=== PATIENT | male | born 1945 | race Caucasian/White ===

== ENCOUNTER 2016-07-24 16:38 | Inpatient (IN) | payer MEDICARE, OTHER ==
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
--- NOTE | 2016-07-24 20:18 | Cat Scan Report ---
FINAL REPORT EXAM: CT HEAD/BRAIN WO CON HISTORY: Altered Mental Status TECHNIQUE: CT imaging is acquired through the brain without contrast. Transaxial reformations are provided. PRIORS: 02/10/2016 FINDINGS: Ventricles and CSF spaces are mildly proportionately enlarged, consistent with parenchymal atrophy. Scattered deep and subcortical white matter hypodense foci are confluent in some areas and are compatible with microvascular angiopathy. No acute intracranial hemorrhage or mass effect. Calvarium and superficial scalp are intact. Partially visualized paranasal sinuses are clear. Mastoids are clear. IMPRESSION: No acute intracranial abnormality. Consider MRI follow-up. There are chronic sequela of atrophy and microvascular angiopathy.
[2016-07-24 20:50] LABS: Alanine Aminotransferase 32 units/L (7-56); Albumin 3.7 g/dL (3.9-5); Albumin/Globulin Ratio 1.2 %; Alkaline Phosphatase 74 units/L (35-129); Anion Gap 21 mmol/L; BUN/Creatinine Ratio 12.85; Bilirubin,Total 1.7 mg/dL (0.1-1.2); Blood Urea Nitrogen 9 mg/dL (9-20); Calcium 8.7 mg/dL (8.4-10.2); Carbon Dioxide 23 mmol/L (22-30); Chloride 100.1 mmol/L (98-107); Glucose 159 mg/dL (75-100); Hematocrit 42.6 % (35.5-45.6); Hemoglobin 14.5 gm/dl (11.8-15.2); Mean Corpuscular HGB Conc 34 % (32-34); Mean Corpuscular Hemoglobin 32 pg (28-32); Mean Corpuscular Volume 94 fl (84-94); Potassium 3.5 mmol/L (3.6-5.0); Red Blood Count 4.53 M/mm3 (3.65-5.03); Red Cell Distribution Width 16.1 % (13.2-15.2); Sodium 141 mmol/L (137-145); Total Protein 6.9 g/dL (6.3-8.2)
[2016-07-24 20:51] LABS: Creatine Kinase 340 units/L (55-170)
[2016-07-24] MEDS ORDERED: ZOFRAN ONE (20:55)
[2016-07-24 20:58] LABS: INR 1.14 (0.87-1.13)
[2016-07-24 20:59] LABS: Partial Thromboplastin Time 27.1 Sec. (24.2-36.6)
[2016-07-24 21:00] LABS: Platelet Count 98 K/mm3 (140-440); White Blood Count 26.2 K/mm3 (4.5-11.0)
[2016-07-24] MEDS ORDERED: CEPHULAC PO ONE (21:00)
[2016-07-24 22:15] LABS: Urine Drugs of Abuse Note Disclamer
[2016-07-24 22:30] LABS: Basophils % (Manual) 0 % (0.0-1.8); Blastocytes % (Manual) 0 %; Eosinophils % (Manual) 0 % (0.0-4.3)
[2016-07-24 22:32] LABS: Total Cells Counted Percent 5.5
[2016-07-24 22:33] LABS: Anisocytosis 1+; Diff Status Complete; Platelet Estimate Appears Decreased; Stomatocytes 1+
[2016-07-24 22:52] LABS: Bilirubin,Urine NEG (Negative); Blood,Urine NEG (Negative); Ketones,Urine TR mg/dL (Negative); Leukocyte Esterase,Urine NEG (Negative); Nitrite,Urine NEG (Negative); Urobilinogen,Urine < 2.0 mg/dL (<2.0); WBC,Urine < 1.0 /HPF (0.0-6.0)
--- NOTE | 2016-07-24 23:02 | Ultrasound Report ---
FINAL REPORT EXAM: US ABDOMEN LIMITED HISTORY: eleavted bilirubin, AMS COMPARISONS: None FINDINGS: Grayscale and color Doppler ultrasound evaluation of the abdomen Normal hepatic contour. Hepatic parenchymal echogenicity is diffusely increased. No parenchymal lesion identified. No definite intra or extrahepatic biliary ductal dilatation. The common duct measures approximately 7 millimeters in caliber, which is within normal limits for patient age. The gallbladder is not definitively seen. Imaged portion of the pancreatic head is sonographically unremarkable. The remainder of the pancreas is not well seen secondary to overlying bowel gas. No abdominal ascites or free fluid in Morison's pouch. The right kidney measures up to 12 cm in length and is without hydronephrosis or echogenic shadowing foci to suggest nephrolithiasis. The imaged portion of the aorta is unremarkable measuring up to 2.1 cm in greatest transaxial dimension. IMPRESSION: Gallbladder is not definitively seen. Given history, CT (with intravenous contrast if possible) is suggested. Hepatic steatosis.
[2016-07-24] MEDS ORDERED: ZOFRAN IV ONE (23:03)
--- NOTE | 2016-07-25 01:28 | Cat Scan Report ---
FINAL REPORT PROCEDURE: CT ABDOMEN PELVIS W CON TECHNIQUE: Computerized axial tomography of the abdomen and pelvis was performed after the IV injection of iodinated nonionic contrast. HISTORY: Abd pain COMPARISON: Ultrasound gallbladder of the same date FINDINGS: Visualized lower thorax: No significant abnormality. Liver: Normal size and attenuation. Spleen: The spleen size is slightly pronounced. Along the anterior aspect of the spleen there is the contrast-enhancing density measuring 4 x 3.7 centimeters. This has peripheral contrast enhancement and a hemangioma in this region is suspected.. Gallbladder and biliary system: The gallbladder is absent. Surgical clips are identified in the gallbladder fossa. No dilatation of the biliary ductal system. Pancreas: Normal. Adrenals: Normal. Kidneys: Normal. GI tract: No obstruction. No ileus or enteritis. The cecum, appendix and colon are normal. Lymph nodes and mesentery: There are some lymph nodes scattered throughout the abdomen and pelvis.. Vasculature: Moderate atherosclerosis of the aorta and branching vessels. Bladder: Normal. Reproductive organs: Normal. Peritoneum: No free fluid. Musculoskeletal structures: Mild degenerative changes of the osseous structures.. Other: None. IMPRESSION: There is no evidence of intestinal or urinary tract obstruction. No ileus or enteritis. The appendix is normal. There has been previous cholecystectomy. No dilatation of the biliary ductal system. There is a suspected hemangioma in the anterior aspect of the spleen this measures up to 4 centimeters. The spleen is slightly enlarged.
--- NOTE | 2016-07-25 03:12 | Admit Criteria Form ---
Admission Criteria Documentation: MENTAL STATUS CHANGE Clinical Indications for Inpatient Care (Place 'X' for any and all applicable criteria): Ongoing inpatient care may be needed for ANY ONE of the following(1)(2)(3)(5)(6) : [ ]I. Suspected serious etiology (eg, medical disorder, [employer] GLASS INST[employer]ER event) of mental status change [ ]II. Danger to self or others not manageable at lower level of care [ ]III. Grave disability (eg, inability to perform self care necessary at lower level of care) [ ]IV. Agitation or inappropriate behavior interfering with care for primary condition (eg, attempting to discontinue lines or drains prematurely, unable to cooperate with respiratory care) [ ]V. Delirium [A] [D][E] as described by ANY ONE of the following(26): [ ]a) Delirium due to alcohol or sedative [F] withdrawal [ ]b) Delirium of uncertain etiology that has not responded to appropriate empiric treatment [ ]c) Delirium that prevents performance of a life-sustaining function (eg, feeding or hydrating oneself) [X ]. General contraindications and/or Inappropriate clinical situations for Observational Care in patients with Mental Status Change, when ANY ONE of the following is required: [ X]a) Prediction of prolongation of LOS based on ANY ONE of the following may be considered as a contraindication for observational care 2, 3, 4, 5, 6, 7, 8, 9, 10, 11 [X ]i) Age > 65 yrs. [ ]ii) Patient arriving by ambulance [ ]iii) Patient with high acuity [ ]iv) Patient requiring vital sign monitoring [ ]v) Patient on IV medication [ ]b) Systolic blood pressures 180mmHg 3,12 [ X]c) Patient with altered mental status including delirium and other alteration of consciousness, (3) [ ]d) Patient whose discharge disposition will be to a [facility] home or rehabilitation home should not be managed in Emergency Department Observation Unit. CMS rule requires 3 days hospital stay before such placement.3,13 [ ]e) Patient with failure to thrive due to broad array of etiologies 3,16,17 [ ]f) Inability to ambulate 3,14 Extended stay beyond goal length of stay for the primary condition may be needed until ALL of the following are present(3)(5): [ ]a) Underlying medical etiology of mental status change is absent, or has been established and adequately treated [ ]b) Danger to self or others is absent or manageable at lower level of care. [ ]c) Behavior crisis management, including physical or chemical restraints, is not required or available at lower level of car [ ]d) Substance or alcohol withdrawal is absent or manageable at lower level of care. [ ]e) Behavioral symptoms (eg, agitation, somnolence, inappropriate behavior) are absent, or are manageable at lower level of care. The original [facility] content created by [facility] has been revised. The portions of the content which have been revised are identified through the use of italic text or in bold, and [facility] has neither reviewed nor approved the modified material. All other unmodified content is copyright [facility]. Please see references footnoted in the original [facility] edition 2016 Admission Criteria Met: Yes
[2016-07-25] MEDS: CEPHULAC PO SCH ×4 (03:18→18:11)
[2016-07-25] MEDS ORDERED: KEPPRA 1,000 MG/NS 0.75% 100ML 1,000 MG/100 ML BAG IV ONE ×2 (04:00→05:30)
[2016-07-25] MEDS ORDERED: HEPARIN SUB-Q SCH (06:00)
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
[2016-07-25] MEDS: LEVAQUIN 750MG/150ML 750 MG/150 ML BAG IV SCH (09:56)
[2016-07-25] MEDS: HEPARIN SUB-Q SCH ×2 (09:56→18:12)
[2016-07-25 10:00] LABS: Basophils % (Auto) 0.2 % (0.0-1.8); Hematocrit 40.4 % (35.5-45.6); Hemoglobin 13.7 gm/dl (11.8-15.2); Mean Corpuscular HGB Conc 34 % (32-34); Mean Corpuscular Hemoglobin 32 pg (28-32); Mean Corpuscular Volume 95 fl (84-94); Red Blood Count 4.23 M/mm3 (3.65-5.03); Red Cell Distribution Width 15.7 % (13.2-15.2); White Blood Count 14.7 K/mm3 (4.5-11.0)
[2016-07-25 10:03] LABS: Platelet Count 78 K/mm3 (140-440)
[2016-07-25 10:09] LABS: Anion Gap 15 mmol/L; BUN/Creatinine Ratio 12.85; Blood Urea Nitrogen 9 mg/dL (9-20); Calcium 8.6 mg/dL (8.4-10.2); Carbon Dioxide 26 mmol/L (22-30); Chloride 105.1 mmol/L (98-107); Glucose 109 mg/dL (75-100); Potassium 3.7 mmol/L (3.6-5.0); Sodium 142 mmol/L (137-145)
[2016-07-25 10:10] LABS: Albumin 3.9 g/dL (3.9-5); Albumin/Globulin Ratio 1.7 %; Bilirubin,Direct 0.4 mg/dL (0-0.2); Bilirubin,Indirect 1.1 mg/dL; Bilirubin,Total 1.5 mg/dL (0.1-1.2); Total Protein 6.2 g/dL (6.3-8.2)
--- NOTE | 2016-07-25 10:24 | XRay Report ---
Left hand 3 views: History: Left hand pain. Findings: Severe arthritic changes are noted of the first carpometacarpal and second carpometacarpal joint. Mild arthritic changes are noted at the first metacarpophalangeal joint. The distal phalanges of second third fourth and fifth fingers are faintly visualized and grossly appear unremarkable. No periosteal reaction or lytic lesion or soft tissue calcification or fracture. Impression: Findings as detailed above.
--- NOTE | 2016-07-25 10:25 | XRay Report ---
Single view chest: History: Mental status. Findings: Normal cardiomediastinal silhouette. Trachea is midline. No consolidation, pneumothorax or pleural effusion. Impression: No acute cardiopulmonary findings.
[2016-07-25] MEDS ORDERED: FLUARIX QUAD 2016-2017(36 MOS+) IM ONE (13:27)
[2016-07-25] MEDS ORDERED: PNEUMOVAX 23 IM ONE (13:27)
--- NOTE | 2016-07-25 13:41 | Magnetic Resonance Report ---
MRI scan of brain: History: AMS. Technique: Multiplanar, multisequence images were obtained without contrast injection. Findings: No evidence of restricted diffusion. Ventricles are normal in size and midline in location. No evidence of acute ischemia, hemorrhage or mass. No extra-axial fluid collection. Normal brainstem and cerebellum. Periventricular and subcortical areas of hyperintensity on flair without corresponding restricted diffusion. Normal sinuses with evidence of acute left mastoiditis. Impression: No acute intracranial abnormality. Small vessel ischemic changes. Suspected acute left mastoiditis.
--- NOTE | 2016-07-25 15:39 | Event Note ---
Date: 07/25/16 Patient seen and examined clinically improved. Awaiting further studies. Lactic acidosis is resolved leukocytosis improving. Will start patient on clear liquid diet, advance as tolerated. Monitor liver enzymes.
[2016-07-25] MEDS: KEPPRA 1,000 MG in NACL 0.9% 100 ML IV SCH (16:54)
[2016-07-25] MEDS ORDERED: FLUSH HEPARIN IV ONE (17:47)
--- NOTE | 2016-07-25 19:17 | Consultation ---
REFERRING PHYSICIAN: Maycol Benavides MD INDICATION: 1. Liver disease. 2. Change in mental status. HISTORY OF PRESENT ILLNESS: The patient is a 70-year-old white male presented to the Emergency Room [facility] and being found unresponsive. The patient with reported history of alcohol abuse as well as cirrhosis and seizures in the past. Patient's history is per chart. The patient again was found unresponsive and when brought to the Emergency Room was more responsive. REVIEW OF SYSTEMS: The patient is unable to give full review of systems as to what happened, but does notice a skin tear on his hand. He reports no nausea or vomiting. He reports no diarrhea, constipation or rectal bleeding. SOCIAL HISTORY: Denies any recent alcohol use. Denies any other specific complaints. PAST MEDICAL HISTORY: 1. Reported seizure disorder. 2. Cirrhosis. MEDICATIONS: See chart. ALLERGIES: PENICILLIN. PAST SURGICAL HISTORY: Positive alcohol, positive smoker. FAMILY HISTORY: Negative for colon cancer. REVIEW OF SYSTEMS: GENERAL: He reports mild weakness. HEENT: No visual complaints or tinnitus. PULMONARY: Shortness of breath, chest pain. GI: Reports no rectal bleeding. All points of 13-point review of systems otherwise negative. PHYSICAL EXAMINATION: VITAL SIGNS: Temperature of 99.7, pulse 70, respirations 20, blood pressure 118/68. GENERAL: Fairly thin white male, in no acute distress, alert and oriented x2, to person and time. HEENT: Pupils equal, round, and reactive to light and accommodation. Extraocular movements intact. PULMONARY: Clear to auscultation bilaterally. CARDIOVASCULAR: Regular rhythm. Normal S1, S2. ABDOMEN: Positive bowel sounds, soft. SKIN: No obvious rashes. LABORATORY DATA: Pertinent for white count of 14.7, hemoglobin and hematocrit of 13.7 and 40.4, platelet count of 78,000. Chem-7 within normal limits. LFTs: AST, ALT of 57 and 27, total bilirubin of 1.5, alkaline phosphatase of 69. UA negative. CT of the abdomen showed no significant pathology. Ultrasound benign. ASSESSMENT AND PLAN: A 70-year-old male with history of reported alcohol abuse in the past and history of reported cirrhosis, now presents after being found unresponsive. The patient also should be noted that had an increased ammonia level on admission of 73. The patient may have high encephalopathy, though would rule out other enteric pathology. Management as noted below. PLAN: 1. Follow labs including ammonia level. 2. Await MRI/MRA of the head. 3. Avoid potentially liver toxic drug as well as medicines that may change mental status. 4. Agree with lactulose as ordered. 5. Okay to start p.o. 6. It is unclear as to whether or not the patient had been drinking recently, but given the fact that he is in our facility less likely so. We will start CIWA protocol if necessary. 7. No other invasive intervention from a GI standpoint. 8. Plan at this time, we will follow. JOB# [id number] [facility]/SHIR[facility] OLIVA
[2016-07-26] MEDS: HEPARIN SUB-Q SCH ×2 (00:35→09:56)
[2016-07-26] MEDS: CEPHULAC PO SCH ×3 (00:35→13:18)
[2016-07-26] MEDS: KEPPRA 1,000 MG in NACL 0.9% 100 ML IV SCH ×2 (03:02→15:48)
[2016-07-26 05:49] LABS: Hematocrit 38.8 % (35.5-45.6); Hemoglobin 13.3 gm/dl (11.8-15.2); Mean Corpuscular HGB Conc 34 % (32-34); Mean Corpuscular Hemoglobin 33 pg (28-32); Mean Corpuscular Volume 95 fl (84-94); Red Blood Count 4.08 M/mm3 (3.65-5.03); Red Cell Distribution Width 15.6 % (13.2-15.2); White Blood Count 8.8 K/mm3 (4.5-11.0)
[2016-07-26 05:57] LABS: Platelet Count 66 K/mm3 (140-440)
[2016-07-26 06:11] LABS: Alanine Aminotransferase 29 units/L (7-56); Albumin 3.3 g/dL (3.9-5); Albumin/Globulin Ratio 1.1 %; Alkaline Phosphatase 63 units/L (35-129); Anion Gap 17 mmol/L; BUN/Creatinine Ratio 11.66; Bilirubin,Total 1.8 mg/dL (0.1-1.2); Blood Urea Nitrogen 7 mg/dL (9-20); Calcium 8.2 mg/dL (8.4-10.2); Carbon Dioxide 24 mmol/L (22-30); Chloride 101.6 mmol/L (98-107); Glucose 101 mg/dL (75-100); Potassium 3.5 mmol/L (3.6-5.0); Sodium 139 mmol/L (137-145); Total Protein 6.2 g/dL (6.3-8.2)
[2016-07-26] MEDS: NACL 0.9% 1000 ML 1,000 ML IV SCH (09:57)
[2016-07-26] MEDS: LEVAQUIN 750MG/150ML 750 MG/150 ML BAG IV SCH (09:57)
--- NOTE | 2016-07-26 12:20 | Gastroenterology Progress Note ---
Assessment and Plan GI: resolving encephalopathy on Lactulose - advance diet as tolerated - continue Lactulose as outpt - no plans further intervention from GI standpoint at this time - ok to d/c in am, call if needed Subjective Date of service: 07/26/16 Interval history: pt more alert today. No specific GI complaints Objective - Constitutional Vitals: Temp Pulse Resp BP Pulse Ox 98.8 F 81 20 149/73 97 07/26/16 08:00 07/26/16 08:00 07/26/16 08:00 07/26/16 08:00 07/26/16 08:00 General appearance: no acute distress - Respiratory Respiratory: bilateral: CTA - Cardiovascular Rhythm: regular Heart Sounds: Present: S1 & S2 - Gastrointestinal General gastrointestinal: Present: soft, non-tender, non-distended - Labs CBC & Chem 7: 07/26/16 04:26 07/26/16 04:26 Labs: Laboratory Results - last 24 hr 07/26/16 07/26/16 04:26 04:26 WBC 8.8 RBC 4.08 Hgb 13.3 Hct 38.8 MCV 95 H MCH 33 H MCHC 34 RDW 15.6 H Plt Count 66 L Sodium 139 Potassium 3.5 L Chloride 101.6 Carbon Dioxide 24 Anion Gap 17 BUN 7 L Creatinine 0.6 L Estimated GFR > 60 BUN/Creatinine Ratio 11.66 Glucose 101 H Calcium 8.2 L Total Bilirubin 1.8 H AST 98 H ALT 29 Alkaline Phosphatase 63 Total Protein 6.2 L Albumin 3.3 L Albumin/Globulin Ratio 1.1
--- NOTE | 2016-07-26 17:17 | Progress Note ---
Assessment and Plan Assessment and plan: This is a 70-year-old male who presents to the emergency department by EMS from his personal [place] [facility] where the patient was found down unresponsive. The patient has a history of alcohol abuse, cirrhosis and seizures. The patient is awake but not very responsive and couldn't get any history so most of the history is obtained from chart review. The patient vomited one time in route with EMS. He presents with some bruising as well as a large skin tear to the dorsum of the left hand. He was in the ED previously for seizure disorder. * Acute Metabolic encephalopathy * Seizure disorder * Chronic Liver disease * Dysphagia * Thrombocytopenia * Leukocytosis * Spleenomegaly * Diarrhea * Lactic acidosis * Hyperammonemia PLAN: * Will hold Lactulose due to diarrhea * Continue IV antibiotics * MRI reviewed, mastoditis noted * No evidence of CIWA * Hold lovenox * SCD * DVT/GI prophylaxis History Interval history: Patient is not examined today nonacute distress appears much more improved compared to yesterday. Nursing staff reports continuous diarrhea. No fever shortness of breath noted. Hospitalist Physical - Physical exam Narrative exam: VITAL SIGNS: Reviewed. GENERAL: The patient appeared well ill appearing and disheveled. Vital signs as documented. HEAD: No signs of head trauma. EYES: Pupils are equal. Extraocular motions intact. EARS: Hearing grossly intact. MOUTH: Oropharynx is normal. NECK: No adenopathy, no JVD. CHEST: Chest with clear breath sounds bilaterally. No wheezes, rales, or rhonchi. CARDIAC: Regular rate and rhythm. S1 and S2, without murmurs, gallops, or rubs. VASCULAR: No Edema. Peripheral pulses normal and equal in all extremities. ABDOMEN: Soft, without detectable tenderness. No sign of distention. No rebound or guarding, and no masses palpated. Bowel Sounds normal. MUSCULOSKELETAL: Good range of motion of all major joints. Extremities without clubbing, cyanosis or edema. NEUROLOGIC EXAM: Alert and oriented x 2. No focal sensory or strength deficits. Speech normal. Follows commands. PSYCHIATRIC: Mood normal. SKIN: Notable ecchymotic lesions on the large skin tear left dorsum of the hand , multiple bruises - Constitutional Vitals: Temp Pulse Resp BP Pulse Ox 98.8 F 81 20 149/73 97 07/26/16 08:00 07/26/16 08:00 07/26/16 08:00 07/26/16 08:00 07/26/16 08:00 Results - Labs CBC & Chem 7: 07/26/16 04:26 07/26/16 04:26 Labs: Laboratory Last Values WBC 8.8 K/mm3 (4.5-11.0) 07/26/16 04:26 RBC 4.08 M/mm3 (3.65-5.03) 07/26/16 04:26 Hgb 13.3 gm/dl (11.8-15.2) 07/26/16 04:26 Hct 38.8 % (35.5-45.6) 07/26/16 04:26 MCV 95 fl (84-94) H 07/26/16 04:26 MCH 33 pg (28-32) H 07/26/16 04:26 MCHC 34 % (32-34) 07/26/16 04:26 RDW 15.6 % (13.2-15.2) H 07/26/16 04:26 Plt Count 66 K/mm3 (140-440) L 07/26/16 04:26 Lymph % (Auto) 8.1 % (13.4-35.0) L 07/25/16 09:37 [place] % (Auto) 8.0 % (0.0-7.3) H 07/25/16 09:37 Eos % (Auto) 0.0 % (0.0-4.3) 07/25/16 09:37 Baso % (Auto) 0.2 % (0.0-1.8) 07/25/16 09:37 Lymph # 1.2 K/mm3 (1.2-5.4) 07/25/16 09:37 [place] # 1.2 K/mm3 (0.0-0.8) H 07/25/16 09:37 Eos # 0.0 K/mm3 (0.0-0.4) 07/25/16 09:37 Baso # 0.0 K/mm3 (0.0-0.1) 07/25/16 09:37 Add Manual Diff Complete 07/24/16 20:05 Total Counted 200 07/24/16 20:05 Seg Neutrophils % 83.7 % (40.0-70.0) H 07/25/16 09:37 Seg Neuts % (Manual) 62.0 % (40.0-70.0) 07/24/16 20:05 Band Neutrophils % 29.0 % 07/24/16 20:05 Lymphocytes % (Manual) 3.5 % (13.4-35.0) L 07/24/16 20:05 Reactive Lymphs % (Man) 0 % 07/24/16 20:05 Monocytes % (Manual) 5.5 % (0.0-7.3) 07/24/16 20:05 Eosinophils % (Manual) 0 % (0.0-4.3) 07/24/16 20:05 Basophils % (Manual) 0 % (0.0-1.8) 07/24/16 20:05 Metamyelocytes % 0 % 07/24/16 20:05 Myelocytes % 0 % 07/24/16 20:05 Promyelocytes % 0 % 07/24/16 20:05 Blast Cells % 0 % 07/24/16 20:05 Nucleated RBC % Not Reportable 07/24/16 20:05 Seg Neutrophils # 12.3 K/mm3 (1.8-7.7) H 07/25/16 09:37 Seg Neutrophils # Man 16.2 K/mm3 (1.8-7.7) H 07/24/16 20:05 Band Neutrophils # 7.6 K/mm3 07/24/16 20:05 Lymphocytes # (Manual) 0.9 K/mm3 (1.2-5.4) L 07/24/16 20:05 Abs React Lymphs (Man) 0.0 K/mm3 07/24/16 20:05 Monocytes # (Manual) 1.4 K/mm3 (0.0-0.8) H 07/24/16 20:05 Eosinophils # (Manual) 0.0 K/mm3 (0.0-0.4) 07/24/16 20:05 Basophils # (Manual) 0.0 K/mm3 (0.0-0.1) 07/24/16 20:05 Metamyelocytes # 0.0 K/mm3 07/24/16 20:05 Myelocytes # 0.0 K/mm3 07/24/16 20:05 Promyelocytes # 0.0 K/mm3 07/24/16 20:05 Blast Cells # 0.0 K/mm3 07/24/16 20:05 WBC Morphology Not Reportable 07/24/16 20:05 Hypersegmented Neuts Not Reportable 07/24/16 20:05 Hyposegmented Neuts Not Reportable 07/24/16 20:05 Hypogranular Neuts Not Reportable 07/24/16 20:05 Smudge Cells Not Reportable 07/24/16 20:05 Toxic Granulation Not Reportable 07/24/16 20:05 Toxic Vacuolation Not Reportable 07/24/16 20:05 Dohle Bodies Not Reportable 07/24/16 20:05 Pelger-Huet Anomaly Not Reportable 07/24/16 20:05 Jason Rods Not Reportable 07/24/16 20:05 Platelet Estimate Appears decreased 07/24/16 20:05 Clumped Platelets Not Reportable 07/24/16 20:05 Plt Clumps, EDTA Not Reportable 07/24/16 20:05 Large Platelets Not Reportable 07/24/16 20:05 Giant Platelets Not Reportable 07/24/16 20:05 Platelet Satelliting Not Reportable 07/24/16 20:05 Plt Morphology Comment Not Reportable 07/24/16 20:05 RBC Morphology Not Reportable 07/24/16 20:05 Dimorphic RBCs Not Reportable 07/24/16 20:05 Polychromasia Not Reportable 07/24/16 20:05 Hypochromasia Not Reportable 07/24/16 20:05 Poikilocytosis Not Reportable 07/24/16 20:05 Anisocytosis 1+ 07/24/16 20:05 Microcytosis Not Reportable 07/24/16 20:05 Macrocytosis Not Reportable 07/24/16 20:05 Spherocytes Not Reportable 07/24/16 20:05 Pappenheimer Bodies Not Reportable 07/24/16 20:05 Sickle Cells Not Reportable 07/24/16 20:05 Target Cells Not Reportable 07/24/16 20:05 Tear Drop Cells Not Reportable 07/24/16 20:05 Ovalocytes Not Reportable 07/24/16 20:05 Stomatocytes 1+ 07/24/16 20:05 Helmet Cells Not Reportable 07/24/16 20:05 Alba-Calvert Bodies Not Reportable 07/24/16 20:05 [place] Rings Not Reportable 07/24/16 20:05 Dana Cells Not Reportable 07/24/16 20:05 Bite Cells Not Reportable 07/24/16 20:05 Crenated Cell Not Reportable 07/24/16 20:05 Elliptocytes Not Reportable 07/24/16 20:05 Acanthocytes (Spur) Not Reportable 07/24/16 20:05 Rouleaux Not Reportable 07/24/16 20:05 Hemoglobin C Crystals Not Reportable 07/24/16 20:05 Schistocytes Not Reportable 07/24/16 20:05 Malaria parasites Not Reportable 07/24/16 20:05 Jorgito Bodies Not Reportable 07/24/16 20:05 Hem Pathologist Commnt No 07/24/16 20:05 PT 14.5 Sec. (12.2-14.9) 07/24/16 20:05 INR 1.14 (0.87-1.13) H 07/24/16 20:05 APTT 27.1 Sec. (24.2-36.6) 07/24/16 20:05 Sodium 139 mmol/L (137-145) 07/26/16 04:26 Potassium 3.5 mmol/L (3.6-5.0) L 07/26/16 04:26 Chloride 101.6 mmol/L (98-107) 07/26/16 04:26 Carbon Dioxide 24 mmol/L (22-30) 07/26/16 04:26 Anion Gap 17 mmol/L 07/26/16 04:26 BUN 7 mg/dL (9-20) L 07/26/16 04:26 Creatinine 0.6 mg/dL (0.8-1.5) L 07/26/16 04:26 Estimated GFR > 60 ml/min 07/26/16 04:26 BUN/Creatinine Ratio 11.66 % 07/26/16 04:26 Glucose 101 mg/dL (75-100) H 07/26/16 04:26 POC Glucose 158 (70-105) H 07/24/16 18:55 Lactic Acid 1.4 mmol/L (0.7-2.0) 07/25/16 09:37 Calcium 8.2 mg/dL (8.4-10.2) L 07/26/16 04:26 Total Bilirubin 1.8 mg/dL (0.1-1.2) H 07/26/16 04:26 Direct Bilirubin 0.4 mg/dL (0-0.2) H 07/25/16 09:37 Indirect Bilirubin 1.1 mg/dL 07/25/16 09:37 AST 98 units/L (5-40) H 07/26/16 04:26 ALT 29 units/L (7-56) 07/26/16 04:26 Alkaline Phosphatase 63 units/L (35-129) 07/26/16 04:26 Ammonia 60.0 umol/L (25-60) 07/25/16 09:37 Total Creatine Kinase 340 units/L (55-170) H 07/24/16 20:05 Troponin T < 0.010 ng/mL (0.00-0.029) 07/24/16 20:05 Total Protein 6.2 g/dL (6.3-8.2) L 07/26/16 04:26 Albumin 3.3 g/dL (3.9-5) L 07/26/16 04:26 Albumin/Globulin Ratio 1.1 % 07/26/16 04:26 TSH 1.900 mlU/mL (0.270-4.200) 07/24/16 20:05 Urine Color Yellow (Yellow) 07/24/16 21:48 Urine Turbidity Turbid (Clear) 07/24/16 21:48 Urine pH 5.0 (5.0-7.0) 07/24/16 21:48 Ur Specific [place] 1.017 (1.003-1.030) 07/24/16 21:48 Urine Protein 30 mg/dl mg/dL (Negative) 07/24/16 21:48 Urine Glucose (UA) Neg mg/dL (Negative) 07/24/16 21:48 Urine Ketones Tr mg/dL (Negative) 07/24/16 21:48 Urine Blood Neg (Negative) 07/24/16 21:48 Urine Nitrite Neg (Negative) 07/24/16 21:48 Urine Bilirubin Neg (Negative) 07/24/16 21:48 Urine Urobilinogen < 2.0 mg/dL (<2.0) 07/24/16 21:48 Ur Leukocyte Esterase Neg (Negative) 07/24/16 21:48 Urine WBC (Auto) < 1.0 /HPF (0.0-6.0) 07/24/16 21:48 Urine RBC (Auto) 5.0 /HPF (0.0-6.0) 07/24/16 21:48 U Epithel Cells (Auto) < 1.0 /HPF (0-13.0) 07/24/16 21:48 Salicylates < 0.3 mg/dL (2.8-20.0) L 07/24/16 20:05 Urine Opiates Screen Presumptive negative 07/24/16 21:48 Urine Methadone Screen Presumptive negative 07/24/16 21:48 Acetaminophen < 15.0 ug/mL (10.0-30.0) 07/24/16 20:05 Ur Barbiturates Screen Presumptive negative 07/24/16 21:48 Ur Phencyclidine Scrn Presumptive negative 07/24/16 21:48 Ur Amphetamines Screen Presumptive negative 07/24/16 21:48 U Benzodiazepines Scrn Presumptive negative 07/24/16 21:48 Urine Cocaine Screen Presumptive negative 07/24/16 21:48 U Marijuana (THC) Screen Presumptive negative 07/24/16 21:48 Drugs of Abuse Note Disclamer 07/24/16 21:48 Plasma/Serum Alcohol < 0.01 gm% (0-0.07) 07/24/16 20:05
[2016-07-27] MEDS: KEPPRA 1,000 MG in NACL 0.9% 100 ML IV SCH (02:49)
[2016-07-27 05:39] LABS: Hematocrit 39.1 % (35.5-45.6); Hemoglobin 13.7 gm/dl (11.8-15.2); Mean Corpuscular HGB Conc 35 % (32-34); Mean Corpuscular Hemoglobin 33 pg (28-32); Mean Corpuscular Volume 94 fl (84-94); Red Blood Count 4.17 M/mm3 (3.65-5.03); Red Cell Distribution Width 15.6 % (13.2-15.2); White Blood Count 8.9 K/mm3 (4.5-11.0)
[2016-07-27 06:02] LABS: Platelet Count 82 K/mm3 (140-440)
[2016-07-27 06:09] LABS: Alanine Aminotransferase 49 units/L (7-56); Albumin 3.8 g/dL (3.9-5); Albumin/Globulin Ratio 1.2 %; Alkaline Phosphatase 70 units/L (35-129); Anion Gap 20 mmol/L; Bilirubin,Total 1.9 mg/dL (0.1-1.2); Blood Urea Nitrogen 6 mg/dL (9-20); Calcium 8.8 mg/dL (8.4-10.2); Carbon Dioxide 22 mmol/L (22-30); Glucose 95 mg/dL (75-100); Potassium 3.9 mmol/L (3.6-5.0); Sodium 136 mmol/L (137-145)
--- NOTE | 2016-07-27 09:32 | Fluoroscopy Report ---
MODIFIED BARIUM SWALLOW History: Difficulty swallowing. Findings: Fluoroscopy was provided by the radiologist for speech therapy to assess the swallowing mechanism. Please refer to the formal report by speech therapy. Impression: Successful modified barium swallow.
[2016-07-27] MEDS: NACL 0.9% 1000 ML 1,000 ML IV SCH (11:01)
[2016-07-27] MEDS: KEPPRA PO SCH ×2 (14:17→20:20)
--- NOTE | 2016-07-27 17:22 | Progress Note ---
Assessment and Plan Assessment and plan: This is a 70-year-old male who presents to the emergency department by EMS from his personal half-way where the patient was found down unresponsive. The patient has a history of alcohol abuse, cirrhosis and seizures. The patient is awake but not very responsive and couldn't get any history so most of the history is obtained from chart review. The patient vomited one time in route with EMS. He presents with some bruising as well as a large skin tear to the dorsum of the left hand. He was in the ED previously for seizure disorder. * Acute Metabolic encephalopathy * Seizure disorder * Chronic Liver disease * Dysphagia * Thrombocytopenia * Leukocytosis * Spleenomegaly * Diarrhea * Lactic acidosis * Hyperammonemia PLAN: * The patient status has improved we'll discontinue IV fluids as he has also improved clinically. Nevertheless his AST is still elevated we'll run this again by GI prior to discharge. Anticipate discharge in a.m. if patient continues to improve. * MRI reviewed, mastoditis noted * No evidence of CIWA * Hold lovenox * SCD * DVT/GI prophylaxis History Interval history: Patient is seen and examined today doing well tolerating food much more awake ambulate in. Although he states that he is too weak to go home today. Hospitalist Physical - Physical exam Narrative exam: VITAL SIGNS: Reviewed. GENERAL: The patient appeared well ill appearing Vital signs as documented. HEAD: No signs of head trauma. EYES: Pupils are equal. Extraocular motions intact. EARS: Hearing grossly intact. MOUTH: Oropharynx is normal. NECK: No adenopathy, no JVD. CHEST: Chest with clear breath sounds bilaterally. No wheezes, rales, or rhonchi. CARDIAC: Regular rate and rhythm. S1 and S2, without murmurs, gallops, or rubs. VASCULAR: No Edema. Peripheral pulses normal and equal in all extremities. ABDOMEN: Soft, without detectable tenderness. No sign of distention. No rebound or guarding, and no masses palpated. Bowel Sounds normal. MUSCULOSKELETAL: Good range of motion of all major joints. Extremities without clubbing, cyanosis or edema. NEUROLOGIC EXAM: Alert and oriented x 2. No focal sensory or strength deficits. Speech normal. Follows commands. PSYCHIATRIC: Mood normal. SKIN: Notable ecchymotic lesions on the large skin tear left dorsum of the hand , multiple bruises - Constitutional Vitals: Temp Pulse Resp BP Pulse Ox 98 F 62 20 139/67 100 07/27/16 11:00 07/27/16 11:00 07/27/16 11:00 07/27/16 11:00 07/27/16 11:00 Results - Labs CBC & Chem 7: 07/27/16 04:59 07/27/16 04:59 Labs: Laboratory Last Values WBC 8.9 K/mm3 (4.5-11.0) 07/27/16 04:59 RBC 4.17 M/mm3 (3.65-5.03) 07/27/16 04:59 Hgb 13.7 gm/dl (11.8-15.2) 07/27/16 04:59 Hct 39.1 % (35.5-45.6) 07/27/16 04:59 MCV 94 fl (84-94) 07/27/16 04:59 MCH 33 pg (28-32) H 07/27/16 04:59 MCHC 35 % (32-34) H 07/27/16 04:59 RDW 15.6 % (13.2-15.2) H 07/27/16 04:59 Plt Count 82 K/mm3 (140-440) L 07/27/16 04:59 Lymph % (Auto) 8.1 % (13.4-35.0) L 07/25/16 09:37 [place] % (Auto) 8.0 % (0.0-7.3) H 07/25/16 09:37 Eos % (Auto) 0.0 % (0.0-4.3) 07/25/16 09:37 Baso % (Auto) 0.2 % (0.0-1.8) 07/25/16 09:37 Lymph # 1.2 K/mm3 (1.2-5.4) 07/25/16 09:37 [place] # 1.2 K/mm3 (0.0-0.8) H 07/25/16 09:37 Eos # 0.0 K/mm3 (0.0-0.4) 07/25/16 09:37 Baso # 0.0 K/mm3 (0.0-0.1) 07/25/16 09:37 Add Manual Diff Complete 07/24/16 20:05 Total Counted 200 07/24/16 20:05 Seg Neutrophils % 83.7 % (40.0-70.0) H 07/25/16 09:37 Seg Neuts % (Manual) 62.0 % (40.0-70.0) 07/24/16 20:05 Band Neutrophils % 29.0 % 07/24/16 20:05 Lymphocytes % (Manual) 3.5 % (13.4-35.0) L 07/24/16 20:05 Reactive Lymphs % (Man) 0 % 07/24/16 20:05 Monocytes % (Manual) 5.5 % (0.0-7.3) 07/24/16 20:05 Eosinophils % (Manual) 0 % (0.0-4.3) 07/24/16 20:05 Basophils % (Manual) 0 % (0.0-1.8) 07/24/16 20:05 Metamyelocytes % 0 % 07/24/16 20:05 Myelocytes % 0 % 07/24/16 20:05 Promyelocytes % 0 % 07/24/16 20:05 Blast Cells % 0 % 07/24/16 20:05 Nucleated RBC % Not Reportable 07/24/16 20:05 Seg Neutrophils # 12.3 K/mm3 (1.8-7.7) H 07/25/16 09:37 Seg Neutrophils # Man 16.2 K/mm3 (1.8-7.7) H 07/24/16 20:05 Band Neutrophils # 7.6 K/mm3 07/24/16 20:05 Lymphocytes # (Manual) 0.9 K/mm3 (1.2-5.4) L 07/24/16 20:05 Abs React Lymphs (Man) 0.0 K/mm3 07/24/16 20:05 Monocytes # (Manual) 1.4 K/mm3 (0.0-0.8) H 07/24/16 20:05 Eosinophils # (Manual) 0.0 K/mm3 (0.0-0.4) 07/24/16 20:05 Basophils # (Manual) 0.0 K/mm3 (0.0-0.1) 07/24/16 20:05 Metamyelocytes # 0.0 K/mm3 07/24/16 20:05 Myelocytes # 0.0 K/mm3 07/24/16 20:05 Promyelocytes # 0.0 K/mm3 07/24/16 20:05 Blast Cells # 0.0 K/mm3 07/24/16 20:05 WBC Morphology Not Reportable 07/24/16 20:05 Hypersegmented Neuts Not Reportable 07/24/16 20:05 Hyposegmented Neuts Not Reportable 07/24/16 20:05 Hypogranular Neuts Not Reportable 07/24/16 20:05 Smudge Cells Not Reportable 07/24/16 20:05 Toxic Granulation Not Reportable 07/24/16 20:05 Toxic Vacuolation Not Reportable 07/24/16 20:05 Dohle Bodies Not Reportable 07/24/16 20:05 Pelger-Huet Anomaly Not Reportable 07/24/16 20:05 Jason Rods Not Reportable 07/24/16 20:05 Platelet Estimate Appears decreased 07/24/16 20:05 Clumped Platelets Not Reportable 07/24/16 20:05 Plt Clumps, EDTA Not Reportable 07/24/16 20:05 Large Platelets Not Reportable 07/24/16 20:05 Giant Platelets Not Reportable 07/24/16 20:05 Platelet Satelliting Not Reportable 07/24/16 20:05 Plt Morphology Comment Not Reportable 07/24/16 20:05 RBC Morphology Not Reportable 07/24/16 20:05 Dimorphic RBCs Not Reportable 07/24/16 20:05 Polychromasia Not Reportable 07/24/16 20:05 Hypochromasia Not Reportable 07/24/16 20:05 Poikilocytosis Not Reportable 07/24/16 20:05 Anisocytosis 1+ 07/24/16 20:05 Microcytosis Not Reportable 07/24/16 20:05 Macrocytosis Not Reportable 07/24/16 20:05 Spherocytes Not Reportable 07/24/16 20:05 Pappenheimer Bodies Not Reportable 07/24/16 20:05 Sickle Cells Not Reportable 07/24/16 20:05 Target Cells Not Reportable 07/24/16 20:05 Tear Drop Cells Not Reportable 07/24/16 20:05 Ovalocytes Not Reportable 07/24/16 20:05 Stomatocytes 1+ 07/24/16 20:05 Helmet Cells Not Reportable 07/24/16 20:05 [place] Bodies Not Reportable 07/24/16 20:05 [place] Rings Not Reportable 07/24/16 20:05 [place] Cells Not Reportable 07/24/16 20:05 Bite Cells Not Reportable 07/24/16 20:05 Crenated Cell Not Reportable 07/24/16 20:05 Elliptocytes Not Reportable 07/24/16 20:05 Acanthocytes (Spur) Not Reportable 07/24/16 20:05 Rouleaux Not Reportable 07/24/16 20:05 Hemoglobin C Crystals Not Reportable 07/24/16 20:05 Schistocytes Not Reportable 07/24/16 20:05 Malaria parasites Not Reportable 07/24/16 20:05 [place] Bodies Not Reportable 07/24/16 20:05 Hem Pathologist Commnt No 07/24/16 20:05 PT 14.5 Sec. (12.2-14.9) 07/24/16 20:05 INR 1.14 (0.87-1.13) H 07/24/16 20:05 APTT 27.1 Sec. (24.2-36.6) 07/24/16 20:05 Sodium 136 mmol/L (137-145) L 07/27/16 04:59 Potassium 3.9 mmol/L (3.6-5.0) 07/27/16 04:59 Chloride 98.0 mmol/L (98-107) 07/27/16 04:59 Carbon Dioxide 22 mmol/L (22-30) 07/27/16 04:59 Anion Gap 20 mmol/L 07/27/16 04:59 BUN 6 mg/dL (9-20) L 07/27/16 04:59 Creatinine 0.5 mg/dL (0.8-1.5) L 07/27/16 04:59 Estimated GFR > 60 ml/min 07/27/16 04:59 BUN/Creatinine Ratio 12.00 % 07/27/16 04:59 Glucose 95 mg/dL (75-100) 07/27/16 04:59 POC Glucose 158 (70-105) H 07/24/16 18:55 Lactic Acid 1.4 mmol/L (0.7-2.0) 07/25/16 09:37 Calcium 8.8 mg/dL (8.4-10.2) 07/27/16 04:59 Total Bilirubin 1.9 mg/dL (0.1-1.2) H 07/27/16 04:59 Direct Bilirubin 0.4 mg/dL (0-0.2) H 07/25/16 09:37 Indirect Bilirubin 1.1 mg/dL 07/25/16 09:37 AST 248 units/L (5-40) H 07/27/16 04:59 ALT 49 units/L (7-56) 07/27/16 04:59 Alkaline Phosphatase 70 units/L (35-129) 07/27/16 04:59 Ammonia 60.0 umol/L (25-60) 07/25/16 09:37 Total Creatine Kinase 340 units/L (55-170) H 07/24/16 20:05 Troponin T < 0.010 ng/mL (0.00-0.029) 07/24/16 20:05 Total Protein 7.0 g/dL (6.3-8.2) 07/27/16 04:59 Albumin 3.8 g/dL (3.9-5) L 07/27/16 04:59 Albumin/Globulin Ratio 1.2 % 07/27/16 04:59 TSH 1.900 mlU/mL (0.270-4.200) 07/24/16 20:05 Urine Color Yellow (Yellow) 07/24/16 21:48 Urine Turbidity Turbid (Clear) 07/24/16 21:48 Urine pH 5.0 (5.0-7.0) 07/24/16 21:48 Ur Specific [place] 1.017 (1.003-1.030) 07/24/16 21:48 Urine Protein 30 mg/dl mg/dL (Negative) 07/24/16 21:48 Urine Glucose (UA) Neg mg/dL (Negative) 07/24/16 21:48 Urine Ketones Tr mg/dL (Negative) 07/24/16 21:48 Urine Blood Neg (Negative) 07/24/16 21:48 Urine Nitrite Neg (Negative) 07/24/16 21:48 Urine Bilirubin Neg (Negative) 07/24/16 21:48 Urine Urobilinogen < 2.0 mg/dL (<2.0) 07/24/16 21:48 Ur Leukocyte Esterase Neg (Negative) 07/24/16 21:48 Urine WBC (Auto) < 1.0 /HPF (0.0-6.0) 07/24/16 21:48 Urine RBC (Auto) 5.0 /HPF (0.0-6.0) 07/24/16 21:48 U Epithel Cells (Auto) < 1.0 /HPF (0-13.0) 07/24/16 21:48 Salicylates < 0.3 mg/dL (2.8-20.0) L 07/24/16 20:05 Urine Opiates Screen Presumptive negative 07/24/16 21:48 Urine Methadone Screen Presumptive negative 07/24/16 21:48 Acetaminophen < 15.0 ug/mL (10.0-30.0) 07/24/16 20:05 Ur Barbiturates Screen Presumptive negative 07/24/16 21:48 Ur Phencyclidine Scrn Presumptive negative 07/24/16 21:48 Ur Amphetamines Screen Presumptive negative 07/24/16 21:48 U Benzodiazepines Scrn Presumptive negative 07/24/16 21:48 Urine Cocaine Screen Presumptive negative 07/24/16 21:48 U Marijuana (THC) Screen Presumptive negative 07/24/16 21:48 Drugs of Abuse Note Disclamer 07/24/16 21:48 Plasma/Serum Alcohol < 0.01 gm% (0-0.07) 07/24/16 20:05
[2016-07-28 06:41] LABS: Alanine Aminotransferase 43 units/L (7-56); Albumin 3.1 g/dL (3.9-5); Albumin/Globulin Ratio 1.2 %; Alkaline Phosphatase 55 units/L (35-129); Anion Gap 16 mmol/L; Bilirubin,Total 1.1 mg/dL (0.1-1.2); Blood Urea Nitrogen 7 mg/dL (9-20); Calcium 8.2 mg/dL (8.4-10.2); Carbon Dioxide 24 mmol/L (22-30); Chloride 107.8 mmol/L (98-107); Glucose 94 mg/dL (75-100); Potassium 3.4 mmol/L (3.6-5.0); Sodium 144 mmol/L (137-145); Total Protein 5.7 g/dL (6.3-8.2)
--- NOTE | 2016-07-28 07:48 | Discharge Summary ---
Providers - Providers Date of Admission: 07/25/16 05:07 Attending physician: LIANG MON Primary care physician: [facility] Hospitalization Condition: Fair Disposition: STILL A PATIENT Exam - Constitutional Vitals: Temp Pulse Resp BP Pulse Ox 97.7 F 61 18 151/71 100 07/27/16 21:00 07/27/16 21:00 07/27/16 21:00 07/27/16 21:00 07/27/16 11:00 Plan Follow up with: FARHAN AUGUSTINE MD [Primary Care Provider] - 3-5 Days Prescriptions: Lactulose [Kristalose] 20 gm PO QDAY #20 packet
[2016-07-28 08:22] VITALS: BP 139/62
[2016-07-28] MEDS: KEPPRA PO SCH (10:03)
== END 2016-07-28 15:40 | disposition home or self-care (01) | DRG 100 ==
LOC: ED 16:38 → CC2 07-25 05:07
PROVIDERS: ADMIT Internal Medicine; ATTEND Internal Medicine
DX: G40.909 Epilepsy, unspecified, not intractable, without status epilepticus (principal); G93.41 Metabolic encephalopathy; E72.20 Disorder of urea cycle metabolism, unspecified; E87.2 Acidosis; F10.10 Alcohol abuse, uncomplicated; R13.10 Dysphagia, unspecified; D69.6 Thrombocytopenia, unspecified; F17.200 Nicotine dependence, unspecified, uncomplicated; F32.9 Major depressive disorder, single episode, unspecified; K76.9 Liver disease, unspecified; R19.7 Diarrhea, unspecified; D72.829 Elevated white blood cell count, unspecified; Z88.0 Allergy status to penicillin
CPT/HCPCS: 36415; 70450; 70551; 71010; 74177; 74230; 76705; 80048; 80053; 80074; 80307; 80320; 81001; 82140; 82550; 82962; 84443; 84484; 85007; 85025; 85027; 85610; 85730; 90686; 90732; 93005; 93010; 96365; 96375; G0480; J1642; J1644; J1953; J1956; J2405; J7030; Q9967

== ENCOUNTER 2017-05-01 15:11 | Emergency (ER) | payer MEDICARE ==
[2017-05-01 16:09] LABS: Hematocrit 42.4 % (35.5-45.6); Hemoglobin 14.5 gm/dl (11.8-15.2); Mean Corpuscular HGB Conc 34 % (32-34); Mean Corpuscular Hemoglobin 33 pg (28-32); Mean Corpuscular Volume 95 fl (84-94); Red Blood Count 4.45 M/mm3 (3.65-5.03)
[2017-05-01 16:15] LABS: Platelet Count 83 K/mm3 (140-440)
[2017-05-01] MEDS ORDERED: KEPPRA 1,000 MG/NS 0.75% 100ML 1,000 MG/100 ML BAG IV ONE (16:21)
[2017-05-01 16:26] LABS: BUN/Creatinine Ratio 13; Blood Urea Nitrogen 9 mg/dL (9-20); Calcium 8.8 mg/dL (8.4-10.2); Hemolysis Index 16
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
[2017-05-01 19:04] VITALS: BP 120/55
== END 2017-05-01 21:17 | disposition home or self-care (01) ==
LOC: ED 15:11
DX: G40.909 Epilepsy, unspecified, not intractable, without status epilepticus (principal); F32.9 Major depressive disorder, single episode, unspecified; Z88.0 Allergy status to penicillin
CPT/HCPCS: 36415; 80048; 82962; 83735; 85027; 96374; 99284; J1953

== ENCOUNTER 2017-05-05 12:11 | Emergency (ER) | payer MEDICARE ==
[2017-05-05] MEDS ORDERED: KEPPRA 1,000 MG/NS 0.75% 100ML 1,000 MG/100 ML BAG IV ONE ×2 (13:25→13:28)
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
[2017-05-05 13:34] VITALS: BP 143/62
[2017-05-05 15:37] LABS: Basophils # (Auto) 0.1 K/mm3 (0.0-0.1); Basophils % (Auto) 0.6 % (0.0-1.8); Eosinophils % (Auto) 0.1 % (0.0-4.3); Hematocrit 39.5 % (35.5-45.6); Hemoglobin 13.4 gm/dl (11.8-15.2); Lymphocytes # (Auto) 0.7 K/mm3 (1.2-5.4); Lymphocytes % (Auto) 7.8 % (13.4-35.0); Mean Corpuscular HGB Conc 34 % (32-34); Mean Corpuscular Hemoglobin 31 pg (28-32); Mean Corpuscular Volume 93 fl (84-94); Monocytes # (Auto) 0.6 K/mm3 (0.0-0.8); Monocytes % (Auto) 6.4 % (0.0-7.3); Platelet Count 77 K/mm3 (140-440); Red Blood Count 4.25 M/mm3 (3.65-5.03); Red Cell Distribution Width 14.1 % (13.2-15.2)
[2017-05-05 15:49] LABS: Alanine Aminotransferase 16 units/L (7-56); Albumin 3.9 g/dL (3.9-5); BUN/Creatinine Ratio 10; Blood Urea Nitrogen 5 mg/dL (9-20); Hemolysis Index 4
[2017-05-05 17:06] LABS: Bilirubin,Urine NEG (Negative); Blood,Urine NEG (Negative); Color,Urine Straw (Yellow); Nitrite,Urine NEG (Negative); Protein,Urine <15 mg/dL mg/dL (Negative); Urobilinogen,Urine < 2.0 mg/dL (<2.0); WBC,Urine < 1.0 /HPF (0.0-6.0)
[2017-05-05 17:21] LABS: Amphetamine Screen,Urine PRESUMPTIVE NEGATIVE; Benzodiazepines Screen,Urine PRESUMPTIVE NEGATIVE; Cannabinoid Screen,Urine PRESUMPTIVE NEGATIVE; Cocaine Screen,Urine PRESUMPTIVE NEGATIVE; Methadone Screen,Urine PRESUMPTIVE NEGATIVE; Opiate Screen,Urine PRESUMPTIVE NEGATIVE
--- NOTE | 2017-05-05 18:29 | Cat Scan Report ---
FINAL REPORT PROCEDURE: CT HEAD/BRAIN WO CON TECHNIQUE: Computerized tomography of the head was performed without contrast material. HISTORY: Seizure COMPARISON: 07/24/2016 FINDINGS: There is no CT evidence of intracranial mass, hemorrhage, acute territorial infarction, or hydrocephalus. The intracranial arteries are symmetric in density. Calvarium is intact. The visualized paranasal sinuses are aerated. There is fluid density in the left mastoid. IMPRESSION: No CT evidence of acute intracranial abnormality.
== END 2017-05-05 19:00 | disposition home or self-care (01) ==
LOC: ED 12:11
DX: R56.9 Unspecified convulsions (principal); D69.6 Thrombocytopenia, unspecified; Z91.14 Patient's other noncompliance with medication regimen
CPT/HCPCS: 36415; 70450; 80053; 80307; 81001; 82550; 84484; 85025; 93005; 93010; 96374; 99285; G0480; J1953; 80320

== ENCOUNTER 2017-05-05 23:25 | Emergency (ER) | payer MEDICARE ==
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
[2017-05-06] MEDS ORDERED: KEPPRA 1,000 MG/NS 0.75% 100ML 1,000 MG/100 ML BAG IV ONE ×2 (18:29→20:00)
[2017-05-06] MEDS ORDERED: KEPPRA 1,000 MG in NACL 0.9% 100 ML IV SCH (22:00)
[2017-05-06 22:22] LABS: Basophils % (Auto) 0.7 % (0.0-1.8); Eosinophils # (Auto) 0.1 K/mm3 (0.0-0.4); Eosinophils % (Auto) 2.1 % (0.0-4.3); Hematocrit 37.6 % (35.5-45.6); Lymphocytes # (Auto) 1.2 K/mm3 (1.2-5.4); Lymphocytes % (Auto) 30.1 % (13.4-35.0); Mean Corpuscular HGB Conc 35 % (32-34); Mean Corpuscular Hemoglobin 32 pg (28-32); Mean Corpuscular Volume 93 fl (84-94); Monocytes # (Auto) 0.4 K/mm3 (0.0-0.8); Monocytes % (Auto) 9.9 % (0.0-7.3); Red Blood Count 4.04 M/mm3 (3.65-5.03); Red Cell Distribution Width 14.2 % (13.2-15.2)
[2017-05-06 22:23] LABS: Platelet Count 78 K/mm3 (140-440)
[2017-05-06 22:42] LABS: Alanine Aminotransferase 14 units/L (7-56); Albumin 3.8 g/dL (3.9-5); BUN/Creatinine Ratio 16; Blood Urea Nitrogen 8 mg/dL (9-20); Calcium 8.7 mg/dL (8.4-10.2); Hemolysis Index 9
[2017-05-07 00:31] VITALS: BP 116/57
== END 2017-05-07 00:15 | disposition home or self-care (01) ==
LOC: ED 23:25
DX: R56.9 Unspecified convulsions (principal); Z91.14 Patient's other noncompliance with medication regimen; F32.9 Major depressive disorder, single episode, unspecified; Z88.0 Allergy status to penicillin
CPT/HCPCS: 36415; 80053; 82550; 84484; 85025; 96365; 99285; J1953

== ENCOUNTER 2018-10-26 17:41 | Emergency (ER) | payer MEDICARE ==
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
[2018-10-26 18:32] LABS: Hematocrit 40.5 % (35.5-45.6); Hemoglobin 14.1 gm/dl (11.8-15.2); Mean Corpuscular HGB Conc 35 % (32-34); Mean Corpuscular Volume 89 fl (84-94); Platelet Count 121 K/mm3 (140-440); Red Blood Count 4.56 M/mm3 (3.65-5.03); Red Cell Distribution Width 14.5 % (13.2-15.2)
[2018-10-26 18:48] LABS: BUN/Creatinine Ratio 10; Blood Urea Nitrogen 6 mg/dL (9-20); Calcium 9.5 mg/dL (8.4-10.2); Hemolysis Index 22
[2018-10-26 18:55] LABS: INR 1.17 (0.87-1.13)
[2018-10-26 18:57] LABS: Partial Thromboplastin Time 27.5 Sec. (24.2-36.6)
--- NOTE | 2018-10-26 19:13 | Cat Scan Report ---
PROCEDURE: CT HEAD/BRAIN WO CON TECHNIQUE: Computerized tomography of the head was performed without contrast material. CT DOSE LENGTH PRODUCT: 1035.5 mGycm HISTORY: lac to scalp COMPARISONS: None . FINDINGS: Skull and scalp: Normal . Paranasal sinuses: Normal . Opacity Is noted within bilateral mastoid air cells which may be acute o r chronic. Ventricles and subarachnoid spaces: Normal . Cerebrum: No evidence of hemorrhage, acute infarction or mass . Cerebellum and brainstem: No evidence of hemorrhage, acute infarction or mass . IMPRESSION: No acute intracranial findings Findings the mastoiditis which may be acute or chronic. This document is electronically signed by Musa Stratton MD., October 26 2018 07:11:21 PM ET
--- NOTE | 2018-10-26 20:29 | Cat Scan Report ---
PROCEDURE: CT CERVICAL SPINE WO CON TECHNIQUE: Computerized tomography of the cervical spine was performed from the skull base to T1 wit hout contrast material. CT DOSE LENGTH PRODUCT: 632.4 mGycm HISTORY: lac to scalp COMPARISONS: None . FINDINGS: There is spondylosis of the cervical spine with prominent osteophytes C5-C6 and large anterior bridgi ng osteophytes C6-C7 at C7-T1. There is multilevel facet joint arthropathy. No acute fracture or malalignment identified. Spinous processes appear intact. C1 and C2 appear withi n normal limits. Disc spaces are within normal limits. IMPRESSION: Spondylosis at the lower cervical spine from C5-C6 through C7-T1. Multilevel facet joint arthropathy This document is electronically signed by Musa Stratton MD., October 26 2018 08:27:23 PM ET
[2018-10-26] MEDS ORDERED: HYDROGEN PEROXIDE TP ONE (20:48)
[2018-10-26] MEDS ORDERED: HYDROGEN PEROXIDE ONE (20:49)
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
[2018-10-26] MEDS ORDERED: XYLOCAINE 1% 20 mL INFILTRATI ONE (21:00)
[2018-10-26] MEDS ORDERED: XYLOCAINE 1% 20 mL ONE (21:41)
[2018-10-26] MEDS ORDERED: KEPPRA PO ONE (21:43)
[2018-10-26] MEDS ORDERED: TRIPLE ANTIBIOTIC TP ONE ×2 (22:00→22:05)
[2018-10-27 00:21] VITALS: BP 150/80
== END 2018-10-26 22:25 | disposition home or self-care (01) ==
LOC: ED 17:41
DX: S09.90XA Unspecified injury of head, initial encounter (principal); R56.9 Unspecified convulsions; F32.9 Major depressive disorder, single episode, unspecified; K74.60 Unspecified cirrhosis of liver; A09 Infectious gastroenteritis and colitis, unspecified; Z90.49 Acquired absence of other specified parts of digestive tract; Z88.0 Allergy status to penicillin; W18.39XA Other fall on same level, initial encounter; Y93.89 Activity, other specified; Y92.89 Other specified places as the place of occurrence of the external cause; Y99.8 Other external cause status
CPT/HCPCS: 36415; 70450; 72125; 80048; 82962; 85027; 85610; 85730; 99284; 99285; A6250

== ENCOUNTER 2018-11-10 00:12 | Emergency (ER) | payer MEDICARE | END 2018-11-10 01:38 | disposition left against medical advice (07) | LOC: ED 00:12 | DX: Z48.02 Encounter for removal of sutures (principal); Z53.21 Procedure and treatment not carried out due to patient leaving prior to being seen by health care provider ==

== ENCOUNTER 2019-08-29 10:15 | Emergency (ER) | payer MEDICARE ==
[2019-08-29 10:50] LABS: Basophils % (Auto) 0.5 % (0.0-1.8); Eosinophils # (Auto) 0.1 K/mm3 (0.0-0.4); Eosinophils % (Auto) 3.5 % (0.0-4.3); Hematocrit 39.7 % (35.5-45.6); Hemoglobin 14.1 gm/dl (11.8-15.2); Lymphocytes # (Auto) 1.3 K/mm3 (1.2-5.4); Lymphocytes % (Auto) 30.4 % (13.4-35.0); Mean Corpuscular HGB Conc 36 % (32-34); Mean Corpuscular Volume 88 fl (84-94); Monocytes # (Auto) 0.2 K/mm3 (0.0-0.8); Platelet Count 133 K/mm3 (140-440); Red Cell Distribution Width 13.5 % (13.2-15.2)
--- NOTE | 2019-08-29 11:00 | XRay Report ---
CHEST 1 VIEW INDICATION: Chest Pain. COMPARISON: 07/24/2016 FINDINGS: Support devices: None. Heart: Within normal limits. Lungs/Pleura: No acute air space or interstitial disease. Additional findings: None. IMPRESSION: 1. No acute findings. Signer Name: Brady Norton MD Signed: 08/29/2019 10:55 AM Workstation Name: [id number]
[2019-08-29 11:11] LABS: BUN/Creatinine Ratio 10; Blood Urea Nitrogen 6 mg/dL (9-20); Calcium 9.3 mg/dL (8.4-10.2); Hemolysis Index 5
[2019-08-29] MEDS ORDERED: ASPIRIN 325 MG TAB PO ONE (11:59)
[2019-08-29] MEDS: NITROGLYCERIN 0.4 MG TAB SUBL SL PRN ×2 (12:11→12:21)
[2019-08-29 12:29] LABS: INR 1.12 (0.87-1.13)
[2019-08-29 12:30] LABS: Partial Thromboplastin Time 29.3 Sec. (24.2-36.6)
[2019-08-29] MEDS ORDERED: KETOROLAC 30 MG/1 ML INJ IV ONE (12:30)
[2019-08-29] MEDS ORDERED: SODIUM CHLORIDE 0.9% 500 ML 500 ML IV ONE ×2 (12:30→14:26)
--- NOTE | 2019-08-29 14:17 | Cat Scan Report ---
CTA CHEST WITH IV CONTRAST INDICATION: MAIN: CP sob with elevated ddimer OMNIPAQUE 350 100ML. TECHNIQUE: Axial CT images were obtained through the chest after injection of 100 cc Omnipaque 350 IV contrast. 3 plane MIP reconstructions were produced. All CT scans at this location are performed using CT dose reduction for ALARA by means of automated exposure control. COMPARISON: None available. FINDINGS: PULMONARY ARTERIES: No pulmonary emboli. THORACIC AORTA: No acute abnormality. HEART: Normal. CORONARY ARTERIES: No significant calcification. PLEURA: No pleural effusion. No pneumothorax. LYMPH NODES: No significant adenopathy. LUNGS: No acute air space or interstitial disease. ADDITIONAL FINDINGS: None. UPPER ABDOMEN: Gallbladder surgically absent with mild intrahepatic biliary ductal dilatation. Cirrho sis with enlarged caudate, splenic and esophageal varices SKELETAL STRUCTURES: No significant osseous abnormality. IMPRESSION: 1. No CT evidence for pulmonary embolism. 2. Cirrhosis with esophageal and splenic varices. Signer Name: Uriel Esteban MD Signed: 08/29/2019 2:13 PM Workstation Name: [id number]
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
[2019-08-29 14:47] LABS: Amphetamine Screen,Urine PRESUMPTIVE NEGATIVE; Benzodiazepines Screen,Urine PRESUMPTIVE NEGATIVE; Cannabinoid Screen,Urine PRESUMPTIVE NEGATIVE; Cocaine Screen,Urine PRESUMPTIVE NEGATIVE; Methadone Screen,Urine PRESUMPTIVE NEGATIVE; Opiate Screen,Urine PRESUMPTIVE NEGATIVE
[2019-08-29] MEDS ORDERED: levETIRAcetam 500 MG TAB PO ONE (21:31)
[2019-08-29] MEDS ORDERED: ACETAMINOPHEN 500 MG TAB PO ONE (21:31)
[2019-08-29 21:38] LABS: Bacteria,Urine 1+ /HPF (Negative); Bilirubin,Urine NEG (Negative); Blood,Urine LG (Negative); Color,Urine Yellow (Yellow); Protein,Urine <15 mg/dL mg/dL (Negative)
[2019-08-30 01:25] VITALS: BP 122/55
== END 2019-08-30 02:28 ==
LOC: ED 10:15
DX: K74.69 Other cirrhosis of liver (principal); I85.10 Secondary esophageal varices without bleeding; D73.89 Other diseases of spleen; F32.89 Other specified depressive episodes; F10.129 Alcohol abuse with intoxication, unspecified; Z90.49 Acquired absence of other specified parts of digestive tract; Z79.899 Other long term (current) drug therapy; Z88.0 Allergy status to penicillin
CPT/HCPCS: 36415; 71045; 71275; 80048; 80307; 81001; 84484; 85025; 85379; 85610; 85730; 87040; 93005; 96374; 99285; J1885; J7040; Q9967; 80320; G0480

== ENCOUNTER 2019-09-16 12:39 | Emergency (ER) | payer MEDICARE ==
[2019-09-16 14:37] LABS: Basophils % (Auto) 0.3 % (0.0-1.8); Eosinophils # (Auto) 0.1 K/mm3 (0.0-0.4); Hematocrit 41.2 % (35.5-45.6); Hemoglobin 14.3 gm/dl (11.8-15.2); Lymphocytes # (Auto) 0.9 K/mm3 (1.2-5.4); Lymphocytes % (Auto) 14.7 % (13.4-35.0); Mean Corpuscular HGB Conc 35 % (32-34); Mean Corpuscular Volume 90 fl (84-94); Monocytes # (Auto) 0.5 K/mm3 (0.0-0.8); Monocytes % (Auto) 7.5 % (0.0-7.3); Platelet Count 124 K/mm3 (140-440); Red Blood Count 4.56 M/mm3 (3.65-5.03); Red Cell Distribution Width 14.3 % (13.2-15.2)
--- NOTE | 2019-09-16 14:48 | XRay Report ---
CHEST 1 VIEW 1413 INDICATION / CLINICAL INFORMATION: Medical Clearance Psych. COMPARISON: 08/29/2019 FINDINGS: SUPPORT DEVICES: None HEART / MEDIASTINUM: No significant abnormality. LUNGS / PLEURA: No significant pulmonary or pleural abnormality. No pneumothorax. ADDITIONAL FINDINGS: No significant additional findings. IMPRESSION: No significant acute abnormality Signer Name: Ari Amaro MD Signed: 09/16/2019 2:44 PM Workstation Name: [id number]
[2019-09-16 14:50] LABS: INR 1.17 (0.87-1.13)
[2019-09-16 14:51] LABS: Partial Thromboplastin Time 31.1 Sec. (24.2-36.6)
[2019-09-16 15:02] LABS: Alanine Aminotransferase 19 units/L (7-56); Albumin 4.7 g/dL (3.9-5); BUN/Creatinine Ratio 16; Blood Urea Nitrogen 11 mg/dL (9-20); Calcium 9.3 mg/dL (8.4-10.2); Hemolysis Index 18
--- NOTE | 2019-09-16 16:48 | Cat Scan Report ---
CT head/brain wo con INDICATION / CLINICAL INFORMATION: 73 years Male; MAIN: altered mental state 1013 PT. TECHNIQUE: Routine CT head without contrast. All CT scans at this location are performed using CT dos e reduction for ALARA by means of automated exposure control. Some motion artifact COMPARISON: 10/26/2018 FINDINGS: BRAIN / INTRACRANIAL CONTENTS: No acute hemorrhage, mass effect, midline shift, hydrocephalus, or acu te, large territorial infarct. Mild, bilateral parietal lobe atrophy suggested. There are areas of decreased attenuation in the whit e matter of the cerebral hemispheres. These are nonspecific findings and may be related to microangio trisha (hypertension, diabetes, atherosclerosis), given the patient's age. It might be difficult to ev aluate for small areas of ischemia without diffusion imaging by MRI. CRANIOCERVICAL JUNCTION: No significant abnormality. ORBITS: No significant abnormality of visualized orbits. SINUSES / MASTOIDS: Mild to moderate mucosal thickening seen in the mastoids-left greater than right. ADDITIONAL FINDINGS: Minimal atherosclerotic disease is seen in the anterior and posterior circulatio n. IMPRESSION: 1. No focal mass, hemorrhage, hydrocephalus, or acute, large territorial infarct. Signer Name: Aris Ramírez MD, III Signed: 09/16/2019 4:43 PM Workstation Name: [id number]
[2019-09-16 16:56] LABS: Bilirubin,Urine NEG (Negative); Blood,Urine NEG (Negative); Color,Urine Yellow (Yellow); Protein,Urine <15 mg/dL mg/dL (Negative)
[2019-09-16 17:05] LABS: Amphetamine Screen,Urine PRESUMPTIVE NEGATIVE; Benzodiazepines Screen,Urine PRESUMPTIVE NEGATIVE; Cannabinoid Screen,Urine PRESUMPTIVE NEGATIVE; Cocaine Screen,Urine PRESUMPTIVE NEGATIVE; Methadone Screen,Urine PRESUMPTIVE NEGATIVE; Opiate Screen,Urine PRESUMPTIVE NEGATIVE
[2019-09-16] MEDS ORDERED: LACTULOSE 20 GM/30 ML ORAL LIQD PO ONE (17:09)
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
[2019-09-16] MEDS ORDERED: ZIPRASIDONE MESYLATE 20 MG VIAL IM ONE ×2 (19:32→21:02)
--- NOTE | 2019-09-17 10:56 | Consultation ---
History of Present Illness - Reason for Consult Requesting physician: CHARLIE LEAL Medications and Allergies Allergies Allergy/AdvReac Type Severity Reaction Status Date / Time Penicillins Allergy Unknown Verified 09/16/19 12:48 Home Medications Medication Instructions Recorded Confirmed Last Taken Type Sertraline [Zoloft] 25 mg PO DAILY 02/10/16 10/26/18 Unknown History levETIRAcetam [Keppra TAB] 1,000 mg PO TID 30 Days #90 tablet 10/26/18 Unknown Rx Mental Status Exam - Vital signs Last Vital Signs Temp 98.6 F 09/17/19 08:00 Pulse 63 09/17/19 08:00 Resp 19 09/17/19 08:00 BP 111/56 09/17/19 08:00 Pulse Ox 99 09/17/19 08:00 Results Result Diagrams: 09/16/19 14:02 09/16/19 14:02 Abnormal lab results 09/16/19 09/16/19 09/16/19 Range/Units 14:02 14:02 14:02 MCHC 35 H (32-34) % Plt Count 124 L (140-440) K/mm3 [place] % (Auto) 7.5 H (0.0-7.3) % Lymph # 0.9 L (1.2-5.4) K/mm3 Seg Neutrophils % 76.5 H (40.0-70.0) % PT 15.0 H (12.2-14.9) Sec. INR 1.17 H (0.87-1.13) Sodium (137-145) mmol/L Carbon Dioxide (22-30) mmol/L Creatinine (0.8-1.5) mg/dL Ammonia 74.0 H (25-60) umol/L Salicylates (2.8-20.0) mg/dL Acetaminophen (10.0-30.0) ug/mL 09/16/19 09/16/19 09/16/19 Range/Units 14:02 14:02 14:02 MCHC (32-34) % Plt Count (140-440) K/mm3 [place] % (Auto) (0.0-7.3) % Lymph # (1.2-5.4) K/mm3 Seg Neutrophils % (40.0-70.0) % PT (12.2-14.9) Sec. INR (0.87-1.13) Sodium 136 L (137-145) mmol/L Carbon Dioxide 20 L (22-30) mmol/L Creatinine 0.7 L (0.8-1.5) mg/dL Ammonia (25-60) umol/L Salicylates 26.5 H (2.8-20.0) mg/dL Acetaminophen < 5.0 L (10.0-30.0) ug/mL All other labs normal.
[2019-09-18 09:09] VITALS: BP 132/77
== END 2019-09-18 11:15 ==
LOC: ED 12:39
DX: Z00.8 Encounter for other general examination (principal); G40.909 Epilepsy, unspecified, not intractable, without status epilepticus; F32.9 Major depressive disorder, single episode, unspecified; Z98.890 Other specified postprocedural states; Z79.899 Other long term (current) drug therapy; Z88.0 Allergy status to penicillin
CPT/HCPCS: 36415; 70450; 71045; 80053; 80307; 81001; 82140; 84443; 84484; 85025; 85610; 85730; 93005; 96372; 99285; J3486; 80320; G0480

== ENCOUNTER 2019-09-18 13:44 | Emergency (ER) | payer MEDICARE ==
[2019-09-18] MEDS ORDERED: ASPIRIN 325 MG TAB PO ONE (14:31)
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
--- NOTE | 2019-09-18 15:32 | XRay Report ---
CHEST 1 VIEW INDICATION: Chest Pain. COMPARISON: 09/16/2019 FINDINGS: Support devices: None. Heart: Within normal limits. Lungs/Pleura: No acute air space or interstitial disease. Additional findings: None. IMPRESSION: No acute abnormality. Signer Name: Benny Cardenas MD Signed: 09/18/2019 3:28 PM Workstation Name: [id number]
[2019-09-18] MEDS ORDERED: SUCRALFATE 1 GM/10 ML ORAL LIQD PO ONE (15:33)
[2019-09-18] MEDS ORDERED: FAMOTIDINE 20 MG TAB PO ONE (15:33)
[2019-09-18 15:48] LABS: BUN/Creatinine Ratio 22; Blood Urea Nitrogen 13 mg/dL (9-20); Calcium 9.1 mg/dL (8.4-10.2); Hemolysis Index 7
[2019-09-18 15:49] LABS: Basophils % (Auto) 0.4 % (0.0-1.8); Eosinophils # (Auto) 0.1 K/mm3 (0.0-0.4); Eosinophils % (Auto) 1.4 % (0.0-4.3); Hematocrit 39.8 % (35.5-45.6); Hemoglobin 13.6 gm/dl (11.8-15.2); Lymphocytes # (Auto) 1.3 K/mm3 (1.2-5.4); Lymphocytes % (Auto) 26.2 % (13.4-35.0); Mean Corpuscular HGB Conc 34 % (32-34); Mean Corpuscular Volume 90 fl (84-94); Monocytes # (Auto) 0.4 K/mm3 (0.0-0.8); Monocytes % (Auto) 7.6 % (0.0-7.3); Platelet Count 114 K/mm3 (140-440); Red Blood Count 4.44 M/mm3 (3.65-5.03); Red Cell Distribution Width 14.4 % (13.2-15.2)
[2019-09-18] MEDS ORDERED: ASPIRIN 325 MG TAB ONE (15:54)
[2019-09-18 16:31] LABS: Alanine Aminotransferase 14 units/L (7-56); Albumin 4.2 g/dL (3.9-5)
[2019-09-18 16:32] LABS: INR 1.12 (0.87-1.13)
[2019-09-18 16:34] VITALS: BP 139/70
[2019-09-18 16:34] LABS: Bilirubin,Direct < 0.2 mg/dL (0-0.2)
[2019-09-18 17:42] LABS: Bacteria,Urine 1+ /HPF (Negative); Bilirubin,Urine NEG (Negative); Blood,Urine SM (Negative); Color,Urine Yellow (Yellow); Protein,Urine <15 mg/dL mg/dL (Negative)
[2019-09-18] MEDS ORDERED: levETIRAcetam 500 MG TAB PO SCH (20:00)
[2019-09-18] MEDS ORDERED: NON-FORMULARY EACH (Levetiracetam [Keppra Tab] 1,000 MG) PO SCH (20:00)
[2019-09-19] MEDS ORDERED: SERTRALINE 25 MG TAB PO SCH (10:00)
== END 2019-09-18 18:47 | disposition home or self-care (01) ==
LOC: ED 13:44
DX: R07.89 Other chest pain (principal); G40.909 Epilepsy, unspecified, not intractable, without status epilepticus; F32.9 Major depressive disorder, single episode, unspecified; Z90.49 Acquired absence of other specified parts of digestive tract; Z98.890 Other specified postprocedural states; Z79.899 Other long term (current) drug therapy
CPT/HCPCS: 36415; 71045; 80048; 80076; 80320; 81001; 82550; 83735; 84484; 85025; 85610; 87086; 93005; G0480

== ENCOUNTER 2019-12-28 14:05 | Emergency (ER) | payer MEDICARE ==
[2019-12-28 14:27] VITALS: BP 156/76
--- NOTE | 2019-12-28 15:03 | Emergency Department Report ---
Blank Doc - Documentation Documentation: This is a 74-year-old male that presents with generlized weakness, staple joshua erick and SI. Stated hes daugther and he doesnt want to live anymore. Wants to join her. Patient agrees to SI without a plan. This initial assessment/diagnostic orders/clinical plan/treatment(s) is/are subject to change based on patient's health status, clinical progression and re- assessment by fellow clinical providers in the ED. Further treatment and workup at subsequent clinical providers discretion. Patient/guardians urged not to elope from the ED as their condition may be serious if not clinically assessed and managed. Initial orders include: 1- Patient sent to MAIN ED for further evaluation and treatment 2- pea viner mechanic was notified to have patient be brought back DONALD. 3- RN was notified to keep patient as close range and observation until room available 4- Patient presents with substantial risk of imminent harm to self, appears to be so unable to care for his/her own physical health and safety as to create an imminently life-endangering crisis, and has committed/expressed life endangering crisis to self. Due to this and other complaints, patient is put on psych hold.
[2019-12-28 16:00] LABS: Basophils % (Auto) 0.6 % (0.0-1.8); Eosinophils # (Auto) 0.1 K/mm3 (0.0-0.4); Eosinophils % (Auto) 3.1 % (0.0-4.3); Lymphocytes # (Auto) 1.2 K/mm3 (1.2-5.4); Lymphocytes % (Auto) 30.1 % (13.4-35.0); Mean Corpuscular HGB Conc 34 % (32-34); Mean Corpuscular Volume 91 fl (84-94); Monocytes # (Auto) 0.3 K/mm3 (0.0-0.8); Monocytes % (Auto) 8.6 % (0.0-7.3); Red Blood Count 4.18 M/mm3 (3.65-5.03); Red Cell Distribution Width 14.8 % (13.2-15.2)
[2019-12-28 16:01] LABS: Platelet Count 83 K/mm3 (140-440)
[2019-12-28 16:12] LABS: Alanine Aminotransferase 11 units/L (7-56); Albumin 3.7 g/dL (3.9-5); Blood Urea Nitrogen 11 mg/dL (9-20); Calcium 9.1 mg/dL (8.4-10.2); Hemolysis Index 7
[2019-12-28 16:16] LABS: BUN/Creatinine Ratio 16
== END 2019-12-28 20:00 | disposition left against medical advice (07) ==
LOC: ED 14:05
DX: R53.1 Weakness (principal); Z53.21 Procedure and treatment not carried out due to patient leaving prior to being seen by health care provider
CPT/HCPCS: 36415; 80053; 80320; 84484; 85025; G0480

== ENCOUNTER 2020-01-16 11:46 | Emergency (ER) | payer MEDICARE ==
[2020-01-16 12:12] VITALS: BP 131/64
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
--- NOTE | 2020-01-16 14:05 | Vascular Lab Report ---
DUPLEX DOPPLER UPPER EXTREMITY VENOUS, RIGHT INDICATION / CLINICAL INFORMATION: Right arm bruising and swelling. TECHNIQUE: Duplex doppler imaging was performed through the veins of the right upper extremity using venous comp ression and other maneuvers. COMPARISON: None available. FINDINGS: RIGHT INTERNAL JUGULAR VEIN: Negative. RIGHT SUBCLAVIAN VEIN: Negative. RIGHT AXILLARY VEIN: Negative. RIGHT BRACHIAL VEIN: Negative. RIGHT FOREARM VEINS: Negative. RIGHT BASILIC AND CEPHALIC VEINS (SUPERFICIAL): Negative. ADDITIONAL FINDINGS: There is no evidence of a hematoma or other incidental abnormality. IMPRESSION: No sonographic evidence for DVT. Signer Name: Rahul Zuluaga MD Signed: 01/16/2020 2:00 PM Workstation Name: [id number]
[2020-01-16 14:08] LABS: Basophils % (Auto) 0.5 % (0.0-1.8); Eosinophils # (Auto) 0.1 K/mm3 (0.0-0.4); Eosinophils % (Auto) 1.7 % (0.0-4.3); Hematocrit 35.6 % (35.5-45.6); Hemoglobin 12.3 gm/dl (11.8-15.2); Lymphocytes # (Auto) 1.1 K/mm3 (1.2-5.4); Lymphocytes % (Auto) 19.2 % (13.4-35.0); Mean Corpuscular HGB Conc 35 % (32-34); Mean Corpuscular Volume 91 fl (84-94); Monocytes # (Auto) 0.5 K/mm3 (0.0-0.8); Monocytes % (Auto) 8.8 % (0.0-7.3); Platelet Count 139 K/mm3 (140-440); Red Blood Count 3.93 M/mm3 (3.65-5.03); Red Cell Distribution Width 14.7 % (13.2-15.2)
[2020-01-16 14:26] LABS: Alanine Aminotransferase 14 units/L (7-56); Albumin 3.6 g/dL (3.9-5); BUN/Creatinine Ratio 17; Blood Urea Nitrogen 10 mg/dL (9-20); Calcium 9.3 mg/dL (8.4-10.2); Hemolysis Index 6
--- NOTE | 2020-01-16 14:43 | XRay Report ---
RIGHT FOREARM 2 VIEWS INDICATION / CLINICAL INFORMATION: Right forearm pain and bruising. COMPARISON: None available. FINDINGS: BONES / JOINT(S): No acute fracture or subluxation. There is chondrocalcinosis involving the triangul ar fibrocartilage. There are degenerative changes involving the first carpometacarpal joint. SOFT TISSUES: There is moderate generalized soft tissue swelling. Atherosclerotic calcifications are present. ADDITIONAL FINDINGS: None. IMPRESSION: Generalized soft tissue swelling without acute osseous abnormality. Signer Name: Rahul Zuluaga MD Signed: 01/16/2020 2:38 PM Workstation Name: [id number]
--- NOTE | 2020-01-16 14:44 | XRay Report ---
LEFT ELBOW 2 VIEWS INDICATION / CLINICAL INFORMATION: Left elbow pain and bruising. COMPARISON: None available. FINDINGS: BONES / JOINT(S): There are mild degenerative changes. There is no evidence of fracture, subluxation or joint effusion. SOFT TISSUES: Atherosclerotic calcifications are noted. ADDITIONAL FINDINGS: None. IMPRESSION: No acute abnormality. Signer Name: Rahul Zuluaga MD Signed: 01/16/2020 2:39 PM Workstation Name: [id number]
--- NOTE | 2020-01-16 14:47 | XRay Report ---
Right humerus 2 views INDICATION: Right humerus pain following injury IMPRESSION: The right humerus is intact. No fracture is identified. The right humerus is mildly osteo penic. No distinct soft tissue abnormality is appreciated. Signer Name: Eligio Clark MD Signed: 01/16/2020 2:43 PM Workstation Name: [id number]
== END 2020-01-16 15:35 | disposition home or self-care (01) ==
LOC: ED 11:46
DX: S40.021A Contusion of right upper arm, initial encounter (principal); F32.89 Other specified depressive episodes; F03.90 Unspecified dementia, unspecified severity, without behavioral disturbance, psychotic disturbance, mood disturbance, and anxiety; Z90.49 Acquired absence of other specified parts of digestive tract; Z79.899 Other long term (current) drug therapy; Z88.0 Allergy status to penicillin; X58.XXXA Exposure to other specified factors, initial encounter; Y93.89 Activity, other specified; Y92.89 Other specified places as the place of occurrence of the external cause; Y99.8 Other external cause status
CPT/HCPCS: 36415; 80053; 85025

== ENCOUNTER 2020-04-26 14:03 | Emergency (ER) | payer MEDICARE ==
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
[2020-04-26 15:36] VITALS: BP 130/68
[2020-04-26 16:31] LABS: Basophils % (Auto) 0.2 % (0.0-1.8); Lymphocytes # (Auto) 0.7 K/mm3 (1.2-5.4); Mean Corpuscular HGB Conc 37 % (32-34); Mean Corpuscular Volume 86 fl (84-94); Monocytes % (Auto) 9.6 % (0.0-7.3); Platelet Count 104 K/mm3 (140-440); Red Blood Count 4.16 M/mm3 (3.65-5.03); Red Cell Distribution Width 14.5 % (13.2-15.2)
[2020-04-26 16:39] LABS: Hematocrit 35.8 % (35.5-45.6); Hemoglobin 13.1 gm/dl (11.8-15.2)
[2020-04-26 16:46] LABS: Alanine Aminotransferase 14 units/L (7-56); Albumin 4.2 g/dL (3.9-5); Blood Urea Nitrogen 16 mg/dL (9-20); Calcium 9.7 mg/dL (8.4-10.2); Hemolysis Index 5
[2020-04-26 16:54] LABS: BUN/Creatinine Ratio 27
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
[2020-04-26] MEDS ORDERED: IBUPROFEN 800 MG TAB PO ONE (17:45)
[2020-04-26 17:54] LABS: Bilirubin,Urine NEG (Negative); Blood,Urine SM (Negative); Color,Urine Yellow (Yellow); Mucus,Urine FEW /HPF; Protein,Urine <15 mg/dL mg/dL (Negative)
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
== END 2020-04-26 19:00 | disposition home or self-care (01) ==
LOC: ED 14:03
DX: M47.894 Other spondylosis, thoracic region (principal); M47.896 Other spondylosis, lumbar region; R31.9 Hematuria, unspecified; H91.90 Unspecified hearing loss, unspecified ear; R56.9 Unspecified convulsions; F32.9 Major depressive disorder, single episode, unspecified; Z90.49 Acquired absence of other specified parts of digestive tract; Z91.14 Patient's other noncompliance with medication regimen; Z98.890 Other specified postprocedural states; Z79.899 Other long term (current) drug therapy; Z88.0 Allergy status to penicillin; Y04.8XXA Assault by other bodily force, initial encounter; Y93.89 Activity, other specified; Y92.89 Other specified places as the place of occurrence of the external cause; Y99.8 Other external cause status
CPT/HCPCS: 36415; 70450; 72125; 72128; 72131; 80053; 81001; 85025

== ENCOUNTER 2020-04-30 19:09 | Emergency (ER) | payer MEDICARE ==
[2020-04-30] MEDS ORDERED: ZIPRASIDONE MESYLATE 20 MG VIAL IM ONE (20:03)
[2020-04-30] MEDS ORDERED: LORazepam 2 MG/ML VIAL IM ONE (20:08)
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
[2020-04-30] MEDS ORDERED: WATER FOR INJ Sterile (PF) 10 ML ONE (20:16)
[2020-04-30 20:18] LABS: Basophils % (Auto) 0.1 % (0.0-1.8); Blood Urea Nitrogen 10 mg/dL (9-20); Calcium 9.9 mg/dL (8.4-10.2); Eosinophils % (Auto) 0.2 % (0.0-4.3); Hematocrit 36.2 % (35.5-45.6); Hemoglobin 12.6 gm/dl (11.8-15.2); Hemolysis Index 4; Lymphocytes # (Auto) 0.8 K/mm3 (1.2-5.4); Lymphocytes % (Auto) 10.8 % (13.4-35.0); Mean Corpuscular HGB Conc 35 % (32-34); Mean Corpuscular Volume 88 fl (84-94); Monocytes # (Auto) 0.5 K/mm3 (0.0-0.8); Monocytes % (Auto) 7.5 % (0.0-7.3); Platelet Count 137 K/mm3 (140-440); Red Blood Count 4.13 M/mm3 (3.65-5.03); Red Cell Distribution Width 14.9 % (13.2-15.2)
[2020-04-30 20:20] LABS: BUN/Creatinine Ratio 17
[2020-04-30] MEDS ORDERED: levETIRAcetam 500 MG TAB PO ONE (22:16)
[2020-05-01] MEDS ORDERED: diphenhydrAMINE 50 MG/ML VIAL IM ONE (00:59)
[2020-05-01] MEDS ORDERED: ZIPRASIDONE MESYLATE 20 MG VIAL IM ONE (00:59)
[2020-05-01] MEDS ORDERED: LORazepam 2 MG/ML VIAL IM ONE (00:59)
[2020-05-01] MEDS ORDERED: WATER FOR INJ Sterile (PF) 10 ML ONE (01:56)
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
[2020-05-01] MEDS: levETIRAcetam 500 MG TAB PO SCH ×3 (10:25→23:16)
[2020-05-01] MEDS: OMEGA-3 FATTY ACIDS/FISH OIL 1 GRAM CAP PO SCH ×3 (12:51→23:16)
[2020-05-01] MEDS: risperiDONE 1 MG TAB PO SCH ×3 (12:52→23:16)
[2020-05-01] MEDS: VALPROIC ACID 250 MG/5 ML ORAL LIQD PO SCH ×2 (12:52→23:16)
[2020-05-01 13:31] LABS: Amphetamine Screen,Urine Negative; Benzodiazepines Screen,Urine Negative; Cocaine Screen,Urine Negative; Methadone Screen,Urine Negative; Opiate Screen,Urine Negative
[2020-05-01 13:38] LABS: Bilirubin,Urine NEG (Negative); Blood,Urine NEG (Negative); Calcium Oxalate Crystals,Urine 1+; Color,Urine Amber (Yellow); Mucus,Urine 3+ /HPF
[2020-05-01 13:58] LABS: Cannabinoid Screen,Urine PRESUMPTIVE POSITIVE
[2020-05-01] MEDS ORDERED: risperiDONE 0.25 MG TAB PO SCH (22:00)
[2020-05-02] MEDS: risperiDONE 1 MG TAB PO SCH ×2 (09:54→12:06)
[2020-05-02] MEDS: levETIRAcetam 500 MG TAB PO SCH (09:56)
[2020-05-02] MEDS: OMEGA-3 FATTY ACIDS/FISH OIL 1 GRAM CAP PO SCH (10:02)
--- NOTE | 2020-05-02 10:42 | Progress Note ---
Subjective - Reason for Consult Consult date: 05/02/20 Reason for consult: MHE Requesting physician: SHELBY FLORENTINO - Chief Complaint Chief complaint: Psych Progress Patient in room secluded, patient appears to be searching the mercedes for door, asking to be let out and I should stop what I am doing to him even though I was talking to patients through a glass window. Patient says he wants to step out to talk to friend. REVIEW OF SYSTEMS Constitutional: Negative for weight loss ENT: Negative for stridor Respiratory: Negative for cough or hemoptysis All other systems reviewed and are negative MENTAL STATUS EXAMINATION General Appearance and Behavior: Age appropriate, good hygiene, wearing appropriate clothes, good eye contact, cooperative polite with questioning. Cooperation: Participating/engaged Psychomotor Behavior: unremarkable and within normal limits Mood: Good Affect and affective range: congruent with mood Thought Process: Tangential, circumstitial Thought Content: illogical Speech: Normal volume, Regular rate and rhythm, Intellectual Functioning: Average Suicidal Ideation: Denies SI Homicidal Ideation: Denies HI Impulse Control: impaired Insight and Judgment: limited insight and judgment, Memory: impaired Attention: distractible Orientation: Alert, disoriented to place Assessment and Plan - Psychiatric problem (1) Dementia with behavioral disturbance Current Visit: Yes Status: Acute Treatment Plan Patient scored a score of 17 on Mini Mental using SLUMS, pt also has difficult hearing, had to be spoken to directly in hear, this could affect pts responses if question not heard properly but all questions were repeated. MEDICATIONS: Risks, benefits and alternatives of medications discussed with the patient, questions answered and consent obtained from patient. PSYCHOTHERAPY: Supportive psychotherapy provided MEDICAL: Per primary team DELIRIUM PRECAUTIONS: Please re-orient patient frequently, keep lights on during the day, and minimize benzodiazepines and opiates as these medications could worsen patient's confusion. HOURLY TEAM MEMBERS: DISPOSITION: Do Recommend acute inpatient psychiatric hospitalization at this time. Case discussed with Dr. Navarro who agrees with current disposition LEGAL STATUS: 1013 FOLLOW-UP: Will follow Thank you for the consult. Please contact with any questions and/or concerns. Mental Status Exam - Vital signs Last Vital Signs Temp 97.9 F 05/02/20 07:54 Pulse 66 05/02/20 07:54 Resp 18 05/02/20 10:07 BP 150/66 05/02/20 07:54 Pulse Ox 100 05/02/20 07:54 Assessment and Plan - Patient Problems (1) Dementia with behavioral disturbance Current Visit: Yes Status: Acute
[2020-05-02] MEDS: VALPROIC ACID 250 MG/5 ML ORAL LIQD PO SCH (12:08)
[2020-05-03] MEDS: OMEGA-3 FATTY ACIDS/FISH OIL 1 GRAM CAP PO SCH ×3 (04:54→23:27)
[2020-05-03] MEDS: risperiDONE 1 MG TAB PO SCH ×3 (04:54→23:27)
[2020-05-03] MEDS: VALPROIC ACID 250 MG/5 ML ORAL LIQD PO SCH ×3 (04:54→23:26)
[2020-05-03] MEDS: levETIRAcetam 500 MG TAB PO SCH ×3 (04:54→23:27)
--- NOTE | 2020-05-03 08:41 | Progress Note ---
Subjective - Reason for Consult Consult date: 05/03/20 Reason for consult: MHE Requesting physician: SHELBY FLORENTINO - Chief Complaint Chief complaint: Psych Progress Patient seen in room today, patient says he does not feel good today, in a bad state of mind, states he feels like dying because there are so many bad days now turning into bad years and he does not wish to continue living like this, he just wants to do and stop the pain. REVIEW OF SYSTEMS Constitutional: Negative for weight loss ENT: Negative for stridor Respiratory: Negative for cough or hemoptysis All other systems reviewed and are negative MENTAL STATUS EXAMINATION General Appearance and Behavior: Age appropriate, good hygiene, wearing appropriate clothes, good eye contact, cooperative polite with questioning. Cooperation: Participating/engaged Psychomotor Behavior: unremarkable and within normal limits Mood: Good Affect and affective range: congruent with mood Thought Process: Tangential, circumstitial Thought Content: illogical Speech: Normal volume, Regular rate and rhythm, Intellectual Functioning: Average Suicidal Ideation: SI Homicidal Ideation: Denies HI Impulse Control: impaired Insight and Judgment: limited insight and judgment, Memory: impaired Attention: distractible Orientation: Alert, disoriented to place Assessment and Plan - Psychiatric problem (1) Dementia with behavioral disturbance Current Visit: Yes Status: Acute Treatment Plan Patient now endorsing suicidality. MEDICATIONS: Risks, benefits and alternatives of medications discussed with the patient, questions answered and consent obtained from patient. PSYCHOTHERAPY: Supportive psychotherapy provided MEDICAL: Per primary team DELIRIUM PRECAUTIONS: Please re-orient patient frequently, keep lights on during the day, and minimize benzodiazepines and opiates as these medications could worsen patient's confusion. ADOBE BLOCK MAKER: DISPOSITION: Do Recommend acute inpatient psychiatric hospitalization at this time. Case discussed with Dr. Navarro who agrees with current disposition LEGAL STATUS: 1013 FOLLOW-UP: Will follow Thank you for the consult. Please contact with any questions and/or concerns. Mental Status Exam - Vital signs Last Vital Signs Temp 97.5 F L 05/02/20 20:42 Pulse 77 05/02/20 20:42 Resp 18 05/02/20 20:42 BP 143/80 05/02/20 20:42 Pulse Ox 98 05/02/20 20:42 Assessment and Plan - Patient Problems (1) Dementia with behavioral disturbance Current Visit: Yes Status: Acute
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
[2020-05-04] MEDS ORDERED: SERTRALINE 25 MG TAB PO SCH (10:00)
[2020-05-04] MEDS: risperiDONE 1 MG TAB PO SCH (10:02)
[2020-05-04] MEDS: VALPROIC ACID 250 MG/5 ML ORAL LIQD PO SCH (10:02)
[2020-05-04] MEDS: OMEGA-3 FATTY ACIDS/FISH OIL 1 GRAM CAP PO SCH (10:02)
[2020-05-04] MEDS: levETIRAcetam 500 MG TAB PO SCH (10:03)
[2020-05-04 20:51] VITALS: BP 108/59
== END 2020-05-04 21:34 ==
LOC: EEVIPCON 19:09 → ED 19:09
DX: R51.9 Headache, unspecified (principal); Z20.828 Contact with and (suspected) exposure to other viral communicable diseases
CPT/HCPCS: 36415; 80048; 80307; 81001; 85025; 96372; 99285; J1200; J2060; J3486; U0003; 80320; G0480

== ENCOUNTER 2020-07-06 02:01 | Inpatient (IN) | payer MEDICARE ==
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
--- NOTE | 2020-07-06 04:35 | XRay Report ---
RIGHT FOREARM 2 VIEWS INDICATION / CLINICAL INFORMATION: pain after fall COMPARISON: None available. FINDINGS: BONES / JOINT(S): No acute fracture or subluxation. No significant arthritis. SOFT TISSUES: Mild vascular calcification. ADDITIONAL FINDINGS: None. RIGHT WRIST 4 VIEWS INDICATION / CLINICAL INFORMATION: pain after fall COMPARISON: None available. FINDINGS: BONES / JOINT(S): No acute fracture or subluxation. Advanced DJD first carpometacarpal joint. Chronic avulsion ulnar styloid process. SOFT TISSUES: No significant abnormality. ADDITIONAL FINDINGS: None. Signer Name: Benny Cardenas MD Signed: 07/06/2020 4:31 AM Workstation Name: [id number]
--- NOTE | 2020-07-06 04:58 | Cat Scan Report ---
CT head/brain wo con INDICATION: fall with left head injury. TECHNIQUE: All CT scans at this location are performed using the following dose modulation technique: Automated exposure control. CONTRAST: None. COMPARISON: 04/06/2020. FINDINGS: The ventricular system is appropriate in size and configuration without midline shift accou nting for diffuse cerebral atrophy. Negative for mass, stroke or hemorrhage. Imaged bones and paranasal sinuses are unremarkable. Soft tissue hematoma left frontal region. IMPRESSION: 1. Age-appropriate atrophy. 2. Soft tissue hematoma left frontal region. Signer Name: Benny Cardenas MD Signed: 07/06/2020 4:53 AM Workstation Name: [id number]
--- NOTE | 2020-07-06 05:03 | Cat Scan Report ---
CT cervical spine wo con INDICATION: fall with left head injury. TECHNIQUE: All CT scans at this location are performed using the following dose modulation technique: Automated exposure control. CONTRAST: None. COMPARISON: 04/26/2020. FINDINGS: Mild anterior subluxation of C5 on C6 is unchanged. Negative for fracture. Increased cervic al lordosis remains. No significant disc space narrowing. Prominent anterior osteophyte formation remains at C6-C7. Multilevel neuroforaminal narrowing remains secondary to facet hypertrophy. Changes are greatest at C 3-C4 and C5-C6. No soft tissue injury. IMPRESSION: 1. Negative for bony injury. 2. Degenerative change is stable. Signer Name: Benny Cardenas MD Signed: 07/06/2020 4:59 AM Workstation Name: [id number]
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
[2020-07-06] MEDS ORDERED: levETIRAcetam 1000 MG/NS 0.75% 1,000 MG/100 ML BAG IV ONE (06:36)
[2020-07-06 06:56] LABS: Hematocrit 34.6 % (35.5-45.6); Hemoglobin 12.3 gm/dl (11.8-15.2); Mean Corpuscular HGB Conc 36 % (32-34); Mean Corpuscular Volume 85 fl (84-94); Platelet Count 118 K/mm3 (140-440); Red Blood Count 4.06 M/mm3 (3.65-5.03); Red Cell Distribution Width 15.2 % (13.2-15.2)
--- NOTE | 2020-07-06 07:09 | XRay Report ---
CHEST 1 VIEW 07/06/2020 5:58 AM INDICATION / CLINICAL INFORMATION: fal. COMPARISON: 09/18/2019. FINDINGS: SUPPORT DEVICES: None. HEART / MEDIASTINUM: No significant abnormality. LUNGS / PLEURA: No significant pulmonary or pleural abnormality. No pneumothorax. ADDITIONAL FINDINGS: No significant additional findings. IMPRESSION: No acute abnormality. Signer Name: Benny Cardenas MD Signed: 07/06/2020 7:04 AM Workstation Name: [id number]
[2020-07-06 07:18] LABS: Bilirubin,Direct 0.4 mg/dL (0-0.2)
[2020-07-06 07:19] LABS: INR 1.17 (0.87-1.13)
[2020-07-06 07:20] LABS: Blood Urea Nitrogen 9 mg/dL (9-20); Calcium 9.3 mg/dL (8.4-10.2); Creatine Kinase MB 4.2 ng/mL (0.0-4.0); Hemolysis Index 6; Partial Thromboplastin Time 32.5 Sec. (24.2-36.6)
[2020-07-06 07:22] LABS: BUN/Creatinine Ratio 15
[2020-07-06 08:07] LABS: Bilirubin,Urine NEG (Negative); Blood,Urine LG (Negative); Color,Urine Yellow (Yellow); Mucus,Urine FEW /HPF; Protein,Urine <15 mg/dL mg/dL (Negative)
[2020-07-06 08:14] LABS: Amphetamine Screen,Urine Negative; Benzodiazepines Screen,Urine Negative; Cannabinoid Screen,Urine Negative; Cocaine Screen,Urine Negative; Methadone Screen,Urine Negative; Opiate Screen,Urine Negative
[2020-07-06] MEDS ORDERED: SODIUM CHLORIDE 0.9% 1000 ML 1,000 ML IV ONE (10:21)
--- NOTE | 2020-07-06 10:40 | History and Physical Report ---
History of Present Illness Date of examination: 07/06/20 Medications and Allergies Allergies Allergy/AdvReac Type Severity Reaction Status Date / Time Penicillins Allergy Unknown Verified 09/18/19 14:30 Home Medications Medication Instructions Recorded Confirmed Last Taken Type AtorvaSTATin [Lipitor] 40 mg PO QHS 05/02/20 07/06/20 Unknown History levETIRAcetam [Keppra TAB] 1,000 mg PO BID 05/02/20 07/06/20 Unknown History risperiDONE [RisperDAL] 2 mg PO BID 05/02/20 07/06/20 Unknown History traZODone [Desyrel] 50 mg PO QHS 05/02/20 07/06/[address] 500 mg PO BID 07/06/20 07/06/20 Unknown History Active Meds: Active Medications Sodium Chloride (Nacl 0.9% 1000 Ml) 1,000 mls @ 999 mls/hr IV BOLUS ONE Stop: 07/06/20 11:21 Exam - Constitutional Vitals: Temp Pulse Resp BP Pulse Ox 99.1 F 61 16 134/75 100 07/06/20 03:53 07/06/20 07:52 07/06/20 07:52 07/06/20 07:52 07/06/20 07:52 HEART Score - HEART Score Troponin: Troponin T < 0.010 ng/mL (0.00-0.029) 07/06/20 06:40 Results - Labs CBC & Chem 7: 07/06/20 06:40 07/06/20 06:40 Labs: Abnormal lab results 07/06/20 07/06/20 07/06/20 Range/Units 06:40 06:40 06:40 WBC 22.6 H (4.5-11.0) K/mm3 Hct 34.6 L (35.5-45.6) % MCHC 36 H (32-34) % Plt Count 118 L (140-440) K/mm3 INR 1.17 H (0.87-1.13) Creatinine 0.6 L (0.8-1.3) mg/dL Total Bilirubin (0.1-1.2) mg/dL Direct Bilirubin (0-0.2) mg/dL Total Creatine Kinase (55-170) units/L CK-MB (CK-2) (0.0-4.0) ng/mL Salicylates (2.8-20.0) mg/dL Acetaminophen (10.0-30.0) ug/mL 07/06/20 07/06/20 07/06/20 Range/Units 06:40 06:40 06:40 WBC (4.5-11.0) K/mm3 Hct (35.5-45.6) % MCHC (32-34) % Plt Count (140-440) K/mm3 INR (0.87-1.13) Creatinine (0.8-1.3) mg/dL Total Bilirubin (0.1-1.2) mg/dL Direct Bilirubin (0-0.2) mg/dL Total Creatine Kinase 216 H (55-170) units/L CK-MB (CK-2) 4.2 H (0.0-4.0) ng/mL Salicylates < 0.3 L (2.8-20.0) mg/dL Acetaminophen 5.0 L (10.0-30.0) ug/mL 07/06/20 Range/Units 06:40 WBC (4.5-11.0) K/mm3 Hct (35.5-45.6) % MCHC (32-34) % Plt Count (140-440) K/mm3 INR (0.87-1.13) Creatinine (0.8-1.3) mg/dL Total Bilirubin 1.40 H (0.1-1.2) mg/dL Direct Bilirubin 0.4 H (0-0.2) mg/dL Total Creatine Kinase (55-170) units/L CK-MB (CK-2) (0.0-4.0) ng/mL Salicylates (2.8-20.0) mg/dL Acetaminophen (10.0-30.0) ug/mL
[2020-07-06] MEDS ORDERED: MEROPENEM/NS 1 GRAM/100 ML 1 GRAM/100 ML BAG IV ONE (10:41)
[2020-07-06] MEDS ORDERED: ASPIRIN 81 MG TAB CHEW PO ONE (10:47)
[2020-07-06 11:00] LABS: Total Cells Counted 100
[2020-07-06 11:02] LABS: Platelet Estimate Consistent w Auto
--- NOTE | 2020-07-06 11:49 | History and Physical Report ---
History of Present Illness Chief complaint: He is getting more confused History of present illness: 74 YO Male [employer] Res[employer] with Vascular Dementia with Behavioral Disturbance, Cerebral Atherosclerosis, Psychosis, ETOH Dependence, Depression, Cirrhosis presents to ED for evaluation. Patient has diminished cognition and is unable to provide detailed history. Patient history taken from ED staff, EMS staff, as well as patient caregiver. Patient caregiver reports that patient became confused and eloped from [facility]. Patient was found in the [facility] after having sustained a fall resulting in hip pain. Patient was transported to [facility] via private vehicle for further care and evaluation. Patient seen and evaluated in the emergency department. All lab and imaging studies reviewed. Patient found to have left forehead hematoma, left forehead abrasions, right arm abrasions secondary to fall. Patient also found to have systemic inflammatory response syndrome, as well as encephalopathy. Patient admitted to medical floor due to increased risk of worsening symptoms. Patient is confused at the time of my evaluation and unable to provide history and no further history is obtainable. Patient has a positive gag reflex and is able to protect his airway without difficulty. No reports of fever, chills, chest pain, palpitation, productive cough, skin rash, recent ill contacts, or known exposure to COVID-19. Prior admission on 07/25/2016 reviewed. No medication listed at time of admission for reconciliation. Advanced care planning conducted in ED. Past History Past Medical History: other (See HPI) Past Surgical History: cholecystectomy, bowel surgery Social history: single, full code, other (Resides in a residential) Family history: hypertension Medications and Allergies Allergies Allergy/AdvReac Type Severity Reaction Status Date / Time Penicillins Allergy Unknown Verified 09/18/19 14:30 Home Medications Medication Instructions Recorded Confirmed Last Taken Type AtorvaSTATin [Lipitor] 40 mg PO QHS 05/02/20 07/06/20 Unknown History levETIRAcetam [Keppra TAB] 1,000 mg PO BID 05/02/20 07/06/20 Unknown History risperiDONE [RisperDAL] 2 mg PO BID 05/02/20 07/06/20 Unknown History traZODone [Desyrel] 50 mg PO QHS 05/02/20 07/06/[address] 500 mg PO BID 07/06/20 07/06/20 Unknown History Review of Systems ROS unobtainable: due to mental status Exam - Constitutional Vitals: Temp Pulse Resp BP Pulse Ox 99.1 F 61 16 134/75 100 07/06/20 03:53 07/06/20 07:52 07/06/20 07:52 07/06/20 07:52 07/06/20 07:52 General appearance: Present: mild distress - EENT Eyes: Present: PERRL ENT: clear oral mucosa, hearing decreased - Neck Neck: Present: supple, normal ROM - Respiratory Respiratory effort: normal Respiratory: bilateral: CTA - Cardiovascular Heart Sounds: Present: S1 & S2. Absent: rub, click - Extremities Extremities: pulses symmetrical, No edema Peripheral Pulses: within normal limits - Abdominal General gastrointestinal: Present: soft, non-tender, non-distended, normal bowel sounds Male genitourinary: Present: normal - Integumentary Integumentary: Present: clear, warm, dry - Musculoskeletal Musculoskeletal: gait normal, strength equal bilaterally - Psychiatric Psychiatric: no appropriate mood/affect, no intact judgment & insight, no memory intact, agitated - Neurologic Neurologic: CNII-XII intact, no focal deficits, moves all extremities, gait normal HEART Score - HEART Score Troponin: Troponin T < 0.010 ng/mL (0.00-0.029) 07/06/20 06:40 Results - Labs CBC & Chem 7: 07/06/20 06:40 07/06/20 06:40 Labs: Abnormal lab results 07/06/20 07/06/20 07/06/20 Range/Units 06:40 06:40 06:40 WBC 22.6 H (4.5-11.0) K/mm3 Hct 34.6 L (35.5-45.6) % MCHC 36 H (32-34) % Plt Count 118 L (140-440) K/mm3 Seg Neuts % (Manual) 92.0 H (40.0-70.0) % Lymphocytes % (Manual) 7.0 L (13.4-35.0) % Seg Neutrophils # Man 20.8 H (1.8-7.7) K/mm3 INR 1.17 H (0.87-1.13) Creatinine 0.6 L (0.8-1.3) mg/dL Total Bilirubin (0.1-1.2) mg/dL Direct Bilirubin (0-0.2) mg/dL Total Creatine Kinase (55-170) units/L CK-MB (CK-2) (0.0-4.0) ng/mL Salicylates (2.8-20.0) mg/dL Acetaminophen (10.0-30.0) ug/mL 07/06/20 07/06/20 07/06/20 Range/Units 06:40 06:40 06:40 WBC (4.5-11.0) K/mm3 Hct (35.5-45.6) % MCHC (32-34) % Plt Count (140-440) K/mm3 Seg Neuts % (Manual) (40.0-70.0) % Lymphocytes % (Manual) (13.4-35.0) % Seg Neutrophils # Man (1.8-7.7) K/mm3 INR (0.87-1.13) Creatinine (0.8-1.3) mg/dL Total Bilirubin (0.1-1.2) mg/dL Direct Bilirubin (0-0.2) mg/dL Total Creatine Kinase 216 H (55-170) units/L CK-MB (CK-2) 4.2 H (0.0-4.0) ng/mL Salicylates < 0.3 L (2.8-20.0) mg/dL Acetaminophen 5.0 L (10.0-30.0) ug/mL 07/06/20 Range/Units 06:40 WBC (4.5-11.0) K/mm3 Hct (35.5-45.6) % MCHC (32-34) % Plt Count (140-440) K/mm3 Seg Neuts % (Manual) (40.0-70.0) % Lymphocytes % (Manual) (13.4-35.0) % Seg Neutrophils # Man (1.8-7.7) K/mm3 INR (0.87-1.13) Creatinine (0.8-1.3) mg/dL Total Bilirubin 1.40 H (0.1-1.2) mg/dL Direct Bilirubin 0.4 H (0-0.2) mg/dL Total Creatine Kinase (55-170) units/L CK-MB (CK-2) (0.0-4.0) ng/mL Salicylates (2.8-20.0) mg/dL Acetaminophen (10.0-30.0) ug/mL Assessment and Plan - Patient Problems (1) Metabolic encephalopathy Current Visit: Yes Status: Acute Plan to address problem: CT head, neuro check, thyroid panel, fall precautions, aspiration precautions, neuro check, CBC (2) Systemic inflammatory response syndrome Current Visit: Yes Status: Acute Plan to address problem: IV fluid resuscitation therapy, empiric IV antibiotic therapy x1 dose, CBc, (3) Dementia with behavioral disturbance Current Visit: Yes Status: Acute Qualifiers: Dementia type: unspecified type Qualified Code(s): F03.91 - Unspecified dementia with behavioral disturbance Plan to address problem: Verbal prompting, verbal redirection, benzodiazepine therapy as clinically indicated, supportive care. (4) Hematoma of frontal scalp Current Visit: Yes Status: Acute Qualifiers: Encounter type: initial encounter Qualified Code(s): S00.03XA - Contusion of scalp, initial encounter Plan to address problem: Supportive care, CT scan head, (5) Seizure Current Visit: Yes Status: Acute Plan to address problem: Seizure precautions, continue Keppra therapy, (6) DVT prophylaxis Current Visit: Yes Status: Acute Plan to address problem: SCD to bilateral lower extremities while in bed, Pt is ambulatory (7) Advance care planning Current Visit: Yes Status: Acute Plan to address problem: Disease education
[2020-07-06] MEDS ORDERED: LORazepam 2 MG/ML VIAL IV ONE ×2 (13:04→19:11)
[2020-07-06] MEDS: HYDROmorphone 1 MG/1 ML INJ IV ONE ×2 (13:07→13:58)
[2020-07-06 14:11] LABS: Free T4 (Free Thyroxine) 0.88 ng/dL (0.76-1.46)
[2020-07-06] MEDS: traZODone 50 MG TAB PO SCH (21:56)
[2020-07-06] MEDS: levETIRAcetam 500 MG TAB PO SCH (21:56)
[2020-07-06] MEDS: DIVALPROEX DR 500 MG TAB PO SCH (21:57)
[2020-07-06] MEDS: risperiDONE 1 MG TAB PO SCH (21:57)
[2020-07-06] MEDS ORDERED: NON-FORMULARY EACH (Levetiracetam [Keppra Tab] 1,000 MG Tablet) PO SCH (22:00)
[2020-07-06] MEDS ORDERED: DIVALPROEX 500 MG PO SCH (22:00)
[2020-07-07] MEDS: risperiDONE 1 MG TAB PO SCH ×2 (11:58→22:14)
[2020-07-07] MEDS: DIVALPROEX DR 500 MG TAB PO SCH ×2 (11:58→22:13)
[2020-07-07] MEDS: levETIRAcetam 500 MG TAB PO SCH ×2 (11:59→22:14)
[2020-07-07 13:47] LABS: Hemoglobin 11.3 gm/dl (11.8-15.2); Mean Corpuscular HGB Conc 36 % (32-34); Mean Corpuscular Volume 86 fl (84-94); Red Blood Count 3.62 M/mm3 (3.65-5.03); Red Cell Distribution Width 14.8 % (13.2-15.2)
[2020-07-07 13:48] LABS: Platelet Count 86 K/mm3 (140-440)
[2020-07-07 14:06] LABS: Blood Urea Nitrogen 9 mg/dL (9-20); Calcium 8.6 mg/dL (8.4-10.2); Hemolysis Index 16
[2020-07-07 14:11] LABS: BUN/Creatinine Ratio 15
[2020-07-07] MEDS: traZODone 50 MG TAB PO SCH (22:14)
[2020-07-08] MEDS: risperiDONE 1 MG TAB PO SCH (09:03)
[2020-07-08] MEDS: DIVALPROEX DR 500 MG TAB PO SCH (09:03)
[2020-07-08] MEDS: levETIRAcetam 500 MG TAB PO SCH (09:03)
--- NOTE | 2020-07-08 09:31 | Progress Note ---
Assessment and Plan (1) Metabolic encephalopathy Current Visit: Yes Status: Acute Plan to address problem: CT head, neuro check, thyroid panel, fall precautions, aspiration precautions, neuro check, CBC (2) Systemic inflammatory response syndrome Current Visit: Yes Status: Acute Plan to address problem: IV fluid resuscitation therapy, empiric IV antibiotic therapy x1 dose, CBc, (3) Dementia with behavioral disturbance Current Visit: Yes Status: Acute Qualifiers: Dementia type: unspecified type Qualified Code(s): F03.91 - Unspecified dementia with behavioral disturbance Plan to address problem: Verbal prompting, verbal redirection, benzodiazepine therapy as clinically indicated, supportive care. (4) Hematoma of frontal scalp Current Visit: Yes Status: Acute Qualifiers: Encounter type: initial encounter Qualified Code(s): S00.03XA - Contusion of scalp, initial encounter Plan to address problem: Supportive care, CT scan head, (5) Seizure Current Visit: Yes Status: Acute Plan to address problem: Seizure precautions, continue Keppra therapy, (6) DVT prophylaxis Current Visit: Yes Status: Acute Plan to address problem: SCD to bilateral lower extremities while in bed, Pt is ambulatory (7) Advance care planning Current Visit: Yes Status: Acute Plan to address problem: Disease education 07/07: patient noted confused and unable to tell me any detailed history. Family information also unavailable at this point. We will continue to monitor patient. Sitter at the bedside. Subjective Date of service: 07/07/20 Interval history: Patient seen and examined. Medical records and medication list reviewed. No acute event overnight noted by the RN. Patient denies any chest pain or difficulty breathing. Patient is tolerating diet. Patient appears to be pleasantly confused and very hard in hearing Sitter at the bedside Objective - Exam Narrative Exam: General appearance: Present: mild distress - Head Head exam: Present: normocephalic, other (Moderately large left frontal ecchymosis) - EENT Eyes: Present: PERRL ENT: clear oral mucosa, hearing decreased - Neck Neck: Present: supple, normal ROM - Respiratory Respiratory effort: normal Respiratory: bilateral: CTA - Cardiovascular Heart Sounds: Present: S1 & S2. Absent: rub, click - Extremities Extremities: pulses symmetrical, No edema Peripheral Pulses: within normal limits - Abdominal General gastrointestinal: Present: soft, non-tender, non-distended, normal bowel sounds Male genitourinary: Present: normal - Integumentary Integumentary: Present: clear, warm, dry - Musculoskeletal Musculoskeletal: gait normal, strength equal bilaterally - Psychiatric Psychiatric: no appropriate mood/affect, no intact judgment & insight, no memory intact, agitated - Neurologic Neurologic: CNII-XII intact, no focal deficits, moves all extremities, gait normal - Skin Skin exam: Present: warm, dry, intact, ecchymosis and bruise on left wrist - Constitutional Vitals: Vital Signs - 12hr 07/07/20 07/08/20 22:25 05:43 Temperature 98.4 F 97.6 F Pulse Rate 64 62 Respiratory 20 18 Rate Blood Pressure 115/65 134/71 O2 Sat by Pulse 96 96 Oximetry - Labs CBC & Chem 7: 07/07/20 13:17 07/07/20 13:17 Labs: Abnormal lab results 07/07/20 07/07/20 Range/Units 13:17 13:17 RBC 3.62 L (3.65-5.03) M/mm3 Hgb 11.3 L (11.8-15.2) gm/dl Hct 31.0 L (35.5-45.6) % MCHC 36 H (32-34) % Plt Count 86 L (140-440) K/mm3 Chloride 107.2 H (98-107) mmol/L Creatinine 0.6 L (0.8-1.3) mg/dL Glucose 109 H (75-100) mg/dL HEART Score - HEART Score Troponin: Troponin T < 0.010 ng/mL (0.00-0.029) 07/06/20 06:40
[2020-07-08] MEDS ORDERED: PNEUMOCOCCAL 23 Valent 0.5 ML VIAL IM ONE (12:00)
--- NOTE | 2020-07-08 13:02 | Discharge Summary ---
Providers - Providers Date of Admission: 07/06/20 10:49 Date of discharge: 07/08/20 Attending physician: ONEIL EVERETT 07/08/20 09:57 Physical Therapy Evaluation and Treat [CONS] Routine Comment: Reason For Exam: Debility Primary care physician: [employer]ATOR Hospitalization Condition: Stable Pertinent studies: Chest x-ray: No acute abnormality Right wrist x-ray: No fracture or abrasion, chronic avulsion ulnar styloid process. CT cervical spine: Negative for bony injury, chronic changes CT brain: Left frontal soft tissue hematoma, chronic changes Hospital course: 74 YO Male [facility] Resident with Vascular Dementia with Behavioral Disturbance, Cerebral Atherosclerosis, Psychosis, ETOH Dependence, Depression, Cirrhosis presents to ED for evaluation. Patient caregiver reported that patient became confused [facility] Patient was found in the [facility] after having sustained a fall resulting in hip pain. Patient was transported to [facility]. Patient found to have left forehead hematoma, left forehead abrasions, right arm abrasions secondary to fall. Patient also found to have systemic inflammatory response syndrome, as well as encephalopathy. Patient admitted to medical floor due to increased risk of worsening symptoms. Patient was placed on IV fluid, empiric antibiotics, blood culture and urine culture obtained. Chest x-ray showed no infiltrates blood cultures and urine cultures are negative. CT head showed no intracranial hemorrhage mass or infarction. Patient did not have any seizure-like activities following admission. Patient remained pleasantly confused and per the caregiver that is his baseline. Discussed clinical findings and management plan with the caregiver thoroughly by phone. Patient was then discharged to assisted with caregiver in stable condition. Patient was recommended to have outpatient follow-up with neurologist in 1 week. Discharge diagnosis: --Metabolic encephalopathy, CT head without any acute finding -- Systemic inflammatory response syndrome No infectious etiology found, white count trended down, vitals were stable Blood culture urine culture was unremarkable, patient was discharged home without antibiotics -- Dementia with behavioral disturbance Verbal prompting, verbal redirection, supportive care. -- Hematoma of frontal scalp Likely due to fall Supportive care, CT scan head showed no intracranial hemorrhage --Seizure Seizure precautions, continue Keppra and Dilantin therapy, --Left hand bruise with ecchymosis, wound care provided --Status post fall with physical debility Patient was evaluated by physical therapy and recommended home health Disposition: [id number] ANOTHER TYPE HLTHCARE Time spent for discharge: 34 minutes Core Measure Documentation - Palliative Care Palliative Care/ Comfort Measures: Not Applicable - Core Measures Any of the following diagnoses?: none Exam - Physical Exam Narrative exam: General appearance: Present: mild distress - Head Head exam: Present: normocephalic, other (Moderately large left frontal ecchymosis) - EENT Eyes: Present: PERRL ENT: clear oral mucosa, hearing decreased - Neck Neck: Present: supple, normal ROM - Respiratory Respiratory effort: normal Respiratory: bilateral: CTA - Cardiovascular Heart Sounds: Present: S1 & S2. Absent: rub, click - Extremities Extremities: pulses symmetrical, No edema Peripheral Pulses: within normal limits - Abdominal General gastrointestinal: Present: soft, non-tender, non-distended, normal bowel sounds Male genitourinary: Present: normal - Integumentary Integumentary: Present: clear, warm, dry - Musculoskeletal Musculoskeletal: gait normal, strength equal bilaterally - Psychiatric Psychiatric: no appropriate mood/affect, no intact judgment & insight, no memory intact, agitated - Neurologic Neurologic: CNII-XII intact, no focal deficits, moves all extremities, gait normal - Skin Skin exam: Present: warm, dry, intact, ecchymosis and bruise on left wrist - Constitutional Vitals: Temp Pulse Resp BP Pulse Ox 97.6 F 62 18 134/71 96 07/08/20 05:43 07/08/20 05:43 07/08/20 05:43 07/08/20 05:43 07/08/20 05:43 Plan Activity: advance as tolerated, fall precautions Diet: low fat, low salt Wound: keep clean and dry, per wound nurse instructions Additional Instructions: d/c home with clinical care coordinator. f/u with neurology and psychiatry in one week Follow up with: PRIMARY CARE, [Primary Care Provider] - 3-5 Days Prescriptions: traZODone [Desyrel] 50 mg PO QHS #30 AtorvaSTATin [Lipitor] 40 mg PO QHS #[address] 500 mg PO BID #60 levETIRAcetam [Keppra TAB] 1,000 mg PO BID #60 risperiDONE [RisperDAL] 2 mg PO BID #60
[2020-07-08 18:25] VITALS: BP 127/72
[2020-07-08] MEDS ORDERED: ENOXAPARIN 40 MG/0.4 ML INJ SUB-Q SCH (22:00)
== END 2020-07-08 20:35 | disposition home or self-care (01) | DRG 71 ==
LOC: ED 02:01 → 3A 10:49
PROVIDERS: ADMIT Internal Medicine; ATTEND Internal Medicine
DX: G93.41 Metabolic encephalopathy (principal); R65.10 Systemic inflammatory response syndrome (SIRS) of non-infectious origin without acute organ dysfunction; F01.51 Vascular dementia, unspecified severity, with behavioral disturbance; S00.03XA Contusion of scalp, initial encounter; F32.9 Major depressive disorder, single episode, unspecified; S16.1XXA Strain of muscle, fascia and tendon at neck level, initial encounter; S60.222A Contusion of left hand, initial encounter; D72.829 Elevated white blood cell count, unspecified; G40.909 Epilepsy, unspecified, not intractable, without status epilepticus; I67.2 Cerebral atherosclerosis; K74.60 Unspecified cirrhosis of liver; Z88.0 Allergy status to penicillin; Z90.49 Acquired absence of other specified parts of digestive tract; Z82.49 Family history of ischemic heart disease and other diseases of the circulatory system; W18.30XA Fall on same level, unspecified, initial encounter; Y93.89 Activity, other specified; Y92.89 Other specified places as the place of occurrence of the external cause; Y99.8 Other external cause status
CPT/HCPCS: 36415; 70450; 71045; 72125; 80048; 80076; 80307; 80320; 81001; 82140; 82550; 82553; 82962; 83735; 83880; 84439; 84443; 84484; 85007; 85025; 85027; 85610; 85730; 87040; 87086; 87116; 90732; 93005; 96365; 96367; 96372; 96375; G0378; A9270-GY; G0480; J1170; J1953; J1956; J2060; J2185; J7030

== ENCOUNTER 2020-10-29 20:53 | Inpatient (IN) | payer MEDICARE ==
[2020-10-29] MEDS ORDERED: TETANUS,DIPH,PERTUSS(ACELL) VACCINE 0.5 ML SYRINGE IM ONE (21:27)
--- NOTE | 2020-10-29 21:28 | Event Note ---
Date: 10/29/20 Medical screening examination: 74-year-old gentleman, with history of psychiatric disease, alcohol abuse, dementia, brought to the hospital by [facility] after trip and fall, which is mechanical. The patient is reportedly deaf, and writes everything down. EMS states the patient ambulated in the field, and is alert and oriented x3. EMS is concerned about alcohol intoxication. The patient is awake, moving 4 extremities, and in no acute distress. He does have a left-sided supraorbital hematoma. Obtain CT scan of the brain, cervical spine and facial bones. Administer tetanus vaccination. Obtain appropriate laboratory studies. Place patient in bed when available. Obtain detailed history when available.
[2020-10-29 21:48] LABS: Hematocrit 39.8 % (35.5-45.6); Hemoglobin 13.7 gm/dl (11.8-15.2); Mean Corpuscular HGB Conc 34 % (32-34); Mean Corpuscular Volume 89 fl (84-94); Platelet Count 140 K/mm3 (140-440); Red Cell Distribution Width 15.2 % (13.2-15.2)
[2020-10-29 22:08] LABS: Blood Urea Nitrogen 8 mg/dL (9-20); Calcium 9.6 mg/dL (8.4-10.2); Hemolysis Index 27
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
[2020-10-29 22:19] LABS: BUN/Creatinine Ratio 11
[2020-10-29 22:36] LABS: Albumin 3.9 g/dL (3.9-5); Bilirubin,Direct 0.2 mg/dL (0-0.2)
[2020-10-29] MEDS ORDERED: D5W/0.45% NACL 1,000 ML IV SCH (23:00)
[2020-10-29] MEDS ORDERED: BACITRACIN ZINC OINT 28.4 GM TP STA (23:11)
[2020-10-29] MEDS ORDERED: THIAMINE 100 MG, FOLIC ACID 1 MG, MULTIPLE VITAMIN INJ, ADULT 10 ML in SODIUM CHLORIDE ... IV ONE (23:21)
[2020-10-29] MEDS ORDERED: DEXTROSE 5% IV ONE (23:29)
[2020-10-29] MEDS ORDERED: WATER IV ONE (23:29)
[2020-10-29] MEDS ORDERED: ACETADOTE IV ONE (23:29)
[2020-10-29 23:31] LABS: Bilirubin,Urine NEG (Negative); Blood,Urine NEG (Negative); Color,Urine Yellow (Yellow); Protein,Urine <15 mg/dL mg/dL (Negative); Urobilinogen,Urine < 2.0 mg/dL (<2.0); WBC,Urine < 1.0 /HPF (0.0-6.0)
[2020-10-29 23:39] LABS: Amphetamine Screen,Urine PRESUMPTIVE NEGATIVE; Benzodiazepines Screen,Urine PRESUMPTIVE NEGATIVE; Cannabinoid Screen,Urine PRESUMPTIVE NEGATIVE; Cocaine Screen,Urine PRESUMPTIVE NEGATIVE; Methadone Screen,Urine PRESUMPTIVE NEGATIVE; Opiate Screen,Urine PRESUMPTIVE NEGATIVE
[2020-10-29] MEDS ORDERED: LACTATED RINGERS 1,000 ML IV SCH (23:45)
--- NOTE | 2020-10-30 00:15 | Cat Scan Report ---
CT head without contrast INDICATION : Headache following injury TECHNIQUE: Axial imaging performed from the skull apex through the skull base without the use of con trast. All CT examinations performed at this facility utilize dose modulation, iterative reconstruct ion or weight-based dosing, when appropriate, to reduce radiation dose to as low as reasonably achiev able. COMPARISON: None FINDINGS: No acute intracranial hemorrhage or parenchymal abnormality. Ventricles are normal in si ze and appear symmetric. Moderate left prefrontal soft tissue contusion. No acute osseous abnormality . Sinuses and mastoid air cells are clear. IMPRESSION: No acute intracranial pathology. Small left frontal soft tissue contusion overlying the l eft frontal convexity. Signer Name: Eligio Clark MD Signed: 10/30/2020 12:11 AM Workstation Name: [id number]
--- NOTE | 2020-10-30 00:17 | Cat Scan Report ---
CT facial bones wo con INDICATION / CLINICAL INFORMATION: E.T.O.H. with fall, closed head injury. Facial pain following fall TECHNIQUE: Routine CT maxillofacial All CT scans at this location are performed using CT dose reduction for ALAR A by means of automated exposure control. COMPARISON: None available. FINDINGS: No visualized skull fractures identified. The mandible is intact. No facial fracture is identified. N o nasal fracture is identified. The orbits are intact. There is a small left frontal soft tissue cont usion measuring about 1.6 cm in diameter. IMPRESSION: Left frontal soft tissue contusion, as above Signer Name: Eligio Clark MD Signed: 10/30/2020 12:12 AM Workstation Name: [id number]
--- NOTE | 2020-10-30 00:20 | Cat Scan Report ---
CT cervical spine without contrast INDICATION: E.T.O.H. with fall, closed head injury. Neck pain following injury TECHNIQUE: Axial imaging performed through the cervical spine without the use of contrast. Sagittal and coronal reconstructed images were also reviewed. All CT scans at this location are performed us ing CT dose reduction for ALARA by means of automated exposure control. COMPARISON: None FINDINGS: Alignment: Spinal alignment is normal. Bones: There is no acute osseous abnormality. Severe multilevel discogenic DJD is present. There a ppears to be multilevel osseous bridging/ankylosis involving the C3-C4 facets and the C5-C6 facets bi laterally. Soft tissues: No acute or significant incidental soft tissue abnormality. IMPRESSION: No acute fracture or subluxation. Signer Name: Eligio Clark MD Signed: 10/30/2020 12:15 AM Workstation Name: [id number]
[2020-10-30] MEDS ORDERED: DEXTROSE 5% IV ONE ×2 (00:30→04:30)
[2020-10-30] MEDS ORDERED: WATER IV ONE ×2 (00:30→04:30)
[2020-10-30] MEDS ORDERED: ACETADOTE IV ONE ×2 (00:30→04:30)
[2020-10-30] MEDS ORDERED: ALBUTEROL 2.5 MG/3 ML NEBU IH PRN (00:42)
[2020-10-30] MEDS ORDERED: IBUPROFEN 600 MG TAB PO PRN (00:42)
[2020-10-30] MEDS ORDERED: ONDANSETRON 4 MG/2 ML INJ IV PRN (00:42)
[2020-10-30] MEDS ORDERED: hydrALAZINE 20 MG/1 ML INJ IV PRN (00:44)
--- NOTE | 2020-10-30 00:51 | History and Physical Report ---
History of Present Illness Date of examination: 10/30/20 Date of admission: 10/30/20 00:10 Chief complaint: Alcohol intoxication Fall Abrasion of the multiple sites History of present illness: This is 74 years old male with past medical history of alcohol abuse, dementia, psychiatric disease was brought to the emergency room because of patient tripped and fell onto his face. He admits to consuming alcohol. He denies neck pain, chest pain, abdominal pain, shortness of breath. He does not know when his last tetanus vaccination is. He did report taking Tylenol today. He does not know what time he took the Tylenol exactly. He did state on review of systems that he was considering self-harm. He is not currently homicidal. The patient is intoxicated, deaf, hard of hearing, and a poor historian. He therefore has difficulty describing the qualitative nature of his symptoms, exacerbating factors, relieving factors, or aggravating factors. In the emergency room patient lactic acid is 4.80 alcohol level is 0.15 and Tylenol level is 19.3 CT scan of the head shows no acute intracranial abnormality small left frontal soft tissue contusion overlying the left frontal, convexity Past History Past Surgical History: Other (Alcohol abuse psychiatric disease dementia) Medications and Allergies Allergies Allergy/AdvReac Type Severity Reaction Status Date / Time Penicillins Allergy Unknown Verified 09/18/19 14:30 Home Medications Medication Instructions Recorded Confirmed Last Taken Type AtorvaSTATin [Lipitor] 40 mg PO QHS #30 07/08/[address] 500 mg PO BID #60 07/08/20 Unknown Rx levETIRAcetam [Keppra TAB] 1,000 mg PO BID #60 07/08/20 Unknown Rx risperiDONE [RisperDAL] 2 mg PO BID #60 07/08/20 Unknown Rx traZODone [Desyrel] 50 mg PO QHS #30 07/08/20 Unknown Rx Active Meds: Active Medications Albuterol (Albuterol 2.5 Mg/3 Ml Nebu) 2.5 mg IH Q4HRT PRN PRN Reason: Shortness Of Breath Albuterol/Ipratropium (Ipratropium/Albuterol Sulfate 3 Ml Ampul.Neb) 1 ampul IH Q6HRT DHARMESH Atorvastatin Calcium (Atorvastatin 40 Mg Tab) 40 mg PO QHS DHARMESH Famotidine (Famotidine 20 Mg/2 Ml Inj) 20 mg IV BID DHARMESH Hydralazine HCl (Hydralazine 20 Mg/1 Ml Inj) 10 mg IV Q6H PRN PRN Reason: htn Thiamine HCl 100 mg/ Folic Acid 1 mg/ Multivitamins/Minerals 10 ml/ Sodium Chloride 1,011.2 mls @ 250 mls/hr IV ONCE ONE Stop: 10/30/20 03:23 Last Admin: 10/29/20 23:49 Dose: 250 mls/hr Documented by: Acetylcysteine 12,246 mg/ (Dextrose) 261.23 mls @ 200 mls/hr IV ONCE ONE Stop: 10/30/20 00:47 Last Admin: 10/29/20 23:48 Dose: 200 mls/hr Documented by: Acetylcysteine 4,082 mg/ (Dextrose) 520.41 mls @ 125 mls/hr IV ONCE ONE Stop: 10/30/20 04:39 Acetylcysteine 8,164 mg/ (Dextrose) 1,040.82 mls @ 62.5 mls/hr IV ONCE ONE Stop: 10/30/20 21:09 Lactated Ringer's (Lactated Ringers) 1,000 mls @ 250 mls/hr IV DIRECT DHARMESH Dextrose/Sodium Chloride (D5/0.45ns) 1,000 mls @ 125 mls/hr IV DIRECT DHARMESH Ceftriaxone Sodium (Rocephin/Ns 2 Gm/100 Ml) 2 gm in 100 mls @ 200 mls/hr IV Q24H DHARMESH; Protocol Ibuprofen (Ibuprofen 600 Mg Tab) 600 mg PO Q6H PRN PRN Reason: Pain, Mild (1-3) Miscellaneous Medication (Divalproex Dr) 500 mg PO BID DHARMESH Miscellaneous Medication (Levetiracetam [Keppra Tab]) 1,000 mg PO BID DHARMESH Ondansetron HCl (Ondansetron 4 Mg/2 Ml Inj) 4 mg IV Q8H PRN PRN Reason: Nausea And Vomiting Risperidone (Risperidone 1 Mg Tab) 2 mg PO BID DHARMESH Sodium Chloride (Sodium Chloride 0.9% 10 Ml Flush Syringe) 10 ml IV BID DHARMESH Sodium Chloride (Sodium Chloride 0.9% 10 Ml Flush Syringe) 10 ml IV PRN PRN PRN Reason: LINE FLUSH Trazodone HCl (Trazodone 50 Mg Tab) 50 mg PO QHS [facility] Review of Systems Neurological: headaches Psychiatric: suicidal ideation Exam - Constitutional Vitals: Temp Pulse Resp BP Pulse Ox 97.6 F 72 16 112/66 99 10/29/20 22:13 10/30/20 00:01 10/30/20 00:01 10/29/20 23:01 10/30/20 00:01 General appearance: Present: no acute distress, well-nourished, other (Patient looks intoxicated anxious abrasion mild multiple sites in the face) - EENT Eyes: Present: PERRL ENT: hearing intact, clear oral mucosa - Neck Neck: Present: supple, normal ROM - Respiratory Respiratory effort: normal Respiratory: bilateral: CTA - Cardiovascular Heart Sounds: Present: S1 & S2. Absent: rub, click - Extremities Extremities: pulses symmetrical, No edema Peripheral Pulses: within normal limits - Abdominal General gastrointestinal: Present: soft, non-tender, non-distended, normal bowel sounds Male genitourinary: Present: normal - Integumentary Integumentary: Present: clear, warm, dry - Musculoskeletal Musculoskeletal: gait normal, strength equal bilaterally - Psychiatric Psychiatric: appropriate mood/affect, intact judgment & insight, other (Patient is demented) - Neurologic Neurologic: CNII-XII intact, moves all extremities, other (Dementia) Results - Labs CBC & Chem 7: 10/29/20 21:37 10/29/20 21:37 Labs: Laboratory Last Values WBC 8.7 K/mm3 (4.5-11.0) 10/29/20 21:37 RBC 4.50 M/mm3 (3.65-5.03) 10/29/20 21:37 Hgb 13.7 gm/dl (11.8-15.2) 10/29/20 21:37 Hct 39.8 % (35.5-45.6) 10/29/20 21:37 MCV 89 fl (84-94) 10/29/20 21:37 MCH 30 pg (28-32) 10/29/20 21:37 MCHC 34 % (32-34) 10/29/20 21:37 RDW 15.2 % (13.2-15.2) 10/29/20 21:37 Plt Count 140 K/mm3 (140-440) 10/29/20 21:37 PT 13.8 Sec. (12.2-14.9) 10/29/20 21:37 INR 1.00 (0.87-1.13) 10/29/20 21:37 APTT 28.6 Sec. (24.2-36.6) 10/29/20 21:37 Sodium 128 mmol/L (137-145) L 10/29/20 21:37 Potassium 3.9 mmol/L (3.6-5.0) 10/29/20 21:37 Chloride 91.0 mmol/L (98-107) L 10/29/20 21:37 Carbon Dioxide 17 mmol/L (22-30) L 10/29/20 21:37 Anion Gap 24 mmol/L 10/29/20 21:37 BUN 8 mg/dL (9-20) L 10/29/20 21:37 Creatinine 0.7 mg/dL (0.8-1.3) L 10/29/20 21:37 Estimated GFR > 60 ml/min 10/29/20 21:37 BUN/Creatinine Ratio 11 % 10/29/20 21:37 Glucose 81 mg/dL (75-100) 10/29/20 21:37 Lactic Acid 4.80 mmol/L (0.7-2.0) H* 10/29/20 22:37 Calcium 9.6 mg/dL (8.4-10.2) 10/29/20 21:37 Magnesium 2.00 mg/dL (1.7-2.3) 10/29/20 21:37 Total Bilirubin 1.00 mg/dL (0.1-1.2) 10/29/20 21:37 Direct Bilirubin 0.2 mg/dL (0-0.2) 10/29/20 21:37 Indirect Bilirubin 0.8 mg/dL 10/29/20 21:37 AST 20 units/L (5-40) 10/29/20 21:37 ALT 9 units/L (7-56) 10/29/20 21:37 Alkaline Phosphatase 66 units/L (35-129) 10/29/20 21:37 Ammonia 39.0 umol/L (25-60) 10/29/20 22:37 Total Creatine Kinase 175 units/L (55-170) H 10/29/20 21:37 Total Protein 6.8 g/dL (6.3-8.2) 10/29/20 21:37 Albumin 3.9 g/dL (3.9-5) 10/29/20 21:37 Albumin/Globulin Ratio 1.3 % 10/29/20 21:37 Urine Color Yellow (Yellow) 10/29/20 23:19 Urine Turbidity Clear (Clear) 10/29/20 23:19 Urine pH 5.0 (5.0-7.0) 10/29/20 23:19 Ur Specific [place] 1.008 (1.003-1.030) 10/29/20 23:19 Urine Protein <15 mg/dl mg/dL (Negative) 10/29/20 23:19 Urine Glucose (UA) Neg mg/dL (Negative) 10/29/20 23:19 Urine Ketones Neg mg/dL (Negative) 10/29/20 23:19 Urine Blood Neg (Negative) 10/29/20 23:19 Urine Nitrite Neg (Negative) 10/29/20 23:19 Urine Bilirubin Neg (Negative) 10/29/20 23:19 Urine Urobilinogen < 2.0 mg/dL (<2.0) 10/29/20 23:19 Ur Leukocyte Esterase Neg (Negative) 10/29/20 23:19 Urine WBC (Auto) < 1.0 /HPF (0.0-6.0) 10/29/20 23:19 Urine RBC (Auto) 2.0 /HPF (0.0-6.0) 10/29/20 23:19 Salicylates < 0.3 mg/dL (2.8-20.0) L 10/29/20 21:37 Urine Opiates Screen Presumptive negative 10/29/20 23:19 Urine Methadone Screen Presumptive negative 10/29/20 23:19 Acetaminophen 19.3 ug/mL (10.0-30.0) 10/29/20 21:37 Ur Barbiturates Screen Presumptive negative 10/29/20 23:19 Valproic Acid < 2.8 ug/mL (50-100) L 10/29/20 21:37 Ur Phencyclidine Scrn Presumptive negative 10/29/20 23:19 Ur Amphetamines Screen Presumptive negative 10/29/20 23:19 U Benzodiazepines Scrn Presumptive negative 10/29/20 23:19 Urine Cocaine Screen Presumptive negative 10/29/20 23:19 U Marijuana (THC) Screen Presumptive negative 10/29/20 23:19 Drugs of Abuse Note Disclamer 10/29/20 23:19 Plasma/Serum Alcohol 0.15 % (0-0.07) H 10/29/20 21:37 - Imaging and Cardiology CT Scan - head: report reviewed Assessment and Plan VTE prophylaxis?: Mechanical Plan of care discussed with patient/family: Yes - Patient Problems (1) Acetaminophen overdose Current Visit: Yes Status: Acute Plan to address problem: Admit the patient to the ICU. N.p.o. IV fluid D5 half-normal saline at the ra te of 100 cc/h. Patient is on Mucomyst Pepcid 20 mg IV every 12 hours. We will recheck the acetaminophen in the morning. We will consult critical care evaluation (2) Alcohol intoxication Current Visit: Yes Status: Acute Plan to address problem: Patient counseled regarding quit drinking. Patient is put on thiamine 100 mg p.o. daily folic acid 1 mg p.o. daily and banana bag daily (3) Dementia with behavioral disturbance Current Visit: Yes Status: Acute Plan to address problem: We will continue the risperidone 2 mg p.o. twice daily trazodone 50 mg p.o. nightly Levacet TRAM 1000 mg p.o. twice daily. Divalproex 500 mg p.o. twice daily. We will monitor the patient closely (4) Hyponatremia Current Visit: Yes Status: Acute Plan to address problem: Patient is on D5 half-normal saline at the rate of 100 cc/h hour recheck the BMP in the morning (5) Metabolic acidosis Current Visit: Yes Status: Acute Plan to address problem: D5 half-normal saline at the rate of 100 cc/h. Levaquin 750 mg IV daily. We will recheck the lactic acid in 4 hours. We will monitor the patient closely (6) Metabolic encephalopathy Current Visit: No Status: Acute Plan to address problem: Most likely secondary to alcohol abuse and Tylenol overdose. We will put the patient on banana bag IV daily . Pepcid 20 mg IV twice daily every 12 hours. IV fluid and IV Levaquin 750 mils IV daily. We will monitor the patient closely (7) Seizure disorder Current Visit: No Status: Acute Plan to address problem: We will continue the risperidone 2 mg p.o. twice daily trazodone 50 mg p.o. nightly Levacet TRAM 1000 mg p.o. twice daily. Divalproex 500 mg p.o. twice daily. We will monitor the patient closely (8) DVT prophylaxis Current Visit: Yes Status: Acute Plan to address problem: SCD for DVT prophylaxis. Pepcid 20 mg IV every 12 hours for GI prophylaxis. Patient is a full code
[2020-10-30] MEDS ORDERED: cefTRIAXone/NS 2 GM/100 ML 2 GM/100 ML BAG IV SCH (01:00)
[2020-10-30] MEDS ORDERED: D5W/0.45% NACL 1,000 ML IV SCH (01:00)
[2020-10-30] MEDS: IPRATROPIUM/ALBUTEROL SULFATE 3 ML AMPUL.NEB IH SCH ×5 (08:28→20:41)
--- NOTE | 2020-10-30 09:14 | Consultation ---
History of Present Illness - Reason for Consult Consult date: 10/30/20 Tylenol Overdose, Suicidial Ideation Requesting physician: ABIGAIL LARA - History of Present Illness Patient admitted with tylenol overdose, possible SI and head and facial lacs. Placed in ICU to monitor LFFt's and hemodynamics. Awake and alert this am but very very hard of hearing. Past History Past Medical History: hyperlipidemia, seizures Past Surgical History: Other (Alcohol abuse psychiatric disease dementia) Medications and Allergies Allergies Allergy/AdvReac Type Severity Reaction Status Date / Time Penicillins Allergy Unknown Verified 09/18/19 14:30 Home Medications Medication Instructions Recorded Confirmed Last Taken Type AtorvaSTATin [Lipitor] 40 mg PO QHS #30 07/08/[address] 500 mg PO BID #60 07/08/20 Unknown Rx levETIRAcetam [Keppra TAB] 1,000 mg PO BID #60 07/08/20 Unknown Rx risperiDONE [RisperDAL] 2 mg PO BID #60 07/08/20 Unknown Rx traZODone [Desyrel] 50 mg PO QHS #30 07/08/20 Unknown Rx Active Meds: Active Medications Albuterol (Albuterol 2.5 Mg/3 Ml Nebu) 2.5 mg IH Q4HRT PRN PRN Reason: Shortness Of Breath Albuterol/Ipratropium (Ipratropium/Albuterol Sulfate 3 Ml Ampul.Neb) 1 ampul IH Q6HRT DHARMESH Last Admin: 10/30/20 08:35 Dose: Not Given Documented by: Atorvastatin Calcium (Atorvastatin 40 Mg Tab) 40 mg PO QHS DHARMESH Divalproex Sodium (Divalproex Dr 500 Mg Tab) 500 mg PO BID DHARMESH Famotidine (Famotidine 20 Mg/2 Ml Inj) 20 mg IV BID DHARMESH Hydralazine HCl (Hydralazine 20 Mg/1 Ml Inj) 10 mg IV Q6H PRN PRN Reason: htn Acetylcysteine 8,164 mg/ (Dextrose) 1,040.82 mls @ 62.5 mls/hr IV ONCE ONE Stop: 10/30/20 21:09 Last Admin: 10/30/20 04:56 Dose: 62.5 mls/hr Documented by: Lactated Ringer's (Lactated Ringers) 1,000 mls @ 250 mls/hr IV DIRECT DHARMESH Dextrose/Sodium Chloride (D5/0.45ns) 1,000 mls @ 125 mls/hr IV DIRECT DHARMESH Levofloxacin/Dextrose (Levaquin 750mg/150ml) 750 mg in 150 mls @ 100 mls/hr IV Q24HR [facility] Thiamine HCl 100 mg/ Folic Acid 1 mg/ Multivitamins/Minerals 10 ml/ Sodium Chloride 1,011.2 mls @ 250 mls/hr IV DAILY@2200 [facility] Ibuprofen (Ibuprofen 600 Mg Tab) 600 mg PO Q6H PRN PRN Reason: Pain, Mild (1-3) Levetiracetam (Levetiracetam 500 Mg Tab) 1,000 mg PO BID DHARMESH Ondansetron HCl (Ondansetron 4 Mg/2 Ml Inj) 4 mg IV Q8H PRN PRN Reason: Nausea And Vomiting Risperidone (Risperidone 1 Mg Tab) 2 mg PO BID [facility] Sodium Chloride (Sodium Chloride 0.9% 10 Ml Flush Syringe) 10 ml IV BID DHARMESH Sodium Chloride (Sodium Chloride 0.9% 10 Ml Flush Syringe) 10 ml IV PRN PRN PRN Reason: LINE FLUSH Trazodone HCl (Trazodone 50 Mg Tab) 50 mg PO QHS [facility] Exam - Constitutional Vitals: Temp Pulse Resp BP Pulse Ox 98.2 F 81 18 145/77 96 10/30/20 07:00 10/30/20 08:46 10/30/20 08:46 10/30/20 08:00 10/30/20 08:28 General appearance: Present: no acute distress, disheveled, other (head and facial lacs) - EENT Eyes: Present: PERRL, EOM intact - Neck Neck: Present: supple, normal ROM - Respiratory Respiratory: bilateral: CTA - Cardiovascular Rhythm: regular Heart Sounds: Present: S1 & S2 - Extremities Extremities: no ischemia - Abdominal General gastrointestinal: Present: soft, non-tender, normal bowel sounds - Rectal Rectal Exam: deferred Results - Labs CBC & Chem 7: 10/29/20 21:37 10/30/20 10:17 Labs: Abnormal lab results 10/29/20 10/29/20 10/29/20 Range/Units 21:37 21:37 21:37 Sodium 128 L (137-145) mmol/L Chloride 91.0 L (98-107) mmol/L Carbon Dioxide 17 L (22-30) mmol/L BUN 8 L (9-20) mg/dL Creatinine 0.7 L (0.8-1.3) mg/dL Lactic Acid (0.7-2.0) mmol/L Total Creatine Kinase 175 H (55-170) units/L Salicylates < 0.3 L (2.8-20.0) mg/dL Valproic Acid < 2.8 L (50-100) ug/mL Plasma/Serum Alcohol 0.15 H (0-0.07) % 10/29/20 10/30/20 10/30/20 Range/Units 22:37 00:50 04:21 Sodium (137-145) mmol/L Chloride (98-107) mmol/L Carbon Dioxide (22-30) mmol/L BUN (9-20) mg/dL Creatinine (0.8-1.3) mg/dL Lactic Acid 4.80 H* 4.50 H* 3.80 H* (0.7-2.0) mmol/L Total Creatine Kinase (55-170) units/L Salicylates (2.8-20.0) mg/dL Valproic Acid (50-100) ug/mL Plasma/Serum Alcohol (0-0.07) % Assessment and Plan Continue IV NAC monitor LFT's follow up psych recs Should be stable for transfer out of ICU later today.
--- NOTE | 2020-10-30 09:58 | Electrocardiograph Report ---
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
[2020-10-30] MEDS: DIVALPROEX DR 500 MG TAB PO SCH ×2 (10:06→23:30)
[2020-10-30] MEDS: FAMOTIDINE 20 MG/2 ML INJ IV SCH ×2 (10:09→23:30)
[2020-10-30] MEDS: levETIRAcetam 500 MG TAB PO SCH ×2 (10:09→23:30)
[2020-10-30] MEDS: risperiDONE 1 MG TAB PO SCH ×2 (10:13→23:25)
--- NOTE | 2020-10-30 10:38 | Event Note ---
<DOMENIC ZELAYA - Last Filed: 10/30/20 14:17> This is a 74-year-old gentleman with dementia?, alcoholism, hard of hearing, seizures for presented on 10/30 s/p unwitnessed trip and fall at living facility with at least 2 cans of beer with him. Per EMS communication occurred through written word and the patient only complaint of forehead and facial pain after f all and reportted Tylenol ingestion of unknown quantity. In the ED He did state on review of systems that he was considering self-harm. 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 Patient also has hyponatremia, hypochloremia and metabolic acidosis with elevated TBilli. Patient was admitted to the hospitalist service with tylenol toxicity on an acetylcysteine gtt to the ICU with consult to CCM. 10/30: Early this morning patient had an witnessed seizure which was aborted with ativan. This morning the patient stated he takes 1000mg Keppra TID and had a fleeting SI. Psych and Neuro has been consulted. Patient will be transferred to the floor. A/P Neuro: Metabolic encephalopathy -Aspiration/fall precuations -Reorient as needed -Trend CMP and correct electrolytes as needed Seizure disorder -Neurology consult -Keppra level pending -Keppra 1000mg BID, Depakote Psych: Acetaminophen overdose -Admit tylenol level 19.3 -s/p Acetylcysteine gtt ?Dementia with behavioral disturbance -Continue home risperidone and trazodone -Psych consult Alcohol intoxication -Admit Alcohol level 0.15 -CIWA when needed SI -Psych consult -Denies current SI or HI CV: NAD -Blood pressure monitoring per protocol -Hydralazine PRN for SBP>160 GI: NAD -Passed bedside swallow eval -Regular diet FEN/: Rhabdomylosis -IVF -Trend CK, CMP GI/DVT prophylaxis: PPI, SCDs to BLE while in bed, lovenox subq Dispo: transfer to floor Lines: PIV The high probability of a clinically significant, sudden or life threatening deterioration of the [neuro] system(s) required my full and direct attention, intervention and personal management. The aggregate critical care time was [25] minutes. This time is in addition to time spent performing reported procedures but includes the following: [x] Data Review and interpretation [x] Patient assessment and monitoring of vital signs [x] Documentation [x] Medication orders and management <ERWIN ESCALANTE - Last Filed: 10/30/20 14:36> Patient seen and examined, agree with assessment and plan as outlined by nurse practitioner, neurology will be consulted, patient without any seizures during hospital stay thus far. Psychiatry to be consulted for SI.
[2020-10-30 11:27] LABS: Alanine Aminotransferase 10 units/L (7-56); Albumin 4.1 g/dL (3.9-5); Blood Urea Nitrogen 7 mg/dL (9-20); Calcium 9.4 mg/dL (8.4-10.2); Hemolysis Index 9
[2020-10-30 11:40] LABS: BUN/Creatinine Ratio 14
--- NOTE | 2020-10-30 16:20 | Consultation ---
History of Present Illness - Reason for Consult Consult date: 10/30/20 Reason for consult: Suicidal Ideation - Chief Complaint Chief complaint: Alcohol intoxication Fall Abrasion of the multiple sites - History of Present Psychiatric Illness Per Note: This is a 74-year-old gentleman with dementia?, alcoholism, hard of hearing, seizures for presented on 10/30 s/p unwitnessed trip and fall at living facility with at least 2 cans of beer with him. Per EMS communication occurred through written word and the patient only complaint of forehead and facial pain after fall and reportted Tylenol ingestion of unknown quantity. In the ED He did state on review of systems that he was considering self-harm. 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 Patient also has hyponatremia, hypochloremia and metabolic acidosis with elevated TBilli. Patient was admitted to the hospitalist service with tylenol toxicity on an acetylcysteine gtt to the ICU with consult to [facility]. 10/30: Early this morning patient had an witnessed seizure which was aborted with ativan. This morning the patient stated he takes 1000mg Keppra TID and had a fleeting SI. Psych and Neuro has been consulted. Patient will be transferred to the floor. Ricardo Tenorio is a 73 year old with a history of alcohol use disorder with multiple alcohol rehab admissions. 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 Patient reports he started consuming alcohol as a teenager, he reports drinking about "2-3 beers" per day. The patient states longest sobriety period as one year. Patient reports having intermittent suicidal ideation but denies having suicidal ideation today. Patient with mild tremors. Patient denies any current cravings for alcohol. PAST PSYCHIATRIC HISTORY: Diagnoses: Alcohol Use Disorder Suicide attempts or Self-harm behavior: Denied Prior psychiatric hospitalizations:Reports rehab Substance Abuse history: Alcohol Previous psychiatric medications tried:unknown Outpatient treatment:unknown PAST MEDICAL HISTORY: n/a Family Psychiatric History: None reported or documented SOCIAL HISTORY Marital Status: Unknown Living Arrangements: lives with a care take Employment Status: retired Access to guns/weapons: n/a Education: bachelors History of Abuse: n/a Legal History: n/a REVIEW OF SYSTEMS Constitutional: Negative for weight loss ENT: Negative for stridor; KOBUK Respiratory: Negative for cough or hemoptysis All other systems reviewed and are negative MENTAL STATUS EXAMINATION General Appearance and Behavior: Age appropriate, good hygiene, wearing appropriate clothes, uncooperative polite with questioning. Cooperation: cooperative Psychomotor Behavior: Psychomotor agitation Mood: ok Affect and affective range: congruent Thought Process: Goal directed Thought Content: Within reality Speech: Normal volume, Regular rate and rhythm Intellectual Functioning:Average Suicidal Ideation: Denied Homicidal Ideation: Denied hallucination: Denied Impulse Control: Intact Insight and Judgment: Limited Memory: Intact Attention:Normal Orientation: Alert and oriented Diagnoses: Alcohol use Disorder, Severe- F10.20 RECOMMENDATIONS Continue with Ciwa protocol Continue Risperdal 2mg po BID Continue Trazodone 50mg po QHS Patient should be compliant with medications and not to use drugs and not to drink alcohol. PSYCHOTHERAPY: Supportive psychotherapy provided MEDICAL: Per primary team DELIRIUM PRECAUTIONS: Please re-orient patient frequently, keep lights on during the day, and minimize benzodiazepines and opiates as these medications could worsen patient's confusion. MARKETING RESEARCHER: Per medical team DISPOSITION: Do not recommend acute inpatient psychiatric hospitalization at this time FOLLOW-UP: Will sign off Thank you for the consult. Please contact with any questions and/or concerns. Medications and Allergies Allergies Allergy/AdvReac Type Severity Reaction Status Date / Time Penicillins Allergy Unknown Verified 09/18/19 14:30 Home Medications Medication Instructions Recorded Confirmed Last Taken Type AtorvaSTATin [Lipitor] 40 mg PO QHS #30 07/08/20 10/30/[address] 500 mg PO BID #60 07/08/20 10/30/20 Unknown Rx levETIRAcetam [Keppra TAB] 1,000 mg PO BID #60 07/08/20 10/30/20 Unknown Rx risperiDONE [RisperDAL] 2 mg PO BID #60 07/08/20 10/30/20 Unknown Rx traZODone [Desyrel] 50 mg PO QHS #30 07/08/20 10/30/20 Unknown Rx Active Meds: Active Medications Albuterol (Albuterol 2.5 Mg/3 Ml Nebu) 2.5 mg IH Q4HRT PRN PRN Reason: Shortness Of Breath Albuterol/Ipratropium (Ipratropium/Albuterol Sulfate 3 Ml Ampul.Neb) 1 ampul IH Q6HRT [facility] Last Admin: 10/30/20 14:21 Dose: Not Given Documented by: Atorvastatin Calcium (Atorvastatin 40 Mg Tab) 40 mg PO QHS [facility] Divalproex Sodium (Divalproex Dr 500 Mg Tab) 500 mg PO BID [facility] Last Admin: 10/30/20 10:06 Dose: 500 mg Documented by: Enoxaparin Sodium (Enoxaparin 40 Mg/0.4 Ml Inj) 40 mg SUB-Q QDAY@1000 DHARMESH; Protocol Famotidine (Famotidine 20 Mg/2 Ml Inj) 20 mg IV BID [facility] Last Admin: 10/30/20 10:09 Dose: 20 mg Documented by: Hydralazine HCl (Hydralazine 20 Mg/1 Ml Inj) 10 mg IV Q6H PRN PRN Reason: htn Acetylcysteine 8,164 mg/ (Dextrose) 1,040.82 mls @ 62.5 mls/hr IV ONCE ONE Stop: 10/30/20 21:09 Last Admin: 10/30/20 04:56 Dose: 62.5 mls/hr Documented by: Dextrose/Sodium Chloride (D5/0.45ns) 1,000 mls @ 125 mls/hr IV DIRECT [facility] Thiamine HCl 100 mg/ Folic Acid 1 mg/ Multivitamins/Minerals 10 ml/ Sodium Chloride 1,011.2 mls @ 250 mls/hr IV DAILY@2200 [facility] Ibuprofen (Ibuprofen 600 Mg Tab) 600 mg PO Q6H PRN PRN Reason: Pain, Mild (1-3) Levetiracetam (Levetiracetam 500 Mg Tab) 1,000 mg PO BID [facility] Last Admin: 10/30/20 10:09 Dose: 1,000 mg Documented by: Ondansetron HCl (Ondansetron 4 Mg/2 Ml Inj) 4 mg IV Q8H PRN PRN Reason: Nausea And Vomiting Risperidone (Risperidone 1 Mg Tab) 2 mg PO BID [facility] Last Admin: 10/30/20 10:13 Dose: 2 mg Documented by: Sodium Chloride (Sodium Chloride 0.9% 10 Ml Flush Syringe) 10 ml IV BID [facility] Last Admin: 10/30/20 10:09 Dose: 10 ml Documented by: Sodium Chloride (Sodium Chloride 0.9% 10 Ml Flush Syringe) 10 ml IV PRN PRN PRN Reason: LINE FLUSH Trazodone HCl (Trazodone 50 Mg Tab) 50 mg PO QHS [facility] Mental Status Exam - Vital signs Last Vital Signs Temp 98.3 F 10/30/20 11:50 Pulse 73 10/30/20 16:01 Resp 23 10/30/20 16:01 BP 130/67 10/30/20 16:01 Pulse Ox 100 10/30/20 16:01 Results Result Diagrams: 10/29/20 21:37 10/30/20 10:17 Abnormal lab results 10/29/20 10/29/20 10/29/20 Range/Units 21:37 21:37 21:37 Sodium 128 L (137-145) mmol/L Chloride 91.0 L (98-107) mmol/L Carbon Dioxide 17 L (22-30) mmol/L BUN 8 L (9-20) mg/dL Creatinine 0.7 L (0.8-1.3) mg/dL Glucose (75-100) mg/dL Lactic Acid (0.7-2.0) mmol/L Total Bilirubin (0.1-1.2) mg/dL Total Creatine Kinase 175 H (55-170) units/L Salicylates < 0.3 L (2.8-20.0) mg/dL Acetaminophen (10.0-30.0) ug/mL Valproic Acid < 2.8 L (50-100) ug/mL Plasma/Serum Alcohol 0.15 H (0-0.07) % 10/29/20 10/30/20 10/30/20 Range/Units 22:37 00:50 04:21 Sodium (137-145) mmol/L Chloride (98-107) mmol/L Carbon Dioxide (22-30) mmol/L BUN (9-20) mg/dL Creatinine (0.8-1.3) mg/dL Glucose (75-100) mg/dL Lactic Acid 4.80 H* 4.50 H* 3.80 H* (0.7-2.0) mmol/L Total Bilirubin (0.1-1.2) mg/dL Total Creatine Kinase (55-170) units/L Salicylates (2.8-20.0) mg/dL Acetaminophen (10.0-30.0) ug/mL Valproic Acid (50-100) ug/mL Plasma/Serum Alcohol (0-0.07) % 10/30/20 10/30/20 Range/Units 10:17 10:17 Sodium (137-145) mmol/L Chloride (98-107) mmol/L Carbon Dioxide (22-30) mmol/L BUN 7 L (9-20) mg/dL Creatinine 0.5 L (0.8-1.3) mg/dL Glucose 105 H (75-100) mg/dL Lactic Acid (0.7-2.0) mmol/L Total Bilirubin 1.40 H (0.1-1.2) mg/dL Total Creatine Kinase 279 H (55-170) units/L Salicylates (2.8-20.0) mg/dL Acetaminophen 5.0 L (10.0-30.0) ug/mL Valproic Acid (50-100) ug/mL Plasma/Serum Alcohol (0-0.07) % All other labs normal.
[2020-10-30] MEDS ORDERED: THIAMINE 100 MG, FOLIC ACID 1 MG, MULTIPLE VITAMIN INJ, ADULT 10 ML in SODIUM CHLORIDE ... IV SCH (22:00)
[2020-10-31] MEDS: traZODone 50 MG TAB PO SCH ×2 (00:46→22:27)
--- NOTE | 2020-10-31 01:38 | Consultation ---
History of Present Illness Consult date: 10/30/20 Reason for Consult: Seizure Chief complaint: Fall History of present illness: Patient is not an ideal Teleneurology candidate secondary to bilateral hearing loss and inability to participate directly with the teleneurologist. 74 yo male with seizure d/o, alcohol abuse, falls who presents where per H&P - "The patient is intoxicated, deaf, hard of hearing, and a poor historian. He therefore has difficulty describing the qualitative nature of his symptoms, exacerbating factors, relieving factors, or aggravating factors. In the emergency room patient lactic acid is 4.80 alcohol level is 0.15 and Tylenol level is 19.3 CT scan of the head shows no acute intracranial abnormality small left frontal soft tissue contusion overlying the left frontal, convexity." Past History Past Medical History: hyperlipidemia, seizures Past Surgical History: Other (Alcohol abuse psychiatric disease dementia) Medications and Allergies Allergies Allergy/AdvReac Type Severity Reaction Status Date / Time Penicillins Allergy Unknown Verified 09/18/19 14:30 Home Medications Medication Instructions Recorded Confirmed Last Taken Type AtorvaSTATin [Lipitor] 40 mg PO QHS #30 07/08/20 10/30/[address] 500 mg PO BID #60 07/08/20 10/30/20 Unknown Rx levETIRAcetam [Keppra TAB] 1,000 mg PO BID #60 07/08/20 10/30/20 Unknown Rx risperiDONE [RisperDAL] 2 mg PO BID #60 07/08/20 10/30/20 Unknown Rx traZODone [Desyrel] 50 mg PO QHS #30 07/08/20 10/30/20 Unknown Rx Active Meds: Active Medications Albuterol (Albuterol 2.5 Mg/3 Ml Nebu) 2.5 mg IH Q4HRT PRN PRN Reason: Shortness Of Breath Atorvastatin Calcium (Atorvastatin 40 Mg Tab) 40 mg PO QHS [facility] Last Admin: 10/31/20 00:46 Dose: 40 mg Documented by: Divalproex Sodium (Divalproex Dr 500 Mg Tab) 500 mg PO BID [facility] Last Admin: 10/30/20 23:30 Dose: 500 mg Documented by: Enoxaparin Sodium (Enoxaparin 40 Mg/0.4 Ml Inj) 40 mg SUB-Q QDAY@1000 DHARMESH; Protocol Famotidine (Famotidine 20 Mg/2 Ml Inj) 20 mg IV BID [facility] Last Admin: 10/30/20 23:30 Dose: 20 mg Documented by: Hydralazine HCl (Hydralazine 20 Mg/1 Ml Inj) 10 mg IV Q6H PRN PRN Reason: htn Dextrose/Sodium Chloride (D5/0.45ns) 1,000 mls @ 125 mls/hr IV DIRECT [facility] Thiamine HCl 100 mg/ Folic Acid 1 mg/ Multivitamins/Minerals 10 ml/ Sodium Chloride 1,011.2 mls @ 250 mls/hr IV DAILY@2200 [facility] Ibuprofen (Ibuprofen 600 Mg Tab) 600 mg PO Q6H PRN PRN Reason: Pain, Mild (1-3) Levetiracetam (Levetiracetam 500 Mg Tab) 1,000 mg PO BID [facility] Last Admin: 10/30/20 23:30 Dose: 1,000 mg Documented by: Ondansetron HCl (Ondansetron 4 Mg/2 Ml Inj) 4 mg IV Q8H PRN PRN Reason: Nausea And Vomiting Risperidone (Risperidone 1 Mg Tab) 2 mg PO BID [facility] Last Admin: 10/30/20 23:25 Dose: 2 mg Documented by: Sodium Chloride (Sodium Chloride 0.9% 10 Ml Flush Syringe) 10 ml IV BID [facility] Last Admin: 10/30/20 10:09 Dose: 10 ml Documented by: Sodium Chloride (Sodium Chloride 0.9% 10 Ml Flush Syringe) 10 ml IV PRN PRN PRN Reason: LINE FLUSH Trazodone HCl (Trazodone 50 Mg Tab) 50 mg PO QHS [facility] Last Admin: 10/31/20 00:46 Dose: 50 mg Documented by: Physical Examination - Vital Signs Vital Signs: Vital Signs Pulse Resp Pulse Ox 74 11 L 98 10/29/20 22:06 10/29/20 22:06 10/29/20 22:06 - Physical Exam Narrative exam: Patient is not an ideal Teleneurology candidate secondary to bilateral hearing loss and inability to participate directly with the teleneurologist. Results - Laboratory Findings CBC and BMP: 10/29/20 21:37 10/30/20 10:17 Abnormal Lab Findings: Abnormal Labs 10/29/20 10/29/20 10/29/20 21:37 21:37 21:37 Sodium 128 L Chloride 91.0 L Carbon Dioxide 17 L BUN 8 L Creatinine 0.7 L Glucose Lactic Acid Total Bilirubin Total Creatine Kinase 175 H Salicylates < 0.3 L Acetaminophen Valproic Acid < 2.8 L Plasma/Serum Alcohol 0.15 H 10/29/20 10/30/20 10/30/20 22:37 00:50 04:21 Sodium Chloride Carbon Dioxide BUN Creatinine Glucose Lactic Acid 4.80 H* 4.50 H* 3.80 H* Total Bilirubin Total Creatine Kinase Salicylates Acetaminophen Valproic Acid Plasma/Serum Alcohol 10/30/20 10/30/20 10:17 10:17 Sodium Chloride Carbon Dioxide BUN 7 L Creatinine 0.5 L Glucose 105 H Lactic Acid Total Bilirubin 1.40 H Total Creatine Kinase 279 H Salicylates Acetaminophen 5.0 L Valproic Acid Plasma/Serum Alcohol Assessment and Plan Patient is not an ideal Teleneurology candidate secondary to bilateral hearing loss and inability to participate directly with the teleneurologist. 74 yo male with seizure d/o, alcohol abuse, falls who presents where per H&P - "The patient is intoxicated, deaf, hard of hearing, and a poor historian. He therefore has difficulty describing the qualitative nature of his symptoms, exacerbating factors, relieving factors, or aggravating factors. In the emergency room patient lactic acid is 4.80 alcohol level is 0.15 and Tylenol level is 19.3 CT scan of the head shows no acute intracranial abnormality small left frontal soft tissue contusion overlying the left frontal, convexity." 1. Seizure d/o - recommend EEG, MRI Brain w/ wo contrast (when the pt is clinically able to participate and if no contraindications); continue Keppra 1000 mg iv/po bid; Valproate 1250 mg IV x 1 dose bolus and continue Depakote 750 mg iv/po bid (if no contraindications); if noted with seizure activity, recommend to increase Keppra to 1500 mg po bid (if no contraindications). 2. Alcohol Abuse / Withdrawal - CIWA protocol, per primary team; confirm baseline ammonia/thiamine levels. 3. Cervical Myelopathy - concern is raised for a high risk based on CT C-Spine findings and recommend MRI C-Spine w / wo contrast (renetta the pt is clinically able to participate and if no contraindications). Bedside neurology evaluation recommended to note for any contribution from cervical myelopathy to patient's falls. 4. Recommend transfer of the patient to a facility with bedside neurology. Seizure/Fall precautions. Moy Zuluaga MD Neurology
[2020-10-31 02:25] LABS: Hematocrit 36.2 % (35.5-45.6); Hemoglobin 12.8 gm/dl (11.8-15.2); Mean Corpuscular HGB Conc 36 % (32-34); Mean Corpuscular Volume 86 fl (84-94); Red Blood Count 4.18 M/mm3 (3.65-5.03); Red Cell Distribution Width 14.5 % (13.2-15.2)
[2020-10-31 02:26] LABS: Platelet Count 99 K/mm3 (140-440)
[2020-10-31 02:35] LABS: INR 1.05 (0.87-1.13)
[2020-10-31 02:50] LABS: Alanine Aminotransferase 8 units/L (7-56); Albumin 3.5 g/dL (3.9-5); Blood Urea Nitrogen 7 mg/dL (9-20); Calcium 8.8 mg/dL (8.4-10.2); Hemolysis Index 5
[2020-10-31 02:54] LABS: BUN/Creatinine Ratio 12; Bilirubin,Direct < 0.2 mg/dL (0-0.2)
[2020-10-31] MEDS ORDERED: LORazepam 2 MG/ML VIAL IV PRN ×3 (07:33)
--- NOTE | 2020-10-31 15:21 | Progress Note ---
<NATHALIEDOMENIC KaylanMax - Last Filed: 10/31/20 15:28> Assessment and Plan Assessment and plan: This is a 74-year-old gentleman with dementia?, alcoholism, hard of hearing, seizures for presented on 10/30 s/p unwitnessed trip and fall at living facility with hyponatremia, hypochloremia, acute acetaminophen toxicity, seizures and metabolic acidosis with elevated TBilli. A/P Neuro: Metabolic encephalopathy -Aspiration/fall precautions -Reorient as needed -Trend CMP and correct electrolytes as needed s/p GLF -10/29 CT head shows no acute intracranial pathology, small left frontal soft tissue contusion overlying the left frontal convexity -10/29 CT face shows left frontal soft tissue contusion with no identified fracture -10/29 CT neck shows no acute fracture or subluxation, severe multiple level discogenic DJD, multilevel osseous bridging/ankylosis involving the C3-C4 facets in the C5-C6 facets bilaterally -MRI C-spine pending -PT/OT eval pending Seizure disorder -Neurology consult -Keppra level pending -Keppra 1000mg BID, Depakote -MRI Brain pending -EEG pending Psych: Acetaminophen overdose -Admit tylenol level 19.3 -s/p Acetylcysteine gtt ?Dementia with behavioral disturbance -Continue home risperidone and trazodone -Psych consult; does not recommend inpt hospitalization at this time Alcohol intoxication -Admit Alcohol level 0.15 -CIWA when needed SI -Psych consult, does not recommend inpatient hospitalization at this time -Denies current SI or HI CV: NAD -Blood pressure monitoring per protocol -Hydralazine PRN for SBP>160 GI: NAD -Passed bedside swallow eval -Regular diet FEN/: Rhabdomylosis -IVF -Trend CK, CMP GI/DVT prophylaxis: PPI, SCDs to BLE while in bed, lovenox subq Dispo: transfer to floor Lines: PIV History Interval history: This is a 74-year-old gentleman with dementia?, alcoholism, hard of hearing, seizures for presented on 10/30 s/p unwitnessed trip and fall at living facility with at least 2 cans of beer with him. Per EMS communication occurred through written word and the patient only complaint of forehead and facial pain after fall and reportted Tylenol ingestion of unknown quantity. In the ED He did state on review of systems that he was considering self-harm. 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 Patient also has hyponatremia, hypochloremia and metabolic acidosis with elevated TBilli. Patient was admitted to the hospitalist service with tylenol toxicity on an acetylcysteine gtt to the ICU with consult to CCM. 10/30: Early this morning patient had an witnessed seizure which was aborted with ativan. This morning the patient stated he takes 1000mg Keppra TID and had a fleeting SI. Psych and Neuro has been consulted. Patient will be transferred to the floor. 10/31: MRI to be done today. Patient still is sore from fall. No acute events reported overnight. Hospitalist Physical - Constitutional Vitals: Temp Pulse Resp BP Pulse Ox 97.5 F L 69 16 105/63 99 10/31/20 05:22 10/31/20 10:58 10/31/20 05:22 10/31/20 10:56 10/31/20 10:58 General appearance: Present: no acute distress, disheveled, other (head and facial lacs) - EENT Eyes: Present: PERRL, EOM intact ENT: hearing decreased, poor dentition - Neck Neck: Present: normal ROM - Respiratory Respiratory effort: normal Respiratory: bilateral: CTA - Cardiovascular Rhythm: regular Heart Sounds: Present: S1 & S2. Absent: systolic murmur, diastolic murmur - Extremities Extremities: no ischemia, pulses intact, pulses symmetrical, No edema, normal temperature, normal color Peripheral Pulses: within normal limits - Abdominal General gastrointestinal: soft, non-tender, non-distended, normal bowel sounds - Integumentary Integumentary: Present: warm, dry - Psychiatric Psychiatric: cooperative - Neurologic Neurologic: CNII-XII intact, no focal deficits, moves all extremities - Allied Health Allied health notes reviewed: nursing, PT, ST, RT, social work Results - Labs CBC & Chem 7: 10/31/20 02:08 10/31/20 02:08 Labs: Laboratory Last Values WBC 4.9 K/mm3 (4.5-11.0) 10/31/20 02:08 RBC 4.18 M/mm3 (3.65-5.03) 10/31/20 02:08 Hgb 12.8 gm/dl (11.8-15.2) 10/31/20 02:08 Hct 36.2 % (35.5-45.6) 10/31/20 02:08 MCV 86 fl (84-94) 10/31/20 02:08 MCH 31 pg (28-32) 10/31/20 02:08 MCHC 36 % (32-34) H 10/31/20 02:08 RDW 14.5 % (13.2-15.2) 10/31/20 02:08 Plt Count 99 K/mm3 (140-440) L 10/31/20 02:08 PT 14.3 Sec. (12.2-14.9) 10/31/20 02:08 INR 1.05 (0.87-1.13) 10/31/20 02:08 APTT 28.6 Sec. (24.2-36.6) 10/29/20 21:37 Sodium 139 mmol/L (137-145) 10/31/20 02:08 Potassium 3.9 mmol/L (3.6-5.0) 10/31/20 02:08 Chloride 105.0 mmol/L (98-107) 10/31/20 02:08 Carbon Dioxide 25 mmol/L (22-30) 10/31/20 02:08 Anion Gap 13 mmol/L 10/31/20 02:08 BUN 7 mg/dL (9-20) L 10/31/20 02:08 Creatinine 0.6 mg/dL (0.8-1.3) L 10/31/20 02:08 Estimated GFR > 60 ml/min 10/31/20 02:08 BUN/Creatinine Ratio 12 % 10/31/20 02:08 Glucose 106 mg/dL (75-100) H 10/31/20 02:08 Lactic Acid 1.70 mmol/L (0.7-2.0) 10/30/20 11:38 Calcium 8.8 mg/dL (8.4-10.2) 10/31/20 02:08 Magnesium 2.00 mg/dL (1.7-2.3) 10/29/20 21:37 Total Bilirubin 0.80 mg/dL (0.1-1.2) 10/31/20 02:08 Direct Bilirubin < 0.2 mg/dL (0-0.2) 10/31/20 02:08 Indirect Bilirubin 0.8 mg/dL 10/29/20 21:37 AST 15 units/L (5-40) 10/31/20 02:08 ALT 8 units/L (7-56) 10/31/20 02:08 Alkaline Phosphatase 58 units/L (35-129) 10/31/20 02:08 Ammonia 39.0 umol/L (25-60) 10/29/20 22:37 Total Creatine Kinase 279 units/L (55-170) H 10/30/20 10:17 Total Protein 6.1 g/dL (6.3-8.2) L 10/31/20 02:08 Albumin 3.5 g/dL (3.9-5) L 10/31/20 02:08 Albumin/Globulin Ratio 1.3 % 10/31/20 02:08 Urine Color Yellow (Yellow) 10/29/20 23:19 Urine Turbidity Clear (Clear) 10/29/20 23:19 Urine pH 5.0 (5.0-7.0) 10/29/20 23:19 Ur Specific [place] 1.008 (1.003-1.030) 10/29/20 23:19 Urine Protein <15 mg/dl mg/dL (Negative) 10/29/20 23:19 Urine Glucose (UA) Neg mg/dL (Negative) 10/29/20 23:19 Urine Ketones Neg mg/dL (Negative) 10/29/20 23:19 Urine Blood Neg (Negative) 10/29/20 23:19 Urine Nitrite Neg (Negative) 10/29/20 23:19 Urine Bilirubin Neg (Negative) 10/29/20 23:19 Urine Urobilinogen < 2.0 mg/dL (<2.0) 10/29/20 23:19 Ur Leukocyte Esterase Neg (Negative) 10/29/20 23:19 Urine WBC (Auto) < 1.0 /HPF (0.0-6.0) 10/29/20 23:19 Urine RBC (Auto) 2.0 /HPF (0.0-6.0) 10/29/20 23:19 Nasal Screen MRSA (PCR) Negative (Negative) 10/30/20 13:00 Salicylates < 0.3 mg/dL (2.8-20.0) L 10/29/20 21:37 Urine Opiates Screen Presumptive negative 10/29/20 23:19 Urine Methadone Screen Presumptive negative 10/29/20 23:19 Acetaminophen 5.0 ug/mL (10.0-30.0) L 10/31/20 06:40 Ur Barbiturates Screen Presumptive negative 10/29/20 23:19 Valproic Acid < 2.8 ug/mL (50-100) L 10/29/20 21:37 Ur Phencyclidine Scrn Presumptive negative 10/29/20 23:19 Ur Amphetamines Screen Presumptive negative 10/29/20 23:19 U Benzodiazepines Scrn Presumptive negative 10/29/20 23:19 Urine Cocaine Screen Presumptive negative 10/29/20 23:19 U Marijuana (THC) Screen Presumptive negative 10/29/20 23:19 Drugs of Abuse Note Disclamer 10/29/20 23:19 Plasma/Serum Alcohol 0.15 % (0-0.07) H 10/29/20 21:37 [place]/IV: Voiding Method Condom Catheter Active Medications - Current Medications Current Medications: Generic Name Dose Route Start Last Admin Trade Name Freq PRN Reason Stop Dose Admin Albuterol 2.5 mg 10/30/20 00:42 Albuterol 2.5 Mg/3 Ml Nebu IH Q4HRT PRN Shortness Of Breath Atorvastatin Calcium 40 mg 10/30/20 22:00 10/31/20 00:46 Atorvastatin 40 Mg Tab PO 40 mg QHS DHARMESH Administration Divalproex Sodium 500 mg 10/30/20 10:00 10/30/20 23:[address] 500 Mg Tab PO 500 mg BID DHARMESH Administration Enoxaparin Sodium 40 mg 10/31/20 10:00 Enoxaparin 40 Mg/0.4 Ml Inj SUB-Q QDAY@1000 [facility] Protocol Hydralazine HCl 10 mg 10/30/20 00:44 Hydralazine 20 Mg/1 Ml Inj IV Q6H PRN htn Ibuprofen 600 mg 10/30/20 00:42 Ibuprofen 600 Mg Tab PO Q6H PRN Pain, Mild (1-3) Levetiracetam 1,000 mg 10/30/20 10:00 10/30/20 23:30 Levetiracetam 500 Mg Tab PO 1,000 mg BID DHARMESH Administration Lorazepam 2 mg 10/31/20 07:33 Lorazepam 2 Mg/Ml Vial IV Q1H PRN CIWA-Ar 8-15 Lorazepam 4 mg 10/31/20 07:33 Lorazepam 2 Mg/Ml Vial IV Q1H PRN CIWA-Ar 16-25 Lorazepam 4 mg 10/31/20 07:33 Lorazepam 2 Mg/Ml Vial IV Q15MIN PRN CIWA-Ar >25 Risperidone 2 mg 10/30/20 10:00 10/30/20 23:25 Risperidone 1 Mg Tab PO 2 mg BID DHARMESH Administration Sodium Chloride 10 ml 10/30/20 00:42 Sodium Chloride 0.9% 10 Ml Flush Syringe IV PRN PRN LINE FLUSH Trazodone HCl 50 mg 10/30/20 22:00 10/31/20 00:46 Trazodone 50 Mg Tab PO 50 mg QHS DHARMESH Administration <ERWIN ESCALANTE - Last Filed: 11/01/20 17:17> Assessment and Plan Assessment and plan: Agree with assessment and plan as outlined by nurse practitioner above, I have personally examined the patient, issue with MRI consent, nurse working on it. Physical therapy to continue working with patient. Hospitalist Physical - Constitutional Vitals: Temp Pulse Resp BP Pulse Ox 98.1 F 69 22 91/35 96 11/01/20 11:45 11/01/20 11:45 11/01/20 11:45 11/01/20 11:45 11/01/20 11:45 Results - Labs CBC & Chem 7: 10/31/20 02:08 10/31/20 02:08 Labs: Laboratory Last Values WBC 4.9 K/mm3 (4.5-11.0) 10/31/20 02:08 RBC 4.18 M/mm3 (3.65-5.03) 10/31/20 02:08 Hgb 12.8 gm/dl (11.8-15.2) 10/31/20 02:08 Hct 36.2 % (35.5-45.6) 10/31/20 02:08 MCV 86 fl (84-94) 10/31/20 02:08 MCH 31 pg (28-32) 10/31/20 02:08 MCHC 36 % (32-34) H 10/31/20 02:08 RDW 14.5 % (13.2-15.2) 10/31/20 02:08 Plt Count 99 K/mm3 (140-440) L 10/31/20 02:08 PT 14.3 Sec. (12.2-14.9) 10/31/20 02:08 INR 1.05 (0.87-1.13) 10/31/20 02:08 APTT 28.6 Sec. (24.2-36.6) 10/29/20 21:37 Sodium 139 mmol/L (137-145) 10/31/20 02:08 Potassium 3.9 mmol/L (3.6-5.0) 10/31/20 02:08 Chloride 105.0 mmol/L (98-107) 10/31/20 02:08 Carbon Dioxide 25 mmol/L (22-30) 10/31/20 02:08 Anion Gap 13 mmol/L 10/31/20 02:08 BUN 7 mg/dL (9-20) L 10/31/20 02:08 Creatinine 0.6 mg/dL (0.8-1.3) L 10/31/20 02:08 Estimated GFR > 60 ml/min 10/31/20 02:08 BUN/Creatinine Ratio 12 % 10/31/20 02:08 Glucose 106 mg/dL (75-100) H 10/31/20 02:08 Lactic Acid 1.70 mmol/L (0.7-2.0) 10/30/20 11:38 Calcium 8.8 mg/dL (8.4-10.2) 10/31/20 02:08 Magnesium 2.00 mg/dL (1.7-2.3) 10/29/20 21:37 Total Bilirubin 0.80 mg/dL (0.1-1.2) 10/31/20 02:08 Direct Bilirubin < 0.2 mg/dL (0-0.2) 10/31/20 02:08 Indirect Bilirubin 0.8 mg/dL 10/29/20 21:37 AST 15 units/L (5-40) 10/31/20 02:08 ALT 8 units/L (7-56) 10/31/20 02:08 Alkaline Phosphatase 58 units/L (35-129) 10/31/20 02:08 Ammonia 39.0 umol/L (25-60) 10/29/20 22:37 Total Creatine Kinase 95 units/L (55-170) 11/01/20 07:41 Total Protein 6.1 g/dL (6.3-8.2) L 10/31/20 02:08 Albumin 3.5 g/dL (3.9-5) L 10/31/20 02:08 Albumin/Globulin Ratio 1.3 % 10/31/20 02:08 Urine Color Yellow (Yellow) 10/29/20 23:19 Urine Turbidity Clear (Clear) 10/29/20 23:19 Urine pH 5.0 (5.0-7.0) 10/29/20 23:19 Ur Specific [place] 1.008 (1.003-1.030) 10/29/20 23:19 Urine Protein <15 mg/dl mg/dL (Negative) 10/29/20 23:19 Urine Glucose (UA) Neg mg/dL (Negative) 10/29/20 23:19 Urine Ketones Neg mg/dL (Negative) 10/29/20 23:19 Urine Blood Neg (Negative) 10/29/20 23:19 Urine Nitrite Neg (Negative) 10/29/20 23:19 Urine Bilirubin Neg (Negative) 10/29/20 23:19 Urine Urobilinogen < 2.0 mg/dL (<2.0) 10/29/20 23:19 Ur Leukocyte Esterase Neg (Negative) 10/29/20 23:19 Urine WBC (Auto) < 1.0 /HPF (0.0-6.0) 10/29/20 23:19 Urine RBC (Auto) 2.0 /HPF (0.0-6.0) 10/29/20 23:19 Nasal Screen MRSA (PCR) Negative (Negative) 10/30/20 13:00 Salicylates < 0.3 mg/dL (2.8-20.0) L 10/29/20 21:37 Urine Opiates Screen Presumptive negative 10/29/20 23:19 Urine Methadone Screen Presumptive negative 10/29/20 23:19 Acetaminophen 5.0 ug/mL (10.0-30.0) L 10/31/20 06:40 Ur Barbiturates Screen Presumptive negative 10/29/20 23:19 Valproic Acid < 2.8 ug/mL (50-100) L 10/29/20 21:37 Ur Phencyclidine Scrn Presumptive negative 10/29/20 23:19 Ur Amphetamines Screen Presumptive negative 10/29/20 23:19 U Benzodiazepines Scrn Presumptive negative 10/29/20 23:19 Urine Cocaine Screen Presumptive negative 10/29/20 23:19 U Marijuana (THC) Screen Presumptive negative 10/29/20 23:19 Drugs of Abuse Note Disclamer 10/29/20 23:19 Plasma/Serum Alcohol 0.15 % (0-0.07) H 10/29/20 21:37 [place]/IV: Voiding Method Condom Catheter Active Medications - Current Medications Current Medications: Generic Name Dose Route Start Last Admin Trade Name Freq PRN Reason Stop Dose Admin Albuterol 2.5 mg 10/30/20 00:42 Albuterol 2.5 Mg/3 Ml Nebu IH Q4HRT PRN Shortness Of Breath Atorvastatin Calcium 40 mg 10/30/20 22:00 10/31/20 22:27 Atorvastatin 40 Mg Tab PO 40 mg QHS DHARMESH Administration Divalproex Sodium 500 mg 10/30/20 10:00 11/01/20 11:[address] 500 Mg Tab PO 500 mg BID DHARMESH Administration Enoxaparin Sodium 40 mg 10/31/20 10:00 11/01/20 11:06 Enoxaparin 40 Mg/0.4 Ml Inj SUB-Q 40 mg QDAY@1000 DHARMESH Administration Protocol Hydralazine HCl 10 mg 10/30/20 00:44 Hydralazine 20 Mg/1 Ml Inj IV Q6H PRN htn Ibuprofen 600 mg 10/30/20 00:42 Ibuprofen 600 Mg Tab PO Q6H PRN Pain, Mild (1-3) Levetiracetam 1,000 mg 10/30/20 10:00 11/01/20 11:06 Levetiracetam 500 Mg Tab PO 1,000 mg BID DHARMESH Administration Lorazepam 4 mg 11/01/20 07:13 Lorazepam 2 Mg/Ml Vial IV Q4H PRN CIWA-Ar 16-25 Lorazepam 2 mg 11/01/20 07:13 Lorazepam 2 Mg/Ml Vial IV Q2H PRN CIWA-Ar 8-15 Oxycodone/Acetaminophen 1 tab 11/01/20 07:30 Oxycodone /Acetaminophen 5-325mg Tab PO Q8H PRN Pain, Moderate (4-6) Risperidone 2 mg 10/30/20 10:00 11/01/20 11:06 Risperidone 1 Mg Tab PO 2 mg BID DHARMESH Administration Sodium Chloride 10 ml 10/30/20 00:42 Sodium Chloride 0.9% 10 Ml Flush Syringe IV PRN PRN LINE FLUSH Trazodone HCl 50 mg 10/30/20 22:00 10/31/20 22:27 Trazodone 50 Mg Tab PO 50 mg QHS DHARMESH Administration
[2020-10-31] MEDS: risperiDONE 1 MG TAB PO SCH ×2 (16:10→22:27)
[2020-10-31] MEDS: DIVALPROEX DR 500 MG TAB PO SCH ×2 (16:10→22:27)
[2020-10-31] MEDS: ENOXAPARIN 40 MG/0.4 ML INJ SUB-Q SCH (16:11)
[2020-10-31] MEDS: levETIRAcetam 500 MG TAB PO SCH ×2 (16:11→22:27)
[2020-11-01] MEDS ORDERED: LORazepam 2 MG/ML VIAL IV PRN ×2 (07:13)
[2020-11-01] MEDS ORDERED: oxyCODONE /ACETAMINOPHEN 5-325MG TAB PO PRN (07:30)
--- NOTE | 2020-11-01 11:03 | Progress Note ---
<NATHALIEDOMENIC KaylanMax - Last Filed: 11/01/20 10:59> Assessment and Plan Assessment and plan: This is a 74-year-old gentleman with dementia?, alcoholism, hard of hearing, seizures for presented on 10/30 s/p unwitnessed trip and fall at living facility with hyponatremia, hypochloremia, acute acetaminophen toxicity, seizures and metabolic acidosis with elevated TBilli. A/P Neuro: Metabolic encephalopathy -Aspiration/fall precautions -Reorient as needed -Trend CMP and correct electrolytes as needed s/p GLF -10/29 CT head shows no acute intracranial pathology, small left frontal soft tissue contusion overlying the left frontal convexity -10/29 CT face shows left frontal soft tissue contusion with no identified fracture -10/29 CT neck shows no acute fracture or subluxation, severe multiple level discogenic DJD, multilevel osseous bridging/ankylosis involving the C3-C4 facets in the C5-C6 facets bilaterally -MRI C-spine pending -PT/OT eval pending Seizure disorder -Neurology consult -Keppra level pending -Keppra 1000mg BID, Depakote -MRI Brain pending -EEG pending Psych: Acetaminophen overdose -Admit Tylenol level 19.3 -s/p Acetylcysteine gtt ?Dementia with behavioral disturbance -Continue home risperidone and trazodone -Psych consult; does not recommend inpt hospitalization at this time Alcohol intoxication -Admit Alcohol level 0.15 -CIWA when needed SI -Psych consult, does not recommend inpatient hospitalization at this time -Denies current SI or HI CV: NAD -Blood pressure monitoring per protocol -Hydralazine PRN for SBP>160 GI: NAD -Passed bedside swallow eval -Regular diet FEN/: Rhabdomylosis -IVF -Trend CK, CMP GI/DVT prophylaxis: PPI, SCDs to BLE while in bed, lovenox subq Dispo: Discharge to living facility pending Lines: PIV History Interval history: This is a 74-year-old gentleman with dementia?, alcoholism, hard of hearing, seizures for presented on 10/30 s/p unwitnessed trip and fall at living facility with at least 2 cans of beer with him. Per EMS communication occurred through written word and the patient only complaint of forehead and facial pain after fall and reportted Tylenol ingestion of unknown quantity. In the ED He did state on review of systems that he was considering self-harm. 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 Patient also has hyponatremia, hypochloremia and metabolic acidosis with elevated TBilli. Patient was admitted to the hospitalist service with tylenol toxicity on an acetylcysteine gtt to the ICU with consult to CCM. 10/30: Early this morning patient had an witnessed seizure which was aborted with ativan. This morning the patient stated he takes 1000mg Keppra TID and had a fleeting SI. Psych and Neuro has been consulted. Patient will be transferred to the floor. 10/31: MRI to be done today. Patient still is sore from fall. No acute events reported overnight. 11/01: MRI is still pending, No acute events reported overnight, patient states his pain is better today. PT/OT eval to be completed today. RN stateed his caregiver will visit this afternoon with medication list. Hospitalist Physical - Constitutional Vitals: Temp Pulse Resp BP Pulse Ox 98.3 F 76 18 112/62 97 10/31/20 22:23 10/31/20 22:23 10/31/20 22:23 10/31/20 22:23 10/31/20 22:23 General appearance: Present: no acute distress, other (head and facial lacs) - EENT Eyes: Present: PERRL, EOM intact ENT: hearing decreased - Neck Neck: Present: normal ROM - Respiratory Respiratory effort: normal Respiratory: bilateral: CTA - Cardiovascular Rhythm: regular Heart Sounds: Present: S1 & S2. Absent: systolic murmur, diastolic murmur - Extremities Extremities: no ischemia, pulses intact, pulses symmetrical, No edema, normal temperature, normal color, Full ROM Peripheral Pulses: within normal limits - Abdominal General gastrointestinal: soft, non-tender, non-distended, normal bowel sounds - Integumentary Integumentary: Present: warm, dry - Psychiatric Psychiatric: cooperative - Neurologic Neurologic: no focal deficits, moves all extremities - Allied Health Allied health notes reviewed: nursing, PT, OT, social work, case management Results - Labs CBC & Chem 7: 10/31/20 02:08 10/31/20 02:08 Labs: Laboratory Last Values WBC 4.9 K/mm3 (4.5-11.0) 10/31/20 02:08 RBC 4.18 M/mm3 (3.65-5.03) 10/31/20 02:08 Hgb 12.8 gm/dl (11.8-15.2) 10/31/20 02:08 Hct 36.2 % (35.5-45.6) 10/31/20 02:08 MCV 86 fl (84-94) 10/31/20 02:08 MCH 31 pg (28-32) 10/31/20 02:08 MCHC 36 % (32-34) H 10/31/20 02:08 RDW 14.5 % (13.2-15.2) 10/31/20 02:08 Plt Count 99 K/mm3 (140-440) L 10/31/20 02:08 PT 14.3 Sec. (12.2-14.9) 10/31/20 02:08 INR 1.05 (0.87-1.13) 10/31/20 02:08 APTT 28.6 Sec. (24.2-36.6) 10/29/20 21:37 Sodium 139 mmol/L (137-145) 10/31/20 02:08 Potassium 3.9 mmol/L (3.6-5.0) 10/31/20 02:08 Chloride 105.0 mmol/L (98-107) 10/31/20 02:08 Carbon Dioxide 25 mmol/L (22-30) 10/31/20 02:08 Anion Gap 13 mmol/L 10/31/20 02:08 BUN 7 mg/dL (9-20) L 10/31/20 02:08 Creatinine 0.6 mg/dL (0.8-1.3) L 10/31/20 02:08 Estimated GFR > 60 ml/min 10/31/20 02:08 BUN/Creatinine Ratio 12 % 10/31/20 02:08 Glucose 106 mg/dL (75-100) H 10/31/20 02:08 Lactic Acid 1.70 mmol/L (0.7-2.0) 10/30/20 11:38 Calcium 8.8 mg/dL (8.4-10.2) 10/31/20 02:08 Magnesium 2.00 mg/dL (1.7-2.3) 10/29/20 21:37 Total Bilirubin 0.80 mg/dL (0.1-1.2) 10/31/20 02:08 Direct Bilirubin < 0.2 mg/dL (0-0.2) 10/31/20 02:08 Indirect Bilirubin 0.8 mg/dL 10/29/20 21:37 AST 15 units/L (5-40) 10/31/20 02:08 ALT 8 units/L (7-56) 10/31/20 02:08 Alkaline Phosphatase 58 units/L (35-129) 10/31/20 02:08 Ammonia 39.0 umol/L (25-60) 10/29/20 22:37 Total Creatine Kinase 95 units/L (55-170) 11/01/20 07:41 Total Protein 6.1 g/dL (6.3-8.2) L 10/31/20 02:08 Albumin 3.5 g/dL (3.9-5) L 10/31/20 02:08 Albumin/Globulin Ratio 1.3 % 10/31/20 02:08 Urine Color Yellow (Yellow) 10/29/20 23:19 Urine Turbidity Clear (Clear) 10/29/20 23:19 Urine pH 5.0 (5.0-7.0) 10/29/20 23:19 Ur Specific Scio 1.008 (1.003-1.030) 10/29/20 23:19 Urine Protein <15 mg/dl mg/dL (Negative) 10/29/20 23:19 Urine Glucose (UA) Neg mg/dL (Negative) 10/29/20 23:19 Urine Ketones Neg mg/dL (Negative) 10/29/20 23:19 Urine Blood Neg (Negative) 10/29/20 23:19 Urine Nitrite Neg (Negative) 10/29/20 23:19 Urine Bilirubin Neg (Negative) 10/29/20 23:19 Urine Urobilinogen < 2.0 mg/dL (<2.0) 10/29/20 23:19 Ur Leukocyte Esterase Neg (Negative) 10/29/20 23:19 Urine WBC (Auto) < 1.0 /HPF (0.0-6.0) 10/29/20 23:19 Urine RBC (Auto) 2.0 /HPF (0.0-6.0) 10/29/20 23:19 Nasal Screen MRSA (PCR) Negative (Negative) 10/30/20 13:00 Salicylates < 0.3 mg/dL (2.8-20.0) L 10/29/20 21:37 Urine Opiates Screen Presumptive negative 10/29/20 23:19 Urine Methadone Screen Presumptive negative 10/29/20 23:19 Acetaminophen 5.0 ug/mL (10.0-30.0) L 10/31/20 06:40 Ur Barbiturates Screen Presumptive negative 10/29/20 23:19 Valproic Acid < 2.8 ug/mL (50-100) L 10/29/20 21:37 Ur Phencyclidine Scrn Presumptive negative 10/29/20 23:19 Ur Amphetamines Screen Presumptive negative 10/29/20 23:19 U Benzodiazepines Scrn Presumptive negative 10/29/20 23:19 Urine Cocaine Screen Presumptive negative 10/29/20 23:19 U Marijuana (THC) Screen Presumptive negative 10/29/20 23:19 Drugs of Abuse Note Disclamer 10/29/20 23:19 Plasma/Serum Alcohol 0.15 % (0-0.07) H 10/29/20 21:37 Daigle/IV: Voiding Method Condom Catheter Active Medications - Current Medications Current Medications: Generic Name Dose Route Start Last Admin Trade Name Freq PRN Reason Stop Dose Admin Albuterol 2.5 mg 10/30/20 00:42 Albuterol 2.5 Mg/3 Ml Nebu IH Q4HRT PRN Shortness Of Breath Atorvastatin Calcium 40 mg 10/30/20 22:00 10/31/20 22:27 Atorvastatin 40 Mg Tab PO 40 mg QHS DHARMESH Administration Divalproex Sodium 500 mg 10/30/20 10:00 10/31/20 22:[address] 500 Mg Tab PO 500 mg BID DHARMESH Administration Enoxaparin Sodium 40 mg 10/31/20 10:00 10/31/20 16:11 Enoxaparin 40 Mg/0.4 Ml Inj SUB-Q 40 mg QDAY@1000 DHARMESH Administration Protocol Hydralazine HCl 10 mg 10/30/20 00:44 Hydralazine 20 Mg/1 Ml Inj IV Q6H PRN htn Ibuprofen 600 mg 10/30/20 00:42 Ibuprofen 600 Mg Tab PO Q6H PRN Pain, Mild (1-3) Levetiracetam 1,000 mg 10/30/20 10:00 10/31/20 22:27 Levetiracetam 500 Mg Tab PO 1,000 mg BID DHARMESH Administration Lorazepam 4 mg 11/01/20 07:13 Lorazepam 2 Mg/Ml Vial IV Q4H PRN CIWA-Ar 16-25 Lorazepam 2 mg 11/01/20 07:13 Lorazepam 2 Mg/Ml Vial IV Q2H PRN CIWA-Ar 8-15 Oxycodone/Acetaminophen 1 tab 11/01/20 07:30 Oxycodone /Acetaminophen 5-325mg Tab PO Q8H PRN Pain, Moderate (4-6) Risperidone 2 mg 10/30/20 10:00 10/31/20 22:27 Risperidone 1 Mg Tab PO 2 mg BID DHARMESH Administration Sodium Chloride 10 ml 10/30/20 00:42 Sodium Chloride 0.9% 10 Ml Flush Syringe IV PRN PRN LINE FLUSH Trazodone HCl 50 mg 10/30/20 22:00 10/31/20 22:27 Trazodone 50 Mg Tab PO 50 mg QHS DHARMESH Administration <ERWIN ESCALANTE - Last Filed: 11/02/20 12:44> Assessment and Plan Assessment and plan: Agree with assessment and plan as outlined by nurse practitioner as above. Patient seen and examined, working with PT. We are trying to get in contact with the night auditor for the the MRI is to be completed. Hospitalist Physical - Constitutional Vitals: Temp Pulse Resp BP Pulse Ox 97.9 F 73 14 123/60 96 11/02/20 06:37 11/02/20 06:37 11/02/20 06:37 11/02/20 06:37 11/02/20 06:37 Results - Labs CBC & Chem 7: 10/31/20 02:08 10/31/20 02:08 Labs: Laboratory Last Values WBC 4.9 K/mm3 (4.5-11.0) 10/31/20 02:08 RBC 4.18 M/mm3 (3.65-5.03) 10/31/20 02:08 Hgb 12.8 gm/dl (11.8-15.2) 10/31/20 02:08 Hct 36.2 % (35.5-45.6) 10/31/20 02:08 MCV 86 fl (84-94) 10/31/20 02:08 MCH 31 pg (28-32) 10/31/20 02:08 MCHC 36 % (32-34) H 10/31/20 02:08 RDW 14.5 % (13.2-15.2) 10/31/20 02:08 Plt Count 99 K/mm3 (140-440) L 10/31/20 02:08 PT 14.3 Sec. (12.2-14.9) 10/31/20 02:08 INR 1.05 (0.87-1.13) 10/31/20 02:08 APTT 28.6 Sec. (24.2-36.6) 10/29/20 21:37 Sodium 139 mmol/L (137-145) 10/31/20 02:08 Potassium 3.9 mmol/L (3.6-5.0) 10/31/20 02:08 Chloride 105.0 mmol/L (98-107) 10/31/20 02:08 Carbon Dioxide 25 mmol/L (22-30) 10/31/20 02:08 Anion Gap 13 mmol/L 10/31/20 02:08 BUN 7 mg/dL (9-20) L 10/31/20 02:08 Creatinine 0.6 mg/dL (0.8-1.3) L 10/31/20 02:08 Estimated GFR > 60 ml/min 10/31/20 02:08 BUN/Creatinine Ratio 12 % 10/31/20 02:08 Glucose 106 mg/dL (75-100) H 10/31/20 02:08 Lactic Acid 1.70 mmol/L (0.7-2.0) 10/30/20 11:38 Calcium 8.8 mg/dL (8.4-10.2) 10/31/20 02:08 Magnesium 2.00 mg/dL (1.7-2.3) 10/29/20 21:37 Total Bilirubin 0.80 mg/dL (0.1-1.2) 10/31/20 02:08 Direct Bilirubin < 0.2 mg/dL (0-0.2) 10/31/20 02:08 Indirect Bilirubin 0.8 mg/dL 10/29/20 21:37 AST 15 units/L (5-40) 10/31/20 02:08 ALT 8 units/L (7-56) 10/31/20 02:08 Alkaline Phosphatase 58 units/L (35-129) 10/31/20 02:08 Ammonia 39.0 umol/L (25-60) 10/29/20 22:37 Total Creatine Kinase 95 units/L (55-170) 11/01/20 07:41 Total Protein 6.1 g/dL (6.3-8.2) L 10/31/20 02:08 Albumin 3.5 g/dL (3.9-5) L 10/31/20 02:08 Albumin/Globulin Ratio 1.3 % 10/31/20 02:08 Urine Color Yellow (Yellow) 10/29/20 23:19 Urine Turbidity Clear (Clear) 10/29/20 23:19 Urine pH 5.0 (5.0-7.0) 10/29/20 23:19 Ur Specific Scio 1.008 (1.003-1.030) 10/29/20 23:19 Urine Protein <15 mg/dl mg/dL (Negative) 10/29/20 23:19 Urine Glucose (UA) Neg mg/dL (Negative) 10/29/20 23:19 Urine Ketones Neg mg/dL (Negative) 10/29/20 23:19 Urine Blood Neg (Negative) 10/29/20 23:19 Urine Nitrite Neg (Negative) 10/29/20 23:19 Urine Bilirubin Neg (Negative) 10/29/20 23:19 Urine Urobilinogen < 2.0 mg/dL (<2.0) 10/29/20 23:19 Ur Leukocyte Esterase Neg (Negative) 10/29/20 23:19 Urine WBC (Auto) < 1.0 /HPF (0.0-6.0) 10/29/20 23:19 Urine RBC (Auto) 2.0 /HPF (0.0-6.0) 10/29/20 23:19 Nasal Screen MRSA (PCR) Negative (Negative) 10/30/20 13:00 Salicylates < 0.3 mg/dL (2.8-20.0) L 10/29/20 21:37 Urine Opiates Screen Presumptive negative 10/29/20 23:19 Urine Methadone Screen Presumptive negative 10/29/20 23:19 Acetaminophen 5.0 ug/mL (10.0-30.0) L 10/31/20 06:40 Ur Barbiturates Screen Presumptive negative 10/29/20 23:19 Valproic Acid < 2.8 ug/mL (50-100) L 10/29/20 21:37 Ur Phencyclidine Scrn Presumptive negative 10/29/20 23:19 Ur Amphetamines Screen Presumptive negative 10/29/20 23:19 U Benzodiazepines Scrn Presumptive negative 10/29/20 23:19 Urine Cocaine Screen Presumptive negative 10/29/20 23:19 U Marijuana (THC) Screen Presumptive negative 10/29/20 23:19 Drugs of Abuse Note Disclamer 10/29/20 23:19 Plasma/Serum Alcohol 0.15 % (0-0.07) H 10/29/20 21:37 Daigle/IV: Voiding Method Condom Catheter Active Medications - Current Medications Current Medications: Generic Name Dose Route Start Last Admin Trade Name Freq PRN Reason Stop Dose Admin Albuterol 2.5 mg 10/30/20 00:42 Albuterol 2.5 Mg/3 Ml Nebu IH Q4HRT PRN Shortness Of Breath Atorvastatin Calcium 40 mg 10/30/20 22:00 11/01/20 22:46 Atorvastatin 40 Mg Tab PO 40 mg QHS DHARMESH Administration Divalproex Sodium 500 mg 10/30/20 10:00 11/02/20 10:[address] 500 Mg Tab PO 500 mg BID DHARMESH Administration Enoxaparin Sodium 40 mg 10/31/20 10:00 11/02/20 10:52 Enoxaparin 40 Mg/0.4 Ml Inj SUB-Q 40 mg QDAY@1000 DHARMESH Administration Protocol Hydralazine HCl 10 mg 10/30/20 00:44 Hydralazine 20 Mg/1 Ml Inj IV Q6H PRN htn Ibuprofen 600 mg 10/30/20 00:42 Ibuprofen 600 Mg Tab PO Q6H PRN Pain, Mild (1-3) Levetiracetam 1,000 mg 10/30/20 10:00 11/02/20 10:53 Levetiracetam 500 Mg Tab PO 1,000 mg BID DHARMESH Administration Lorazepam 2 mg 11/01/20 07:13 Lorazepam 2 Mg/Ml Vial IV Q2H PRN CIWA-Ar 8-15 Oxycodone/Acetaminophen 1 tab 11/01/20 07:30 11/02/20 10:53 Oxycodone /Acetaminophen 5-325mg Tab PO 1 tab Q8H PRN Administration Pain, Moderate (4-6) Risperidone 2 mg 10/30/20 10:00 11/02/20 10:53 Risperidone 1 Mg Tab PO 2 mg BID DHARMESH Administration Sodium Chloride 10 ml 10/30/20 00:42 Sodium Chloride 0.9% 10 Ml Flush Syringe IV PRN PRN LINE FLUSH Trazodone HCl 50 mg 10/30/20 22:00 11/01/20 22:46 Trazodone 50 Mg Tab PO 50 mg QHS DHARMESH Administration
[2020-11-01] MEDS: ENOXAPARIN 40 MG/0.4 ML INJ SUB-Q SCH (11:06)
[2020-11-01] MEDS: risperiDONE 1 MG TAB PO SCH ×2 (11:06→22:46)
[2020-11-01] MEDS: levETIRAcetam 500 MG TAB PO SCH ×2 (11:06→22:46)
[2020-11-01] MEDS: DIVALPROEX DR 500 MG TAB PO SCH ×2 (11:07→22:46)
[2020-11-01] MEDS: traZODone 50 MG TAB PO SCH (22:46)
--- NOTE | 2020-11-02 10:35 | Progress Note ---
<NATHALIEDOMENIC KimbroughMax - Last Filed: 11/02/20 10:31> Assessment and Plan Assessment and plan: This is a 74-year-old gentleman with dementia?, alcoholism, hard of hearing, seizures for presented on 10/30 s/p unwitnessed trip and fall at living facility with hyponatremia, hypochloremia, acute acetaminophen toxicity, seizures and metabolic acidosis with elevated TBilli. 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 Seizure disorder -Neurology consult -Keppra level pending -Keppra 1000mg BID, Depakote -MRI Brain pending -EEG pending Psych: Acetaminophen overdose -Admit Tylenol level 19.3 -s/p Acetylcysteine gtt ? Dementia with behavioral disturbance -Continue home risperidone and trazodone -Psych consult; does not recommend inpt hospitalization at this time Alcohol intoxication -Admit Alcohol level 0.15 -CIWA when needed SI -Psych consult, does not recommend inpatient hospitalization at this time -Denies current SI or HI CV: NAD -Blood pressure monitoring per protocol -Hydralazine PRN for SBP>160 GI: NAD -Passed bedside swallow eval -Regular diet FEN/: Rhabdomylosis -IVF -Trend CK, CMP GI/DVT prophylaxis: PPI, SCDs to BLE while in bed, lovenox subq Dispo: Discharge to living facility pending Lines: PIV History Interval history: This is a 74-year-old gentleman with dementia?, alcoholism, hard of hearing, seizures for presented on 10/30 s/p unwitnessed trip and fall at living facility with at least 2 cans of beer with him. Per EMS communication occurred through written word and the patient only complaint of forehead and facial pain after fall and reportted Tylenol ingestion of unknown quantity. In the ED He did state on review of systems that he was considering self-harm. Work up in the ED revea led elevated acetaminophen level of 19.3, elevated alcohol level at 0.15, and elevated lactic acid at 4.8, CT C spine showed severe multilevel discogenic DJD, multilevel osseous bridging/ankylosis involving the C3-C4 facets and the C5-C6 facets bilaterally with no acute fracture or subluxation, CT facial bone w/o con showed a left frontal soft tissue contusion and CT head showed no acute intracranial hemorrhage or parenchymal abnormality. Patient also has hyponatremia, hypochloremia and metabolic acidosis with elevated TBilli. Patient was admitted to the hospitalist service with tylenol toxicity on an acetylcysteine gtt to the ICU with consult to [facility]. 10/30: Early this morning patient had an witnessed seizure which was aborted with ativan. This morning the patient stated he takes 1000mg Keppra TID and had a fleeting SI. Psych and Neuro has been consulted. Patient will be transferred to the floor. 10/31: MRI to be done today. Patient still is sore from fall. No acute events reported overnight. 11/01: MRI is still pending, No acute events reported overnight, patient states his pain is better today. PT/OT eval to be completed today. RN stated his caregiver will visit this afternoon with medication list. 11/02: MRI still pending, RN and Dr. Almazan attempted to contact POA listed in art however where unable. piece maker never presented to the hospital yesterday per RN. Will attempt today again. Patient became agitated overnight but was able to be reorientated Hospitalist Physical - Constitutional Vitals: Temp Pulse Resp BP Pulse Ox 97.9 F 73 14 123/60 96 11/02/20 06:37 11/02/20 06:37 11/02/20 06:37 11/02/20 06:37 11/02/20 06:37 General appearance: Present: no acute distress, other (head and facial lacs nad bruising) - EENT Eyes: Present: PERRL, EOM intact ENT: dentition normal, hearing decreased - Neck Neck: Present: normal ROM - Respiratory Respiratory effort: normal Respiratory: bilateral: diminished - Cardiovascular Rhythm: regular Heart Sounds: Present: S1 & S2. Absent: systolic murmur, diastolic murmur - Extremities Extremities: no ischemia, pulses intact, pulses symmetrical, normal temperature Extremity abnormal: erythema Peripheral Pulses: within normal limits - Abdominal General gastrointestinal: soft, non-tender, non-distended, normal bowel sounds - Integumentary Integumentary: Present: warm, dry - Psychiatric Psychiatric: cooperative - Neurologic Neurologic: CNII-XII intact, no focal deficits, moves all extremities - Allied Health Allied health notes reviewed: nursing, social work Results - Labs CBC & Chem 7: 10/31/20 02:08 10/31/20 02:08 Labs: Laboratory Last Values WBC 4.9 K/mm3 (4.5-11.0) 10/31/20 02:08 RBC 4.18 M/mm3 (3.65-5.03) 10/31/20 02:08 Hgb 12.8 gm/dl (11.8-15.2) 10/31/20 02:08 Hct 36.2 % (35.5-45.6) 10/31/20 02:08 MCV 86 fl (84-94) 10/31/20 02:08 MCH 31 pg (28-32) 10/31/20 02:08 MCHC 36 % (32-34) H 10/31/20 02:08 RDW 14.5 % (13.2-15.2) 10/31/20 02:08 Plt Count 99 K/mm3 (140-440) L 10/31/20 02:08 PT 14.3 Sec. (12.2-14.9) 10/31/20 02:08 INR 1.05 (0.87-1.13) 10/31/20 02:08 APTT 28.6 Sec. (24.2-36.6) 10/29/20 21:37 Sodium 139 mmol/L (137-145) 10/31/20 02:08 Potassium 3.9 mmol/L (3.6-5.0) 10/31/20 02:08 Chloride 105.0 mmol/L (98-107) 10/31/20 02:08 Carbon Dioxide 25 mmol/L (22-30) 10/31/20 02:08 Anion Gap 13 mmol/L 10/31/20 02:08 BUN 7 mg/dL (9-20) L 10/31/20 02:08 Creatinine 0.6 mg/dL (0.8-1.3) L 10/31/20 02:08 Estimated GFR > 60 ml/min 10/31/20 02:08 BUN/Creatinine Ratio 12 % 10/31/20 02:08 Glucose 106 mg/dL (75-100) H 10/31/20 02:08 Lactic Acid 1.70 mmol/L (0.7-2.0) 10/30/20 11:38 Calcium 8.8 mg/dL (8.4-10.2) 10/31/20 02:08 Magnesium 2.00 mg/dL (1.7-2.3) 10/29/20 21:37 Total Bilirubin 0.80 mg/dL (0.1-1.2) 10/31/20 02:08 Direct Bilirubin < 0.2 mg/dL (0-0.2) 10/31/20 02:08 Indirect Bilirubin 0.8 mg/dL 10/29/20 21:37 AST 15 units/L (5-40) 10/31/20 02:08 ALT 8 units/L (7-56) 10/31/20 02:08 Alkaline Phosphatase 58 units/L (35-129) 10/31/20 02:08 Ammonia 39.0 umol/L (25-60) 10/29/20 22:37 Total Creatine Kinase 95 units/L (55-170) 11/01/20 07:41 Total Protein 6.1 g/dL (6.3-8.2) L 10/31/20 02:08 Albumin 3.5 g/dL (3.9-5) L 10/31/20 02:08 Albumin/Globulin Ratio 1.3 % 10/31/20 02:08 Urine Color Yellow (Yellow) 10/29/20 23:19 Urine Turbidity Clear (Clear) 10/29/20 23:19 Urine pH 5.0 (5.0-7.0) 10/29/20 23:19 Ur Specific [place] 1.008 (1.003-1.030) 10/29/20 23:19 Urine Protein <15 mg/dl mg/dL (Negative) 10/29/20 23:19 Urine Glucose (UA) Neg mg/dL (Negative) 10/29/20 23:19 Urine Ketones Neg mg/dL (Negative) 10/29/20 23:19 Urine Blood Neg (Negative) 10/29/20 23:19 Urine Nitrite Neg (Negative) 10/29/20 23:19 Urine Bilirubin Neg (Negative) 10/29/20 23:19 Urine Urobilinogen < 2.0 mg/dL (<2.0) 10/29/20 23:19 Ur Leukocyte Esterase Neg (Negative) 10/29/20 23:19 Urine WBC (Auto) < 1.0 /HPF (0.0-6.0) 10/29/20 23:19 Urine RBC (Auto) 2.0 /HPF (0.0-6.0) 10/29/20 23:19 Nasal Screen MRSA (PCR) Negative (Negative) 10/30/20 13:00 Salicylates < 0.3 mg/dL (2.8-20.0) L 10/29/20 21:37 Urine Opiates Screen Presumptive negative 10/29/20 23:19 Urine Methadone Screen Presumptive negative 10/29/20 23:19 Acetaminophen 5.0 ug/mL (10.0-30.0) L 10/31/20 06:40 Ur Barbiturates Screen Presumptive negative 10/29/20 23:19 Valproic Acid < 2.8 ug/mL (50-100) L 10/29/20 21:37 Ur Phencyclidine Scrn Presumptive negative 10/29/20 23:19 Ur Amphetamines Screen Presumptive negative 10/29/20 23:19 U Benzodiazepines Scrn Presumptive negative 10/29/20 23:19 Urine Cocaine Screen Presumptive negative 10/29/20 23:19 U Marijuana (THC) Screen Presumptive negative 10/29/20 23:19 Drugs of Abuse Note Disclamer 10/29/20 23:19 Plasma/Serum Alcohol 0.15 % (0-0.07) H 10/29/20 21:37 Daigle/IV: Voiding Method Condom Catheter Active Medications - Current Medications Current Medications: Generic Name Dose Route Start Last Admin Trade Name Freq PRN Reason Stop Dose Admin Albuterol 2.5 mg 10/30/20 00:42 Albuterol 2.5 Mg/3 Ml Nebu IH Q4HRT PRN Shortness Of Breath Atorvastatin Calcium 40 mg 10/30/20 22:00 11/01/20 22:46 Atorvastatin 40 Mg Tab PO 40 mg QHS DHARMESH Administration Divalproex Sodium 500 mg 10/30/20 10:00 11/01/20 22:[address] 500 Mg Tab PO 500 mg BID DHARMESH Administration Enoxaparin Sodium 40 mg 10/31/20 10:00 11/01/20 11:06 Enoxaparin 40 Mg/0.4 Ml Inj SUB-Q 40 mg QDAY@1000 DHARMESH Administration Protocol Hydralazine HCl 10 mg 10/30/20 00:44 Hydralazine 20 Mg/1 Ml Inj IV Q6H PRN htn Ibuprofen 600 mg 10/30/20 00:42 Ibuprofen 600 Mg Tab PO Q6H PRN Pain, Mild (1-3) Levetiracetam 1,000 mg 10/30/20 10:00 11/01/20 22:46 Levetiracetam 500 Mg Tab PO 1,000 mg BID DHARMESH Administration Lorazepam 4 mg 11/01/20 07:13 Lorazepam 2 Mg/Ml Vial IV Q4H PRN CIWA-Ar 16-25 Lorazepam 2 mg 11/01/20 07:13 Lorazepam 2 Mg/Ml Vial IV Q2H PRN CIWA-Ar 8-15 Oxycodone/Acetaminophen 1 tab 11/01/20 07:30 Oxycodone /Acetaminophen 5-325mg Tab PO Q8H PRN Pain, Moderate (4-6) Risperidone 2 mg 10/30/20 10:00 11/01/20 22:46 Risperidone 1 Mg Tab PO 2 mg BID DHARMESH Administration Sodium Chloride 10 ml 10/30/20 00:42 Sodium Chloride 0.9% 10 Ml Flush Syringe IV PRN PRN LINE FLUSH Trazodone HCl 50 mg 10/30/20 22:00 11/01/20 22:46 Trazodone 50 Mg Tab PO 50 mg QHS DHARMESH Administration <ERWIN ALMAZAN - Last Filed: 11/03/20 12:27> Assessment and Plan Assessment and plan: Patient seen and examined, 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 However patient may not be able to get MRI until Wednesday. Agree with assessment and plan as outlined by nurse practitioner above. Hospitalist Physical - Constitutional Vitals: Temp Pulse Resp BP Pulse Ox 97.9 F 82 16 121/62 96 11/03/20 10:36 11/03/20 10:36 11/03/20 10:36 11/03/20 10:36 11/03/20 10:36 Results - Labs CBC & Chem 7: 11/03/20 05:16 11/03/20 05:16 Labs: Laboratory Last Values WBC 3.5 K/mm3 (4.5-11.0) L 11/03/20 05:16 RBC 4.11 M/mm3 (3.65-5.03) 11/03/20 05:16 Hgb 12.4 gm/dl (11.8-15.2) 11/03/20 05:16 Hct 35.9 % (35.5-45.6) 11/03/20 05:16 MCV 87 fl (84-94) 11/03/20 05:16 MCH 30 pg (28-32) 11/03/20 05:16 MCHC 35 % (32-34) H 11/03/20 05:16 RDW 14.2 % (13.2-15.2) 11/03/20 05:16 Plt Count 84 K/mm3 (140-440) L 11/03/20 05:16 PT 14.3 Sec. (12.2-14.9) 10/31/20 02:08 INR 1.05 (0.87-1.13) 10/31/20 02:08 APTT 28.6 Sec. (24.2-36.6) 10/29/20 21:37 Sodium 142 mmol/L (137-145) 11/03/20 05:16 Potassium 4.3 mmol/L (3.6-5.0) 11/03/20 05:16 Chloride 106.3 mmol/L (98-107) 11/03/20 05:16 Carbon Dioxide 29 mmol/L (22-30) 11/03/20 05:16 Anion Gap 11 mmol/L 11/03/20 05:16 BUN 8 mg/dL (9-20) L 11/03/20 05:16 Creatinine 0.6 mg/dL (0.8-1.3) L 11/03/20 05:16 Estimated GFR > 60 ml/min 11/03/20 05:16 BUN/Creatinine Ratio 13 % 11/03/20 05:16 Glucose 92 mg/dL (75-100) 11/03/20 05:16 Lactic Acid 1.70 mmol/L (0.7-2.0) 10/30/20 11:38 Calcium 9.2 mg/dL (8.4-10.2) 11/03/20 05:16 Magnesium 2.00 mg/dL (1.7-2.3) 10/29/20 21:37 Total Bilirubin 0.80 mg/dL (0.1-1.2) 10/31/20 02:08 Direct Bilirubin < 0.2 mg/dL (0-0.2) 10/31/20 02:08 Indirect Bilirubin 0.8 mg/dL 10/29/20 21:37 AST 15 units/L (5-40) 10/31/20 02:08 ALT 8 units/L (7-56) 10/31/20 02:08 Alkaline Phosphatase 58 units/L (35-129) 10/31/20 02:08 Ammonia 39.0 umol/L (25-60) 10/29/20 22:37 Total Creatine Kinase 95 units/L (55-170) 11/01/20 07:41 Total Protein 6.1 g/dL (6.3-8.2) L 10/31/20 02:08 Albumin 3.5 g/dL (3.9-5) L 10/31/20 02:08 Albumin/Globulin Ratio 1.3 % 10/31/20 02:08 Urine Color Yellow (Yellow) 10/29/20 23:19 Urine Turbidity Clear (Clear) 10/29/20 23:19 Urine pH 5.0 (5.0-7.0) 10/29/20 23:19 Ur Specific [place] 1.008 (1.003-1.030) 10/29/20 23:19 Urine Protein <15 mg/dl mg/dL (Negative) 10/29/20 23:19 Urine Glucose (UA) Neg mg/dL (Negative) 10/29/20 23:19 Urine Ketones Neg mg/dL (Negative) 10/29/20 23:19 Urine Blood Neg (Negative) 10/29/20 23:19 Urine Nitrite Neg (Negative) 10/29/20 23:19 Urine Bilirubin Neg (Negative) 10/29/20 23:19 Urine Urobilinogen < 2.0 mg/dL (<2.0) 10/29/20 23:19 Ur Leukocyte Esterase Neg (Negative) 10/29/20 23:19 Urine WBC (Auto) < 1.0 /HPF (0.0-6.0) 10/29/20 23:19 Urine RBC (Auto) 2.0 /HPF (0.0-6.0) 10/29/20 23:19 Nasal Screen MRSA (PCR) Negative (Negative) 10/30/20 13:00 Salicylates < 0.3 mg/dL (2.8-20.0) L 10/29/20 21:37 Urine Opiates Screen Presumptive negative 10/29/20 23:19 Urine Methadone Screen Presumptive negative 10/29/20 23:19 Acetaminophen 5.0 ug/mL (10.0-30.0) L 10/31/20 06:40 Ur Barbiturates Screen Presumptive negative 10/29/20 23:19 Valproic Acid < 2.8 ug/mL (50-100) L 10/29/20 21:37 Ur Phencyclidine Scrn Presumptive negative 10/29/20 23:19 Ur Amphetamines Screen Presumptive negative 10/29/20 23:19 U Benzodiazepines Scrn Presumptive negative 10/29/20 23:19 Urine Cocaine Screen Presumptive negative 10/29/20 23:19 U Marijuana (THC) Screen Presumptive negative 10/29/20 23:19 Drugs of Abuse Note Disclamer 10/29/20 23:19 Plasma/Serum Alcohol 0.15 % (0-0.07) H 10/29/20 21:37 Daigle/IV: Voiding Method External Female Catheter Active Medications - Current Medications Current Medications: Generic Name Dose Route Start Last Admin Trade Name Freq PRN Reason Stop Dose Admin Albuterol 2.5 mg 10/30/20 00:42 Albuterol 2.5 Mg/3 Ml Nebu IH Q4HRT PRN Shortness Of Breath Atorvastatin Calcium 40 mg 10/30/20 22:00 11/02/20 22:05 Atorvastatin 40 Mg Tab PO 40 mg QHS DHARMESH Administration Divalproex Sodium 500 mg 10/30/20 10:00 11/03/20 11:[address] 500 Mg Tab PO 500 mg BID DHARMESH Administration Enoxaparin Sodium 40 mg 10/31/20 10:00 11/03/20 11:11 Enoxaparin 40 Mg/0.4 Ml Inj SUB-Q 40 mg QDAY@1000 DHARMESH Administration Protocol Hydralazine HCl 10 mg 10/30/20 00:44 Hydralazine 20 Mg/1 Ml Inj IV Q6H PRN htn Ibuprofen 600 mg 10/30/20 00:42 Ibuprofen 600 Mg Tab PO Q6H PRN Pain, Mild (1-3) Levetiracetam 1,000 mg 10/30/20 10:00 11/03/20 11:11 Levetiracetam 500 Mg Tab PO 1,000 mg BID DHARMESH Administration Lorazepam 2 mg 11/01/20 07:13 Lorazepam 2 Mg/Ml Vial IV Q2H PRN CIWA-Ar 8-15 Oxycodone/Acetaminophen 1 tab 11/01/20 07:30 11/02/20 10:53 Oxycodone /Acetaminophen 5-325mg Tab PO 1 tab Q8H PRN Administration Pain, Moderate (4-6) Risperidone 2 mg 10/30/20 10:00 11/03/20 11:11 Risperidone 1 Mg Tab PO 2 mg BID DHARMESH Administration Sodium Chloride 10 ml 10/30/20 00:42 Sodium Chloride 0.9% 10 Ml Flush Syringe IV PRN PRN LINE FLUSH Trazodone HCl 50 mg 10/30/20 22:00 11/02/20 22:05 Trazodone 50 Mg Tab PO 50 mg QHS DHARMESH Administration
[2020-11-02] MEDS: ENOXAPARIN 40 MG/0.4 ML INJ SUB-Q SCH (10:52)
[2020-11-02] MEDS: levETIRAcetam 500 MG TAB PO SCH ×2 (10:53→22:05)
[2020-11-02] MEDS: risperiDONE 1 MG TAB PO SCH ×2 (10:53→22:05)
[2020-11-02] MEDS: DIVALPROEX DR 500 MG TAB PO SCH ×2 (10:53→22:05)
[2020-11-02] MEDS: traZODone 50 MG TAB PO SCH (22:05)
[2020-11-03 06:21] LABS: Blood Urea Nitrogen 8 mg/dL (9-20); Calcium 9.2 mg/dL (8.4-10.2); Hemolysis Index 5
[2020-11-03 06:22] LABS: BUN/Creatinine Ratio 13
[2020-11-03 06:35] LABS: Hematocrit 35.9 % (35.5-45.6); Hemoglobin 12.4 gm/dl (11.8-15.2); Mean Corpuscular HGB Conc 35 % (32-34); Mean Corpuscular Volume 87 fl (84-94); Red Blood Count 4.11 M/mm3 (3.65-5.03); Red Cell Distribution Width 14.2 % (13.2-15.2)
[2020-11-03 07:03] LABS: Platelet Count 84 K/mm3 (140-440)
[2020-11-03] MEDS: ENOXAPARIN 40 MG/0.4 ML INJ SUB-Q SCH (11:11)
[2020-11-03] MEDS: risperiDONE 1 MG TAB PO SCH ×2 (11:11→22:07)
[2020-11-03] MEDS: levETIRAcetam 500 MG TAB PO SCH ×2 (11:11→22:07)
[2020-11-03] MEDS: DIVALPROEX DR 500 MG TAB PO SCH ×2 (11:12→22:08)
--- NOTE | 2020-11-03 12:30 | Progress Note ---
Assessment and Plan Assessment and plan: Assessment and plan: This is a 74-year-old gentleman with dementia?, alcoholism, hard of hearing, seizures for presented on 10/30 s/p unwitnessed trip and fall at living facility with hyponatremia, hypochloremia, acute acetaminophen toxicity, seizures and metabolic acidosis with elevated TBilli. 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 Seizure disorder -Neurology consult -Keppra level pending -Keppra 1000mg BID, Depakote -MRI Brain pending, will be conducted on Wednesday -EEG pending Psych: Acetaminophen overdose -Admit Tylenol level 19.3 -s/p Acetylcysteine gtt ? Dementia with behavioral disturbance -Continue home risperidone and trazodone -Psych consult; does not recommend inpt hospitalization at this time Alcohol intoxication -Admit Alcohol level 0.15 -CIWA when needed SI -Psych consult, does not recommend inpatient hospitalization at this time -Denies current SI or HI CV: NAD -Blood pressure monitoring per protocol -Hydralazine PRN for SBP>160 GI: NAD -Passed bedside swallow eval -Regular diet FEN/: Rhabdomylosis -IVF -Trend CK, CMP GI/DVT prophylaxis: PPI, SCDs to BLE while in bed, lovenox subq Disposition: MRI pending tomorrow, after which patient can be discharged back to nursing home History Interval history: This is a 74-year-old gentleman with dementia?, alcoholism, hard of hearing, seizures for presented on 10/30 s/p unwitnessed trip and fall at living facility with at least 2 cans of beer with him. Per EMS communication occurred through written word and the patient only complaint of forehead and facial pain after fall and reportted Tylenol ingestion of unknown quantity. In the ED He did state on review of systems that he was considering self-harm. 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 Patient also has hyponatremia, hypochloremia and metabolic acidosis with elevated TBilli. Patient was admitted to the hospitalist service with tylenol toxicity on an acetylcysteine gtt to the ICU with consult to CCM. 10/30: Early this morning patient had an witnessed seizure which was aborted with ativan. This morning the patient stated he takes 1000mg Keppra TID and had a fleeting SI. Psych and Neuro has been consulted. Patient will be transferred to the floor. 10/31: MRI to be done today. Patient still is sore from fall. No acute events reported overnight. 11/01: MRI is still pending, No acute events reported overnight, patient states his pain is better today. PT/OT eval to be completed today. RN stated his caregiver will visit this afternoon with medication list. 11/02: MRI still pending, RN and Dr. Almazan attempted to contact POA listed in chart however where unable. fisher weir never presented to the hospital yesterday per RN. Will attempt today again. Patient became agitated overnight but was able to be reorientated 11/03/2020: MRI will be done tomorrow. Patient without any agitation, sleeping, no overnight events. Hospitalist Physical - Physical exam Narrative exam: General appearance: no acute distress, well-nourished HEENT: Eschars and periorbital ecchymosis around left orbit, PERRL, EOM i ntact, patient hard of hearing, clear oral mucosa Respiratory: bilateral CTA, negative: rales, rhonchi, wheezing Cardiovascular: Regular rate/rhythm, Normal S1 & S2. No gallop, rub Extremities: no ischemia, No edema, normal temperature, normal color, Full ROM Abdominal: soft, no tenderness, non-distended, normal bowel sounds Integumentary: Present: clear, warm, dry no wounds, ecchymosis on upper e xtremities bilaterally Psychiatric: appropriate mood/affect, intact judgment & insight Neurologic: CNII-XII intact, moves all extremities, no sensory or motor abnormalities - Constitutional Vitals: Temp Pulse Resp BP Pulse Ox 97.9 F 82 16 121/62 96 11/03/20 10:36 11/03/20 10:36 11/03/20 10:36 11/03/20 10:36 11/03/20 10:36 Results - Labs CBC & Chem 7: 11/03/20 05:16 11/03/20 05:16 Labs: Laboratory Last Values WBC 3.5 K/mm3 (4.5-11.0) L 11/03/20 05:16 RBC 4.11 M/mm3 (3.65-5.03) 11/03/20 05:16 Hgb 12.4 gm/dl (11.8-15.2) 11/03/20 05:16 Hct 35.9 % (35.5-45.6) 11/03/20 05:16 MCV 87 fl (84-94) 11/03/20 05:16 MCH 30 pg (28-32) 11/03/20 05:16 MCHC 35 % (32-34) H 11/03/20 05:16 RDW 14.2 % (13.2-15.2) 11/03/20 05:16 Plt Count 84 K/mm3 (140-440) L 11/03/20 05:16 PT 14.3 Sec. (12.2-14.9) 10/31/20 02:08 INR 1.05 (0.87-1.13) 10/31/20 02:08 APTT 28.6 Sec. (24.2-36.6) 10/29/20 21:37 Sodium 142 mmol/L (137-145) 11/03/20 05:16 Potassium 4.3 mmol/L (3.6-5.0) 11/03/20 05:16 Chloride 106.3 mmol/L (98-107) 11/03/20 05:16 Carbon Dioxide 29 mmol/L (22-30) 11/03/20 05:16 Anion Gap 11 mmol/L 11/03/20 05:16 BUN 8 mg/dL (9-20) L 11/03/20 05:16 Creatinine 0.6 mg/dL (0.8-1.3) L 11/03/20 05:16 Estimated GFR > 60 ml/min 11/03/20 05:16 BUN/Creatinine Ratio 13 % 11/03/20 05:16 Glucose 92 mg/dL (75-100) 11/03/20 05:16 Lactic Acid 1.70 mmol/L (0.7-2.0) 10/30/20 11:38 Calcium 9.2 mg/dL (8.4-10.2) 11/03/20 05:16 Magnesium 2.00 mg/dL (1.7-2.3) 10/29/20 21:37 Total Bilirubin 0.80 mg/dL (0.1-1.2) 10/31/20 02:08 Direct Bilirubin < 0.2 mg/dL (0-0.2) 10/31/20 02:08 Indirect Bilirubin 0.8 mg/dL 10/29/20 21:37 AST 15 units/L (5-40) 10/31/20 02:08 ALT 8 units/L (7-56) 10/31/20 02:08 Alkaline Phosphatase 58 units/L (35-129) 10/31/20 02:08 Ammonia 39.0 umol/L (25-60) 10/29/20 22:37 Total Creatine Kinase 95 units/L (55-170) 11/01/20 07:41 Total Protein 6.1 g/dL (6.3-8.2) L 10/31/20 02:08 Albumin 3.5 g/dL (3.9-5) L 10/31/20 02:08 Albumin/Globulin Ratio 1.3 % 10/31/20 02:08 Urine Color Yellow (Yellow) 10/29/20 23:19 Urine Turbidity Clear (Clear) 10/29/20 23:19 Urine pH 5.0 (5.0-7.0) 10/29/20 23:19 Ur Specific [place] 1.008 (1.003-1.030) 10/29/20 23:19 Urine Protein <15 mg/dl mg/dL (Negative) 10/29/20 23:19 Urine Glucose (UA) Neg mg/dL (Negative) 10/29/20 23:19 Urine Ketones Neg mg/dL (Negative) 10/29/20 23:19 Urine Blood Neg (Negative) 10/29/20 23:19 Urine Nitrite Neg (Negative) 10/29/20 23:19 Urine Bilirubin Neg (Negative) 10/29/20 23:19 Urine Urobilinogen < 2.0 mg/dL (<2.0) 10/29/20 23:19 Ur Leukocyte Esterase Neg (Negative) 10/29/20 23:19 Urine WBC (Auto) < 1.0 /HPF (0.0-6.0) 10/29/20 23:19 Urine RBC (Auto) 2.0 /HPF (0.0-6.0) 10/29/20 23:19 Nasal Screen MRSA (PCR) Negative (Negative) 10/30/20 13:00 Salicylates < 0.3 mg/dL (2.8-20.0) L 10/29/20 21:37 Urine Opiates Screen Presumptive negative 10/29/20 23:19 Urine Methadone Screen Presumptive negative 10/29/20 23:19 Acetaminophen 5.0 ug/mL (10.0-30.0) L 10/31/20 06:40 Ur Barbiturates Screen Presumptive negative 10/29/20 23:19 Valproic Acid < 2.8 ug/mL (50-100) L 10/29/20 21:37 Ur Phencyclidine Scrn Presumptive negative 10/29/20 23:19 Ur Amphetamines Screen Presumptive negative 10/29/20 23:19 U Benzodiazepines Scrn Presumptive negative 10/29/20 23:19 Urine Cocaine Screen Presumptive negative 10/29/20 23:19 U Marijuana (THC) Screen Presumptive negative 10/29/20 23:19 Drugs of Abuse Note Disclamer 10/29/20 23:19 Plasma/Serum Alcohol 0.15 % (0-0.07) H 10/29/20 21:37 [place]/IV: Voiding Method External Female Catheter Active Medications - Current Medications Current Medications: Generic Name Dose Route Start Last Admin Trade Name Freq PRN Reason Stop Dose Admin Albuterol 2.5 mg 10/30/20 00:42 Albuterol 2.5 Mg/3 Ml Nebu IH Q4HRT PRN Shortness Of Breath Atorvastatin Calcium 40 mg 10/30/20 22:00 11/02/20 22:05 Atorvastatin 40 Mg Tab PO 40 mg QHS DHARMESH Administration Divalproex Sodium 500 mg 10/30/20 10:00 11/03/20 11:[address] 500 Mg Tab PO 500 mg BID DHARMESH Administration Enoxaparin Sodium 40 mg 10/31/20 10:00 11/03/20 11:11 Enoxaparin 40 Mg/0.4 Ml Inj SUB-Q 40 mg QDAY@1000 DHARMESH Administration Protocol Hydralazine HCl 10 mg 10/30/20 00:44 Hydralazine 20 Mg/1 Ml Inj IV Q6H PRN htn Ibuprofen 600 mg 10/30/20 00:42 Ibuprofen 600 Mg Tab PO Q6H PRN Pain, Mild (1-3) Levetiracetam 1,000 mg 10/30/20 10:00 11/03/20 11:11 Levetiracetam 500 Mg Tab PO 1,000 mg BID DHARMESH Administration Lorazepam 2 mg 11/01/20 07:13 Lorazepam 2 Mg/Ml Vial IV Q2H PRN CIWA-Ar 8-15 Oxycodone/Acetaminophen 1 tab 11/01/20 07:30 11/02/20 10:53 Oxycodone /Acetaminophen 5-325mg Tab PO 1 tab Q8H PRN Administration Pain, Moderate (4-6) Risperidone 2 mg 10/30/20 10:00 11/03/20 11:11 Risperidone 1 Mg Tab PO 2 mg BID DHARMESH Administration Sodium Chloride 10 ml 10/30/20 00:42 Sodium Chloride 0.9% 10 Ml Flush Syringe IV PRN PRN LINE FLUSH Trazodone HCl 50 mg 10/30/20 22:00 11/02/20 22:05 Trazodone 50 Mg Tab PO 50 mg QHS DHARMESH Administration
[2020-11-03] MEDS: traZODone 50 MG TAB PO SCH (22:08)
--- NOTE | 2020-11-04 07:42 | Consultation ---
History of Present Illness Consult date: 11/04/20 Reason for Consult: seizure disorder , dementia and hx of alcohol intoxicatio ,hard hearing History of present illness: Alcohol intoxication Fall Abrasion of the multiple sites History of present illness: This is 74 years old male with past medical history of alcohol abuse, dementia, psychiatric disease was brought to the emergency room because of patient tripped and fell onto his face. He admits to consuming alcohol. He denies neck pain, chest pain, abdominal pain, shortness of breath. He does not know when his last tetanus vaccination is. He did report taking Tylenol today. He does not know what time he took the Tylenol exactly. He did state on review of systems that he was considering self-harm. He is not currently homicidal. The patient is intoxicated, deaf, hard of hearing, and a poor historian. He therefore has difficulty describing the qualitative nature of his symptoms, exacerbating factors, relieving factors, or aggravating factors. In the emergency room patient lactic acid is 4.80 alcohol level is 0.15 and Tylenol level is 19.3 CT scan of the head shows no acute intracranial abnormali ty small left frontal soft tissue contusion overlying the left frontal, convexity Neurology asked to see due to above and hx of seizure he was started on Keppra 1000 mg bid depakote 500 mg po bid he is on Respidol 2 mg bid and Desryl 50 mg qhs Past History Past Surgical History: Other (Alcohol abuse psychiatric disease dementia) Medications and Allergies Allergies Allergy/AdvReac Type Severity Reaction Status Date / Time Penicillins Allergy Unknown Verified 09/18/19 14:30 Home Medications Medication Instructions Recorded Confirmed Last Taken Type AtorvaSTATin [Lipitor] 40 mg PO QHS #30 07/08/[address] 500 mg PO BID #60 07/08/20 Unknown Rx levETIRAcetam [Keppra TAB] 1,000 mg PO BID #60 07/08/20 Unknown Rx risperiDONE [RisperDAL] 2 mg PO BID #60 07/08/20 Unknown Rx traZODone [Desyrel] 50 mg PO QHS #30 07/08/20 Unknown Rx Active Meds: Active Medications Albuterol (Albuterol 2.5 Mg/3 Ml Nebu) 2.5 mg IH Q4HRT PRN PRN Reason: Shortness Of Breath Albuterol/Ipratropium (Ipratropium/Albuterol Sulfate 3 Ml Ampul.Neb) 1 ampul IH Q6HRT DHARMESH Atorvastatin Calcium (Atorvastatin 40 Mg Tab) 40 mg PO QHS [facility] Famotidine (Famotidine 20 Mg/2 Ml Inj) 20 mg IV BID DHARMESH Hydralazine HCl (Hydralazine 20 Mg/1 Ml Inj) 10 mg IV Q6H PRN PRN Reason: htn Thiamine HCl 100 mg/ Folic Acid 1 mg/ Multivitamins/Minerals 10 ml/ Sodium Chloride 1,011.2 mls @ 250 mls/hr IV ONCE ONE Stop: 10/30/20 03:23 Last Admin: 10/29/20 23:49 Dose: 250 mls/hr Documented by: Acetylcysteine 12,246 mg/ (Dextrose) 261.23 mls @ 200 mls/hr IV ONCE ONE Stop: 10/30/20 00:47 Last Admin: 10/29/20 23:48 Dose: 200 mls/hr Documented by: Acetylcysteine 4,082 mg/ (Dextrose) 520.41 mls @ 125 mls/hr IV ONCE ONE Stop: 10/30/20 04:39 Acetylcysteine 8,164 mg/ (Dextrose) 1,040.82 mls @ 62.5 mls/hr IV ONCE ONE Stop: 10/30/20 21:09 Lactated Ringer's (Lactated Ringers) 1,000 mls @ 250 mls/hr IV DIRECT DHARMESH Dextrose/Sodium Chloride (D5/0.45ns) 1,000 mls @ 125 mls/hr IV DIRECT DHARMESH Ceftriaxone Sodium (Rocephin/Ns 2 Gm/100 Ml) 2 gm in 100 mls @ 200 mls/hr IV Q24H DHARMESH; Protocol Ibuprofen (Ibuprofen 600 Mg Tab) 600 mg PO Q6H PRN PRN Reason: Pain, Mild (1-3) Miscellaneous Medication (Divalproex Dr) 500 mg PO BID [facility] Miscellaneous Medication (Levetiracetam [Keppra Tab]) 1,000 mg PO BID [facility] Ondansetron HCl (Ondansetron 4 Mg/2 Ml Inj) 4 mg IV Q8H PRN PRN Reason: Nausea And Vomiting Risperidone (Risperidone 1 Mg Tab) 2 mg PO BID [facility] Sodium Chloride (Sodium Chloride 0.9% 10 Ml Flush Syringe) 10 ml IV BID [facility] Sodium Chloride (Sodium Chloride 0.9% 10 Ml Flush Syringe) 10 ml IV PRN PRN PRN Reason: LINE FLUSH Trazodone HCl (Trazodone 50 Mg Tab) 50 mg PO QHS [facility] Review of Systems Neurological: headaches Psychiatric: suicidal ideation Past History Past Medical History: hyperlipidemia, seizures Past Surgical History: Other (Alcohol abuse psychiatric disease dementia) Medications and Allergies Allergies Allergy/AdvReac Type Severity Reaction Status Date / Time Penicillins Allergy Unknown Verified 09/18/19 14:30 Home Medications Medication Instructions Recorded Confirmed Last Taken Type AtorvaSTATin [Lipitor] 40 mg PO QHS #30 07/08/20 10/30/[address] 500 mg PO BID #60 07/08/20 10/30/20 Unknown Rx levETIRAcetam [Keppra TAB] 1,000 mg PO BID #60 07/08/20 10/30/20 Unknown Rx risperiDONE [RisperDAL] 2 mg PO BID #60 07/08/20 10/30/20 Unknown Rx traZODone [Desyrel] 50 mg PO QHS #30 07/08/20 10/30/20 Unknown Rx Active Meds: Active Medications Albuterol (Albuterol 2.5 Mg/3 Ml Nebu) 2.5 mg IH Q4HRT PRN PRN Reason: Shortness Of Breath Atorvastatin Calcium (Atorvastatin 40 Mg Tab) 40 mg PO QHS [facility] Last Admin: 11/03/20 22:07 Dose: 40 mg Documented by: Divalproex Sodium (Divalproex Dr 500 Mg Tab) 500 mg PO BID [facility] Last Admin: 11/03/20 22:08 Dose: 500 mg Documented by: Enoxaparin Sodium (Enoxaparin 40 Mg/0.4 Ml Inj) 40 mg SUB-Q QDAY@1000 DHARMESH; Protocol Last Admin: 11/03/20 11:11 Dose: 40 mg Documented by: Hydralazine HCl (Hydralazine 20 Mg/1 Ml Inj) 10 mg IV Q6H PRN PRN Reason: htn Ibuprofen (Ibuprofen 600 Mg Tab) 600 mg PO Q6H PRN PRN Reason: Pain, Mild (1-3) Levetiracetam (Levetiracetam 500 Mg Tab) 1,000 mg PO BID [facility] Last Admin: 11/03/20 22:07 Dose: 1,000 mg Documented by: Lorazepam (Lorazepam 2 Mg/Ml Vial) 2 mg IV Q2H PRN PRN Reason: CIWA-Ar 8-15 Oxycodone/Acetaminophen (Oxycodone /Acetaminophen 5-325mg Tab) 1 tab PO Q8H PRN PRN Reason: Pain, Moderate (4-6) Last Admin: 11/02/20 10:53 Dose: 1 tab Documented by: Risperidone (Risperidone 1 Mg Tab) 2 mg PO BID [facility] Last Admin: 11/03/20 22:07 Dose: 2 mg Documented by: Sodium Chloride (Sodium Chloride 0.9% 10 Ml Flush Syringe) 10 ml IV PRN PRN PRN Reason: LINE FLUSH Trazodone HCl (Trazodone 50 Mg Tab) 50 mg PO QHS [facility] Last Admin: 11/03/20 22:08 Dose: 50 mg Documented by: Physical Examination - Vital Signs Vital Signs: Vital Signs Pulse Resp Pulse Ox 74 11 L 98 10/29/20 22:06 10/29/20 22:06 10/29/20 22:06 - Constitutional General appearance: comfortable - EENT EENT: Present: PERRL, mucous membranes moist, other (brusis is noted in left for head no bleeding or sign of infection is noted) - Respiratory Respiratory: Present: chest non-tender, lungs clear, rhonchi - Cardiovascular Cardiovascular: Present: regular rate, normal S1, normal S2 Extremities: Present: no peripheral edema bilatateraly, no clubbing, cyanosis, no inflammation - Gastrointestinal Gastrointestinal: Present: normoactive bowel sounds, absent bowel sounds - Integumentary Integumentary: Present: normal - Neurologic Cranial nerve examination: PERRL, EOMI, intact Speech examination: intact Sensorimotor examination: intact, other (no rigidity or tremor is noted ,gait not mary , he is with slight wasting of interossei muscles , reflexes are 1+ bilateralno clonus no huddleston sign is noted , gait not done, he is haed hearing and is impossible to get a claer hx of his status mentally and physically ,,,,) Results - Laboratory Findings CBC and BMP: 11/03/20 05:16 11/03/20 05:16 Abnormal Lab Findings: Abnormal Labs 10/29/20 10/29/2010/29/21 21:37 21:37 21:37 WBC MCHC Plt Count Sodium 128 L Chloride 91.0 L Carbon Dioxide 17 L BUN 8 L Creatinine 0.7 L Glucose Lactic Acid Total Bilirubin Total Creatine Kinase 175 H Total Protein Albumin Salicylates < 0.3 L Acetaminophen Valproic Acid < 2.8 L Plasma/Serum Alcohol 0.15 H 10/29/20 10/30/20 10/30/20 22:37 00:50 04:21 WBC MCHC Plt Count Sodium Chloride Carbon Dioxide BUN Creatinine Glucose Lactic Acid 4.80 H* 4.50 H* 3.80 H* Total Bilirubin Total Creatine Kinase Total Protein Albumin Salicylates Acetaminophen Valproic Acid Plasma/Serum Alcohol 10/30/20 10/30/20 10/31/20 10:17 10:17 02:08 WBC MCHC 36 H Plt Count 99 L Sodium Chloride Carbon Dioxide BUN 7 L Creatinine 0.5 L Glucose 105 H Lactic Acid Total Bilirubin 1.40 H Total Creatine Kinase 279 H Total Protein Albumin Salicylates Acetaminophen 5.0 L Valproic Acid Plasma/Serum Alcohol 10/31/20 10/31/20 10/31/20 02:08 02:08 06:40 WBC MCHC Plt Count Sodium Chloride Carbon Dioxide BUN 7 L Creatinine 0.6 L Glucose 106 H Lactic Acid Total Bilirubin Total Creatine Kinase Total Protein 6.1 L Albumin 3.5 L Salicylates Acetaminophen 5.0 L 5.0 L Valproic Acid Plasma/Serum Alcohol 11/03/20 11/03/20 05:16 05:16 WBC 3.5 L MCHC 35 H Plt Count 84 L Sodium Chloride Carbon Dioxide BUN 8 L Creatinine 0.6 L Glucose Lactic Acid Total Bilirubin Total Creatine Kinase Total Protein Albumin Salicylates Acetaminophen Valproic Acid Plasma/Serum Alcohol Assessment and Plan Assessment and Plan VTE prophylaxis?: Mechanical Plan of care discussed with patient/family: Yes - Patient Problems # Acetaminophen overdose -Admit the patient to the ICU. - Npo IV fluid D5 half-normal saline at the rate of 100 cc/h. - Patient is on Mucomyst -Pepcid 20 mg IV every 12 hours. - acetaminophen level on admission is #19.5 -Ammonia#39 # Alcohol intoxication -Patient counseled regarding quit drinking by PCP -Patient is put on thiamine 100 mg p.o. daily folic acid 1 mg p.o. daily and banana bag daily # Dementia with behavioral disturbance - On Risperidone 2 mg p.o. twice daily and trazodone 50 mg p.o. nightly , Divalproex 500 mg p.o. twice daily. -check valproic acid level # Hyponatremia -Patient is on D5 half-normal saline at the rate of 100 cc/h hour recheck the BMP in the morning #Metabolic acidosis -D5 half-normal saline at the rate of 100 cc/h. - Levaquin 750 mg IV daily. # Metabolic encephalopathy -Most likely secondary to alcohol abuse and Tylenol overdose. - the patient on banana bag IV daily . Pepcid 20 mg IV twice daily every 12 hours. IV fluid and IV Levaquin 750 mils IV daily. We will monitor the patient closely # Seizure disorder - On keppra 1000 mg bid -We will continue the risperidone 2 mg p.o. twice daily( Decrease seizure threshold ) -trazodone 50 mg p.o. nightly -Levacet TRAM 1000 mg p.o. twice daily. -Divalproex 500 mg p.o. twice daily. -Brain MRI with gd -EEG -Valproic acid level # No sign to suggest cervical mylopathy -Ct cerviac spine is noted -Pt therapy #DVT prophylaxis -SCD for DVT prophylaxis. - Pepcid 20 mg IV every 12 hours for GI prophylaxis. - Patient is a full code will follow as needed
[2020-11-04] MEDS: risperiDONE 1 MG TAB PO SCH ×2 (12:07→21:58)
[2020-11-04] MEDS: DIVALPROEX DR 500 MG TAB PO SCH ×2 (12:08→21:57)
[2020-11-04] MEDS: levETIRAcetam 500 MG TAB PO SCH ×2 (12:08→21:57)
[2020-11-04] MEDS: ENOXAPARIN 40 MG/0.4 ML INJ SUB-Q SCH (12:09)
--- NOTE | 2020-11-04 12:22 | Progress Note ---
Assessment and Plan Assessment and plan: Assessment and plan: This is a 74-year-old gentleman with dementia?, alcoholism, hard of hearing, seizures for presented on 10/30 s/p unwitnessed trip and fall at living facility with hyponatremia, hypochloremia, acute acetaminophen toxicity, seizures and metabolic acidosis with elevated TBilli. 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 Seizure disorder -Neurology consult -Keppra 1000mg BID, Depakote -MRI of the brain pending -EEG pending Psych: Acetaminophen overdose -Admit Tylenol level 19.3 -s/p Acetylcysteine gtt ? Dementia with behavioral disturbance -Continue home risperidone and trazodone -Psych consult; does not recommend inpt hospitalization at this time Alcohol intoxication -Admit Alcohol level 0.15 -CIWA when needed SI -Psych consult, does not recommend inpatient hospitalization at this time -Denies current SI or HI CV: NAD -Blood pressure monitoring per protocol -Hydralazine PRN for SBP>160 GI: NAD -Passed bedside swallow eval -Regular diet FEN/: Rhabdomylosis -IVF -Trend CK, CMP GI/DVT prophylaxis: PPI, SCDs to BLE while in bed, lovenox subq Disposition: MRI pending tomorrow, after which patient can be discharged back to nursing home History Interval history: This is a 74-year-old gentleman with dementia?, alcoholism, hard of hearing, seizures for presented on 10/30 s/p unwitnessed trip and fall at living facility with at least 2 cans of beer with him. Per EMS communication occurred through written word and the patient only complaint of forehead and facial pain after fall and reportted Tylenol ingestion of unknown quantity. In the ED He did state on review of systems that he was considering self-harm. Work up in the ED revealed elevated acetaminophen level of 19.3, elevated alcohol level at 0.15, a nd elevated lactic acid at 4.8, CT C spine showed severe multilevel discogenic DJD, multilevel osseous bridging/ankylosis involving the C3-C4 facets and the C5-C6 facets bilaterally with no acute fracture or subluxation, CT facial bone w/o con showed a left frontal soft tissue contusion and CT head showed no acute intracranial hemorrhage or parenchymal abnormality. Patient also has hyponatremia, hypochloremia and metabolic acidosis with elevated TBilli. Patient was admitted to the hospitalist service with tylenol toxicity on an acetylcysteine gtt to the ICU with consult to CCM. 10/30: Early this morning patient had an witnessed seizure which was aborted with ativan. This morning the patient stated he takes 1000mg Keppra TID and had a fleeting SI. Psych and Neuro has been consulted. Patient will be transferred to the floor. 10/31: MRI to be done today. Patient still is sore from fall. No acute events reported overnight. 11/01: MRI is still pending, No acute events reported overnight, patient states his pain is better today. PT/OT eval to be completed today. RN stated his caregiver will visit this afternoon with medication list. 11/02: MRI still pending, RN and Dr. Almazan attempted to contact POA listed in chart however where unable. 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 Will attempt today again. Patient became agitated overnight but was able to be reorientated 11/03/2020: MRI will be done tomorrow. Patient without any agitation, sleeping, no overnight events. 11/04/2020: Called the MRI department multiple times yesterday and called today, possibly not here to the holiday. Patient needs MRI to rule out stroke. Hopefully it will be done tomorrow. Patient without any agitation, no chest pain or shortness of breath or physical debilities. Hospitalist Physical - Physical exam Narrative exam: General appearance: no acute distress, well-nourished HEENT: Eschars and periorbital ecchymosis around left orbit, PERRL, EOM intact, patient hard of hearing, clear oral mucosa Respiratory: bilateral CTA, negative: rales, rhonchi, wheezing Cardiovascular: Regular rate/rhythm, Normal S1 & S2. No gallop, rub Extremities: no ischemia, No edema, normal temperature, normal color, Full ROM Abdominal: soft, no tenderness, non-distended, normal bowel sounds Integumentary: Present: clear, warm, dry no wounds, ecchymosis on upper extremities bilaterally Psychiatric: appropriate mood/affect, intact judgment & insight Neurologic: CNII-XII intact, moves all extremities, no sensory or motor ab normalities - Constitutional Vitals: Temp Pulse Resp BP Pulse Ox 99.0 F 74 18 123/57 97 11/04/20 11:11 11/04/20 11:11 11/04/20 11:11 11/04/20 11:11 11/04/20 11:11 General appearance: Present: no acute distress, other (head and facial lacs nad bruising) Results - Labs CBC & Chem 7: 11/03/20 05:16 11/03/20 05:16 Labs: Laboratory Last Values WBC 3.5 K/mm3 (4.5-11.0) L 11/03/20 05:16 RBC 4.11 M/mm3 (3.65-5.03) 11/03/20 05:16 Hgb 12.4 gm/dl (11.8-15.2) 11/03/20 05:16 Hct 35.9 % (35.5-45.6) 11/03/20 05:16 MCV 87 fl (84-94) 11/03/20 05:16 MCH 30 pg (28-32) 11/03/20 05:16 MCHC 35 % (32-34) H 11/03/20 05:16 RDW 14.2 % (13.2-15.2) 11/03/20 05:16 Plt Count 84 K/mm3 (140-440) L 11/03/20 05:16 PT 14.3 Sec. (12.2-14.9) 10/31/20 02:08 INR 1.05 (0.87-1.13) 10/31/20 02:08 APTT 28.6 Sec. (24.2-36.6) 10/29/20 21:37 Sodium 142 mmol/L (137-145) 11/03/20 05:16 Potassium 4.3 mmol/L (3.6-5.0) 11/03/20 05:16 Chloride 106.3 mmol/L (98-107) 11/03/20 05:16 Carbon Dioxide 29 mmol/L (22-30) 11/03/20 05:16 Anion Gap 11 mmol/L 11/03/20 05:16 BUN 8 mg/dL (9-20) L 11/03/20 05:16 Creatinine 0.6 mg/dL (0.8-1.3) L 11/03/20 05:16 Estimated GFR > 60 ml/min 11/03/20 05:16 BUN/Creatinine Ratio 13 % 11/03/20 05:16 Glucose 92 mg/dL (75-100) 11/03/20 05:16 Lactic Acid 1.70 mmol/L (0.7-2.0) 10/30/20 11:38 Calcium 9.2 mg/dL (8.4-10.2) 11/03/20 05:16 Magnesium 2.00 mg/dL (1.7-2.3) 10/29/20 21:37 Total Bilirubin 0.80 mg/dL (0.1-1.2) 10/31/20 02:08 Direct Bilirubin < 0.2 mg/dL (0-0.2) 10/31/20 02:08 Indirect Bilirubin 0.8 mg/dL 10/29/20 21:37 AST 15 units/L (5-40) 10/31/20 02:08 ALT 8 units/L (7-56) 10/31/20 02:08 Alkaline Phosphatase 58 units/L (35-129) 10/31/20 02:08 Ammonia 39.0 umol/L (25-60) 10/29/20 22:37 Total Creatine Kinase 95 units/L (55-170) 11/01/20 07:41 Total Protein 6.1 g/dL (6.3-8.2) L 10/31/20 02:08 Albumin 3.5 g/dL (3.9-5) L 10/31/20 02:08 Albumin/Globulin Ratio 1.3 % 10/31/20 02:08 Urine Color Yellow (Yellow) 10/29/20 23:19 Urine Turbidity Clear (Clear) 10/29/20 23:19 Urine pH 5.0 (5.0-7.0) 10/29/20 23:19 Ur Specific [place] 1.008 (1.003-1.030) 10/29/20 23:19 Urine Protein <15 mg/dl mg/dL (Negative) 10/29/20 23:19 Urine Glucose (UA) Neg mg/dL (Negative) 10/29/20 23:19 Urine Ketones Neg mg/dL (Negative) 10/29/20 23:19 Urine Blood Neg (Negative) 10/29/20 23:19 Urine Nitrite Neg (Negative) 10/29/20 23:19 Urine Bilirubin Neg (Negative) 10/29/20 23:19 Urine Urobilinogen < 2.0 mg/dL (<2.0) 10/29/20 23:19 Ur Leukocyte Esterase Neg (Negative) 10/29/20 23:19 Urine WBC (Auto) < 1.0 /HPF (0.0-6.0) 10/29/20 23:19 Urine RBC (Auto) 2.0 /HPF (0.0-6.0) 10/29/20 23:19 Nasal Screen MRSA (PCR) Negative (Negative) 10/30/20 13:00 Salicylates < 0.3 mg/dL (2.8-20.0) L 10/29/20 21:37 Urine Opiates Screen Presumptive negative 10/29/20 23:19 Urine Methadone Screen Presumptive negative 10/29/20 23:19 Acetaminophen 5.0 ug/mL (10.0-30.0) L 10/31/20 06:40 Ur Barbiturates Screen Presumptive negative 10/29/20 23:19 Valproic Acid < 2.8 ug/mL (50-100) L 10/29/20 21:37 Ur Phencyclidine Scrn Presumptive negative 10/29/20 23:19 Ur Amphetamines Screen Presumptive negative 10/29/20 23:19 U Benzodiazepines Scrn Presumptive negative 10/29/20 23:19 Urine Cocaine Screen Presumptive negative 10/29/20 23:19 U Marijuana (THC) Screen Presumptive negative 10/29/20 23:19 Drugs of Abuse Note Disclamer 10/29/20 23:19 Plasma/Serum Alcohol 0.15 % (0-0.07) H 10/29/20 21:37 [place]/IV: Voiding Method External Female Catheter Active Medications - Current Medications Current Medications: Generic Name Dose Route Start Last Admin Trade Name Freq PRN Reason Stop Dose Admin Albuterol 2.5 mg 10/30/20 00:42 Albuterol 2.5 Mg/3 Ml Nebu IH Q4HRT PRN Shortness Of Breath Atorvastatin Calcium 40 mg 10/30/20 22:00 11/03/20 22:07 Atorvastatin 40 Mg Tab PO 40 mg QHS DHARMESH Administration Divalproex Sodium 500 mg 10/30/20 10:00 11/04/20 12:[address] 500 Mg Tab PO 500 mg BID DHARMEHS Administration Enoxaparin Sodium 40 mg 10/31/20 10:00 11/04/20 12:09 Enoxaparin 40 Mg/0.4 Ml Inj SUB-Q 40 mg QDAY@1000 DHARMESH Administration Protocol Hydralazine HCl 10 mg 10/30/20 00:44 Hydralazine 20 Mg/1 Ml Inj IV Q6H PRN htn Ibuprofen 600 mg 10/30/20 00:42 Ibuprofen 600 Mg Tab PO Q6H PRN Pain, Mild (1-3) Levetiracetam 1,000 mg 10/30/20 10:00 11/04/20 12:08 Levetiracetam 500 Mg Tab PO 1,000 mg BID DHARMESH Administration Lorazepam 2 mg 11/01/20 07:13 Lorazepam 2 Mg/Ml Vial IV Q2H PRN CIWA-Ar 8-15 Oxycodone/Acetaminophen 1 tab 11/01/20 07:30 11/02/20 10:53 Oxycodone /Acetaminophen 5-325mg Tab PO 1 tab Q8H PRN Administration Pain, Moderate (4-6) Risperidone 2 mg 10/30/20 10:00 11/04/20 12:07 Risperidone 1 Mg Tab PO 2 mg BID DHARMESH Administration Sodium Chloride 10 ml 10/30/20 00:42 Sodium Chloride 0.9% 10 Ml Flush Syringe IV PRN PRN LINE FLUSH Trazodone HCl 50 mg 10/30/20 22:00 11/03/20 22:08 Trazodone 50 Mg Tab PO 50 mg QHS DHARMESH Administration
[2020-11-04] MEDS: traZODone 50 MG TAB PO SCH (21:57)
[2020-11-05 08:18] LABS: Blood Urea Nitrogen 10 mg/dL (9-20); Calcium 9.1 mg/dL (8.4-10.2); Hemolysis Index 5
[2020-11-05 08:29] LABS: BUN/Creatinine Ratio 17
[2020-11-05] MEDS: DIVALPROEX DR 500 MG TAB PO SCH ×2 (13:24→21:43)
[2020-11-05] MEDS: levETIRAcetam 500 MG TAB PO SCH ×2 (13:25→21:42)
[2020-11-05] MEDS: risperiDONE 1 MG TAB PO SCH ×2 (13:25→21:43)
[2020-11-05] MEDS: ENOXAPARIN 40 MG/0.4 ML INJ SUB-Q SCH (13:25)
--- NOTE | 2020-11-05 14:08 | Progress Note ---
Assessment and Plan Assessment and Plan VTE prophylaxis?: Mechanical Plan of care discussed with patient/family: Yes - Patient Problems # Acetaminophen overdose -Admit the patient to the ICU. - Npo IV fluid D5 half-normal saline at the rate of 100 cc/h. - Patient is on Mucomyst -Pepcid 20 mg IV every 12 hours. - acetaminophen level on admission is #19.5 -Ammonia#39 # Alcohol intoxication -Patient counseled regarding quit drinking by PCP -Patient is put on thiamine 100 mg p.o. daily folic acid 1 mg p.o. daily and banana bag daily # Dementia with behavioral disturbance - On Risperidone 2 mg p.o. twice daily and trazodone 50 mg p.o. nightly , Divalproex 500 mg p.o. twice daily. -check valproic acid level#48.7 # Hyponatremia -Patient is on D5 half-normal saline at the rate of 100 cc/h hour recheck the BMP in the morning #Metabolic acidosis -D5 half-normal saline at the rate of 100 cc/h. - Levaquin 750 mg IV daily. # Metabolic encephalopathy -Most likely secondary to alcohol abuse and Tylenol overdose. - the patient on banana bag IV daily . Pepcid 20 mg IV twice daily every 12 hours. IV fluid and IV Levaquin 750 mils IV daily. We will monitor the patient closely # Seizure disorder - On keppra 1000 mg bid -We will continue the risperidone 2 mg p.o. twice daily( Decrease seizure th reshold ) -trazodone 50 mg p.o. nightly -Levacet TRAM 1000 mg p.o. twice daily. -Divalproex 500 mg p.o. twice daily. -Brain MRI with gd no acute abnormality official report is pending -EEG diffuse slowing with findings is suggestive of neurodeg. disorder -Valproic acid level#47.7 # No sign to suggest cervical mylopathy -Ct cerviac spine is noted -Pt therapy to see -Diffuse weakness pt. complains of ache and pain all over -send for CPK ,ESR,RANDOLPH -findings most likley related to osteoarthritis ? - MRI neck is noted motion artifact no sign of mylopathy -- will review official report when available #DVT prophylaxis -SCD for DVT prophylaxis. - Pepcid 20 mg IV every 12 hours for GI prophylaxis. - Patient is a full code will follow as needed Subjective Date of service: 11/05/20 Principal diagnosis: frequent fall and hx of seizure ,alcoholism Interval history: According to pt. today he is hurting every where neck chest and arm with diffuse weakness it is very difficult to communicate with the pt. due to sever hearing impairment and underlying dementia he is able to read lips at time Objective - Vital Sign Vital Signs - 12hr 11/05/20 04:33 Temperature 98.8 F Pulse Rate 90 Respiratory 18 Rate Blood Pressure 127/61 O2 Sat by Pulse 95 Oximetry - General Apperance Constitutional: uncomfortable - EENT EENT: PERRL, mucous membranes moist, other (bruses left frontal region unc hanged) - Respiratory Respiratory: chest non-tender, lungs clear, rhonchi - Cardiovascular Cardiovascular: regular rate, normal S1, normal S2 Extremities: no peripheral edema bilat, no clubbing, cyanosis - Gastrointestinal Gastrointestinal: normoactive bowel sounds - Neurologic Cranial nerve examination: PERRL, EOMI, intact Speech examination: intact, other (say few words at time he is with significant hearing impairment) Detailed sensory examination: other (difficult to assess strength he is with diffuse give away weakness reflexes are suppresed no clonus no huddleston sign , gait unable to assess ) - Laboratory Findings CBC and BMP: 11/03/20 05:16 11/05/20 07:13 Abnormal Lab Findings: Abnormal Labs 10/29/20 10/29/20 10/29/20 21:37 21:37 21:37 WBC MCHC Plt Count Sodium 128 L Chloride 91.0 L Carbon Dioxide 17 L BUN 8 L Creatinine 0.7 L Glucose Lactic Acid Total Bilirubin Total Creatine Kinase 175 H Total Protein Albumin Salicylates < 0.3 L Acetaminophen Valproic Acid < 2.8 L Plasma/Serum Alcohol 0.15 H 10/29/20 10/30/20 10/30/20 22:37 00:50 04:21 WBC MCHC Plt Count Sodium Chloride Carbon Dioxide BUN Creatinine Glucose Lactic Acid 4.80 H* 4.50 H* 3.80 H* Total Bilirubin Total Creatine Kinase Total Protein Albumin Salicylates Acetaminophen Valproic Acid Plasma/Serum Alcohol 10/30/20 10/30/20 10/31/20 10:17 10:17 02:08 WBC MCHC 36 H Plt Count 99 L Sodium Chloride Carbon Dioxide BUN 7 L Creatinine 0.5 L Glucose 105 H Lactic Acid Total Bilirubin 1.40 H Total Creatine Kinase 279 H Total Protein Albumin Salicylates Acetaminophen 5.0 L Valproic Acid Plasma/Serum Alcohol 10/31/20 10/31/20 10/31/20 02:08 02:08 06:40 WBC MCHC Plt Count Sodium Chloride Carbon Dioxide BUN 7 L Creatinine 0.6 L Glucose 106 H Lactic Acid Total Bilirubin Total Creatine Kinase Total Protein 6.1 L Albumin 3.5 L Salicylates Acetaminophen 5.0 L 5.0 L Valproic Acid Plasma/Serum Alcohol 11/03/20 11/03/20 11/04/20 05:16 05:16 15:00 WBC 3.5 L MCHC 35 H Plt Count 84 L Sodium Chloride Carbon Dioxide BUN 8 L Creatinine 0.6 L Glucose Lactic Acid Total Bilirubin Total Creatine Kinase Total Protein Albumin Salicylates Acetaminophen Valproic Acid 48.7 L Plasma/Serum Alcohol 11/05/20 07:13 WBC MCHC Plt Count Sodium Chloride Carbon Dioxide BUN Creatinine 0.6 L Glucose Lactic Acid Total Bilirubin Total Creatine Kinase Total Protein Albumin Salicylates Acetaminophen Valproic Acid Plasma/Serum Alcohol
--- NOTE | 2020-11-05 15:04 | Discharge Summary ---
Providers - Providers Date of Admission: 10/30/20 00:10 Date of discharge: 11/05/20 Attending physician: ONEIL EVERETT 10/30/20 07:25 Consult to Physician [CONS] Routine Comment: Consulting Provider: SAMARA KELLER Physician Instructions: Reason For Exam: tylenol OD, verbalized suicidal ideation 10/30/20 07:35 Consult to Physician [CONS] Routine Comment: Consulting Provider: MOUSTAPHA MINAYA Physician Instructions: Reason For Exam: seizure 10/31/20 10:11 Occupational Therapy Evaluate and Treat [CONS] Routine Comment: pt is deaf Reason For Exam: debility Physical Therapy Evaluation and Treat [CONS] Routine Comment: patient is deaf Reason For Exam: debility 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 Per EMS communication occurred through written word and the patient only complaint of forehead and facial pain after fall and reportted Tylenol ingestion of unknown quantity. In the ED He did state on review of systems that he was considering self-harm. 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 Patient also has hyponatremia, hypochloremia and metabolic acidosis with elevated TBilli. Patient was admitted to the hospitalist service with tylenol toxicity on an acetylcysteine gtt to the ICU with consult to CCM. Daily clinical course: 10/30: Early this morning patient had an witnessed seizure which was aborted with ativan. This morning the patient stated he takes 1000mg Keppra TID and had a fleeting SI. Psych and Neuro has been consulted. Patient will be transferred to the floor. 10/31: MRI to be done today. Patient still is sore from fall. No acute events reported overnight. 11/01: MRI is still pending, No acute events reported overnight, patient states his pain is better today. PT/OT eval to be completed today. RN stated his caregiver will visit this afternoon with medication list. 11/02: MRI still pending, RN and Dr. Almazan attempted to contact POA listed in chart however where unable. 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 Will attempt today again. Patient became agitated overnight but was able to be reorientated 11/03/2020: MRI will be done tomorrow. Patient without any agitation, sleeping, no overnight events. 11/04/2020: Called the MRI department multiple times yesterday and called today, possibly not here to the holiday. Patient needs MRI to rule out stroke. Hopefully it will be done tomorrow. Patient without any agitation, no chest pain or shortness of breath or physical debilities. 11/05/20: Patient clinically stable, MRI brain obtained. PT cleared for discharge with . Need transportation set up for discharge. Patient need to continue home medications and follow-up with neurology in 1 to 2 weeks. Disposition: DC-30 STILL A PATIENT Final Discharge Diagnosis (Prints w/discharge instructions): --Metabolic encephalopathy, resolved. --Seizure disorder. --Acetaminophen overdose. --D ementia with behavioral disturbance. --Alcohol intoxication. --Suicidal ideation. --Rhabdomylosis Time spent for discharge: 34 minutes Core Measure Documentation - Palliative Care Palliative Care/ Comfort Measures: Not Applicable - Core Measures Any of the following diagnoses?: none Exam - Physical Exam Narrative exam: General appearance: no acute distress, well-nourished, patient is resting on bed HEENT: Eschars and periorbital ecchymosis around left orbit, no conjunctival congestion, clear oral mucosa Respiratory: bilateral CTA, negative: rales, rhonchi, wheezing Cardiovascular: Regular rate/rhythm, Normal S1 & S2. No gallop, rub Extremities: no ischemia, No edema, normal temperature, normal color, Full ROM Abdominal: soft, no tenderness, non-distended, normal bowel sounds Integumentary: Present: clear, warm, dry no wounds, ecchymosis on upper extremities bilaterally Psychiatric: appropriate mood/affect, intact judgment & insight Neurologic: moves all extremities, no sensory or motor abnormalities - Constitutional Vitals: Temp Pulse Resp BP Pulse Ox 98.8 F 90 18 127/61 95 11/05/20 04:33 11/05/20 04:33 11/05/20 04:33 11/05/20 04:33 11/05/20 04:33 Plan Activity: advance as tolerated Weight Bearing Status: Weight Bear as Tolerated Diet: low fat, low salt Special Instructions: physical therapy, home health RN Follow up with: PRIMARY CARE, [Primary Care Provider] - 3-5 Days
--- NOTE | 2020-11-05 15:25 | Magnetic Resonance Report ---
MR cervical spine wo/w con INDICATION / CLINICAL INFORMATION: 75 years Male; s/p fall. TECHNIQUE: Multisequence, multiplanar images of the cervical spine were obtained. COMPARISON: None available. FINDINGS: CRANIOCERVICAL JUNCTION:No significant abnormality. ALIGNMENT: Excessive lordosis seen, most likely related to patient's kyphosis. VERTEBRAE:Grossly normal marrow signal and vertebral body height for age. Anterior spondylosis seen at C6-7 and C7-T1. Minimal edematous changes seen at the C6-7 level, presumably reactive. VISUALIZED SPINAL CORD: No significant abnormality. INTERVERTEBRAL DISCS: Multilevel disc desiccation noted. [id number] ANALYSIS: C2-3: Minimal disc bulge. C3-4: Small posterocentral disc protrusion. Mild foraminal narrowing on the left from uncinate and fa cet hypertrophy. Similar findings on the right. C4-5: Mild disc bulge. [id number] foraminal narrowing bilaterally from uncinate and facet hyper trophy-right greater than left. Findings may affect the C5 nerves. C5-6: Very small, broad-based posterocentral disc protrusion. Mild foraminal narrowing. C6-7: Minimal disc bulge. C7-T1: Minimal disc bulge. PARASPINAL SOFT TISSUES: No significant abnormality. ADDITIONAL FINDINGS: Presumed subcutaneous, sebaceous cyst rightward of midline in the soft tissues d orsal to the upper thoracic region. IMPRESSION: 1. Degenerative changes of the cervical spine as described above. Most marked findings appear to be a t C4-5. Please correlate with dermatomal distribution of patient's symptoms, if present. Signer Name: Aris Ramírez MD, III Signed: 11/05/2020 3:21 PM Workstation Name: [id number]
--- NOTE | 2020-11-05 15:32 | Magnetic Resonance Report ---
MR brain wo/w con INDICATION / CLINICAL INFORMATION: 75 years Male; seizures. TECHNIQUE: Multiplanar, multisequence MR images of the brain were obtained. COMPARISON: CT-10/30/2019; MR-07/25/2016 FINDINGS: BRAIN / INTRACRANIAL CONTENTS: No acute hemorrhage, mass effect, midline shift, hydrocephalus, or acu te, large territorial infarct. Minimal parietal lobe atrophy, bilaterally. Similar type findings seen on prior. There are mild to moderate areas of increased signal intensity on FLAIR imaging in the white matter o f the cerebral hemispheres. These are nonspecific findings and may be related to microangiopathy (hyp ertension, diabetes, atherosclerosis), given the patient's age. I see no signs of abnormal enhancement following contrast administration. CRANIOCERVICAL JUNCTION: No significant abnormality. VASCULAR FLOW-VOIDS: No significant abnormality. ORBITS: No significant abnormality of visualized orbits. SINUSES / MASTOIDS: Mild mucosal thickening in the ethmoids. Moderate opacification of the mastoid ai r cells noted. Similar findings seen on prior. ADDITIONAL FINDINGS: None. IMPRESSION: 1. No focal mass, hemorrhage, hydrocephalus, or acute ischemia. Signer Name: Aris Ramírez MD, III Signed: 11/05/2020 3:28 PM Workstation Name: [id number]
[2020-11-05] MEDS: traZODone 50 MG TAB PO SCH (21:43)
[2020-11-06 05:59] VITALS: BP 132/61
[2020-11-06] MEDS: risperiDONE 1 MG TAB PO SCH (09:31)
[2020-11-06] MEDS: DIVALPROEX DR 500 MG TAB PO SCH (09:31)
[2020-11-06] MEDS: levETIRAcetam 500 MG TAB PO SCH (09:31)
[2020-11-06] MEDS: ENOXAPARIN 40 MG/0.4 ML INJ SUB-Q SCH (09:31)
--- NOTE | 2020-11-06 13:31 | Event Note ---
Date: 11/06/20 Patient was not discharged yesterday b/o transportation issue CM set up transportation today, patient will be discharged today once transportation is setup.
[2020-11-09 11:57] LABS: ANA Screen, IFA Negative (Negative)
[2020-11-09 19:22] LABS: Vitamin D, 25-OH, D2 <4 ng/mL
== END 2020-11-06 11:17 | disposition home health service (06) | DRG 917 ==
LOC: ED 20:53 → CC1 10-30 00:10 → 3A 10-30 18:40
PROVIDERS: ADMIT Hospitalist; ATTEND Internal Medicine
DX: T39.1X1A Poisoning by 4-Aminophenol derivatives, accidental (unintentional), initial encounter (principal); G93.41 Metabolic encephalopathy; E87.1 Hypo-osmolality and hyponatremia; E87.2 Acidosis; F03.91 Unspecified dementia, unspecified severity, with behavioral disturbance; M62.82 Rhabdomyolysis; S09.90XA Unspecified injury of head, initial encounter; W18.39XA Other fall on same level, initial encounter; F10.929 Alcohol use, unspecified with intoxication, unspecified; G40.909 Epilepsy, unspecified, not intractable, without status epilepticus; E87.8 Other disorders of electrolyte and fluid balance, not elsewhere classified; T07.XXXA Unspecified multiple injuries, initial encounter; Z79.899 Other long term (current) drug therapy; Z79.891 Long term (current) use of opiate analgesic; Z79.01 Long term (current) use of anticoagulants; Z88.0 Allergy status to penicillin; Z90.49 Acquired absence of other specified parts of digestive tract; Y93.89 Activity, other specified; Y92.89 Other specified places as the place of occurrence of the external cause; Y99.8 Other external cause status
CPT/HCPCS: 36415; 70450; 70486; 70553; 72125; 72156; 80048; 80053; 80076; 80164; 80177; 80307; 80320; 81001; 82140; 82248; 82306; 82550; 82607; 82962; 83735; 85027; 85610; 85652; 85730; 86038; 87641; 90471; 90715; 93005; 94640; 95819; 96365; G0378; A9270-GY; A9575; G0480; J0132; J1650; J1956; J3411; J7030; J7060; J7070

== ENCOUNTER 2021-01-18 21:02 | Emergency (ER) | payer MEDICARE ==
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
[2021-01-18 23:52] LABS: Basophils % (Auto) 0.6 % (0.0-1.8); Eosinophils # (Auto) 0.1 K/mm3 (0.0-0.4); Eosinophils % (Auto) 3.7 % (0.0-4.3); Hematocrit 33.7 % (35.5-45.6); Hemoglobin 11.8 gm/dl (11.8-15.2); Lymphocytes # (Auto) 1.1 K/mm3 (1.2-5.4); Lymphocytes % (Auto) 30.7 % (13.4-35.0); Mean Corpuscular HGB Conc 35 % (32-34); Mean Corpuscular Volume 93 fl (84-94); Monocytes # (Auto) 0.4 K/mm3 (0.0-0.8); Monocytes % (Auto) 10.4 % (0.0-7.3); Platelet Count 141 K/mm3 (140-440); Red Blood Count 3.61 M/mm3 (3.65-5.03); Red Cell Distribution Width 15.5 % (13.2-15.2)
[2021-01-19 00:24] LABS: Blood Urea Nitrogen 8 mg/dL (9-20); Calcium 8.8 mg/dL (8.4-10.2); Hemolysis Index 6
[2021-01-19 00:30] LABS: BUN/Creatinine Ratio 13
[2021-01-19 02:13] LABS: Bilirubin,Urine NEG (Negative); Blood,Urine NEG (Negative); Color,Urine Yellow (Yellow); Mucus,Urine FEW /HPF; Protein,Urine <15 mg/dL mg/dL (Negative)
[2021-01-19 02:19] LABS: Amphetamine Screen,Urine Negative; Benzodiazepines Screen,Urine Negative; Cannabinoid Screen,Urine Negative; Cocaine Screen,Urine Negative; Methadone Screen,Urine Negative; Opiate Screen,Urine Negative
--- NOTE | 2021-01-19 11:14 | Consultation ---
History of Present Illness - Reason for Consult Consult date: 01/19/21 Reason for consult: mental health evaluation - History of Present Psychiatric Illness Ricardo Tenorio is a 73 year old with a history of alcohol use disorder with multiple alcohol rehab admissions. In my interview with patient, he is [place] and difficult to communicate. This resume writer communicated via writing. The patient states he was brought to the ED by his patient care manager; he reports a recent discharge from [facility] for seizures. The patient denies any current suicidal/homicidal ideation and denies hallucinations. PAST PSYCHIATRIC HISTORY: Diagnoses: Alcohol Use Disorder Suicide attempts or Self-harm behavior: Denied Prior psychiatric hospitalizations:Reports rehab Substance Abuse history: Alcohol Previous psychiatric medications tried:unknown Outpatient treatment:unknown PAST MEDICAL HISTORY: n/a Family Psychiatric History: None reported or documented SOCIAL HISTORY Marital Status: Unknown Living Arrangements: lives with a care take Employment Status: retired Access to guns/weapons: n/a Education: bachelors History of Abuse: n/a Legal History: n/a REVIEW OF SYSTEMS Constitutional: Negative for weight loss ENT: Negative for stridor; [place] Respiratory: Negative for cough or hemoptysis All other systems reviewed and are negative MENTAL STATUS EXAMINATION General Appearance and Behavior: Age appropriate, good hygiene, wearing appropriate clothes, cooperative polite with questioning. Cooperation: cooperative Psychomotor Behavior: Psychomotor agitation Mood: ok Affect and affective range: congruent Thought Process: Goal directed Thought Content: Within reality Speech: Normal volume, Regular rate and rhythm Intellectual Functioning:Average Suicidal Ideation: Denied Homicidal Ideation: Denied hallucination: Denied Impulse Control: Intact Insight and Judgment: Limited Memory: Intact Attention:Normal Orientation: Alert and oriented Diagnoses: Alcohol use Disorder, Severe- F10.20 RECOMMENDATIONS Continue with Ciwa protocol Continue Risperdal 2mg po BID Continue Trazodone 50mg po QHS Patient should be compliant with medications and not to use drugs and not to drink alcohol. PSYCHOTHERAPY: Supportive psychotherapy provided MEDICAL: Per primary team DELIRIUM PRECAUTIONS: Please re-orient patient frequently, keep lights on during the day, and minimize benzodiazepines and opiates as these medications could worsen patient's confusion. 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 Please contact with any questions and/or concerns. Medications and Allergies Allergies Allergy/AdvReac Type Severity Reaction Status Date / Time Penicillins Allergy Unknown Verified 09/18/19 14:30 Home Medications Medication Instructions Recorded Confirmed Last Taken Type AtorvaSTATin [Lipitor] 40 mg PO QHS #30 07/08/20 10/30/[address] 500 mg PO BID #60 07/08/20 10/30/20 Unknown Rx levETIRAcetam [Keppra TAB] 1,000 mg PO BID #60 07/08/20 10/30/20 Unknown Rx risperiDONE [RisperDAL] 2 mg PO BID #60 07/08/20 10/30/20 Unknown Rx traZODone [Desyrel] 50 mg PO QHS #30 07/08/20 10/30/20 Unknown Rx Mental Status Exam - Vital signs Last Vital Signs Temp 98.4 F 01/18/21 22:41 Pulse 84 01/19/21 09:31 Resp 10 L 01/19/21 09:31 BP 120/65 01/19/21 09:31 Pulse Ox 98 01/19/21 09:31 Results Result Diagrams: 01/18/21 23:16 01/18/21 23:16 Abnormal lab results 01/18/21 01/18/21 01/18/21 Range/Units 23:16 23:16 23:16 WBC 3.6 L (4.5-11.0) K/mm3 RBC 3.61 L (3.65-5.03) M/mm3 Hct 33.7 L (35.5-45.6) % MCH 33 H (28-32) pg MCHC 35 H (32-34) % RDW 15.5 H (13.2-15.2) % Upson % (Auto) 10.4 H (0.0-7.3) % Lymph # (Auto) 1.1 L (1.2-5.4) K/mm3 BUN 8 L (9-20) mg/dL Creatinine 0.6 L (0.8-1.3) mg/dL Salicylates < 0.3 L (2.8-20.0) mg/dL Acetaminophen (10.0-30.0) ug/mL 01/18/21 Range/Units 23:16 WBC (4.5-11.0) K/mm3 RBC (3.65-5.03) M/mm3 Hct (35.5-45.6) % MCH (28-32) pg MCHC (32-34) % RDW (13.2-15.2) % Upson % (Auto) (0.0-7.3) % Lymph # (Auto) (1.2-5.4) K/mm3 BUN (9-20) mg/dL Creatinine (0.8-1.3) mg/dL Salicylates (2.8-20.0) mg/dL Acetaminophen 5.0 L (10.0-30.0) ug/mL All other labs normal.
[2021-01-19] MEDS ORDERED: HALOPERIDOL LACTATE 5 MG/1 ML INJ IV PRN (11:27)
[2021-01-19] MEDS ORDERED: LORazepam 2 MG/ML VIAL IV PRN ×2 (11:27)
--- NOTE | 2021-01-19 11:30 | Emergency Department Report ---
Blank Doc - Documentation Documentation: Patient has been seen and it has been determined that the patient requires adm ission for alcohol withdrawal. CIWA protocol has been started. The patient will not be able to be placed upstairs until the Covid swab is resulted tomorrow. We will continue the CIWA protocol at this time.
[2021-01-19] MEDS ORDERED: risperiDONE 1 MG TAB PO SCH (12:00)
[2021-01-19 17:50] VITALS: BP 105/64
== END 2021-01-19 17:30 | disposition home or self-care (01) ==
LOC: ED 21:02
DX: F10.129 Alcohol abuse with intoxication, unspecified (principal); Z13.30 Encounter for screening examination for mental health and behavioral disorders, unspecified; R56.9 Unspecified convulsions; F32.9 Major depressive disorder, single episode, unspecified; K74.60 Unspecified cirrhosis of liver; A09 Infectious gastroenteritis and colitis, unspecified; F03.90 Unspecified dementia, unspecified severity, without behavioral disturbance, psychotic disturbance, mood disturbance, and anxiety; K72.90 Hepatic failure, unspecified without coma; Z98.890 Other specified postprocedural states; Z88.0 Allergy status to penicillin
CPT/HCPCS: 36415; 80048; 80307; 80320; 81001; 85025; 99284; G0480

== ENCOUNTER 2021-01-27 17:46 | Inpatient (IN) | payer MEDICARE ==
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
[2021-01-27 18:52] LABS: Blood Urea Nitrogen 12 mg/dL (9-20); Calcium 8.8 mg/dL (8.4-10.2); Hemolysis Index 5
[2021-01-27 18:55] LABS: BUN/Creatinine Ratio 20
[2021-01-27 18:59] LABS: Basophils % (Auto) 0.7 % (0.0-1.8); Eosinophils # (Auto) 0.1 K/mm3 (0.0-0.4); Eosinophils % (Auto) 1.1 % (0.0-4.3); Hematocrit 34.8 % (35.5-45.6); Hemoglobin 12.2 gm/dl (11.8-15.2); Mean Corpuscular HGB Conc 35 % (32-34); Mean Corpuscular Volume 90 fl (84-94); Monocytes # (Auto) 0.3 K/mm3 (0.0-0.8); Monocytes % (Auto) 5.9 % (0.0-7.3); Platelet Count 171 K/mm3 (140-440); Red Blood Count 3.86 M/mm3 (3.65-5.03); Red Cell Distribution Width 14.5 % (13.2-15.2)
--- NOTE | 2021-01-27 19:49 | Cat Scan Report ---
CT HEAD WITHOUT CONTRAST INDICATION / CLINICAL INFORMATION: Pain after fall. Trauma. Patient fell sustaining head and facial injury. TECHNIQUE: All CT scans at this location are performed using CT dose reduction for ALARA by means of automated e xposure control. COMPARISON: Head CT 07/06/2020 FINDINGS: HEMORRHAGE: No evidence of intracranial hemorrhage or extra-axial fluid collection. EXTRA-AXIAL SPACES: Cortical sulci and sylvian fissures are enlarged reflecting a degree of parenchym al volume loss which is within normal limits for the patient's age of 75 years. Basilar cisterns have an unremarkable appearance. VENTRICULAR SYSTEM: The third and lateral ventricles are enlarged reflecting presence of age related parenchymal volume loss. CEREBRAL PARENCHYMA: Subtle periventricular and deep white matter lucency is observed. This is probab ly secondary to mild microvascular ischemic change. There is no indication of recent infarction. No a reas of encephalomalacia are identified. MIDLINE SHIFT OR HERNIATION: There is no mass effect. CEREBELLUM / BRAINSTEM: Brainstem has an unremarkable appearance. Age related cerebellar atrophy is n oted. MIDLINE STRUCTURES:Pituitary gland has an unremarkable appearance. No abnormalities are seen in the p ineal region. INTRACRANIAL VESSELS:Calcified atherosclerotic plaque is present along the course of the cavernous se gments of both internal carotid arteries. Similar findings are seen at the distal vertebral arteries. ORBITS: Please refer to CT facial bones dictated separately. SOFT TISSUES of HEAD: No significant abnormality. CALVARIUM: Evaluation of bone windows reveals no abnormalities. PARANASAL SINUSES / MASTOID AIR CELLS: Please refer to CT facial bones which is dictated separately. IMPRESSION: 1. No acute intracranial abnormality. No significant interval change. Signer Name: Angel Martinez MD Signed: 01/27/2021 7:45 PM Workstation Name: [id number]
--- NOTE | 2021-01-27 19:53 | Cat Scan Report ---
CT MAXILLOFACIAL WITHOUT CONTRAST INDICATION / CLINICAL INFORMATION: Pain after fall. Trauma. Patient fell sustaining head and right facial injury. TECHNIQUE: All CT scans at this location are performed using CT dose reduction for ALARA by means of automated e xposure control. COMPARISON: None available. FINDINGS: FACIAL BONES: No fracture or other significant abnormality. REVIEW CONSULTANT SPACES:Evaluation of the sail cutter space structures reveal no abnormalities. SALIVARY GLANDS: Parotid and submandibular salivary glands have an unremarkable appearance. PARANASAL SINUSES: No significant abnormality. Frontal sinuses did not develop in this individual. NASAL CAVITY: No significant abnormality. ORBITS: Preseptal soft tissue swelling is seen along the lateral aspect of the right orbit extending down to the cheek. TEMPORAL BONES:Visualized mastoid air cells and the middle ear cavities are normally pneumatized. Abn ormal soft tissue attenuation is present in the external auditory canals bilaterally. This may repres ent cerumen. Correlation with otoscopic examination is suggested. VISUALIZED INTRACRANIAL STRUCTURES: Please refer to head CT dictated separately. IMPRESSION: 1. No indication of facial fracture. 2. Mild preseptal soft tissue swelling lateral right orbit extending down into the right cheek. Signer Name: Angel Martinez MD Signed: 01/27/2021 7:49 PM Workstation Name: [id number]
[2021-01-27] MEDS ORDERED: FOLIC ACID 1 MG TAB PO ONE (20:00)
[2021-01-27] MEDS ORDERED: THIAMINE 100 MG TAB PO ONE (20:00)
[2021-01-27] MEDS ORDERED: MULTIVITAMINS ,THERAPEUTIC TAB PO ONE (20:00)
--- NOTE | 2021-01-27 20:08 | Cat Scan Report ---
CT CERVICAL SPINE WITHOUT CONTRAST INDICATION / CLINICAL INFORMATION: Pain after fall. TECHNIQUE: Axial CT images were obtained through the cervical spine. Sagittal and coronal reformatted images wer e produced. All CT scans at this location are performed using CT dose reduction for ALARA by means of automated exposure control. COMPARISON: None available. FINDINGS: ALIGNMENT: An exaggerated thoracic kyphosis results in increased cervical lordosis. Grade 1 spondylol isthesis is noted at the C5-6 level. No additional abnormalities of alignment are identified. VERTEBRAE: No indication of fracture or bone destruction. DISC SPACES: Disc height is fairly well-maintained. INDIVIDUAL LEVEL ANALYSIS: C2-3:No abnormality. C3-4: Bilateral facet arthropathy and uncovertebral degenerative change results in moderate bilateral foraminal stenosis. There appears to be degenerative fusion across the facet joints at the C3-4 leve l. No additional abnormality. C4-5: Right worse than left facet arthropathy is noted. Severe right-sided and moderate left-sided fo raminal stenosis is evident. Central spinal canal is adequately maintained. C5-6: Bilateral facet arthropathy with evidence of degenerative fusion across the right C5-6 facet bee int. Central spinal canal and neuroforamina are adequate in size. Mild degenerative spondylolisthesis is noted without evidence of central canal stenosis. C6-7: Uncovertebral arthropathy contributes to moderate right-sided foraminal stenosis. Central spina l canal and left C7 nerve root neuroforamina are adequately maintained. Prominent anterior osteophyte formation is observed. C7-T1: Anterior osteophyte formation is noted. Central spinal canal and neuroforamina are adequately maintained. CRANIOCERVICAL JUNCTION:No significant abnormality. SPINAL CANAL: Central spinal canal is adequately maintained throughout. PARASPINAL SOFT TISSUES: No significant abnormality. LUNG APICES: No significant abnormality of visualized lungs. IMPRESSION: 1. No indication of fracture or traumatic subluxation. 2. Widespread cervical spondylosis. Signer Name: Angel Martinez MD Signed: 01/27/2021 8:04 PM Workstation Name: [email or web address] [id number]
[2021-01-28] MEDS ORDERED: LORazepam 2 MG/ML VIAL ONE (11:39)
[2021-01-28] MEDS ORDERED: LORazepam 2 MG/ML VIAL IV PRN (11:45)
[2021-01-28] MEDS ORDERED: levETIRAcetam 1000 MG/NS 0.75% 1,000 MG/100 ML BAG IV ONE (11:47)
--- NOTE | 2021-01-28 11:53 | Event Note ---
Date: 01/28/21 I was called to see the patient as he just had a witnessed seizure and fall in his room, room #24. Patient has known history of alcohol dependence and issues with withdrawal. He was evaluated overnight by my colleague for a fall causing facial and head trauma. No fracture, brain bleed seen on CT scan. Patient is currently postictal. He does have a history of dementia and encephalopathy, but the patient is currently nonverbal and appears confused. Patient was given 2 mg of Ativan IM as he pulled out his IV. The patient does have a history of recurrent seizures, as well as medication noncompliance, but this appears consistent with alcohol withdrawal seizures. Blood alcohol level was 0.14 at about 7 PM last night. He has been placed on the CIWA protocol and the patient will be given IV fluid and vitamin supplementation through a banana bag. The patient will be admitted to the hospital for further evaluation and treatment was accepted for admission by the hospitalist, Dr. Cosby.
[2021-01-28] MEDS ORDERED: LORazepam 2 MG/ML VIAL IM ONE (11:54)
[2021-01-28] MEDS ORDERED: THIAMINE 100 MG, FOLIC ACID 1 MG, MULTIPLE VITAMIN INJ, ADULT 10 ML in SODIUM CHLORIDE ... IV ONE (12:30)
--- NOTE | 2021-01-28 12:44 | History and Physical Report ---
History of Present Illness Chief complaint: He is confused History of present illness: 75 YO Male Senior Care Resident with Vascular Dementia with Behavioral Disturbance, Cerebral Atherosclerosis, Psychosis, ETOH Dependence, Depression, Cirrhosis presents to ED for evaluation. Patient has diminished cognition and is unable to provide detailed history. Patient reports "I fell down". Additional patient history taken from ED staff, EMS staff, as well as patient caregiver. Patient caregiver reports that patient became confused after ingestion of alcohol and subsequently lost his balance and falling to the ground. EMS was notified and upon arrival the patient was found to be in distress and was subsequently transported to [facility] via private vehicle for further care and evaluation. Patient seen and evaluated in the emergency department. All lab and imaging studies reviewed. Patient found to have facial abrasions secondary to fall, metabolic encephalopathy, delirium tremens, volume depletion, debility. Patient experienced witnessed seizure in the emergency department. Patient admitted to medical floor and initiated on CIWA protocol as well as alcohol withdrawal protocol. Patient is confused at the time of my evaluation and unable to provide history and no further history is obtainable. Patient has a positive gag reflex and is able to protect his airway without difficulty. No reports of fever, chills, chest pain, palpitation, productive cough, skin rash, recent ill contacts, or known exposure to COVID-19. Prior admission on 10/30/2020 reviewed. All medication listed at time of admission has been reconciled. Advanced care planning conducted in ED. Past History Past Medical History: other (see HPI) Past Surgical History: bowel surgery Social history: single, alcohol abuse. denies: smoking Family history: hypertension Medications and Allergies Allergies Allergy/AdvReac Type Severity Reaction Status Date / Time Penicillins Allergy Unknown Verified 09/18/19 14:30 Home Medications Medication Instructions Recorded Confirmed Last Taken Type AtorvaSTATin [Lipitor] 40 mg PO QHS #30 07/08/20 10/30/[address] 500 mg PO BID #60 07/08/20 10/30/20 Unknown Rx levETIRAcetam [Keppra TAB] 1,000 mg PO BID #60 07/08/20 10/30/20 Unknown Rx risperiDONE [RisperDAL] 2 mg PO BID #60 07/08/20 10/30/20 Unknown Rx traZODone [Desyrel] 50 mg PO QHS #30 07/08/20 10/30/20 Unknown Rx Active Meds: Active Medications Thiamine HCl 100 mg/ Folic Acid 1 mg/ Multivitamins/Minerals 10 ml/ Sodium Chloride 1,011.2 mls @ 250 mls/hr IV ONCE ONE Stop: 01/28/21 16:32 Lorazepam (Lorazepam 2 Mg/Ml Vial) 2 mg IV Q1HR PRN PRN Reason: CIWA-Ar 8-15 Lorazepam (Lorazepam 2 Mg/Ml Vial) 4 mg IV Q1HR PRN PRN Reason: CIWA-Ar 16-25 Review of Systems ROS unobtainable: due to mental status Exam - Constitutional Vitals: Temp Pulse Resp BP Pulse Ox 98.5 F 74 16 124/69 96 01/27/21 20:14 01/28/21 12:25 01/28/21 12:25 01/27/21 20:14 01/28/21 12:25 General appearance: Present: mild distress - EENT Eyes: Present: PERRL ENT: clear oral mucosa, hearing decreased - Neck Neck: Present: supple, normal ROM - Respiratory Respiratory effort: normal Respiratory: bilateral: diminished - Cardiovascular Rhythm: other (tachycardia) Heart Sounds: Present: S1 & S2. Absent: rub, click - Extremities Extremities: pulses symmetrical, No edema Peripheral Pulses: within normal limits - Abdominal General gastrointestinal: Present: soft, non-tender, non-distended, normal bowel sounds Male genitourinary: Present: normal - Integumentary Integumentary: Present: clear, dry, clammy, decreased turgor - Musculoskeletal Musculoskeletal: generalized weakness - Psychiatric Psychiatric: no appropriate mood/affect, no memory intact - Neurologic Neurologic: CNII-XII intact, moves all extremities, no gait normal Results - Labs CBC & Chem 7: 01/27/21 18:25 01/27/21 18:25 Labs: Abnormal lab results 01/27/21 01/27/21 01/27/21 Range/Units 18:25 18:25 18:25 Hct 34.8 L (35.5-45.6) % MCHC 35 H (32-34) % Lymph # (Auto) 1.0 L (1.2-5.4) K/mm3 Seg Neutrophils % 70.3 H (40.0-70.0) % Carbon Dioxide 21 L (22-30) mmol/L Creatinine 0.6 L (0.8-1.3) mg/dL Valproic Acid < 2.8 L (50-100) ug/mL Plasma/Serum Alcohol (0-0.07) % 01/27/21 Range/Units 18:25 Hct (35.5-45.6) % MCHC (32-34) % Lymph # (Auto) (1.2-5.4) K/mm3 Seg Neutrophils % (40.0-70.0) % Carbon Dioxide (22-30) mmol/L Creatinine (0.8-1.3) mg/dL Valproic Acid (50-100) ug/mL Plasma/Serum Alcohol 0.14 H (0-0.07) % Assessment and Plan - Patient Problems (1) Delirium tremens Current Visit: Yes Status: Acute Plan to address problem: CIWA protocol, Banana bag, seizure precautions, aspiration precautions, IV fluid resuscitation therapy, neurochecks, benzodiazepine therapy as clinically indicated (2) Metabolic encephalopathy Current Visit: Yes Status: Acute Plan to address problem: CT head, neuro check, supportive care. (3) Volume depletion Current Visit: Yes Status: Acute Plan to address problem: IV fluid resuscitation therapy, monitor fluid balance, repeat BMP in a.m. (4) Debility Current Visit: Yes Status: Acute Plan to address problem: Physical therapy consulted, supportive care program. Case management consulted. (5) Severe malnutrition Current Visit: Yes Status: Acute Plan to address problem: Increase protein intake, dietary supplementation when patient is alert and oriented only. (6) DVT prophylaxis Current Visit: Yes Status: Acute Plan to address problem: SCDs bilateral lower extremities while in bed (7) Advance care planning Current Visit: Yes Status: Acute Plan to address problem: Disease education conducted, care plan discussed, diagnosis discussed, prognosis discussed, patient is full code, case management consulted. Patient family knowledge understanding and agreement with care plan, +30 minutes.
[2021-01-28] MEDS ORDERED: ALBUTEROL 2.5 MG/3 ML NEBU IH PRN (12:45)
[2021-01-28] MEDS ORDERED: ONDANSETRON 4 MG/2 ML INJ IV PRN (12:45)
[2021-01-28] MEDS ORDERED: HYDROmorphone 1 MG/1 ML INJ IV PRN (12:45)
[2021-01-28] MEDS ORDERED: ACETAMINOPHEN 325 MG TAB PO PRN (12:45)
[2021-01-28] MEDS ORDERED: NON-FORMULARY EACH (Levetiracetam [Keppra Tab] 1,000 MG Tablet) PO SCH (22:00)
[2021-01-28] MEDS ORDERED: DIVALPROEX 500 MG PO SCH (22:00)
[2021-01-28] MEDS: DIVALPROEX DR 500 MG TAB PO SCH (22:22)
[2021-01-28] MEDS: risperiDONE 1 MG TAB PO SCH (22:22)
[2021-01-28] MEDS: traZODone 50 MG TAB PO SCH (22:23)
[2021-01-28] MEDS: levETIRAcetam 500 MG TAB PO SCH (22:23)
[2021-01-29 05:18] LABS: Blood Urea Nitrogen 6 mg/dL (9-20); Calcium 8.6 mg/dL (8.4-10.2); Hemolysis Index 8
[2021-01-29 05:22] LABS: BUN/Creatinine Ratio 12
[2021-01-29] MEDS: risperiDONE 1 MG TAB PO SCH ×2 (11:25→22:43)
[2021-01-29] MEDS: MULTIVITAMINS ,THERAPEUTIC TAB PO SCH (11:26)
[2021-01-29] MEDS: levETIRAcetam 500 MG TAB PO SCH ×2 (11:26→22:49)
[2021-01-29] MEDS: FOLIC ACID 1 MG TAB PO SCH (11:26)
[2021-01-29] MEDS: DIVALPROEX DR 500 MG TAB PO SCH ×2 (11:26→22:42)
[2021-01-29] MEDS: THIAMINE 100 MG TAB PO SCH (11:27)
--- NOTE | 2021-01-29 14:18 | Progress Note ---
Assessment and Plan Assessment and plan: 75-year-old man with history of alcohol dependence, seizure disorder who presented after falling while intoxicated. #Fall -Imaging negative for acute fractures -PT evaluation -Likely secondary to intoxication and not seizure activity #Seizure disorder -patient with witnessed seizure in the ED, likely 2/2 to alcohol withdrawal -continue home medications -subtherapeutic Keppra levels #Alcohol dependence -Patient reports drinking beer occasionally (0.14 ETOH level) -Multiple ED visits while intoxicated -CIWA protocol in place, patient denies heavy alcohol use we will not consider Librium at this time -Counseled on negative effects of alcohol abuse with seizure disorder -Mental health evaluation ordered Disposition Plan: half-way Total Time Spent with Patient (Minutes): 20 minutes History Interval history: No acute events overnight. Communicated with patient via pen and paper. He reports some facial pain, no other complaints. Hospitalist Physical - Physical exam Narrative exam: GENERAL: Thin elderly male. In bed in no acute distress. HEENT: Right orbital bruising with dried blood. CHEST/LUNGS: CTAB on room air HEART/CARDIOVASCULAR: RRR. No murmur, rubs or gallops appreciated. ABDOMEN: +BS. NT/ND. SKIN: Ecchymoses on bilateral upper extremities NEURO: No focal motor deficit. MUSCULOSKELETAL: No joint effusion. Both knee joints tender to palpation. EXTREMITIES: No cyanosis, clubbing or edema. PSYCH: Cooperative. - Constitutional Vitals: Temp Pulse Resp BP Pulse Ox 98.7 F 77 18 122/58 98 01/29/21 11:42 01/29/21 11:42 01/29/21 11:42 01/29/21 11:42 01/29/21 11:42 General appearance: Present: mild distress - Allied Health Allied health notes reviewed: nursing, social work Results - Labs CBC & Chem 7: 01/27/21 18:25 01/29/21 04:38 Labs: Laboratory Last Values WBC 4.5 K/mm3 (4.5-11.0) 01/27/21 18:25 RBC 3.86 M/mm3 (3.65-5.03) 01/27/21 18:25 Hgb 12.2 gm/dl (11.8-15.2) 01/27/21 18:25 Hct 34.8 % (35.5-45.6) L 01/27/21 18:25 MCV 90 fl (84-94) 01/27/21 18:25 MCH 32 pg (28-32) 01/27/21 18:25 MCHC 35 % (32-34) H 01/27/21 18:25 RDW 14.5 % (13.2-15.2) 01/27/21 18:25 Plt Count 171 K/mm3 (140-440) 01/27/21 18:25 Lymph % (Auto) 22.0 % (13.4-35.0) 01/27/21 18:25 Mower % (Auto) 5.9 % (0.0-7.3) 01/27/21 18:25 Eos % (Auto) 1.1 % (0.0-4.3) 01/27/21 18:25 Baso % (Auto) 0.7 % (0.0-1.8) 01/27/21 18:25 Lymph # (Auto) 1.0 K/mm3 (1.2-5.4) L 01/27/21 18:25 Mower # (Auto) 0.3 K/mm3 (0.0-0.8) 01/27/21 18:25 Eos # (Auto) 0.1 K/mm3 (0.0-0.4) 01/27/21 18:25 Baso # (Auto) 0.0 K/mm3 (0.0-0.1) 01/27/21 18:25 Seg Neutrophils % 70.3 % (40.0-70.0) H 01/27/21 18:25 Seg Neutrophils # 3.2 K/mm3 (1.8-7.7) 01/27/21 18:25 Sodium 139 mmol/L (137-145) 01/29/21 04:38 Potassium 3.8 mmol/L (3.6-5.0) 01/29/21 04:38 Chloride 103.9 mmol/L (98-107) 01/29/21 04:38 Carbon Dioxide 28 mmol/L (22-30) D 01/29/21 04:38 Anion Gap 11 mmol/L 01/29/21 04:38 BUN 6 mg/dL (9-20) L 01/29/21 04:38 Creatinine 0.5 mg/dL (0.8-1.3) L 01/29/21 04:38 Estimated GFR > 60 ml/min 01/29/21 04:38 BUN/Creatinine Ratio 12 % 01/29/21 04:38 Glucose 107 mg/dL (75-100) H 01/29/21 04:38 POC Glucose 96 mg/dL (70-105) 01/28/21 22:00 Calcium 8.6 mg/dL (8.4-10.2) 01/29/21 04:38 Magnesium 2.10 mg/dL (1.7-2.3) 01/28/21 12:11 Valproic Acid < 2.8 ug/mL (50-100) L 01/27/21 18:25 Plasma/Serum Alcohol 0.14 % (0-0.07) H 01/27/21 18:25 Daigle/IV: Voiding Method Urinal Active Medications - Current Medications Current Medications: Generic Name Dose Route Start Last Admin Trade Name Freq PRN Reason Stop Dose Admin Acetaminophen 650 mg 01/28/21 12:45 Acetaminophen 325 Mg Tab PO Q4H PRN Pain MILD(1-3)/Fever >100.5/GARCIA Albuterol 2.5 mg 01/28/21 12:45 Albuterol 2.5 Mg/3 Ml Nebu IH Q4HRT PRN Shortness Of Breath Atorvastatin Calcium 40 mg 01/28/21 22:00 01/28/21 22:21 Atorvastatin 40 Mg Tab PO 40 mg QHS DHARMESH Administration Divalproex Sodium 500 mg 01/28/21 22:00 01/29/21 11:[address] 500 Mg Tab PO 500 mg BID DHARMESH Administration Folic Acid 1 mg 01/29/21 10:00 01/29/21 11:26 Folic Acid 1 Mg Tab PO 1 mg QDAY DHARMESH Administration Hydromorphone HCl 0.5 mg 01/28/21 12:45 Hydromorphone 1 Mg/1 Ml Inj IV Q24H PRN Pain , Severe (7-10) Sodium Chloride 1,000 mls @ 42 mls/hr 01/28/21 12:45 Nacl 0.9% 1000 Ml IV DIRECT DHARMESH Levetiracetam 1,000 mg 01/28/21 22:00 01/29/21 11:26 Levetiracetam 500 Mg Tab PO 1,000 mg BID DHARMESH Administration Lorazepam 2 mg 01/28/21 11:45 Lorazepam 2 Mg/Ml Vial IV Q1HR PRN CIWA-Ar 8-15 Lorazepam 4 mg 01/28/21 11:45 Lorazepam 2 Mg/Ml Vial IV Q1HR PRN CIWA-Ar 16-25 Multivitamins 1 each 01/29/21 10:00 01/29/21 11:26 Multivitamins ,Therapeutic Tab PO 1 each QDAY DHARMESH Administration Ondansetron HCl 4 mg 01/28/21 12:45 Ondansetron 4 Mg/2 Ml Inj IV Q8H PRN Nausea And Vomiting Oxycodone/Acetaminophen 1 tab 01/28/21 12:45 Oxycodone /Acetaminophen 5-325mg Tab PO Q12H PRN Pain, Moderate (4-6) Risperidone 2 mg 01/28/21 22:00 01/29/21 11:25 Risperidone 1 Mg Tab PO 2 mg BID DHARMESH Administration Sodium Chloride 10 ml 01/28/21 22:00 01/29/21 11:27 Sodium Chloride 0.9% 10 Ml Flush Syringe IV 10 ml BID DHARMESH Administration Sodium Chloride 10 ml 01/28/21 12:45 Sodium Chloride 0.9% 10 Ml Flush Syringe IV PRN PRN LINE FLUSH Thiamine HCl 100 mg 01/29/21 10:00 01/29/21 11:27 Thiamine 100 Mg Tab PO 100 mg QDAY DHARMESH Administration Trazodone HCl 50 mg 01/28/21 22:00 01/28/21 22:23 Trazodone 50 Mg Tab PO 50 mg QHS DHARMESH Administration
[2021-01-29] MEDS: oxyCODONE /ACETAMINOPHEN 5-325MG TAB PO PRN ×2 (16:33→22:50)
[2021-01-29] MEDS: SODIUM CHLORIDE 0.9% 1000 ML 1,000 ML IV SCH (16:36)
[2021-01-29] MEDS: traZODone 50 MG TAB PO SCH (22:42)
[2021-01-30] MEDS: levETIRAcetam 500 MG TAB PO SCH ×2 (10:28→22:38)
[2021-01-30] MEDS: FOLIC ACID 1 MG TAB PO SCH (10:29)
[2021-01-30] MEDS: MULTIVITAMINS ,THERAPEUTIC TAB PO SCH (10:29)
[2021-01-30] MEDS: risperiDONE 1 MG TAB PO SCH ×2 (10:29→22:39)
[2021-01-30] MEDS: DIVALPROEX DR 500 MG TAB PO SCH ×2 (10:29→22:38)
[2021-01-30] MEDS: THIAMINE 100 MG TAB PO SCH (10:29)
--- NOTE | 2021-01-30 11:15 | Consultation ---
History of Present Illness - Reason for Consult Consult date: 01/30/21 Reason for consult: ETOH - History of Present Psychiatric Illness Ricardo Tenorio is a 75y/o male patient is a 75y/o male patient I evaluated today. 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 He says he can't hear anything. I ask the patient does he have a hearing aid and he says "no." I ask him if he needs an senior web designer by using sign language. He replies "no." He then motions his hands for me to give him something to write on. He says he knew he was in the hospital and what hospital. He did not know the date. He says he came to the hospital for "seizures and because I fell." The patient denies being suicidal. I called his caregiver, Carolyn. She says the patient is very manipulative and can hear more than what he says he can. She says he doesn't like to cooperate with people. She says he hears and responds to what he wants to and he writes when he doesn't want to be bothered. She says the patient drinks every day, and runs into the santos a lot. She says he falls and knocks his teeth out from being drunk. She says he threatens suicide a lot and and is in the hospital two and three times a day when he gets drunk. She says EMS is at the hospital several times a day. The caregiver says the patient drinks about 10 beers a day. She says he doesn't buy the beer but he goes in different stores and steals the beer. She says the patient has been in several psych hospitals for alcohol and stabilization. She says he gets kicked out of every place he goes for agitation and aggression once he gets drunk. She says the patient will not take his meds once discharge. PAST PSYCHIATRIC HISTORY: Diagnoses: Schizophrenia, bipolar, schizoaffective Suicide attempts or Self-harm behavior: yes Prior psychiatric hospitalizations: Yes, several Substance Abuse history: heroine and cocaine Previous psychiatric medications tried: could not recall, off for a year Outpatient treatment: Yes PAST MEDICAL HISTORY: None reported or document Family Psychiatric History: None reported or documented SOCIAL HISTORY Marital Status: Single Living Arrangements: custodial Employment Status: Disabled Access to guns/weapons: denies Education: History of Abuse: denies Legal History: denies REVIEW OF SYSTEMS Constitutional: Negative for weight loss ENT: Negative for stridor Respiratory: Negative for cough or hemoptysis All other systems reviewed and are negative MENTAL STATUS EXAMINATION General Appearance and Behavior: Age appropriate, good hygiene, wearing appropriate clothes, calm and uncooperative Cooperation: engaged Psychomotor Behavior: Psychomotor normal Mood: okay Affect and affective range: congruent with stated mood Thought Process: confused Thought Content: none Speech: Normal volume, Regular rate and rhythm, Suicidal Ideation: Denies Homicidal Ideation: Denies Hallucinations: Denies Delusions: None elicited Impulse Control: impaired Insight and Judgment: Limited Memory: Limited Attention: attentive Orientation: a/o Assessment and Plan (1) ETOH Dependence Treatment Plan Consult case management Agree with home medications Agree with CIWA Sitter: per primary Medical: Per primary Disposition: Will determine once medically clear. The patient likely needs detox treatment center. Will follow for med management and psych progress. Thanks case staffed with Dr. Navarro Medications and Allergies Allergies Allergy/AdvReac Type Severity Reaction Status Date / Time Penicillins Allergy Unknown Verified 09/18/19 14:30 Home Medications Medication Instructions Recorded Confirmed Last Taken Type AtorvaSTATin [Lipitor] 40 mg PO QHS #30 07/08/20 01/29/21 01/28/21 22:[address] 500 mg PO BID #60 07/08/20 01/29/21 01/28/21 22:25 Rx levETIRAcetam [Keppra TAB] 1,000 mg PO BID #60 07/08/20 01/29/21 01/28/21 22:25 Rx risperiDONE [RisperDAL] 2 mg PO BID #60 07/08/20 01/29/21 01/28/21 22:25 Rx traZODone [Desyrel] 50 mg PO QHS #30 07/08/20 01/29/21 01/28/21 22:25 Rx Active Meds: Active Medications Acetaminophen (Acetaminophen 325 Mg Tab) 650 mg PO Q4H PRN PRN Reason: Pain MILD(1-3)/Fever >100.5/GARCIA Albuterol (Albuterol 2.5 Mg/3 Ml Nebu) 2.5 mg IH Q4HRT PRN PRN Reason: Shortness Of Breath Atorvastatin Calcium (Atorvastatin 40 Mg Tab) 40 mg PO QHS DHARMESH Last Admin: 01/29/21 22:42 Dose: 40 mg Documented by: Divalproex Sodium (Divalproex Dr 500 Mg Tab) 500 mg PO BID [facility] Last Admin: 01/30/21 10:29 Dose: 500 mg Documented by: Folic Acid (Folic Acid 1 Mg Tab) 1 mg PO QDAY [facility] Last Admin: 01/30/21 10:29 Dose: 1 mg Documented by: Hydromorphone HCl (Hydromorphone 1 Mg/1 Ml Inj) 0.5 mg IV Q24H PRN PRN Reason: Pain , Severe (7-10) Sodium Chloride (Nacl 0.9% 1000 Ml) 1,000 mls @ 42 mls/hr IV DIRECT [facility] Last Admin: 01/29/21 16:36 Dose: 42 mls/hr Documented by: Levetiracetam (Levetiracetam 500 Mg Tab) 1,000 mg PO BID [facility] Last Admin: 01/30/21 10:28 Dose: 1,000 mg Documented by: Lorazepam (Lorazepam 2 Mg/Ml Vial) 2 mg IV Q1HR PRN PRN Reason: CIWA-Ar 8-15 Lorazepam (Lorazepam 2 Mg/Ml Vial) 4 mg IV Q1HR PRN PRN Reason: CIWA-Ar 16-25 Multivitamins (Multivitamins ,Therapeutic Tab) 1 each PO QDAY [facility] Last Admin: 01/30/21 10:29 Dose: 1 each Documented by: Ondansetron HCl (Ondansetron 4 Mg/2 Ml Inj) 4 mg IV Q8H PRN PRN Reason: Nausea And Vomiting Oxycodone/Acetaminophen (Oxycodone /Acetaminophen 5-325mg Tab) 1 tab PO Q12H PRN PRN Reason: Pain, Moderate (4-6) Last Admin: 01/29/21 22:50 Dose: 1 tab Documented by: Risperidone (Risperidone 1 Mg Tab) 2 mg PO BID [facility] Last Admin: 01/30/21 10:29 Dose: 2 mg Documented by: Sodium Chloride (Sodium Chloride 0.9% 10 Ml Flush Syringe) 10 ml IV BID [facility] Last Admin: 01/30/21 10:29 Dose: 10 ml Documented by: Sodium Chloride (Sodium Chloride 0.9% 10 Ml Flush Syringe) 10 ml IV PRN PRN PRN Reason: LINE FLUSH Thiamine HCl (Thiamine 100 Mg Tab) 100 mg PO QDAY [facility] Last Admin: 01/30/21 10:29 Dose: 100 mg Documented by: Trazodone HCl (Trazodone 50 Mg Tab) 50 mg PO QHS [facility] Last Admin: 01/29/21 22:42 Dose: 50 mg Documented by: Mental Status Exam - Vital signs Last Vital Signs Temp 98.1 F 01/29/21 21:37 Pulse 65 01/29/21 21:37 Resp 20 01/29/21 21:37 BP 100/47 01/29/21 21:37 Pulse Ox 96 01/30/21 08:22 Results Result Diagrams: 01/27/21 18:25 01/29/21 04:38 All other labs normal.
--- NOTE | 2021-01-30 13:49 | Progress Note ---
Assessment and Plan Assessment and plan: 75-year-old man with history of alcohol dependence, seizure disorder who presented after falling while intoxicated. #Fall -Imaging negative for acute fractures -PT evaluation -Likely secondary to intoxication and not seizure activity #Seizure disorder -patient with witnessed seizure in the ED, likely 2/2 to alcohol withdrawal -continue home medications -subtherapeutic Keppra levels, will order Keppra level in AM -medication noncompliance per caregiver #Alcohol dependence -Patient reports drinking beer occasionally (0.14 ETOH level) -Multiple ED visits while intoxicated -CIWA protocol in place, patient denies heavy alcohol use -will not consider Librium at this time due to possibility of continued drinking if discharged home -counseled on negative effects of alcohol abuse with seizure disorder -Psychiatry assessed patient, assistance appreciated Disposition Plan: Home with caregiver versus inpatient detox Total Time Spent with Patient (Minutes): 20 minutes History Interval history: No acute events overnight. Communicated with patient via pen and paper. He is feeling "worn out". Has no complaints at this time. Hospitalist Physical - Physical exam Narrative exam: GENERAL: Thin elderly male. In bed in no acute distress. HEENT: Right orbital bruising with dried blood. CHEST/LUNGS: CTAB on room air HEART/CARDIOVASCULAR: RRR. No murmur, rubs or gallops appreciated. ABDOMEN: +BS. NT/ND. SKIN: Ecchymoses on bilateral upper extremities EXTREMITIES: No cyanosis, clubbing or edema. PSYCH: Cooperative. - Constitutional Vitals: Temp Pulse Resp BP Pulse Ox 98.1 F 65 20 100/47 96 01/29/21 21:37 01/29/21 21:37 01/29/21 21:37 01/29/21 21:37 01/30/21 08:22 General appearance: Present: mild distress - Allied Health Allied health notes reviewed: nursing, social work, case management Results - Labs CBC & Chem 7: 01/27/21 18:25 01/29/21 04:38 Labs: Laboratory Last Values WBC 4.5 K/mm3 (4.5-11.0) 01/27/21 18:25 RBC 3.86 M/mm3 (3.65-5.03) 01/27/21 18:25 Hgb 12.2 gm/dl (11.8-15.2) 01/27/21 18:25 Hct 34.8 % (35.5-45.6) L 01/27/21 18:25 MCV 90 fl (84-94) 01/27/21 18:25 MCH 32 pg (28-32) 01/27/21 18:25 MCHC 35 % (32-34) H 01/27/21 18:25 RDW 14.5 % (13.2-15.2) 01/27/21 18:25 Plt Count 171 K/mm3 (140-440) 01/27/21 18:25 Lymph % (Auto) 22.0 % (13.4-35.0) 01/27/21 18:25 [facility] % (Auto) 5.9 % (0.0-7.3) 01/27/21 18:25 Eos % (Auto) 1.1 % (0.0-4.3) 01/27/21 18:25 Baso % (Auto) 0.7 % (0.0-1.8) 01/27/21 18:25 Lymph # (Auto) 1.0 K/mm3 (1.2-5.4) L 01/27/21 18:25 [facility] # (Auto) 0.3 K/mm3 (0.0-0.8) 01/27/21 18:25 Eos # (Auto) 0.1 K/mm3 (0.0-0.4) 01/27/21 18:25 Baso # (Auto) 0.0 K/mm3 (0.0-0.1) 01/27/21 18:25 Seg Neutrophils % 70.3 % (40.0-70.0) H 01/27/21 18:25 Seg Neutrophils # 3.2 K/mm3 (1.8-7.7) 01/27/21 18:25 Sodium 139 mmol/L (137-145) 01/29/21 04:38 Potassium 3.8 mmol/L (3.6-5.0) 01/29/21 04:38 Chloride 103.9 mmol/L (98-107) 01/29/21 04:38 Carbon Dioxide 28 mmol/L (22-30) D 01/29/21 04:38 Anion Gap 11 mmol/L 01/29/21 04:38 BUN 6 mg/dL (9-20) L 01/29/21 04:38 Creatinine 0.5 mg/dL (0.8-1.3) L 01/29/21 04:38 Estimated GFR > 60 ml/min 01/29/21 04:38 BUN/Creatinine Ratio 12 % 01/29/21 04:38 Glucose 107 mg/dL (75-100) H 01/29/21 04:38 POC Glucose 96 mg/dL (70-105) 01/28/21 22:00 Calcium 8.6 mg/dL (8.4-10.2) 01/29/21 04:38 Magnesium 2.10 mg/dL (1.7-2.3) 01/28/21 12:11 Valproic Acid < 2.8 ug/mL (50-100) L 01/27/21 18:25 Plasma/Serum Alcohol 0.14 % (0-0.07) H 01/27/21 18:25 Coronavirus (PCR) Negative (Negative) 01/29/21 Unknown Daigle/IV: Voiding Method Urinal Active Medications - Current Medications Current Medications: Generic Name Dose Route Start Last Admin Trade Name Freq PRN Reason Stop Dose Admin Acetaminophen 650 mg 01/28/21 12:45 Acetaminophen 325 Mg Tab PO Q4H PRN Pain MILD(1-3)/Fever >100.5/GARCIA Albuterol 2.5 mg 01/28/21 12:45 Albuterol 2.5 Mg/3 Ml Nebu IH Q4HRT PRN Shortness Of Breath Atorvastatin Calcium 40 mg 01/28/21 22:00 01/29/21 22:42 Atorvastatin 40 Mg Tab PO 40 mg QHS DHARMESH Administration Divalproex Sodium 500 mg 01/28/21 22:00 01/30/21 10:[address] 500 Mg Tab PO 500 mg BID DHARMESH Administration Folic Acid 1 mg 01/29/21 10:00 01/30/21 10:29 Folic Acid 1 Mg Tab PO 1 mg QDAY DHARMESH Administration Hydromorphone HCl 0.5 mg 01/28/21 12:45 Hydromorphone 1 Mg/1 Ml Inj IV Q24H PRN Pain , Severe (7-10) Sodium Chloride 1,000 mls @ 42 mls/hr 01/28/21 12:45 01/29/21 16:36 Nacl 0.9% 1000 Ml IV 42 mls/hr DIRECT DHARMESH Administration Levetiracetam 1,000 mg 01/28/21 22:00 01/30/21 10:28 Levetiracetam 500 Mg Tab PO 1,000 mg BID DHARMESH Administration Lorazepam 2 mg 01/28/21 11:45 Lorazepam 2 Mg/Ml Vial IV Q1HR PRN CIWA-Ar 8-15 Lorazepam 4 mg 01/28/21 11:45 Lorazepam 2 Mg/Ml Vial IV Q1HR PRN CIWA-Ar 16-25 Multivitamins 1 each 01/29/21 10:00 01/30/21 10:29 Multivitamins ,Therapeutic Tab PO 1 each QDAY DHARMESH Administration Ondansetron HCl 4 mg 01/28/21 12:45 Ondansetron 4 Mg/2 Ml Inj IV Q8H PRN Nausea And Vomiting Oxycodone/Acetaminophen 1 tab 01/28/21 12:45 01/29/21 22:50 Oxycodone /Acetaminophen 5-325mg Tab PO 1 tab Q12H PRN Administration Pain, Moderate (4-6) Risperidone 2 mg 01/28/21 22:00 01/30/21 10:29 Risperidone 1 Mg Tab PO 2 mg BID DHARMESH Administration Sodium Chloride 10 ml 01/28/21 22:00 01/30/21 10:29 Sodium Chloride 0.9% 10 Ml Flush Syringe IV 10 ml BID DHARMESH Administration Sodium Chloride 10 ml 01/28/21 12:45 Sodium Chloride 0.9% 10 Ml Flush Syringe IV PRN PRN LINE FLUSH Thiamine HCl 100 mg 01/29/21 10:00 01/30/21 10:29 Thiamine 100 Mg Tab PO 100 mg QDAY DHARMESH Administration Trazodone HCl 50 mg 01/28/21 22:00 01/29/21 22:42 Trazodone 50 Mg Tab PO 50 mg QHS DHARMESH Administration
[2021-01-30] MEDS: traZODone 50 MG TAB PO SCH (22:38)
[2021-01-30] MEDS: oxyCODONE /ACETAMINOPHEN 5-325MG TAB PO PRN (23:10)
[2021-01-31 07:24] LABS: Blood Urea Nitrogen 7 mg/dL (9-20); Calcium 8.6 mg/dL (8.4-10.2); Hemolysis Index 3
[2021-01-31 07:32] LABS: BUN/Creatinine Ratio 14
[2021-01-31] MEDS: FOLIC ACID 1 MG TAB PO SCH (10:13)
[2021-01-31] MEDS: DIVALPROEX DR 500 MG TAB PO SCH ×2 (10:13→23:06)
[2021-01-31] MEDS: MULTIVITAMINS ,THERAPEUTIC TAB PO SCH (10:13)
[2021-01-31] MEDS: levETIRAcetam 500 MG TAB PO SCH ×2 (10:13→23:06)
[2021-01-31] MEDS: risperiDONE 1 MG TAB PO SCH ×2 (10:13→23:06)
[2021-01-31] MEDS: THIAMINE 100 MG TAB PO SCH (10:13)
[2021-01-31] MEDS: SODIUM CHLORIDE 0.9% 1000 ML 1,000 ML IV SCH (10:15)
[2021-01-31] MEDS: oxyCODONE /ACETAMINOPHEN 5-325MG TAB PO PRN (11:48)
[2021-01-31] MEDS: LORazepam 2 MG/ML VIAL IV PRN ×2 (11:49→14:44)
--- NOTE | 2021-01-31 13:56 | Progress Note ---
Assessment and Plan Assessment and plan: 75-year-old man with history of alcohol dependence, seizure disorder who presented after falling while intoxicated. #Fall -Imaging negative for acute fractures -PT evaluation -Likely secondary to intoxication and not seizure activity #Seizure disorder -patient with witnessed seizure in the ED, likely 2/2 to alcohol withdrawal -continue home medications -Keppra level pending -valproic acid level 57.8 -medication noncompliance per caregiver -patient stable for discharge pending Psychiatry recommendations #Alcohol dependence -Patient reports drinking beer occasionally (0.14 ETOH level) -Multiple ED visits while intoxicated -CIWA protocol in place, patient denies heavy alcohol use -will not consider Librium at this time due to possibility of continued drinking if discharged home -counseled on negative effects of alcohol abuse with seizure disorder -electrolytes WNL -Psychiatry assessed patient, assistance appreciated Disposition Plan: Home versus detox Total Time Spent with Patient (Minutes): 20 minutes History Interval history: No acute events overnight. Prefers to communicate with patient via pen and paper. He is feeling "pain everywhere and shaky". Hospitalist Physical - Physical exam Narrative exam: GENERAL: Thin elderly male. In bed in no acute distress. HEENT: Right orbital bruising with dried blood. CHEST/LUNGS: CTAB on room air HEART/CARDIOVASCULAR: RRR. No murmur, rubs or gallops appreciated. ABDOMEN: +BS. NT/ND. SKIN: Ecchymoses on bilateral upper extremities. EXTREMITIES: No cyanosis, clubbing or edema. PSYCH: Cooperative. Mild tremor of BUE. - Constitutional Vitals: Temp Pulse Resp BP Pulse Ox 98.0 F 68 16 102/43 97 01/31/21 10:53 01/31/21 10:53 01/31/21 10:53 01/31/21 10:53 01/31/21 12:00 General appearance: Present: mild distress - Allied Health Allied health notes reviewed: nursing, case management Results - Labs CBC & Chem 7: 01/27/21 18:25 01/31/21 06:15 Labs: Laboratory Last Values WBC 4.5 K/mm3 (4.5-11.0) 01/27/21 18:25 RBC 3.86 M/mm3 (3.65-5.03) 01/27/21 18:25 Hgb 12.2 gm/dl (11.8-15.2) 01/27/21 18:25 Hct 34.8 % (35.5-45.6) L 01/27/21 18:25 MCV 90 fl (84-94) 01/27/21 18:25 MCH 32 pg (28-32) 01/27/21 18:25 MCHC 35 % (32-34) H 01/27/21 18:25 RDW 14.5 % (13.2-15.2) 01/27/21 18:25 Plt Count 171 K/mm3 (140-440) 01/27/21 18:25 Lymph % (Auto) 22.0 % (13.4-35.0) 01/27/21 18:25 [place] % (Auto) 5.9 % (0.0-7.3) 01/27/21 18:25 Eos % (Auto) 1.1 % (0.0-4.3) 01/27/21 18:25 Baso % (Auto) 0.7 % (0.0-1.8) 01/27/21 18:25 Lymph # (Auto) 1.0 K/mm3 (1.2-5.4) L 01/27/21 18:25 [place] # (Auto) 0.3 K/mm3 (0.0-0.8) 01/27/21 18:25 Eos # (Auto) 0.1 K/mm3 (0.0-0.4) 01/27/21 18:25 Baso # (Auto) 0.0 K/mm3 (0.0-0.1) 01/27/21 18:25 Seg Neutrophils % 70.3 % (40.0-70.0) H 01/27/21 18:25 Seg Neutrophils # 3.2 K/mm3 (1.8-7.7) 01/27/21 18:25 Sodium 138 mmol/L (137-145) 01/31/21 06:15 Potassium 4.2 mmol/L (3.6-5.0) 01/31/21 06:15 Chloride 105.1 mmol/L (98-107) 01/31/21 06:15 Carbon Dioxide 29 mmol/L (22-30) 01/31/21 06:15 Anion Gap 8 mmol/L 01/31/21 06:15 BUN 7 mg/dL (9-20) L 01/31/21 06:15 Creatinine 0.5 mg/dL (0.8-1.3) L 01/31/21 06:15 Estimated GFR > 60 ml/min 01/31/21 06:15 BUN/Creatinine Ratio 14 % 01/31/21 06:15 Glucose 93 mg/dL (75-100) 01/31/21 06:15 POC Glucose 96 mg/dL (70-105) 01/28/21 22:00 Calcium 8.6 mg/dL (8.4-10.2) 01/31/21 06:15 Phosphorus 2.90 mg/dL (2.5-4.5) 01/31/21 06:15 Magnesium 2.00 mg/dL (1.7-2.3) 01/31/21 06:15 Valproic Acid 57.8 ug/mL (50-100) 01/31/21 06:15 Plasma/Serum Alcohol 0.14 % (0-0.07) H 01/27/21 18:25 Coronavirus (PCR) Negative (Negative) 01/29/21 Unknown Daigle/IV: Voiding Method Urinal Active Medications - Current Medications Current Medications: Generic Name Dose Route Start Last Admin Trade Name Freq PRN Reason Stop Dose Admin Acetaminophen 650 mg 01/28/21 12:45 01/31/21 08:08 Acetaminophen 325 Mg Tab PO 650 mg Q4H PRN Administration Pain MILD(1-3)/Fever >100.5/GARCIA Albuterol 2.5 mg 01/28/21 12:45 Albuterol 2.5 Mg/3 Ml Nebu IH Q4HRT PRN Shortness Of Breath Atorvastatin Calcium 40 mg 01/28/21 22:00 01/30/21 22:38 Atorvastatin 40 Mg Tab PO 40 mg QHS DHARMESH Administration Divalproex Sodium 500 mg 01/28/21 22:00 01/31/21 10:[address] 500 Mg Tab PO 500 mg BID DHARMESH Administration Folic Acid 1 mg 01/29/21 10:00 01/31/21 10:13 Folic Acid 1 Mg Tab PO 1 mg QDAY DHARMESH Administration Hydromorphone HCl 0.5 mg 01/28/21 12:45 Hydromorphone 1 Mg/1 Ml Inj IV Q24H PRN Pain , Severe (7-10) Sodium Chloride 1,000 mls @ 42 mls/hr 01/28/21 12:45 01/31/21 10:15 Nacl 0.9% 1000 Ml IV 42 mls/hr DIRECT DHARMESH Administration Levetiracetam 1,000 mg 01/28/21 22:00 01/31/21 10:13 Levetiracetam 500 Mg Tab PO 1,000 mg BID DHARMESH Administration Lorazepam 2 mg 01/28/21 11:45 01/31/21 11:49 Lorazepam 2 Mg/Ml Vial IV 2 mg Q1HR PRN Administration CIWA-Ar 8-15 Lorazepam 4 mg 01/28/21 11:45 Lorazepam 2 Mg/Ml Vial IV Q1HR PRN CIWA-Ar 16-25 Multivitamins 1 each 01/29/21 10:00 01/31/21 10:13 Multivitamins ,Therapeutic Tab PO 1 each QDAY DHARMESH Administration Ondansetron HCl 4 mg 01/28/21 12:45 Ondansetron 4 Mg/2 Ml Inj IV Q8H PRN Nausea And Vomiting Oxycodone/Acetaminophen 1 tab 01/31/21 11:25 01/31/21 11:48 Oxycodone /Acetaminophen 5-325mg Tab PO 1 tab Q8H PRN Administration Pain, Moderate (4-6) Risperidone 2 mg 01/28/21 22:00 01/31/21 10:13 Risperidone 1 Mg Tab PO 2 mg BID DHARMESH Administration Sodium Chloride 10 ml 01/28/21 22:00 01/31/21 10:14 Sodium Chloride 0.9% 10 Ml Flush Syringe IV 10 ml BID DHARMESH Administration Sodium Chloride 10 ml 01/28/21 12:45 Sodium Chloride 0.9% 10 Ml Flush Syringe IV PRN PRN LINE FLUSH Thiamine HCl 100 mg 01/29/21 10:00 01/31/21 10:13 Thiamine 100 Mg Tab PO 100 mg QDAY DHARMESH Administration Trazodone HCl 50 mg 01/28/21 22:00 01/30/21 22:38 Trazodone 50 Mg Tab PO 50 mg QHS DHARMESH Administration
[2021-01-31] MEDS: traZODone 50 MG TAB PO SCH (23:06)
--- NOTE | 2021-02-01 08:02 | Progress Note ---
Assessment and Plan Assessment and plan: 75-year-old man with history of alcohol dependence, seizure disorder who presented after falling while intoxicated. #Seizure disorder -patient with witnessed seizure in the ED, likely 2/2 to alcohol withdrawal -continue home medications -Keppra level pending -valproic acid level 57.8 -medication noncompliance per caregiver #Alcohol dependence -Patient reports drinking beer occasionally (0.14 ETOH level) -Multiple ED visits while intoxicated -CIWA protocol in place, patient denies heavy alcohol use -will not consider Librium at this time due to possibility of continued drinking if discharged home -counseled on negative effects of alcohol abuse with seizure disorder -electrolytes WNL -Psychiatry does not recommend inpatient treatment #Fall -Imaging negative for acute fractures -PT evaluation -Likely secondary to intoxication and not seizure activity #Discharge planning -patient lives in a long-term and caregiver feels that discharge home is unsafe and that patient will resume drinking -SW/LUCITA sent referrals for NH placement Disposition Plan: SNF Total Time Spent with Patient (Minutes): 20 minutes History Interval history: No acute events overnight. Patient reports pain but no other complaints. Hospitalist Physical - Physical exam Narrative exam: GENERAL: Thin elderly male. In bed in no acute distress. HEENT: Right orbital bruising with dried blood. CHEST/LUNGS: CTAB on room air HEART/CARDIOVASCULAR: RRR. No murmur, rubs or gallops appreciated. ABDOMEN: +BS. NT/ND. SKIN: Ecchymoses on bilateral upper extremities. EXTREMITIES: No cyanosis, clubbing or edema. PSYCH: Cooperative. Mild tremor of BUE. - Constitutional Vitals: Temp Pulse Resp BP Pulse Ox 97.6 F 76 20 135/78 97 02/01/21 05:45 02/01/21 05:45 02/01/21 05:45 02/01/21 05:45 02/01/21 05:45 General appearance: Present: mild distress Results - Labs CBC & Chem 7: 01/27/21 18:25 01/31/21 06:15 Labs: Laboratory Last Values WBC 4.5 K/mm3 (4.5-11.0) 01/27/21 18:25 RBC 3.86 M/mm3 (3.65-5.03) 01/27/21 18:25 Hgb 12.2 gm/dl (11.8-15.2) 01/27/21 18:25 Hct 34.8 % (35.5-45.6) L 01/27/21 18:25 MCV 90 fl (84-94) 01/27/21 18:25 MCH 32 pg (28-32) 01/27/21 18:25 MCHC 35 % (32-34) H 01/27/21 18:25 RDW 14.5 % (13.2-15.2) 01/27/21 18:25 Plt Count 171 K/mm3 (140-440) 01/27/21 18:25 Lymph % (Auto) 22.0 % (13.4-35.0) 01/27/21 18:25 [place] % (Auto) 5.9 % (0.0-7.3) 01/27/21 18:25 Eos % (Auto) 1.1 % (0.0-4.3) 01/27/21 18:25 Baso % (Auto) 0.7 % (0.0-1.8) 01/27/21 18:25 Lymph # (Auto) 1.0 K/mm3 (1.2-5.4) L 01/27/21 18:25 [place] # (Auto) 0.3 K/mm3 (0.0-0.8) 01/27/21 18:25 Eos # (Auto) 0.1 K/mm3 (0.0-0.4) 01/27/21 18:25 Baso # (Auto) 0.0 K/mm3 (0.0-0.1) 01/27/21 18:25 Seg Neutrophils % 70.3 % (40.0-70.0) H 01/27/21 18:25 Seg Neutrophils # 3.2 K/mm3 (1.8-7.7) 01/27/21 18:25 Sodium 138 mmol/L (137-145) 01/31/21 06:15 Potassium 4.2 mmol/L (3.6-5.0) 01/31/21 06:15 Chloride 105.1 mmol/L (98-107) 01/31/21 06:15 Carbon Dioxide 29 mmol/L (22-30) 01/31/21 06:15 Anion Gap 8 mmol/L 01/31/21 06:15 BUN 7 mg/dL (9-20) L 01/31/21 06:15 Creatinine 0.5 mg/dL (0.8-1.3) L 01/31/21 06:15 Estimated GFR > 60 ml/min 01/31/21 06:15 BUN/Creatinine Ratio 14 % 01/31/21 06:15 Glucose 93 mg/dL (75-100) 01/31/21 06:15 POC Glucose 96 mg/dL (70-105) 01/28/21 22:00 Calcium 8.6 mg/dL (8.4-10.2) 01/31/21 06:15 Phosphorus 2.90 mg/dL (2.5-4.5) 01/31/21 06:15 Magnesium 2.00 mg/dL (1.7-2.3) 01/31/21 06:15 Valproic Acid 57.8 ug/mL (50-100) 01/31/21 06:15 Plasma/Serum Alcohol 0.14 % (0-0.07) H 01/27/21 18:25 Coronavirus (PCR) Negative (Negative) 01/29/21 Unknown [place]/IV: Voiding Method Urinal Active Medications - Current Medications Current Medications: Generic Name Dose Route Start Last Admin Trade Name Freq PRN Reason Stop Dose Admin Acetaminophen 650 mg 01/28/21 12:45 01/31/21 08:08 Acetaminophen 325 Mg Tab PO 650 mg Q4H PRN Administration Pain MILD(1-3)/Fever >100.5/GARCIA Albuterol 2.5 mg 01/28/21 12:45 Albuterol 2.5 Mg/3 Ml Nebu IH Q4HRT PRN Shortness Of Breath Atorvastatin Calcium 40 mg 01/28/21 22:00 01/31/21 23:06 Atorvastatin 40 Mg Tab PO 40 mg QHS DHARMESH Administration Divalproex Sodium 500 mg 01/28/21 22:00 01/31/21 23:[address] 500 Mg Tab PO 500 mg BID DHARMESH Administration Folic Acid 1 mg 01/29/21 10:00 01/31/21 10:13 Folic Acid 1 Mg Tab PO 1 mg QDAY DHARMESH Administration Hydromorphone HCl 0.5 mg 01/28/21 12:45 Hydromorphone 1 Mg/1 Ml Inj IV Q24H PRN Pain , Severe (7-10) Sodium Chloride 1,000 mls @ 42 mls/hr 01/28/21 12:45 01/31/21 10:15 Nacl 0.9% 1000 Ml IV 42 mls/hr DIRECT DHARMESH Administration Levetiracetam 1,000 mg 01/28/21 22:00 01/31/21 23:06 Levetiracetam 500 Mg Tab PO 1,000 mg BID DHARMESH Administration Lorazepam 2 mg 01/28/21 11:45 01/31/21 14:44 Lorazepam 2 Mg/Ml Vial IV 2 mg Q1HR PRN Administration CIWA-Ar 8-15 Lorazepam 4 mg 01/28/21 11:45 Lorazepam 2 Mg/Ml Vial IV Q1HR PRN CIWA-Ar 16-25 Multivitamins 1 each 01/29/21 10:00 01/31/21 10:13 Multivitamins ,Therapeutic Tab PO 1 each QDAY DHARMESH Administration Ondansetron HCl 4 mg 01/28/21 12:45 Ondansetron 4 Mg/2 Ml Inj IV Q8H PRN Nausea And Vomiting Oxycodone/Acetaminophen 1 tab 01/31/21 11:25 01/31/21 11:48 Oxycodone /Acetaminophen 5-325mg Tab PO 1 tab Q8H PRN Administration Pain, Moderate (4-6) Risperidone 2 mg 01/28/21 22:00 01/31/21 23:06 Risperidone 1 Mg Tab PO 2 mg BID DHARMESH Administration Sodium Chloride 10 ml 01/28/21 22:00 02/01/21 05:44 Sodium Chloride 0.9% 10 Ml Flush Syringe IV 10 ml BID DHARMESH Administration Sodium Chloride 10 ml 01/28/21 12:45 Sodium Chloride 0.9% 10 Ml Flush Syringe IV PRN PRN LINE FLUSH Thiamine HCl 100 mg 01/29/21 10:00 01/31/21 10:13 Thiamine 100 Mg Tab PO 100 mg QDAY DHARMESH Administration Trazodone HCl 50 mg 01/28/21 22:00 01/31/21 23:06 Trazodone 50 Mg Tab PO 50 mg QHS DHARMESH Administration
--- NOTE | 2021-02-01 10:37 | Progress Note ---
Subjective - Reason for Consult Consult date: 02/01/21 Reason for consult: mental health evaluation - Chief Complaint Chief complaint: The patient was seen resting quietly in bed. Patient is hard of hearing. Alert to self. No alcohol withdrawal symptoms noted at this time. REVIEW OF SYSTEMS Constitutional: Negative for weight loss ENT: Negative for stridor Respiratory: Negative for cough or hemoptysis All other systems reviewed and are negative MENTAL STATUS EXAMINATION General Appearance and Behavior: Age appropriate, good hygiene, wearing appropriate clothes, calm and uncooperative Cooperation: Psychomotor Behavior: Psychomotor normal Mood: calm Affect and affective range: congruent with stated mood Thought Process: confused Thought Content: none Speech: Normal volume, Regular rate and rhythm, Suicidal Ideation: Denies Homicidal Ideation: Denies Hallucinations: Denies Delusions: None elicited Impulse Control: impaired Insight and Judgment: Limited Memory: Limited Attention: attentive Orientation: a/o Assessment and Plan (1) ETOH Dependence Treatment Plan Consult case management Agree with home medications Agree with CIWA Sitter: per primary Medical: Per primary Disposition: Do not recommend psychiatric inpatient hospitalization at this time. Will sign off case staffed with Dr. Navarro Mental Status Exam - Vital signs Last Vital Signs Temp 97.6 F 02/01/21 05:45 Pulse 76 02/01/21 05:45 Resp 20 02/01/21 05:45 BP 135/78 02/01/21 05:45 Pulse Ox 97 02/01/21 05:45
[2021-02-01] MEDS: levETIRAcetam 500 MG TAB PO SCH (12:40)
[2021-02-01] MEDS: MULTIVITAMINS ,THERAPEUTIC TAB PO SCH (12:45)
[2021-02-01] MEDS: FOLIC ACID 1 MG TAB PO SCH (12:45)
[2021-02-01] MEDS: THIAMINE 100 MG TAB PO SCH (12:45)
[2021-02-01] MEDS: risperiDONE 1 MG TAB PO SCH (12:45)
[2021-02-01] MEDS: DIVALPROEX DR 500 MG TAB PO SCH (12:45)
[2021-02-02] MEDS: traZODone 50 MG TAB PO SCH ×2 (00:38→22:33)
[2021-02-02] MEDS: levETIRAcetam 500 MG TAB PO SCH ×3 (00:38→22:33)
[2021-02-02] MEDS: risperiDONE 1 MG TAB PO SCH ×3 (00:39→22:33)
[2021-02-02] MEDS: DIVALPROEX DR 500 MG TAB PO SCH ×3 (00:39→22:33)
[2021-02-02 08:11] LABS: Blood Urea Nitrogen 5 mg/dL (9-20); Calcium 8.9 mg/dL (8.4-10.2); Hemolysis Index 34
[2021-02-02 08:12] LABS: BUN/Creatinine Ratio 10
--- NOTE | 2021-02-02 08:57 | Progress Note ---
Assessment and Plan Assessment and plan: 75-year-old man with history of alcohol dependence, seizure disorder who presented after falling while intoxicated. #Seizure disorder -patient with witnessed seizure in the ED, likely 2/2 to alcohol withdrawal -continue home medications -Keppra level pending -valproic acid level 57.8 -medication noncompliance per caregiver #Alcohol dependence -Patient reports drinking beer occasionally (0.14 ETOH level) -Multiple ED visits while intoxicated -CIWA protocol in place, patient denies heavy alcohol use -will not consider Librium at this time due to possibility of continued drinking if discharged home -counseled on negative effects of alcohol abuse with seizure disorder -electrolytes WNL -Psychiatry does not recommend inpatient treatment #Fall -Imaging negative for acute fractures -PT evaluation -Likely secondary to intoxication and not seizure activity #Discharge planning -patient lives in a senior care and caregiver feels that discharge home is unsafe and that patient will resume drinking -CHE/LUCITA sent referrals for NH placement Disposition Plan: Pending placement Total Time Spent with Patient (Minutes): 20 minutes History Interval history: No acute events overnight. Patient sleepy and denies complaints. Hospitalist Physical - Physical exam Narrative exam: GENERAL: Thin elderly male. In bed in no acute distress. HEENT: Right orbital bruising. CHEST/LUNGS: CTAB on room air HEART/CARDIOVASCULAR: RRR. No murmur, rubs or gallops appreciated. ABDOMEN: +BS. NT/ND. SKIN: Ecchymoses on bilateral upper extremities. EXTREMITIES: No cyanosis, clubbing or edema. PSYCH: Cooperative. - Constitutional Vitals: Temp Pulse Resp BP Pulse Ox 98.4 F 72 18 134/47 100 02/02/21 05:41 02/02/21 05:41 02/02/21 05:41 02/02/21 05:41 02/02/21 05:41 General appearance: Present: mild distress - Allied Health Allied health notes reviewed: nursing Results - Labs CBC & Chem 7: 01/27/21 18:25 02/02/21 07:41 Labs: Laboratory Last Values WBC 4.5 K/mm3 (4.5-11.0) 01/27/21 18:25 RBC 3.86 M/mm3 (3.65-5.03) 01/27/21 18:25 Hgb 12.2 gm/dl (11.8-15.2) 01/27/21 18:25 Hct 34.8 % (35.5-45.6) L 01/27/21 18:25 MCV 90 fl (84-94) 01/27/21 18:25 MCH 32 pg (28-32) 01/27/21 18:25 MCHC 35 % (32-34) H 01/27/21 18:25 RDW 14.5 % (13.2-15.2) 01/27/21 18:25 Plt Count 171 K/mm3 (140-440) 01/27/21 18:25 Lymph % (Auto) 22.0 % (13.4-35.0) 01/27/21 18:25 [place] % (Auto) 5.9 % (0.0-7.3) 01/27/21 18:25 Eos % (Auto) 1.1 % (0.0-4.3) 01/27/21 18:25 Baso % (Auto) 0.7 % (0.0-1.8) 01/27/21 18:25 Lymph # (Auto) 1.0 K/mm3 (1.2-5.4) L 01/27/21 18:25 [place] # (Auto) 0.3 K/mm3 (0.0-0.8) 01/27/21 18:25 Eos # (Auto) 0.1 K/mm3 (0.0-0.4) 01/27/21 18:25 Baso # (Auto) 0.0 K/mm3 (0.0-0.1) 01/27/21 18:25 Seg Neutrophils % 70.3 % (40.0-70.0) H 01/27/21 18:25 Seg Neutrophils # 3.2 K/mm3 (1.8-7.7) 01/27/21 18:25 Sodium 142 mmol/L (137-145) 02/02/21 07:41 Potassium 4.3 mmol/L (3.6-5.0) 02/02/21 07:41 Chloride 107.4 mmol/L (98-107) H 02/02/21 07:41 Carbon Dioxide 23 mmol/L (22-30) 02/02/21 07:41 Anion Gap 16 mmol/L 02/02/21 07:41 BUN 5 mg/dL (9-20) L 02/02/21 07:41 Creatinine 0.5 mg/dL (0.8-1.3) L 02/02/21 07:41 Estimated GFR > 60 ml/min 02/02/21 07:41 BUN/Creatinine Ratio 10 % 02/02/21 07:41 Glucose 97 mg/dL (75-100) 02/02/21 07:41 POC Glucose 96 mg/dL (70-105) 01/28/21 22:00 Calcium 8.9 mg/dL (8.4-10.2) 02/02/21 07:41 Phosphorus 2.90 mg/dL (2.5-4.5) 01/31/21 06:15 Magnesium 2.00 mg/dL (1.7-2.3) 01/31/21 06:15 Valproic Acid 57.8 ug/mL (50-100) 01/31/21 06:15 Plasma/Serum Alcohol 0.14 % (0-0.07) H 01/27/21 18:25 Coronavirus (PCR) Negative (Negative) 01/29/21 Unknown [place]/IV: Voiding Method Diaper Active Medications - Current Medications Current Medications: Generic Name Dose Route Start Last Admin Trade Name Freq PRN Reason Stop Dose Admin Acetaminophen 650 mg 01/28/21 12:45 01/31/21 08:08 Acetaminophen 325 Mg Tab PO 650 mg Q4H PRN Administration Pain MILD(1-3)/Fever >100.5/GARCIA Albuterol 2.5 mg 01/28/21 12:45 Albuterol 2.5 Mg/3 Ml Nebu IH Q4HRT PRN Shortness Of Breath Atorvastatin Calcium 40 mg 01/28/21 22:00 02/02/21 00:38 Atorvastatin 40 Mg Tab PO 40 mg QHS DHARMESH Administration Divalproex Sodium 500 mg 01/28/21 22:00 02/02/21 00:[address] 500 Mg Tab PO 500 mg BID DHARMESH Administration Folic Acid 1 mg 01/29/21 10:00 02/01/21 12:45 Folic Acid 1 Mg Tab PO 1 mg QDAY DHARMESH Administration Hydromorphone HCl 0.5 mg 01/28/21 12:45 Hydromorphone 1 Mg/1 Ml Inj IV Q24H PRN Pain , Severe (7-10) Sodium Chloride 1,000 mls @ 42 mls/hr 01/28/21 12:45 01/31/21 10:15 Nacl 0.9% 1000 Ml IV 42 mls/hr DIRECT DHARMESH Administration Levetiracetam 1,000 mg 01/28/21 22:00 02/02/21 00:38 Levetiracetam 500 Mg Tab PO 1,000 mg BID DHARMESH Administration Lorazepam 2 mg 01/28/21 11:45 01/31/21 14:44 Lorazepam 2 Mg/Ml Vial IV 2 mg Q1HR PRN Administration CIWA-Ar 8-15 Lorazepam 4 mg 01/28/21 11:45 Lorazepam 2 Mg/Ml Vial IV Q1HR PRN CIWA-Ar 16-25 Multivitamins 1 each 01/29/21 10:00 02/01/21 12:45 Multivitamins ,Therapeutic Tab PO 1 each QDAY DHARMESH Administration Ondansetron HCl 4 mg 01/28/21 12:45 Ondansetron 4 Mg/2 Ml Inj IV Q8H PRN Nausea And Vomiting Oxycodone/Acetaminophen 1 tab 01/31/21 11:25 01/31/21 11:48 Oxycodone /Acetaminophen 5-325mg Tab PO 1 tab Q8H PRN Administration Pain, Moderate (4-6) Risperidone 2 mg 01/28/21 22:00 02/02/21 00:39 Risperidone 1 Mg Tab PO 2 mg BID DHARMESH Administration Sodium Chloride 10 ml 01/28/21 22:00 02/02/21 00:43 Sodium Chloride 0.9% 10 Ml Flush Syringe IV 10 ml BID DHARMESH Administration Sodium Chloride 10 ml 01/28/21 12:45 Sodium Chloride 0.9% 10 Ml Flush Syringe IV PRN PRN LINE FLUSH Thiamine HCl 100 mg 01/29/21 10:00 02/01/21 12:45 Thiamine 100 Mg Tab PO 100 mg QDAY DHARMESH Administration Trazodone HCl 50 mg 01/28/21 22:00 02/02/21 00:38 Trazodone 50 Mg Tab PO 50 mg QHS DHARMESH Administration
[2021-02-02] MEDS: MULTIVITAMINS ,THERAPEUTIC TAB PO SCH (09:26)
[2021-02-02] MEDS: FOLIC ACID 1 MG TAB PO SCH (09:27)
[2021-02-02] MEDS: THIAMINE 100 MG TAB PO SCH (09:28)
[2021-02-03] MEDS: levETIRAcetam 500 MG TAB PO SCH ×2 (09:23→22:39)
[2021-02-03] MEDS: risperiDONE 1 MG TAB PO SCH ×2 (09:23→22:39)
[2021-02-03] MEDS: MULTIVITAMINS ,THERAPEUTIC TAB PO SCH (09:24)
[2021-02-03] MEDS: DIVALPROEX DR 500 MG TAB PO SCH ×2 (09:24→22:39)
[2021-02-03] MEDS: FOLIC ACID 1 MG TAB PO SCH (09:25)
[2021-02-03] MEDS: THIAMINE 100 MG TAB PO SCH (09:25)
--- NOTE | 2021-02-03 11:06 | Discharge Summary ---
Providers - Providers Date of Admission: 01/28/21 12:45 Date of discharge: 02/03/21 Attending physician: ASHLI SMITH MD 01/28/21 08:36 Consult to Case Management [CONS] Routine Services Needed at Discharge: Industry Consultant Notified:: . Additional Physician Instructions: Dischare planning. Caregiver refusing to take the patient back 01/28/21 12:39 Physical Therapy Evaluation and Treat [CONS] Routine Comment: Reason For Exam: Debility 01/28/21 12:40 Occupational Therapy Evaluate and Treat [CONS] Routine Comment: Reason For Exam: Debility Primary care physician: LEAD [employer] Hospitalization Reason for admission: Fall and seizure Condition: Stable Hospital course: Patient is a 75-year-old male with a history of EtOH dependence and depression who presented to the ED on 01/28 after a fall. Blood alcohol level was 0.14. CT head was negative for any acute fractures or abnormalities. While in the emergency department he experienced seizure and was subsequently admitted to medicine for further care. CIWA protocol was started. Home seizure medications were resumed. Patient did not experience any further seizures while inpatient. Patient was evaluated by the mental health team and was deemed an appropriate for inpatient psychiatric treatment. Patient remained stable and was discharged home to caregiver of his assisted. Disposition: 01 HOME / SELF CARE / HOMELESS Final Discharge Diagnosis (Prints w/discharge instructions): Seizure disorder. Alcohol withdrawal. Alcohol dependence. Fall Time spent for discharge: 20 minutes Core Measure Documentation - Palliative Care Palliative Care/ Comfort Measures: Not Applicable - Core Measures Any of the following diagnoses?: none Exam - Physical Exam Narrative exam: GENERAL: Thin elderly male. In bed in no acute distress. HEENT: Right orbital bruising. CHEST/LUNGS: CTAB on room air HEART/CARDIOVASCULAR: RRR. No murmur, rubs or gallops appreciated. ABDOMEN: +BS. NT/ND. SKIN: Ecchymoses on bilateral upper extremities. EXTREMITIES: No cyanosis, clubbing or edema. PSYCH: Cooperative. - Constitutional Vitals: Temp Pulse Resp BP Pulse Ox 98.4 F 68 18 106/54 99 02/03/21 04:19 02/03/21 04:19 02/03/21 04:19 02/03/21 04:19 02/03/21 04:19 Plan Care Plan Goals: Abstain from alcohol use. It will worsen seizures. Continue taking seizure medications daily. Follow up with: PRIMARY CARE, [Primary Care Provider] - 7 Days Prescriptions: AtorvaSTATin [Lipitor] 40 mg PO QHS 30 Days #[address] [Depakote Dr] 500 mg PO BID 30 Days #60 tablet Folic Acid [Folvite] 1 mg PO QDAY 30 Days #30 tablet levETIRAcetam [Keppra TAB] 1,000 mg PO BID 30 Days #120 tablet Multivitamin Tab [Multiple Vitamin TAB (Theragran)] 1 each PO QDAY 30 Days #30 tablet risperiDONE [RisperDAL] 2 mg PO BID 30 Days #120 tab Thiamine [Vitamin B-1] 100 mg PO QDAY 30 Days #30 tablet
[2021-02-03] MEDS: SODIUM CHLORIDE 0.9% 1000 ML 1,000 ML IV SCH (22:40)
[2021-02-03] MEDS: traZODone 50 MG TAB PO SCH (22:40)
[2021-02-04] MEDS: MULTIVITAMINS ,THERAPEUTIC TAB PO SCH (09:54)
[2021-02-04] MEDS: DIVALPROEX DR 500 MG TAB PO SCH ×2 (09:54→21:29)
[2021-02-04] MEDS: levETIRAcetam 500 MG TAB PO SCH ×2 (09:54→21:29)
[2021-02-04] MEDS: risperiDONE 1 MG TAB PO SCH ×2 (09:54→21:29)
[2021-02-04] MEDS: THIAMINE 100 MG TAB PO SCH (09:54)
[2021-02-04] MEDS: FOLIC ACID 1 MG TAB PO SCH (09:54)
--- NOTE | 2021-02-04 15:38 | Progress Note ---
Assessment and Plan Assessment and plan: 75-year-old man with history of alcohol dependence, seizure disorder who presented after falling while intoxicated. #Seizure disorder -patient with witnessed seizure in the ED, likely 2/2 to alcohol withdrawal. Medication noncompliance per caregiver -continue home medications -Keppra level 21.8, valproic acid level 57.8 -We will continue to monitor #Alcohol dependence -Patient reports drinking beer occasionally (0.14 ETOH level) -Multiple ED visits while intoxicated -CIWA protocol in place; patient denies heavy alcohol use -will not consider Librium at this time due to possibility of continued drinking if discharged home -Counseled on negative effects of alcohol abuse with seizure disorder. Patient expressed understanding. -Psychiatry does not recommend inpatient treatment -Time: +15 minutes #Fall -Likely secondary to intoxication and not seizure activity -Imaging negative for acute fractures -PT evaluation #Discharge planning -patient lives in a snf and caregiver feels that discharge home is unsafe and that patient will resume drinking -/ sent referrals for NH placement Disposition Plan: Pending placement Total Time Spent with Patient (Minutes): 25 History Interval history: No acute events over night. The patient denies fevers, chills, nausea, vomiting, abdominal pain, chest pain/pressure, shortness of breath, urinary symptoms, weakness, or confusion. Hospitalist Physical - Constitutional Vitals: Temp Pulse Resp BP Pulse Ox 98.1 F 69 18 104/42 98 02/04/21 10:37 02/04/21 10:37 02/04/21 10:37 02/04/21 10:37 02/04/21 10:37 General appearance: Present: no acute distress - EENT Eyes: Present: PERRL, EOM intact ENT: hearing intact, clear oral mucosa, dentition normal - Neck Neck: Present: supple, normal ROM - Respiratory Respiratory effort: normal - Cardiovascular Rhythm: regular Heart Sounds: Present: S1 & S2 - Extremities Extremities: no ischemia, pulses intact, pulses symmetrical, No edema, normal temperature, normal color Peripheral Pulses: within normal limits - Abdominal General gastrointestinal: soft, non-tender, non-distended, normal bowel sounds - Integumentary Integumentary: Present: clear, warm, dry - Psychiatric Psychiatric: cooperative, other (Lacking capacity) - Neurologic Neurologic: CNII-XII intact, moves all extremities - Allied Health Allied health notes reviewed: nursing Results - Labs CBC & Chem 7: 01/27/21 18:25 02/02/21 07:41 Labs: Laboratory Last Values WBC 4.5 K/mm3 (4.5-11.0) 01/27/21 18:25 RBC 3.86 M/mm3 (3.65-5.03) 01/27/21 18:25 Hgb 12.2 gm/dl (11.8-15.2) 01/27/21 18:25 Hct 34.8 % (35.5-45.6) L 01/27/21 18:25 MCV 90 fl (84-94) 01/27/21 18:25 MCH 32 pg (28-32) 01/27/21 18:25 MCHC 35 % (32-34) H 01/27/21 18:25 RDW 14.5 % (13.2-15.2) 01/27/21 18:25 Plt Count 171 K/mm3 (140-440) 01/27/21 18:25 Lymph % (Auto) 22.0 % (13.4-35.0) 01/27/21 18:25 [place] % (Auto) 5.9 % (0.0-7.3) 01/27/21 18:25 Eos % (Auto) 1.1 % (0.0-4.3) 01/27/21 18:25 Baso % (Auto) 0.7 % (0.0-1.8) 01/27/21 18:25 Lymph # (Auto) 1.0 K/mm3 (1.2-5.4) L 01/27/21 18:25 [place] # (Auto) 0.3 K/mm3 (0.0-0.8) 01/27/21 18:25 Eos # (Auto) 0.1 K/mm3 (0.0-0.4) 01/27/21 18:25 Baso # (Auto) 0.0 K/mm3 (0.0-0.1) 01/27/21 18:25 Seg Neutrophils % 70.3 % (40.0-70.0) H 01/27/21 18:25 Seg Neutrophils # 3.2 K/mm3 (1.8-7.7) 01/27/21 18:25 Sodium 142 mmol/L (137-145) 02/02/21 07:41 Potassium 4.3 mmol/L (3.6-5.0) 02/02/21 07:41 Chloride 107.4 mmol/L (98-107) H 02/02/21 07:41 Carbon Dioxide 23 mmol/L (22-30) 02/02/21 07:41 Anion Gap 16 mmol/L 02/02/21 07:41 BUN 5 mg/dL (9-20) L 02/02/21 07:41 Creatinine 0.5 mg/dL (0.8-1.3) L 02/02/21 07:41 Estimated GFR > 60 ml/min 02/02/21 07:41 BUN/Creatinine Ratio 10 % 02/02/21 07:41 Glucose 97 mg/dL (75-100) 02/02/21 07:41 POC Glucose 96 mg/dL (70-105) 01/28/21 22:00 Calcium 8.9 mg/dL (8.4-10.2) 02/02/21 07:41 Phosphorus 2.90 mg/dL (2.5-4.5) 01/31/21 06:15 Magnesium 2.00 mg/dL (1.7-2.3) 01/31/21 06:15 Valproic Acid 57.8 ug/mL (50-100) 01/31/21 06:15 Levetiracetam 21.8 mcg/mL (12.0-46.0) 01/31/21 06:15 Plasma/Serum Alcohol 0.14 % (0-0.07) H 01/27/21 18:25 Coronavirus (PCR) Negative (Negative) 01/29/21 Unknown Da[place]le/IV: Voiding Method Urinal Active Medications - Current Medications Current Medications: Generic Name Dose Route Start Last Admin Trade Name Freq PRN Reason Stop Dose Admin Acetaminophen 650 mg 01/28/21 12:45 01/31/21 08:08 Acetaminophen 325 Mg Tab PO 650 mg Q4H PRN Administration Pain MILD(1-3)/Fever >100.5/GARCIA Albuterol 2.5 mg 01/28/21 12:45 Albuterol 2.5 Mg/3 Ml Nebu IH Q4HRT PRN Shortness Of Breath Atorvastatin Calcium 40 mg 01/28/21 22:00 02/03/21 22:40 Atorvastatin 40 Mg Tab PO 40 mg QHS DHARMESH Administration Divalproex Sodium 500 mg 01/28/21 22:00 02/04/21 09:[address] 500 Mg Tab PO 500 mg BID DHARMESH Administration Folic Acid 1 mg 01/29/21 10:00 02/04/21 09:54 Folic Acid 1 Mg Tab PO 1 mg QDAY DHARMESH Administration Hydromorphone HCl 0.5 mg 01/28/21 12:45 Hydromorphone 1 Mg/1 Ml Inj IV Q24H PRN Pain , Severe (7-10) Sodium Chloride 1,000 mls @ 42 mls/hr 01/28/21 12:45 02/03/21 22:40 Nacl 0.9% 1000 Ml IV 42 mls/hr DIRECT DHARMESH Administration Levetiracetam 1,000 mg 01/28/21 22:00 02/04/21 09:54 Levetiracetam 500 Mg Tab PO 1,000 mg BID DHARMESH Administration Lorazepam 2 mg 01/28/21 11:45 01/31/21 14:44 Lorazepam 2 Mg/Ml Vial IV 2 mg Q1HR PRN Administration CIWA-Ar 8-15 Lorazepam 4 mg 01/28/21 11:45 Lorazepam 2 Mg/Ml Vial IV Q1HR PRN CIWA-Ar 16-25 Multivitamins 1 each 01/29/21 10:00 02/04/21 09:54 Multivitamins ,Therapeutic Tab PO 1 each QDAY DHARMESH Administration Ondansetron HCl 4 mg 01/28/21 12:45 Ondansetron 4 Mg/2 Ml Inj IV Q8H PRN Nausea And Vomiting Oxycodone/Acetaminophen 1 tab 01/31/21 11:25 01/31/21 11:48 Oxycodone /Acetaminophen 5-325mg Tab PO 1 tab Q8H PRN Administration Pain, Moderate (4-6) Risperidone 2 mg 01/28/21 22:00 02/04/21 09:54 Risperidone 1 Mg Tab PO 2 mg BID DHARMESH Administration Sodium Chloride 10 ml 01/28/21 22:00 02/04/21 09:55 Sodium Chloride 0.9% 10 Ml Flush Syringe IV 10 ml BID DHARMESH Administration Sodium Chloride 10 ml 01/28/21 12:45 Sodium Chloride 0.9% 10 Ml Flush Syringe IV PRN PRN LINE FLUSH Thiamine HCl 100 mg 01/29/21 10:00 02/04/21 09:54 Thiamine 100 Mg Tab PO 100 mg QDAY DHARMESH Administration Trazodone HCl 50 mg 01/28/21 22:00 02/03/21 22:40 Trazodone 50 Mg Tab PO 50 mg QHS DHARMESH Administration
[2021-02-04] MEDS: traZODone 50 MG TAB PO SCH (21:29)
[2021-02-05] MEDS: SODIUM CHLORIDE 0.9% 1000 ML 1,000 ML IV SCH (01:47)
[2021-02-05] MEDS: FOLIC ACID 1 MG TAB PO SCH (11:25)
[2021-02-05] MEDS: DIVALPROEX DR 500 MG TAB PO SCH ×2 (11:25→21:48)
[2021-02-05] MEDS: levETIRAcetam 500 MG TAB PO SCH ×2 (11:25→21:48)
[2021-02-05] MEDS: risperiDONE 1 MG TAB PO SCH ×2 (11:26→21:48)
[2021-02-05] MEDS: MULTIVITAMINS ,THERAPEUTIC TAB PO SCH (11:26)
[2021-02-05] MEDS: THIAMINE 100 MG TAB PO SCH (11:27)
--- NOTE | 2021-02-05 15:09 | Progress Note ---
Assessment and Plan Assessment and plan: 75-year-old man with history of alcohol dependence, seizure disorder who presented after falling while intoxicated. #Seizure disorder -patient with witnessed seizure in the ED, likely 2/2 to alcohol withdrawal. Medication noncompliance per caregiver -continue home medications -Keppra level 21.8, valproic acid level 57.8 -We will continue to monitor #Alcohol dependence -Patient reports drinking beer occasionally (0.14 ETOH level) -Multiple ED visits while intoxicated -CIWA protocol in place; patient denies heavy alcohol use -will not consider Librium at this time due to possibility of continued drinking if discharged home -Counseled on negative effects of alcohol abuse with seizure disorder. Patient expressed understanding. -Psychiatry does not recommend inpatient treatment #Fall -Likely secondary to intoxication and not seizure activity -Imaging negative for acute fractures -PT evaluation #Discharge planning -patient lives in a skilled nursing and caregiver feels that discharge home is unsafe and that patient will resume drinking -SW/CM sent referrals for NH placement Disposition Plan: Pending placement Total Time Spent with Patient (Minutes): 30 History Interval history: No acute events over night. The patient denies fevers, chills, nausea, vomiting, abdominal pain, chest pain/pressure, shortness of breath, urinary symptoms, weakness, or confusion. Hospitalist Physical - Constitutional Vitals: Temp Pulse Resp BP Pulse Ox 97.7 F 70 16 116/63 98 02/05/21 11:46 02/05/21 11:46 02/05/21 11:46 02/05/21 11:46 02/05/21 11:46 General appearance: Present: no acute distress - EENT Eyes: Present: PERRL, EOM intact ENT: hearing intact, clear oral mucosa, dentition normal - Neck Neck: Present: supple, normal ROM - Respiratory Respiratory effort: normal - Cardiovascular Rhythm: regular Heart Sounds: Present: S1 & S2 - Extremities Extremities: no ischemia, pulses intact, pulses symmetrical, No edema, normal temperature, normal color Peripheral Pulses: within normal limits - Abdominal General gastrointestinal: soft, non-tender, non-distended, normal bowel sounds - Integumentary Integumentary: Present: clear, warm, dry - Psychiatric Psychiatric: cooperative, other (Alert and oriented x2) - Neurologic Neurologic: CNII-XII intact - Allied Health Allied health notes reviewed: nursing Results - Labs CBC & Chem 7: 01/27/21 18:25 02/02/21 07:41 Labs: Laboratory Last Values WBC 4.5 K/mm3 (4.5-11.0) 01/27/21 18:25 RBC 3.86 M/mm3 (3.65-5.03) 01/27/21 18:25 Hgb 12.2 gm/dl (11.8-15.2) 01/27/21 18:25 Hct 34.8 % (35.5-45.6) L 01/27/21 18:25 MCV 90 fl (84-94) 01/27/21 18:25 MCH 32 pg (28-32) 01/27/21 18:25 MCHC 35 % (32-34) H 01/27/21 18:25 RDW 14.5 % (13.2-15.2) 01/27/21 18:25 Plt Count 171 K/mm3 (140-440) 01/27/21 18:25 Lymph % (Auto) 22.0 % (13.4-35.0) 01/27/21 18:25 [place] % (Auto) 5.9 % (0.0-7.3) 01/27/21 18:25 Eos % (Auto) 1.1 % (0.0-4.3) 01/27/21 18:25 Baso % (Auto) 0.7 % (0.0-1.8) 01/27/21 18:25 Lymph # (Auto) 1.0 K/mm3 (1.2-5.4) L 01/27/21 18:25 [place] # (Auto) 0.3 K/mm3 (0.0-0.8) 01/27/21 18:25 Eos # (Auto) 0.1 K/mm3 (0.0-0.4) 01/27/21 18:25 Baso # (Auto) 0.0 K/mm3 (0.0-0.1) 01/27/21 18:25 Seg Neutrophils % 70.3 % (40.0-70.0) H 01/27/21 18:25 Seg Neutrophils # 3.2 K/mm3 (1.8-7.7) 01/27/21 18:25 Sodium 142 mmol/L (137-145) 02/02/21 07:41 Potassium 4.3 mmol/L (3.6-5.0) 02/02/21 07:41 Chloride 107.4 mmol/L (98-107) H 02/02/21 07:41 Carbon Dioxide 23 mmol/L (22-30) 02/02/21 07:41 Anion Gap 16 mmol/L 02/02/21 07:41 BUN 5 mg/dL (9-20) L 02/02/21 07:41 Creatinine 0.5 mg/dL (0.8-1.3) L 02/02/21 07:41 Estimated GFR > 60 ml/min 02/02/21 07:41 BUN/Creatinine Ratio 10 % 02/02/21 07:41 Glucose 97 mg/dL (75-100) 02/02/21 07:41 POC Glucose 80 mg/dL (70-105) 02/05/21 07:21 Calcium 8.9 mg/dL (8.4-10.2) 02/02/21 07:41 Phosphorus 2.90 mg/dL (2.5-4.5) 01/31/21 06:15 Magnesium 2.00 mg/dL (1.7-2.3) 01/31/21 06:15 Valproic Acid 57.8 ug/mL (50-100) 01/31/21 06:15 Levetiracetam 21.8 mcg/mL (12.0-46.0) 01/31/21 06:15 Plasma/Serum Alcohol 0.14 % (0-0.07) H 01/27/21 18:25 Coronavirus (PCR) Negative (Negative) 01/29/21 Unknown [place]/IV: Voiding Method Urinal Active Medications - Current Medications Current Medications: Generic Name Dose Route Start Last Admin Trade Name Freq PRN Reason Stop Dose Admin Acetaminophen 650 mg 01/28/21 12:45 01/31/21 08:08 Acetaminophen 325 Mg Tab PO 650 mg Q4H PRN Administration Pain MILD(1-3)/Fever >100.5/GARCIA Albuterol 2.5 mg 01/28/21 12:45 Albuterol 2.5 Mg/3 Ml Nebu IH Q4HRT PRN Shortness Of Breath Atorvastatin Calcium 40 mg 01/28/21 22:00 02/04/21 23:48 Atorvastatin 40 Mg Tab PO 40 mg QHS DHARMESH Administration Divalproex Sodium 500 mg 01/28/21 22:00 02/05/21 11:[address] 500 Mg Tab PO 500 mg BID DHARMESH Administration Folic Acid 1 mg 01/29/21 10:00 02/05/21 11:25 Folic Acid 1 Mg Tab PO 1 mg QDAY DHARMESH Administration Hydromorphone HCl 0.5 mg 01/28/21 12:45 Hydromorphone 1 Mg/1 Ml Inj IV Q24H PRN Pain , Severe (7-10) Sodium Chloride 1,000 mls @ 42 mls/hr 01/28/21 12:45 02/05/21 01:47 Nacl 0.9% 1000 Ml IV 42 mls/hr DIRECT DHARMESH Administration Levetiracetam 1,000 mg 01/28/21 22:00 02/05/21 11:25 Levetiracetam 500 Mg Tab PO 1,000 mg BID DHARMESH Administration Lorazepam 2 mg 01/28/21 11:45 01/31/21 14:44 Lorazepam 2 Mg/Ml Vial IV 2 mg Q1HR PRN Administration CIWA-Ar 8-15 Lorazepam 4 mg 01/28/21 11:45 Lorazepam 2 Mg/Ml Vial IV Q1HR PRN CIWA-Ar 16-25 Multivitamins 1 each 01/29/21 10:00 02/05/21 11:26 Multivitamins ,Therapeutic Tab PO 1 each QDAY DHARMESH Administration Ondansetron HCl 4 mg 01/28/21 12:45 Ondansetron 4 Mg/2 Ml Inj IV Q8H PRN Nausea And Vomiting Oxycodone/Acetaminophen 1 tab 01/31/21 11:25 01/31/21 11:48 Oxycodone /Acetaminophen 5-325mg Tab PO 1 tab Q8H PRN Administration Pain, Moderate (4-6) Risperidone 2 mg 01/28/21 22:00 02/05/21 11:26 Risperidone 1 Mg Tab PO 2 mg BID DHARMESH Administration Sodium Chloride 10 ml 01/28/21 22:00 02/05/21 11:26 Sodium Chloride 0.9% 10 Ml Flush Syringe IV 10 ml BID DHARMESH Administration Sodium Chloride 10 ml 01/28/21 12:45 Sodium Chloride 0.9% 10 Ml Flush Syringe IV PRN PRN LINE FLUSH Thiamine HCl 100 mg 01/29/21 10:00 02/05/21 11:27 Thiamine 100 Mg Tab PO 100 mg QDAY DHARMESH Administration Trazodone HCl 50 mg 01/28/21 22:00 02/04/21 21:29 Trazodone 50 Mg Tab PO 50 mg QHS DHARMESH Administration Nutrition/Malnutrition Assess - Dietary Evaluation Nutrition/Malnutrition Findings: Nutrition Notes Start: 02/04/21 12:45 Freq: Status: Active Protocol: Document 02/05/21 12:13 GB (Rec: 02/05/21 12:18 GB [email or web address]) Nutrition Notes Need for Assessment generated from: LOS Initial or Follow up Assessment Other Pertinent Diagnosis ETOH dependence, seizure Current Diet Regular Labs/Tests 02/02: BUN 5, creatinine 0.5 Pertinent Medications folic acid, multivitamin, NaCl , Vit B1 Height 5 ft 9 in Weight 58.967 kg [place] Body Weight (kg) 72.72 BMI 19.2 Weight change and time frame no reported weight changes Weight Status Appropriate Subjective/Other Information Lives in skilled nursing, awaiting placement for safe discharge Percent of energy/protein needs met: 100% Burn Absent Trauma Absent GI Symptoms None Food Allergy No Skin Integrity/Comment no complications reported Current % PO Good (75-100%) Minimum of two criteria No #1 Nutrition Diagnosis No nutrition diagnosis at this time As Evidenced by Signs and Symptoms Good po, no reported weight changes Is patient on ventilator? No Is Patient Ambulatory and/or Out of Bed Yes REE-([facility]-ambulatory/OOB) [ 1716.065 [id number]] Kcal/Kg value to use for calculation 30 Approximate Energy Requirements Using 1769 kcal/Kg Calculation Used for Recommendations Kcal/kg Additional Notes Protein: 1-1.2 g/kg @ 59k -71g fluids: 1 ml/kcal or per MD Nutrition Intervention Change Diet Order: continue Nutrition Support: n/a Add Supplement/Snack (indicate name/kcal n/a /protein ) Goal #1 PO intake of meals to continue 75% or greater daily during LOS Follow-Up By: 03/05/21 Revisit per MD consult or patient Sign Off request: - Attestation Statement I have reviewed and agreed w/ Malnutrition eval & tx plan: Yes
[2021-02-05] MEDS: traZODone 50 MG TAB PO SCH (21:47)
[2021-02-06] MEDS: levETIRAcetam 500 MG TAB PO SCH ×2 (10:09→21:14)
[2021-02-06] MEDS: risperiDONE 1 MG TAB PO SCH ×2 (10:09→21:14)
[2021-02-06] MEDS: DIVALPROEX DR 500 MG TAB PO SCH ×2 (10:09→21:14)
[2021-02-06] MEDS: FOLIC ACID 1 MG TAB PO SCH (10:09)
[2021-02-06] MEDS: MULTIVITAMINS ,THERAPEUTIC TAB PO SCH (10:09)
[2021-02-06] MEDS: THIAMINE 100 MG TAB PO SCH (10:11)
--- NOTE | 2021-02-06 11:42 | Progress Note ---
Assessment and Plan Assessment and plan: 75-year-old man with history of alcohol dependence, seizure disorder who presented after falling while intoxicated. #Seizure disorder -patient with witnessed seizure in the ED, likely 2/2 to alcohol withdrawal. Medication noncompliance per caregiver -continue home medications -Keppra level 21.8, valproic acid level 57.8 -We will continue to monitor #Alcohol dependence -Patient reports drinking beer occasionally (0.14 ETOH level) -Multiple ED visits while intoxicated -CIWA protocol in place; patient denies heavy alcohol use -will not consider Librium at this time due to possibility of continued drinking if discharged home -Counseled on negative effects of alcohol abuse with seizure disorder. Patient expressed understanding. -Psychiatry does not recommend inpatient treatment #Fall -Likely secondary to intoxication and not seizure activity -Imaging negative for acute fractures -PT evaluation #Discharge planning -patient lives in a fpc and caregiver feels that discharge home is unsafe and that patient will resume drinking -SW/CM sent referrals for NH placement Disposition Plan: Pending placement. Total Time Spent with Patient (Minutes): 30 History Interval history: No acute events over night. The patient denies fevers, chills, nausea, vomiting, abdominal pain, chest pain/pressure, shortness of breath, urinary symptoms, weakness, or confusion. Hospitalist Physical - Constitutional Vitals: Temp Pulse Resp BP Pulse Ox 98.2 F 72 18 135/77 97 02/05/21 17:46 02/05/21 17:46 02/05/21 17:46 02/05/21 17:46 02/06/21 08:13 General appearance: Present: no acute distress - EENT Eyes: Present: PERRL, EOM intact ENT: hearing intact, clear oral mucosa, dentition normal - Neck Neck: Present: supple, normal ROM - Respiratory Respiratory effort: normal - Cardiovascular Rhythm: regular Heart Sounds: Present: S1 & S2 - Extremities Extremities: no ischemia, pulses intact, pulses symmetrical, No edema, normal temperature, normal color Peripheral Pulses: within normal limits - Abdominal General gastrointestinal: soft, non-tender, non-distended, normal bowel sounds - Integumentary Integumentary: Present: clear, warm, dry - Psychiatric Psychiatric: cooperative - Neurologic Neurologic: CNII-XII intact - Allied Health Allied health notes reviewed: nursing Results - Labs CBC & Chem 7: 01/27/21 18:25 10/03/21 07:41 Labs: Laboratory Last Values WBC 4.5 K/mm3 (4.5-11.0) 01/27/21 18:25 RBC 3.86 M/mm3 (3.65-5.03) 01/27/21 18:25 Hgb 12.2 gm/dl (11.8-15.2) 01/27/21 18:25 Hct 34.8 % (35.5-45.6) L 01/27/21 18:25 MCV 90 fl (84-94) 01/27/21 18:25 MCH 32 pg (28-32) 01/27/21 18:25 MCHC 35 % (32-34) H 01/27/21 18:25 RDW 14.5 % (13.2-15.2) 01/27/21 18:25 Plt Count 171 K/mm3 (140-440) 01/27/21 18:25 Lymph % (Auto) 22.0 % (13.4-35.0) 01/27/21 18:25 [place] % (Auto) 5.9 % (0.0-7.3) 01/27/21 18:25 Eos % (Auto) 1.1 % (0.0-4.3) 01/27/21 18:25 Baso % (Auto) 0.7 % (0.0-1.8) 01/27/21 18:25 Lymph # (Auto) 1.0 K/mm3 (1.2-5.4) L 01/27/21 18:25 [place] # (Auto) 0.3 K/mm3 (0.0-0.8) 01/27/21 18:25 Eos # (Auto) 0.1 K/mm3 (0.0-0.4) 01/27/21 18:25 Baso # (Auto) 0.0 K/mm3 (0.0-0.1) 01/27/21 18:25 Seg Neutrophils % 70.3 % (40.0-70.0) H 01/27/21 18:25 Seg Neutrophils # 3.2 K/mm3 (1.8-7.7) 01/27/21 18:25 Sodium 142 mmol/L (137-145) 02/02/21 07:41 Potassium 4.3 mmol/L (3.6-5.0) 02/02/21 07:41 Chloride 107.4 mmol/L (98-107) H 02/02/21 07:41 Carbon Dioxide 23 mmol/L (22-30) 02/02/21 07:41 Anion Gap 16 mmol/L 02/02/21 07:41 BUN 5 mg/dL (9-20) L 02/02/21 07:41 Creatinine 0.5 mg/dL (0.8-1.3) L 02/02/21 07:41 Estimated GFR > 60 ml/min 02/02/21 07:41 BUN/Creatinine Ratio 10 % 02/02/21 07:41 Glucose 97 mg/dL (75-100) 02/02/21 07:41 POC Glucose 80 mg/dL (70-105) 02/05/21 07:21 Calcium 8.9 mg/dL (8.4-10.2) 02/02/21 07:41 Phosphorus 2.90 mg/dL (2.5-4.5) 01/31/21 06:15 Magnesium 2.00 mg/dL (1.7-2.3) 01/31/21 06:15 Valproic Acid 57.8 ug/mL (50-100) 01/31/21 06:15 Levetiracetam 21.8 mcg/mL (12.0-46.0) 01/31/21 06:15 Plasma/Serum Alcohol 0.14 % (0-0.07) H 01/27/21 18:25 Coronavirus (PCR) Negative (Negative) 01/29/21 Unknown Da[place]/IV: Voiding Method Urinal Active Medications - Current Medications Current Medications: Generic Name Dose Route Start Last Admin Trade Name Freq PRN Reason Stop Dose Admin Acetaminophen 650 mg 01/28/21 12:45 01/31/21 08:08 Acetaminophen 325 Mg Tab PO 650 mg Q4H PRN Administration Pain MILD(1-3)/Fever >100.5/GARCIA Albuterol 2.5 mg 01/28/21 12:45 Albuterol 2.5 Mg/3 Ml Nebu IH Q4HRT PRN Shortness Of Breath Atorvastatin Calcium 40 mg 01/28/21 22:00 02/05/21 21:48 Atorvastatin 40 Mg Tab PO 40 mg QHS DHARMESH Administration Divalproex Sodium 500 mg 01/28/21 22:00 02/06/21 10:[address] 500 Mg Tab PO 500 mg BID DHARMESH Administration Folic Acid 1 mg 01/29/21 10:00 02/06/21 10:09 Folic Acid 1 Mg Tab PO 1 mg QDAY DHARMESH Administration Hydromorphone HCl 0.5 mg 01/28/21 12:45 Hydromorphone 1 Mg/1 Ml Inj IV Q24H PRN Pain , Severe (7-10) Levetiracetam 1,000 mg 01/28/21 22:00 02/06/21 10:09 Levetiracetam 500 Mg Tab PO 1,000 mg BID DHARMESH Administration Lorazepam 2 mg 01/28/21 11:45 01/31/21 14:44 Lorazepam 2 Mg/Ml Vial IV 2 mg Q1HR PRN Administration CIWA-Ar 8-15 Lorazepam 4 mg 01/28/21 11:45 Lorazepam 2 Mg/Ml Vial IV Q1HR PRN CIWA-Ar 16-25 Multivitamins 1 each 01/29/21 10:00 02/06/21 10:09 Multivitamins ,Therapeutic Tab PO 1 each QDAY DHARMESH Administration Ondansetron HCl 4 mg 01/28/21 12:45 Ondansetron 4 Mg/2 Ml Inj IV Q8H PRN Nausea And Vomiting Oxycodone/Acetaminophen 1 tab 01/31/21 11:25 01/31/21 11:48 Oxycodone /Acetaminophen 5-325mg Tab PO 1 tab Q8H PRN Administration Pain, Moderate (4-6) Risperidone 2 mg 01/28/21 22:00 02/06/21 10:09 Risperidone 1 Mg Tab PO 2 mg BID DHARMESH Administration Sodium Chloride 10 ml 01/28/21 22:00 02/06/21 10:10 Sodium Chloride 0.9% 10 Ml Flush Syringe IV 10 ml BID DHARMESH Administration Sodium Chloride 10 ml 01/28/21 12:45 Sodium Chloride 0.9% 10 Ml Flush Syringe IV PRN PRN LINE FLUSH Thiamine HCl 100 mg 01/29/21 10:00 02/06/21 10:11 Thiamine 100 Mg Tab PO 100 mg QDAY DHARMESH Administration Trazodone HCl 50 mg 01/28/21 22:00 02/05/21 21:47 Trazodone 50 Mg Tab PO 50 mg QHS DHARMESH Administration Nutrition/Malnutrition Assess - Dietary Evaluation Nutrition/Malnutrition Findings: Nutrition Notes Start: 02/04/21 12:45 Freq: Status: Active Protocol: Document 02/05/21 12:13 GB (Rec: 02/05/21 12:18 GB [email or web address]) Nutrition Notes Need for Assessment generated from: LOS Initial or Follow up Assessment Other Pertinent Diagnosis ETOH dependence, seizure Current Diet Regular Labs/Tests 02/02: BUN 5, creatinine 0.5 Pertinent Medications folic acid, multivitamin, NaCl , Vit B1 Height 5 ft 9 in Weight 58.967 kg [place] Body Weight (kg) 72.72 BMI 19.2 Weight change and time frame no reported weight changes Weight Status Appropriate Subjective/Other Information Lives in fpc, awaiting placement for safe discharge Percent of energy/protein needs met: 100% Burn Absent Trauma Absent GI Symptoms None Food Allergy No Skin Integrity/Comment no complications reported Current % PO Good (75-100%) Minimum of two criteria No #1 Nutrition Diagnosis No nutrition diagnosis at this time As Evidenced by Signs and Symptoms Good po, no reported weight changes Is patient on ventilator? No Is Patient Ambulatory and/or Out of Bed Yes REE-([facility]-ambulatory/OOB) [ 1716.065 NUTR.MSJOOB] Kcal/Kg value to use for calculation 30 Approximate Energy Requirements Using 1769 kcal/Kg Calculation Used for Recommendations Kcal/kg Additional Notes Protein: 1-1.2 g/kg @ 59k -71g fluids: 1 ml/kcal or per MD Nutrition Intervention Change Diet Order: continue Nutrition Support: n/a Add Supplement/Snack (indicate name/kcal n/a /protein ) Goal #1 PO intake of meals to continue 75% or greater daily during LOS Follow-Up By: 03/05/21 Revisit per MD consult or patient Sign Off request: - Attestation Statement I have reviewed and agreed w/ Malnutrition eval & tx plan: Yes
[2021-02-06] MEDS: traZODone 50 MG TAB PO SCH (21:14)
[2021-02-07] MEDS: levETIRAcetam 500 MG TAB PO SCH ×2 (10:14→21:28)
[2021-02-07] MEDS: DIVALPROEX DR 500 MG TAB PO SCH ×2 (10:15→21:28)
[2021-02-07] MEDS: MULTIVITAMINS ,THERAPEUTIC TAB PO SCH (10:15)
[2021-02-07] MEDS: THIAMINE 100 MG TAB PO SCH (10:15)
[2021-02-07] MEDS: risperiDONE 1 MG TAB PO SCH ×2 (10:15→21:28)
[2021-02-07] MEDS: FOLIC ACID 1 MG TAB PO SCH (10:15)
--- NOTE | 2021-02-07 14:03 | Progress Note ---
Assessment and Plan Assessment and plan: 75-year-old man with history of alcohol dependence, seizure disorder who presented after falling while intoxicated. #Seizure disorder -patient with witnessed seizure in the ED, likely 2/2 to alcohol withdrawal. Medication noncompliance per caregiver -continue home medications -Keppra level 21.8, valproic acid level 57.8 -We will continue to monitor #Alcohol dependence -Patient reports drinking beer occasionally (0.14 ETOH level) -Multiple ED visits while intoxicated -CIWA protocol in place; patient denies heavy alcohol use -will not consider Librium at this time due to possibility of continued drinking if discharged home -Counseled on negative effects of alcohol abuse with seizure disorder. Patient expressed understanding. -Psychiatry does not recommend inpatient treatment #Fall -Likely secondary to intoxication and not seizure activity -Imaging negative for acute fractures -PT evaluation #Discharge planning -patient lives in a assisted and caregiver feels that discharge home is unsafe and that patient will resume drinking -SW/CM sent referrals for NH placement Disposition Plan: Pending placement Total Time Spent with Patient (Minutes): 25 History Interval history: No acute events over night. The patient denies fevers, chills, nausea, vomiting, abdominal pain, chest pain/pressure, shortness of breath, urinary symptoms, weakness, or confusion. Hospitalist Physical - Constitutional Vitals: Temp Pulse Resp BP Pulse Ox 97.6 F 63 18 112/52 96 02/07/21 05:52 02/07/21 05:52 02/07/21 05:52 02/07/21 05:52 02/07/21 10:00 General appearance: Present: no acute distress - EENT Eyes: Present: PERRL, EOM intact ENT: hearing intact, clear oral mucosa, dentition normal - Neck Neck: Present: supple, normal ROM - Respiratory Respiratory effort: normal - Cardiovascular Rhythm: regular Heart Sounds: Present: S1 & S2 - Extremities Extremities: no ischemia, pulses intact, pulses symmetrical, No edema, normal temperature, normal color Peripheral Pulses: within normal limits - Abdominal General gastrointestinal: soft, non-tender, non-distended, normal bowel sounds - Integumentary Integumentary: Present: clear, warm, dry - Psychiatric Psychiatric: appropriate mood/affect, cooperative - Neurologic Neurologic: CNII-XII intact, moves all extremities - Allied Health Allied health notes reviewed: nursing Results - Labs CBC & Chem 7: 09/27/21 18:25 02/02/21 07:41 Labs: Laboratory Last Values WBC 4.5 K/mm3 (4.5-11.0) 01/27/21 18:25 RBC 3.86 M/mm3 (3.65-5.03) 01/27/21 18:25 Hgb 12.2 gm/dl (11.8-15.2) 01/27/21 18:25 Hct 34.8 % (35.5-45.6) L 01/27/21 18:25 MCV 90 fl (84-94) 01/27/21 18:25 MCH 32 pg (28-32) 01/27/21 18:25 MCHC 35 % (32-34) H 01/27/21 18:25 RDW 14.5 % (13.2-15.2) 01/27/21 18:25 Plt Count 171 K/mm3 (140-440) 01/27/21 18:25 Lymph % (Auto) 22.0 % (13.4-35.0) 01/27/21 18:25 [place] % (Auto) 5.9 % (0.0-7.3) 01/27/21 18:25 Eos % (Auto) 1.1 % (0.0-4.3) 01/27/21 18:25 Baso % (Auto) 0.7 % (0.0-1.8) 01/27/21 18:25 Lymph # (Auto) 1.0 K/mm3 (1.2-5.4) L 01/27/21 18:25 [place] # (Auto) 0.3 K/mm3 (0.0-0.8) 01/27/21 18:25 Eos # (Auto) 0.1 K/mm3 (0.0-0.4) 01/27/21 18:25 Baso # (Auto) 0.0 K/mm3 (0.0-0.1) 01/27/21 18:25 Seg Neutrophils % 70.3 % (40.0-70.0) H 01/27/21 18:25 Seg Neutrophils # 3.2 K/mm3 (1.8-7.7) 01/27/21 18:25 Sodium 142 mmol/L (137-145) 02/02/21 07:41 Potassium 4.3 mmol/L (3.6-5.0) 02/02/21 07:41 Chloride 107.4 mmol/L (98-107) H 02/02/21 07:41 Carbon Dioxide 23 mmol/L (22-30) 02/02/21 07:41 Anion Gap 16 mmol/L 02/02/21 07:41 BUN 5 mg/dL (9-20) L 02/02/21 07:41 Creatinine 0.5 mg/dL (0.8-1.3) L 02/02/21 07:41 Estimated GFR > 60 ml/min 02/02/21 07:41 BUN/Creatinine Ratio 10 % 02/02/21 07:41 Glucose 97 mg/dL (75-100) 02/02/21 07:41 POC Glucose 80 mg/dL (70-105) 02/05/21 07:21 Calcium 8.9 mg/dL (8.4-10.2) 02/02/21 07:41 Phosphorus 2.90 mg/dL (2.5-4.5) 01/31/21 06:15 Magnesium 2.00 mg/dL (1.7-2.3) 01/31/21 06:15 Valproic Acid 57.8 ug/mL (50-100) 01/31/21 06:15 Levetiracetam 21.8 mcg/mL (12.0-46.0) 01/31/21 06:15 Plasma/Serum Alcohol 0.14 % (0-0.07) H 01/27/21 18:25 Coronavirus (PCR) Negative (Negative) 01/29/21 Unknown Daig[place]/IV: Voiding Method Urinal Active Medications - Current Medications Current Medications: Generic Name Dose Route Start Last Admin Trade Name Freq PRN Reason Stop Dose Admin Acetaminophen 650 mg 01/28/21 12:45 01/31/21 08:08 Acetaminophen 325 Mg Tab PO 650 mg Q4H PRN Administration Pain MILD(1-3)/Fever >100.5/GARCIA Albuterol 2.5 mg 01/28/21 12:45 Albuterol 2.5 Mg/3 Ml Nebu IH Q4HRT PRN Shortness Of Breath Atorvastatin Calcium 40 mg 01/28/21 22:00 02/06/21 21:14 Atorvastatin 40 Mg Tab PO 40 mg QHS DHARMESH Administration Divalproex Sodium 500 mg 01/28/21 22:00 02/07/21 10:[address] 500 Mg Tab PO 500 mg BID DHARMESH Administration Folic Acid 1 mg 01/29/21 10:00 02/07/21 10:15 Folic Acid 1 Mg Tab PO 1 mg QDAY DHARMESH Administration Hydromorphone HCl 0.5 mg 01/28/21 12:45 Hydromorphone 1 Mg/1 Ml Inj IV Q24H PRN Pain , Severe (7-10) Levetiracetam 1,000 mg 01/28/21 22:00 02/07/21 10:14 Levetiracetam 500 Mg Tab PO 1,000 mg BID DHARMESH Administration Lorazepam 2 mg 01/28/21 11:45 01/31/21 14:44 Lorazepam 2 Mg/Ml Vial IV 2 mg Q1HR PRN Administration CIWA-Ar 8-15 Lorazepam 4 mg 01/28/21 11:45 Lorazepam 2 Mg/Ml Vial IV Q1HR PRN CIWA-Ar 16-25 Multivitamins 1 each 01/29/21 10:00 02/07/21 10:15 Multivitamins ,Therapeutic Tab PO 1 each QDAY DHARMESH Administration Ondansetron HCl 4 mg 01/28/21 12:45 Ondansetron 4 Mg/2 Ml Inj IV Q8H PRN Nausea And Vomiting Oxycodone/Acetaminophen 1 tab 01/31/21 11:25 01/31/21 11:48 Oxycodone /Acetaminophen 5-325mg Tab PO 1 tab Q8H PRN Administration Pain, Moderate (4-6) Risperidone 2 mg 01/28/21 22:00 02/07/21 10:15 Risperidone 1 Mg Tab PO 2 mg BID DHARMESH Administration Sodium Chloride 10 ml 01/28/21 22:00 02/07/21 10:15 Sodium Chloride 0.9% 10 Ml Flush Syringe IV 10 ml BID DHARMESH Administration Sodium Chloride 10 ml 01/28/21 12:45 Sodium Chloride 0.9% 10 Ml Flush Syringe IV PRN PRN LINE FLUSH Thiamine HCl 100 mg 01/29/21 10:00 02/07/21 10:15 Thiamine 100 Mg Tab PO 100 mg QDAY DHARMESH Administration Trazodone HCl 50 mg 01/28/21 22:00 02/06/21 21:14 Trazodone 50 Mg Tab PO 50 mg QHS DHARMESH Administration Nutrition/Malnutrition Assess - Dietary Evaluation Nutrition/Malnutrition Findings: Nutrition Notes Start: 02/04/21 12:45 Freq: Status: Active Protocol: Document 02/05/21 12:13 GB (Rec: 02/05/21 12:18 GB [email or web address]) Nutrition Notes Need for Assessment generated from: LOS Initial or Follow up Assessment Other Pertinent Diagnosis ETOH dependence, seizure Current Diet Regular Labs/Tests 02/02: BUN 5, creatinine 0.5 Pertinent Medications folic acid, multivitamin, NaCl , Vit B1 Height 5 ft 9 in Weight 58.967 kg [place] Body Weight (kg) 72.72 BMI 19.2 Weight change and time frame no reported weight changes Weight Status Appropriate Subjective/Other Information Lives in assisted, awaiting placement for safe discharge Percent of energy/protein needs met: 100% Burn Absent Trauma Absent GI Symptoms None Food Allergy No Skin Integrity/Comment no complications reported Current % PO Good (75-100%) Minimum of two criteria No #1 Nutrition Diagnosis No nutrition diagnosis at this time As Evidenced by Signs and Symptoms Good po, no reported weight changes Is patient on ventilator? No Is Patient Ambulatory and/or Out of Bed Yes REE-([facility]-ambulatory/OOB) [ 1716.065 NUTR.MSJOOB] Kcal/Kg value to use for calculation 30 Approximate Energy Requirements Using 1769 kcal/Kg Calculation Used for Recommendations Kcal/kg Additional Notes Protein: 1-1.2 g/kg @ 59k -71g fluids: 1 ml/kcal or per MD Nutrition Intervention Change Diet Order: continue Nutrition Support: n/a Add Supplement/Snack (indicate name/kcal n/a /protein ) Goal #1 PO intake of meals to continue 75% or greater daily during LOS Follow-Up By: 03/05/21 Revisit per MD consult or patient Sign Off request: - Attestation Statement I have reviewed and agreed w/ Malnutrition eval & tx plan: Yes
[2021-02-07] MEDS: traZODone 50 MG TAB PO SCH (21:28)
[2021-02-08] MEDS: THIAMINE 100 MG TAB PO SCH ×2 (08:50→10:00)
[2021-02-08] MEDS: DIVALPROEX DR 500 MG TAB PO SCH ×3 (08:50→22:05)
[2021-02-08] MEDS: risperiDONE 1 MG TAB PO SCH ×3 (08:50→22:05)
[2021-02-08] MEDS: FOLIC ACID 1 MG TAB PO SCH ×2 (08:50→10:00)
[2021-02-08] MEDS: MULTIVITAMINS ,THERAPEUTIC TAB PO SCH ×2 (08:51→10:00)
[2021-02-08] MEDS: levETIRAcetam 500 MG TAB PO SCH ×3 (08:51→22:05)
--- NOTE | 2021-02-08 10:28 | Progress Note ---
Assessment and Plan Assessment and plan: 75-year-old man with history of alcohol dependence, seizure disorder who presented after falling while intoxicated. #Seizure disorder -patient with witnessed seizure in the ED, likely 2/2 to alcohol withdrawal. Medication noncompliance per caregiver -continue home medications -Keppra level 21.8, valproic acid level 57.8 -We will continue to monitor #Alcohol dependence -Patient reports drinking beer occasionally (0.14 ETOH level) -Multiple ED visits while intoxicated -CIWA protocol in place; patient denies heavy alcohol use -will not consider Librium at this time due to possibility of continued drinking if discharged home -Counseled on negative effects of alcohol abuse with seizure disorder. Patient expressed understanding. -Psychiatry does not recommend inpatient treatment #Fall -Likely secondary to intoxication and not seizure activity -Imaging negative for acute fractures -PT evaluation #Discharge planning -patient lives in a fci and caregiver feels that discharge home is unsafe and that patient will resume drinking -SW/CM sent referrals for NH placement Disposition Plan: Pending placement Total Time Spent with Patient (Minutes): 25 History Interval history: No acute events over night. The patient denies fevers, chills, nausea, vomiting, abdominal pain, chest pain/pressure, shortness of breath, urinary symptoms, weakness, or confusion. Hospitalist Physical - Constitutional Vitals: Temp Pulse Resp BP Pulse Ox 98.9 F 63 18 123/55 96 02/08/21 04:18 02/08/21 04:18 02/08/21 04:18 02/08/21 04:18 02/08/21 04:18 General appearance: Present: no acute distress, well-nourished - EENT Eyes: Present: PERRL, EOM intact ENT: hearing intact, clear oral mucosa, dentition normal - Neck Neck: Present: supple, normal ROM - Respiratory Respiratory effort: normal - Cardiovascular Rhythm: regular Heart Sounds: Present: S1 & S2 - Extremities Extremities: no ischemia, pulses intact, pulses symmetrical, No edema, normal temperature, normal color Peripheral Pulses: within normal limits - Abdominal General gastrointestinal: soft, non-tender, non-distended, normal bowel sounds - Integumentary Integumentary: Present: clear, warm, dry - Psychiatric Psychiatric: appropriate mood/affect, cooperative - Neurologic Neurologic: CNII-XII intact, moves all extremities - Allied Health Allied health notes reviewed: nursing Results - Labs CBC & Chem 7: 01/27/21 18:25 02/02/21 07:41 Labs: Laboratory Last Values WBC 4.5 K/mm3 (4.5-11.0) 01/27/21 18:25 RBC 3.86 M/mm3 (3.65-5.03) 01/27/21 18:25 Hgb 12.2 gm/dl (11.8-15.2) 01/27/21 18:25 Hct 34.8 % (35.5-45.6) L 01/27/21 18:25 MCV 90 fl (84-94) 01/27/21 18:25 MCH 32 pg (28-32) 01/27/21 18:25 MCHC 35 % (32-34) H 01/27/21 18:25 RDW 14.5 % (13.2-15.2) 01/27/21 18:25 Plt Count 171 K/mm3 (140-440) 01/27/21 18:25 Lymph % (Auto) 22.0 % (13.4-35.0) 01/27/21 18:25 [place] % (Auto) 5.9 % (0.0-7.3) 01/27/21 18:25 Eos % (Auto) 1.1 % (0.0-4.3) 01/27/21 18:25 Baso % (Auto) 0.7 % (0.0-1.8) 01/27/21 18:25 Lymph # (Auto) 1.0 K/mm3 (1.2-5.4) L 01/27/21 18:25 [place] # (Auto) 0.3 K/mm3 (0.0-0.8) 01/27/21 18:25 Eos # (Auto) 0.1 K/mm3 (0.0-0.4) 01/27/21 18:25 Baso # (Auto) 0.0 K/mm3 (0.0-0.1) 01/27/21 18:25 Seg Neutrophils % 70.3 % (40.0-70.0) H 01/27/21 18:25 Seg Neutrophils # 3.2 K/mm3 (1.8-7.7) 01/27/21 18:25 Sodium 142 mmol/L (137-145) 02/02/21 07:41 Potassium 4.3 mmol/L (3.6-5.0) 02/02/21 07:41 Chloride 107.4 mmol/L (98-107) H 02/02/21 07:41 Carbon Dioxide 23 mmol/L (22-30) 02/02/21 07:41 Anion Gap 16 mmol/L 02/02/21 07:41 BUN 5 mg/dL (9-20) L 02/02/21 07:41 Creatinine 0.5 mg/dL (0.8-1.3) L 02/02/21 07:41 Estimated GFR > 60 ml/min 02/02/21 07:41 BUN/Creatinine Ratio 10 % 02/02/21 07:41 Glucose 97 mg/dL (75-100) 02/02/21 07:41 POC Glucose 80 mg/dL (70-105) 02/05/21 07:21 Calcium 8.9 mg/dL (8.4-10.2) 02/02/21 07:41 Phosphorus 2.90 mg/dL (2.5-4.5) 01/31/21 06:15 Magnesium 2.00 mg/dL (1.7-2.3) 01/31/21 06:15 Valproic Acid 57.8 ug/mL (50-100) 01/31/21 06:15 Levetiracetam 21.8 mcg/mL (12.0-46.0) 01/31/21 06:15 Plasma/Serum Alcohol 0.14 % (0-0.07) H 01/27/21 18:25 Coronavirus (PCR) Negative (Negative) 01/29/21 Unknown Da[place]/IV: Voiding Method Urinal Active Medications - Current Medications Current Medications: Generic Name Dose Route Start Last Admin Trade Name Freq PRN Reason Stop Dose Admin Acetaminophen 650 mg 01/28/21 12:45 01/31/21 08:08 Acetaminophen 325 Mg Tab PO 650 mg Q4H PRN Administration Pain MILD(1-3)/Fever >100.5/GARCIA Albuterol 2.5 mg 01/28/21 12:45 Albuterol 2.5 Mg/3 Ml Nebu IH Q4HRT PRN Shortness Of Breath Atorvastatin Calcium 40 mg 01/28/21 22:00 02/07/21 21:28 Atorvastatin 40 Mg Tab PO 40 mg QHS DHARMESH Administration Divalproex Sodium 500 mg 01/28/21 22:00 02/08/21 08:[address] 500 Mg Tab PO 500 mg BID DHARMESH Administration Folic Acid 1 mg 01/29/21 10:00 02/08/21 08:50 Folic Acid 1 Mg Tab PO 1 mg QDAY DHARMESH Administration Hydromorphone HCl 0.5 mg 01/28/21 12:45 Hydromorphone 1 Mg/1 Ml Inj IV Q24H PRN Pain , Severe (7-10) Levetiracetam 1,000 mg 01/28/21 22:00 02/08/21 08:51 Levetiracetam 500 Mg Tab PO 1,000 mg BID DHARMESH Administration Lorazepam 2 mg 01/28/21 11:45 01/31/21 14:44 Lorazepam 2 Mg/Ml Vial IV 2 mg Q1HR PRN Administration CIWA-Ar 8-15 Lorazepam 4 mg 01/28/21 11:45 Lorazepam 2 Mg/Ml Vial IV Q1HR PRN CIWA-Ar 16-25 Multivitamins 1 each 01/29/21 10:00 02/08/21 08:51 Multivitamins ,Therapeutic Tab PO 1 each QDAY DHARMESH Administration Ondansetron HCl 4 mg 01/28/21 12:45 Ondansetron 4 Mg/2 Ml Inj IV Q8H PRN Nausea And Vomiting Oxycodone/Acetaminophen 1 tab 01/31/21 11:25 01/31/21 11:48 Oxycodone /Acetaminophen 5-325mg Tab PO 1 tab Q8H PRN Administration Pain, Moderate (4-6) Risperidone 2 mg 01/28/21 22:00 02/08/21 08:50 Risperidone 1 Mg Tab PO 2 mg BID DHARMESH Administration Sodium Chloride 10 ml 01/28/21 22:00 02/08/21 09:05 Sodium Chloride 0.9% 10 Ml Flush Syringe IV 10 ml BID DHARMESH Administration Sodium Chloride 10 ml 01/28/21 12:45 Sodium Chloride 0.9% 10 Ml Flush Syringe IV PRN PRN LINE FLUSH Thiamine HCl 100 mg 01/29/21 10:00 02/08/21 08:50 Thiamine 100 Mg Tab PO 100 mg QDAY DHARMESH Administration Trazodone HCl 50 mg 01/28/21 22:00 02/07/21 21:28 Trazodone 50 Mg Tab PO 50 mg QHS DHARMESH Administration Nutrition/Malnutrition Assess - Dietary Evaluation Nutrition/Malnutrition Findings: Nutrition Notes Start: 02/04/21 12:45 Freq: Status: Active Protocol: Document 02/05/21 12:13 GB (Rec: 02/05/21 12:18 GB [email or web address]) Nutrition Notes Need for Assessment generated from: LOS Initial or Follow up Assessment Other Pertinent Diagnosis ETOH dependence, seizure Current Diet Regular Labs/Tests 02/02: BUN 5, creatinine 0.5 Pertinent Medications folic acid, multivitamin, NaCl , Vit B1 Height 5 ft 9 in Weight 58.967 kg [place] Body Weight (kg) 72.72 BMI 19.2 Weight change and time frame no reported weight changes Weight Status Appropriate Subjective/Other Information Lives in fci, awaiting placement for safe discharge Percent of energy/protein needs met: 100% Burn Absent Trauma Absent GI Symptoms None Food Allergy No Skin Integrity/Comment no complications reported Current % PO Good (75-100%) Minimum of two criteria No #1 Nutrition Diagnosis No nutrition diagnosis at this time As Evidenced by Signs and Symptoms Good po, no reported weight changes Is patient on ventilator? No Is Patient Ambulatory and/or Out of Bed Yes REE-([facility]-ambulatory/OOB) [ 1716.065 NUTR.MSJOOB] Kcal/Kg value to use for calculation 30 Approximate Energy Requirements Using 1769 kcal/Kg Calculation Used for Recommendations Kcal/kg Additional Notes Protein: 1-1.2 g/kg @ 59k -71g fluids: 1 ml/kcal or per MD Nutrition Intervention Change Diet Order: continue Nutrition Support: n/a Add Supplement/Snack (indicate name/kcal n/a /protein ) Goal #1 PO intake of meals to continue 75% or greater daily during LOS Follow-Up By: 03/05/21 Revisit per MD consult or patient Sign Off request:
[2021-02-08] MEDS: oxyCODONE /ACETAMINOPHEN 5-325MG TAB PO PRN (19:22)
[2021-02-08] MEDS: traZODone 50 MG TAB PO SCH (22:05)
[2021-02-09] MEDS: FOLIC ACID 1 MG TAB PO SCH (09:10)
[2021-02-09] MEDS: MULTIVITAMINS ,THERAPEUTIC TAB PO SCH (09:10)
[2021-02-09] MEDS: risperiDONE 1 MG TAB PO SCH ×2 (09:10→21:06)
[2021-02-09] MEDS: levETIRAcetam 500 MG TAB PO SCH ×2 (09:10→21:06)
[2021-02-09] MEDS: THIAMINE 100 MG TAB PO SCH (09:10)
[2021-02-09] MEDS: DIVALPROEX DR 500 MG TAB PO SCH ×2 (09:10→21:05)
--- NOTE | 2021-02-09 14:01 | Progress Note ---
Assessment and Plan Assessment and plan: 75-year-old man with history of alcohol dependence, seizure disorder who presented after falling while intoxicated. #Seizure disorder -patient with witnessed seizure in the ED, likely 2/2 to alcohol withdrawal. Medication noncompliance per caregiver -continue home medications -Keppra level 21.8, valproic acid level 57.8 -We will continue to monitor #Alcohol dependence -Patient reports drinking beer occasionally (0.14 ETOH level) -Multiple ED visits while intoxicated -CIWA protocol in place; patient denies heavy alcohol use -will not consider Librium at this time due to possibility of continued drinking if discharged home -Counseled on negative effects of alcohol abuse with seizure disorder. Patient expressed understanding. -Psychiatry does not recommend inpatient treatment #Fall -Likely secondary to intoxication and not seizure activity -Imaging negative for acute fractures -PT evaluation #Discharge planning -patient lives in a chcf and caregiver feels that discharge home is unsafe and that patient will resume drinking -SW/CM sent referrals for NH placement Disposition Plan: Pending placement Total Time Spent with Patient (Minutes): 30 History Interval history: No acute events over night. The patient denies fevers, chills, nausea, vomiting, abdominal pain, chest pain/pressure, shortness of breath, urinary symptoms, weakness, or confusion. Hospitalist Physical - Constitutional Vitals: Temp Pulse Resp BP Pulse Ox 98.3 F 61 18 104/46 97 02/09/21 11:34 02/09/21 11:34 02/09/21 11:34 02/09/21 11:34 02/09/21 12:11 General appearance: Present: no acute distress, well-nourished - EENT Eyes: Present: PERRL, EOM intact ENT: hearing intact, clear oral mucosa, dentition normal - Neck Neck: Present: supple, normal ROM - Respiratory Respiratory effort: normal - Cardiovascular Rhythm: regular Heart Sounds: Present: S1 & S2 - Extremities Extremities: no ischemia, pulses intact, pulses symmetrical, No edema, normal te mperature, normal color Peripheral Pulses: within normal limits - Abdominal General gastrointestinal: soft, non-tender, non-distended, normal bowel sounds - Integumentary Integumentary: Present: clear, warm, dry - Psychiatric Psychiatric: appropriate mood/affect, cooperative - Neurologic Neurologic: CNII-XII intact, moves all extremities - Allied Health Allied health notes reviewed: nursing Results - Labs CBC & Chem 7: 01/27/21 18:25 02/02/21 07:41 Labs: Laboratory Last Values WBC 4.5 K/mm3 (4.5-11.0) 01/27/21 18:25 RBC 3.86 M/mm3 (3.65-5.03) 01/27/21 18:25 Hgb 12.2 gm/dl (11.8-15.2) 01/27/21 18:25 Hct 34.8 % (35.5-45.6) L 01/27/21 18:25 MCV 90 fl (84-94) 01/27/21 18:25 MCH 32 pg (28-32) 01/27/21 18:25 MCHC 35 % (32-34) H 01/27/21 18:25 RDW 14.5 % (13.2-15.2) 01/27/21 18:25 Plt Count 171 K/mm3 (140-440) 01/27/21 18:25 Lymph % (Auto) 22.0 % (13.4-35.0) 01/27/21 18:25 [place] % (Auto) 5.9 % (0.0-7.3) 01/27/21 18:25 Eos % (Auto) 1.1 % (0.0-4.3) 01/27/21 18:25 Baso % (Auto) 0.7 % (0.0-1.8) 01/27/21 18:25 Lymph # (Auto) 1.0 K/mm3 (1.2-5.4) L 01/27/21 18:25 [place] # (Auto) 0.3 K/mm3 (0.0-0.8) 01/27/21 18:25 Eos # (Auto) 0.1 K/mm3 (0.0-0.4) 01/27/21 18:25 Baso # (Auto) 0.0 K/mm3 (0.0-0.1) 01/27/21 18:25 Seg Neutrophils % 70.3 % (40.0-70.0) H 01/27/21 18:25 Seg Neutrophils # 3.2 K/mm3 (1.8-7.7) 01/27/21 18:25 Sodium 142 mmol/L (137-145) 02/02/21 07:41 Potassium 4.3 mmol/L (3.6-5.0) 02/02/21 07:41 Chloride 107.4 mmol/L (98-107) H 02/02/21 07:41 Carbon Dioxide 23 mmol/L (22-30) 02/02/21 07:41 Anion Gap 16 mmol/L 02/02/21 07:41 BUN 5 mg/dL (9-20) L 02/02/21 07:41 Creatinine 0.5 mg/dL (0.8-1.3) L 02/02/21 07:41 Estimated GFR > 60 ml/min 02/02/21 07:41 BUN/Creatinine Ratio 10 % 02/02/21 07:41 Glucose 97 mg/dL (75-100) 02/02/21 07:41 POC Glucose 80 mg/dL (70-105) 02/05/21 07:21 Calcium 8.9 mg/dL (8.4-10.2) 02/02/21 07:41 Phosphorus 2.90 mg/dL (2.5-4.5) 01/31/21 06:15 Magnesium 2.00 mg/dL (1.7-2.3) 01/31/21 06:15 Valproic Acid 57.8 ug/mL (50-100) 01/31/21 06:15 Levetiracetam 21.8 mcg/mL (12.0-46.0) 01/31/21 06:15 Plasma/Serum Alcohol 0.14 % (0-0.07) H 01/27/21 18:25 Coronavirus (PCR) Negative (Negative) 01/29/21 Unknown Daigle/IV: Voiding Method Urinal Active Medications - Current Medications Current Medications: Generic Name Dose Route Start Last Admin Trade Name Freq PRN Reason Stop Dose Admin Acetaminophen 650 mg 01/28/21 12:45 01/31/21 08:08 Acetaminophen 325 Mg Tab PO 650 mg Q4H PRN Administration Pain MILD(1-3)/Fever >100.5/GARCIA Albuterol 2.5 mg 01/28/21 12:45 Albuterol 2.5 Mg/3 Ml Nebu IH Q4HRT PRN Shortness Of Breath Atorvastatin Calcium 40 mg 01/28/21 22:00 02/08/21 22:05 Atorvastatin 40 Mg Tab PO 40 mg QHS DHARMESH Administration Divalproex Sodium 500 mg 01/28/21 22:00 02/09/21 09:[address] 500 Mg Tab PO 500 mg BID DHARMESH Administration Folic Acid 1 mg 01/29/21 10:00 02/09/21 09:10 Folic Acid 1 Mg Tab PO 1 mg QDAY DHARMESH Administration Hydromorphone HCl 0.5 mg 01/28/21 12:45 Hydromorphone 1 Mg/1 Ml Inj IV Q24H PRN Pain , Severe (7-10) Levetiracetam 1,000 mg 01/28/21 22:00 02/09/21 09:10 Levetiracetam 500 Mg Tab PO 1,000 mg BID DHARMESH Administration Lorazepam 2 mg 01/28/21 11:45 01/31/21 14:44 Lorazepam 2 Mg/Ml Vial IV 2 mg Q1HR PRN Administration CIWA-Ar 8-15 Lorazepam 4 mg 01/28/21 11:45 Lorazepam 2 Mg/Ml Vial IV Q1HR PRN CIWA-Ar 16-25 Multivitamins 1 each 01/29/21 10:00 02/09/21 09:10 Multivitamins ,Therapeutic Tab PO 1 each QDAY DHARMESH Administration Ondansetron HCl 4 mg 01/28/21 12:45 Ondansetron 4 Mg/2 Ml Inj IV Q8H PRN Nausea And Vomiting Oxycodone/Acetaminophen 1 tab 01/31/21 11:25 02/08/21 19:22 Oxycodone /Acetaminophen 5-325mg Tab PO 1 tab Q8H PRN Administration Pain, Moderate (4-6) Risperidone 2 mg 01/28/21 22:00 02/09/21 09:10 Risperidone 1 Mg Tab PO 2 mg BID DHARMESH Administration Sodium Chloride 10 ml 01/28/21 22:00 02/09/21 09:11 Sodium Chloride 0.9% 10 Ml Flush Syringe IV 10 ml BID DHARMESH Administration Sodium Chloride 10 ml 01/28/21 12:45 Sodium Chloride 0.9% 10 Ml Flush Syringe IV PRN PRN LINE FLUSH Thiamine HCl 100 mg 01/29/21 10:00 02/09/21 09:10 Thiamine 100 Mg Tab PO 100 mg QDAY DHARMESH Administration Trazodone HCl 50 mg 01/28/21 22:00 02/08/21 22:05 Trazodone 50 Mg Tab PO 50 mg QHS DHARMESH Administration Nutrition/Malnutrition Assess - Dietary Evaluation Nutrition/Malnutrition Findings: Nutrition Notes Start: 02/04/21 12:45 Freq: Status: Active Protocol: Document 02/05/21 12:13 GB (Rec: 02/05/21 12:18 GB [email or web address]) Nutrition Notes Need for Assessment generated from: LOS Initial or Follow up Assessment Other Pertinent Diagnosis ETOH dependence, seizure Current Diet Regular Labs/Tests 02/02: BUN 5, creatinine 0.5 Pertinent Medications folic acid, multivitamin, NaCl , Vit B1 Height 5 ft 9 in Weight 58.967 kg [place] Body Weight (kg) 72.72 BMI 19.2 Weight change and time frame no reported weight changes Weight Status Appropriate Subjective/Other Information Lives in chcf, awaiting placement for safe discharge Percent of energy/protein needs met: 100% Burn Absent Trauma Absent GI Symptoms None Food Allergy No Skin Integrity/Comment no complications reported Current % PO Good (75-100%) Minimum of two criteria No #1 Nutrition Diagnosis No nutrition diagnosis at this time As Evidenced by Signs and Symptoms Good po, no reported weight changes Is patient on ventilator? No Is Patient Ambulatory and/or Out of Bed Yes REE-([facility]-ambulatory/OOB) [ 1716.065 NUTR.MSJOOB] Kcal/Kg value to use for calculation 30 Approximate Energy Requirements Using 1769 kcal/Kg Calculation Used for Recommendations Kcal/kg Additional Notes Protein: 1-1.2 g/kg @ 59k -71g fluids: 1 ml/kcal or per MD Nutrition Intervention Change Diet Order: continue Nutrition Support: n/a Add Supplement/Snack (indicate name/kcal n/a /protein ) Goal #1 PO intake of meals to continue 75% or greater daily during LOS Follow-Up By: 03/05/21 Revisit per MD consult or patient Sign Off request: - Attestation Statement I have reviewed and agreed w/ Malnutrition eval & tx plan: Yes
[2021-02-09] MEDS: traZODone 50 MG TAB PO SCH (21:06)
[2021-02-10] MEDS: DIVALPROEX DR 500 MG TAB PO SCH ×2 (09:57→21:45)
[2021-02-10] MEDS: levETIRAcetam 500 MG TAB PO SCH ×2 (09:57→21:45)
[2021-02-10] MEDS: MULTIVITAMINS ,THERAPEUTIC TAB PO SCH (09:57)
[2021-02-10] MEDS: FOLIC ACID 1 MG TAB PO SCH (09:58)
[2021-02-10] MEDS: THIAMINE 100 MG TAB PO SCH (09:58)
[2021-02-10] MEDS: risperiDONE 1 MG TAB PO SCH ×2 (09:59→21:46)
--- NOTE | 2021-02-10 13:27 | Progress Note ---
Assessment and Plan Assessment and plan: 75-year-old man with history of alcohol dependence, seizure disorder who presented after falling while intoxicated. #Seizure disorder -patient with witnessed seizure in the ED, likely 2/2 to alcohol withdrawal. Medication noncompliance per caregiver -continue home medications -Keppra level 21.8, valproic acid level 57.8 -We will continue to monitor #Alcohol dependence -Patient reports drinking beer occasionally (0.14 ETOH level) -Multiple ED visits while intoxicated -CIWA protocol in place; patient denies heavy alcohol use -will not consider Librium at this time due to possibility of continued drinking if discharged home -Counseled on negative effects of alcohol abuse with seizure disorder. Patient expressed understanding. -Psychiatry does not recommend inpatient treatment #Fall -Likely secondary to intoxication and not seizure activity -Imaging negative for acute fractures -PT evaluation #Discharge planning -patient lives in a halfway and caregiver feels that discharge home is unsafe and that patient will resume drinking -SW/CM sent referrals for NH placement Disposition Plan: Pending placement Total Time Spent with Patient (Minutes): 25 History Interval history: No acute events over night. The patient denies fevers, chills, nausea, vomiting, abdominal pain, chest pain/pressure, shortness of breath, urinary symptoms, weakness, or confusion. Hospitalist Physical - Constitutional Vitals: Temp Pulse Resp BP Pulse Ox 98.1 F 60 18 103/50 95 02/10/21 05:12 02/10/21 05:12 02/10/21 05:12 02/10/21 05:12 02/10/21 05:12 General appearance: Present: no acute distress, well-nourished - EENT Eyes: Present: PERRL, EOM intact ENT: hearing intact, clear oral mucosa, dentition normal - Neck Neck: Present: supple, normal ROM - Respiratory Respiratory effort: normal - Cardiovascular Rhythm: regular Heart Sounds: Present: S1 & S2 - Extremities Extremities: no ischemia, pulses intact, pulses symmetrical, No edema, normal temperature, normal color Peripheral Pulses: within normal limits - Abdominal General gastrointestinal: soft, non-tender, non-distended, normal bowel sounds - Integumentary Integumentary: Present: clear, warm, dry - Psychiatric Psychiatric: appropriate mood/affect, cooperative - Neurologic Neurologic: CNII-XII intact, moves all extremities - Allied Health Allied health notes reviewed: nursing Results - Labs CBC & Chem 7: 01/27/21 18:25 02/02/21 07:41 Labs: Laboratory Last Values WBC 4.5 K/mm3 (4.5-11.0) 01/27/21 18:25 RBC 3.86 M/mm3 (3.65-5.03) 01/27/21 18:25 Hgb 12.2 gm/dl (11.8-15.2) 01/27/21 18:25 Hct 34.8 % (35.5-45.6) L 01/27/21 18:25 MCV 90 fl (84-94) 01/27/21 18:25 MCH 32 pg (28-32) 01/27/21 18:25 MCHC 35 % (32-34) H 01/27/21 18:25 RDW 14.5 % (13.2-15.2) 01/27/21 18:25 Plt Count 171 K/mm3 (140-440) 01/27/21 18:25 Lymph % (Auto) 22.0 % (13.4-35.0) 01/27/21 18:25 Howell % (Auto) 5.9 % (0.0-7.3) 01/27/21 18:25 Eos % (Auto) 1.1 % (0.0-4.3) 01/27/21 18:25 Baso % (Auto) 0.7 % (0.0-1.8) 01/27/21 18:25 Lymph # (Auto) 1.0 K/mm3 (1.2-5.4) L 01/27/21 18:25 Howell # (Auto) 0.3 K/mm3 (0.0-0.8) 01/27/21 18:25 Eos # (Auto) 0.1 K/mm3 (0.0-0.4) 01/27/21 18:25 Baso # (Auto) 0.0 K/mm3 (0.0-0.1) 01/27/21 18:25 Seg Neutrophils % 70.3 % (40.0-70.0) H 01/27/21 18:25 Seg Neutrophils # 3.2 K/mm3 (1.8-7.7) 01/27/21 18:25 Sodium 142 mmol/L (137-145) 02/02/21 07:41 Potassium 4.3 mmol/L (3.6-5.0) 02/02/21 07:41 Chloride 107.4 mmol/L (98-107) H 02/02/21 07:41 Carbon Dioxide 23 mmol/L (22-30) 02/02/21 07:41 Anion Gap 16 mmol/L 02/02/21 07:41 BUN 5 mg/dL (9-20) L 02/02/21 07:41 Creatinine 0.5 mg/dL (0.8-1.3) L 02/02/21 07:41 Estimated GFR > 60 ml/min 02/02/21 07:41 BUN/Creatinine Ratio 10 % 02/02/21 07:41 Glucose 97 mg/dL (75-100) 02/02/21 07:41 POC Glucose 80 mg/dL (70-105) 02/05/21 07:21 Calcium 8.9 mg/dL (8.4-10.2) 02/02/21 07:41 Phosphorus 2.90 mg/dL (2.5-4.5) 01/31/21 06:15 Magnesium 2.00 mg/dL (1.7-2.3) 01/31/21 06:15 Valproic Acid 57.8 ug/mL (50-100) 01/31/21 06:15 Levetiracetam 21.8 mcg/mL (12.0-46.0) 01/31/21 06:15 Plasma/Serum Alcohol 0.14 % (0-0.07) H 01/27/21 18:25 Coronavirus (PCR) Negative (Negative) 01/29/21 Unknown Daigle/IV: Voiding Method Toilet Active Medications - Current Medications Current Medications: Generic Name Dose Route Start Last Admin Trade Name Freq PRN Reason Stop Dose Admin Acetaminophen 650 mg 01/28/21 12:45 01/31/21 08:08 Acetaminophen 325 Mg Tab PO 650 mg Q4H PRN Administration Pain MILD(1-3)/Fever >100.5/GARCIA Albuterol 2.5 mg 01/28/21 12:45 Albuterol 2.5 Mg/3 Ml Nebu IH Q4HRT PRN Shortness Of Breath Atorvastatin Calcium 40 mg 01/28/21 22:00 02/09/21 21:05 Atorvastatin 40 Mg Tab PO 40 mg QHS DHARMESH Administration Divalproex Sodium 500 mg 01/28/21 22:00 02/10/21 09:[address] 500 Mg Tab PO 500 mg BID DHARMESH Administration Folic Acid 1 mg 01/29/21 10:00 02/10/21 09:58 Folic Acid 1 Mg Tab PO 1 mg QDAY DHARMESH Administration Hydromorphone HCl 0.5 mg 01/28/21 12:45 Hydromorphone 1 Mg/1 Ml Inj IV Q24H PRN Pain , Severe (7-10) Levetiracetam 1,000 mg 01/28/21 22:00 02/10/21 09:57 Levetiracetam 500 Mg Tab PO 1,000 mg BID DHARMESH Administration Lorazepam 2 mg 01/28/21 11:45 01/31/21 14:44 Lorazepam 2 Mg/Ml Vial IV 2 mg Q1HR PRN Administration CIWA-Ar 8-15 Lorazepam 4 mg 01/28/21 11:45 Lorazepam 2 Mg/Ml Vial IV Q1HR PRN CIWA-Ar 16-25 Multivitamins 1 each 01/29/21 10:00 02/10/21 09:57 Multivitamins ,Therapeutic Tab PO 1 each QDAY DHARMESH Administration Ondansetron HCl 4 mg 01/28/21 12:45 Ondansetron 4 Mg/2 Ml Inj IV Q8H PRN Nausea And Vomiting Oxycodone/Acetaminophen 1 tab 01/31/21 11:25 02/08/21 19:22 Oxycodone /Acetaminophen 5-325mg Tab PO 1 tab Q8H PRN Administration Pain, Moderate (4-6) Risperidone 2 mg 01/28/21 22:00 02/10/21 09:59 Risperidone 1 Mg Tab PO 2 mg BID DHARMESH Administration Sodium Chloride 10 ml 01/28/21 22:00 02/10/21 09:58 Sodium Chloride 0.9% 10 Ml Flush Syringe IV 10 ml BID DHARMESH Administration Sodium Chloride 10 ml 01/28/21 12:45 Sodium Chloride 0.9% 10 Ml Flush Syringe IV PRN PRN LINE FLUSH Thiamine HCl 100 mg 01/29/21 10:00 02/10/21 09:58 Thiamine 100 Mg Tab PO 100 mg QDAY DHARMESH Administration Trazodone HCl 50 mg 01/28/21 22:00 02/09/21 21:06 Trazodone 50 Mg Tab PO 50 mg QHS DHARMESH Administration Nutrition/Malnutrition Assess - Dietary Evaluation Nutrition/Malnutrition Findings: Nutrition Notes Start: 02/04/21 12:45 Freq: Status: Active Protocol: Document 02/05/21 12:13 GB (Rec: 02/05/21 12:18 GB [id number]) Nutrition Notes Need for Assessment generated from: LOS Initial or Follow up Assessment Other Pertinent Diagnosis ETOH dependence, seizure Current Diet Regular Labs/Tests 02/02: BUN 5, creatinine 0.5 Pertinent Medications folic acid, multivitamin, NaCl , Vit B1 Height 5 ft 9 in Weight 58.967 kg [place] Body Weight (kg) 72.72 BMI 19.2 Weight change and time frame no reported weight changes Weight Status Appropriate Subjective/Other Information Lives in halfway, awaiting placement for safe discharge Percent of energy/protein needs met: 100% Burn Absent Trauma Absent GI Symptoms None Food Allergy No Skin Integrity/Comment no complications reported Current % PO Good (75-100%) Minimum of two criteria No #1 Nutrition Diagnosis No nutrition diagnosis at this time As Evidenced by Signs and Symptoms Good po, no reported weight changes Is patient on ventilator? No Is Patient Ambulatory and/or Out of Bed Yes REE-([facility]-ambulatory/OOB) [ 1716.065 NUTR.MSJOOB] Kcal/Kg value to use for calculation 30 Approximate Energy Requirements Using 1769 kcal/Kg Calculation Used for Recommendations Kcal/kg Additional Notes Protein: 1-1.2 g/kg @ 59k -71g fluids: 1 ml/kcal or per MD Nutrition Intervention Change Diet Order: continue Nutrition Support: n/a Add Supplement/Snack (indicate name/kcal n/a /protein ) Goal #1 PO intake of meals to continue 75% or greater daily during LOS Follow-Up By: 03/05/21 Revisit per MD consult or patient Sign Off request: - Attestation Statement I have reviewed and agreed w/ Malnutrition eval & tx plan: Yes
[2021-02-10] MEDS: traZODone 50 MG TAB PO SCH (21:46)
--- NOTE | 2021-02-11 07:29 | Progress Note ---
Hospitalist Physical - Constitutional Vitals: Temp Pulse Resp BP Pulse Ox 98.4 F 59 L 17 122/54 97 02/11/21 04:54 02/11/21 04:54 02/11/21 04:58 02/11/21 04:54 02/11/21 04:58 General appearance: Present: no acute distress, well-nourished Results - Labs CBC & Chem 7: 01/27/21 18:25 02/02/21 07:41 Labs: Laboratory Last Values WBC 4.5 K/mm3 (4.5-11.0) 01/27/21 18:25 RBC 3.86 M/mm3 (3.65-5.03) 01/27/21 18:25 Hgb 12.2 gm/dl (11.8-15.2) 01/27/21 18:25 Hct 34.8 % (35.5-45.6) L 01/27/21 18:25 MCV 90 fl (84-94) 01/27/21 18:25 MCH 32 pg (28-32) 01/27/21 18:25 MCHC 35 % (32-34) H 01/27/21 18:25 RDW 14.5 % (13.2-15.2) 01/27/21 18:25 Plt Count 171 K/mm3 (140-440) 01/27/21 18:25 Lymph % (Auto) 22.0 % (13.4-35.0) 01/27/21 18:25 Daniels % (Auto) 5.9 % (0.0-7.3) 01/27/21 18:25 Eos % (Auto) 1.1 % (0.0-4.3) 01/27/21 18:25 Baso % (Auto) 0.7 % (0.0-1.8) 01/27/21 18:25 Lymph # (Auto) 1.0 K/mm3 (1.2-5.4) L 01/27/21 18:25 Daniels # (Auto) 0.3 K/mm3 (0.0-0.8) 01/27/21 18:25 Eos # (Auto) 0.1 K/mm3 (0.0-0.4) 01/27/21 18:25 Baso # (Auto) 0.0 K/mm3 (0.0-0.1) 01/27/21 18:25 Seg Neutrophils % 70.3 % (40.0-70.0) H 01/27/21 18:25 Seg Neutrophils # 3.2 K/mm3 (1.8-7.7) 01/27/21 18:25 Sodium 142 mmol/L (137-145) 02/02/21 07:41 Potassium 4.3 mmol/L (3.6-5.0) 02/02/21 07:41 Chloride 107.4 mmol/L (98-107) H 02/02/21 07:41 Carbon Dioxide 23 mmol/L (22-30) 02/02/21 07:41 Anion Gap 16 mmol/L 02/02/21 07:41 BUN 5 mg/dL (9-20) L 02/02/21 07:41 Creatinine 0.5 mg/dL (0.8-1.3) L 02/02/21 07:41 Estimated GFR > 60 ml/min 02/02/21 07:41 BUN/Creatinine Ratio 10 % 02/02/21 07:41 Glucose 97 mg/dL (75-100) 02/02/21 07:41 POC Glucose 80 mg/dL (70-105) 02/05/21 07:21 Calcium 8.9 mg/dL (8.4-10.2) 02/02/21 07:41 Phosphorus 2.90 mg/dL (2.5-4.5) 01/31/21 06:15 Magnesium 2.00 mg/dL (1.7-2.3) 01/31/21 06:15 Valproic Acid 57.8 ug/mL (50-100) 01/31/21 06:15 Levetiracetam 21.8 mcg/mL (12.0-46.0) 01/31/21 06:15 Plasma/Serum Alcohol 0.14 % (0-0.07) H 01/27/21 18:25 Coronavirus (PCR) Negative (Negative) 01/29/21 Unknown Daigle/IV: Voiding Method Urinal Active Medications - Current Medications Current Medications: Generic Name Dose Route Start Last Admin Trade Name Freq PRN Reason Stop Dose Admin Acetaminophen 650 mg 01/28/21 12:45 01/31/21 08:08 Acetaminophen 325 Mg Tab PO 650 mg Q4H PRN Administration Pain MILD(1-3)/Fever >100.5/GARCIA Albuterol 2.5 mg 01/28/21 12:45 Albuterol 2.5 Mg/3 Ml Nebu IH Q4HRT PRN Shortness Of Breath Atorvastatin Calcium 40 mg 01/28/21 22:00 02/10/21 21:46 Atorvastatin 40 Mg Tab PO 40 mg QHS DHARMESH Administration Divalproex Sodium 500 mg 01/28/21 22:00 02/10/21 21:[address] 500 Mg Tab PO 500 mg BID DHARMESH Administration Folic Acid 1 mg 01/29/21 10:00 02/10/21 09:58 Folic Acid 1 Mg Tab PO 1 mg QDAY DHARMESH Administration Hydromorphone HCl 0.5 mg 01/28/21 12:45 Hydromorphone 1 Mg/1 Ml Inj IV Q24H PRN Pain , Severe (7-10) Levetiracetam 1,000 mg 01/28/21 22:00 02/10/21 21:45 Levetiracetam 500 Mg Tab PO 1,000 mg BID DHARMESH Administration Lorazepam 2 mg 01/28/21 11:45 01/31/21 14:44 Lorazepam 2 Mg/Ml Vial IV 2 mg Q1HR PRN Administration CIWA-Ar 8-15 Lorazepam 4 mg 01/28/21 11:45 Lorazepam 2 Mg/Ml Vial IV Q1HR PRN CIWA-Ar 16-25 Multivitamins 1 each 01/29/21 10:00 02/10/21 09:57 Multivitamins ,Therapeutic Tab PO 1 each QDAY DHARMESH Administration Ondansetron HCl 4 mg 01/28/21 12:45 Ondansetron 4 Mg/2 Ml Inj IV Q8H PRN Nausea And Vomiting Oxycodone/Acetaminophen 1 tab 01/31/21 11:25 02/08/21 19:22 Oxycodone /Acetaminophen 5-325mg Tab PO 1 tab Q8H PRN Administration Pain, Moderate (4-6) Risperidone 2 mg 01/28/21 22:00 02/10/21 21:46 Risperidone 1 Mg Tab PO 2 mg BID DHARMESH Administration Sodium Chloride 10 ml 01/28/21 22:00 02/10/21 21:47 Sodium Chloride 0.9% 10 Ml Flush Syringe IV 10 ml BID DHARMESH Administration Sodium Chloride 10 ml 01/28/21 12:45 Sodium Chloride 0.9% 10 Ml Flush Syringe IV PRN PRN LINE FLUSH Thiamine HCl 100 mg 01/29/21 10:00 02/10/21 09:58 Thiamine 100 Mg Tab PO 100 mg QDAY DHARMESH Administration Trazodone HCl 50 mg 01/28/21 22:00 02/10/21 21:46 Trazodone 50 Mg Tab PO 50 mg QHS DHARMESH Administration Nutrition/Malnutrition Assess - Dietary Evaluation Nutrition/Malnutrition Findings: Nutrition Notes Start: 02/04/21 12:45 Freq: Status: Active Protocol: Document 02/05/21 12:13 GB (Rec: 02/05/21 12:18 GB [email or web address]) Nutrition Notes Need for Assessment generated from: LOS Initial or Follow up Assessment Other Pertinent Diagnosis ETOH dependence, seizure Current Diet Regular Labs/Tests 02/02: BUN 5, creatinine 0.5 Pertinent Medications folic acid, multivitamin, NaCl , Vit B1 Height 5 ft 9 in Weight 58.967 kg [place] Body Weight (kg) 72.72 BMI 19.2 Weight change and time frame no reported weight changes Weight Status Appropriate Subjective/Other Information Lives in assisted, awaiting placement for safe discharge Percent of energy/protein needs met: 100% Burn Absent Trauma Absent GI Symptoms None Food Allergy No Skin Integrity/Comment no complications reported Current % PO Good (75-100%) Minimum of two criteria No #1 Nutrition Diagnosis No nutrition diagnosis at this time As Evidenced by Signs and Symptoms Good po, no reported weight changes Is patient on ventilator? No Is Patient Ambulatory and/or Out of Bed Yes REE-([facility]-ambulatory/OOB) [ 1716.065 NUTR.MSJOOB] Kcal/Kg value to use for calculation 30 Approximate Energy Requirements Using 1769 kcal/Kg Calculation Used for Recommendations Kcal/kg Additional Notes Protein: 1-1.2 g/kg @ 59k -71g fluids: 1 ml/kcal or per MD Nutrition Intervention Change Diet Order: continue Nutrition Support: n/a Add Supplement/Snack (indicate name/kcal n/a /protein ) Goal #1 PO intake of meals to continue 75% or greater daily during LOS Follow-Up By: 03/05/21 Revisit per MD consult or patient Sign Off request:
[2021-02-11] MEDS: THIAMINE 100 MG TAB PO SCH (09:23)
[2021-02-11] MEDS: MULTIVITAMINS ,THERAPEUTIC TAB PO SCH (09:24)
[2021-02-11] MEDS: DIVALPROEX DR 500 MG TAB PO SCH ×2 (09:25→22:29)
[2021-02-11] MEDS: levETIRAcetam 500 MG TAB PO SCH ×2 (09:25→22:30)
[2021-02-11] MEDS: risperiDONE 1 MG TAB PO SCH ×2 (09:27→22:29)
[2021-02-11] MEDS: FOLIC ACID 1 MG TAB PO SCH (09:28)
[2021-02-11] MEDS: oxyCODONE /ACETAMINOPHEN 5-325MG TAB PO PRN (11:48)
--- NOTE | 2021-02-11 12:39 | Discharge Summary ---
Providers - Providers Date of Admission: 01/28/21 12:45 Date of discharge: 02/11/21 Attending physician: ASHLI SMITH MD 01/28/21 08:36 Consult to Case Management [CONS] Routine Services Needed at Discharge: Film Technician Notified:: . Additional Physician Instructions: Dischare planning. Caregiver refusing to take the patient back 01/28/21 12:39 Physical Therapy Evaluation and Treat [CONS] Routine Comment: Reason For Exam: Debility 01/28/21 12:40 Occupational Therapy Evaluate and Treat [CONS] Routine Comment: Reason For Exam: Debility Primary care physician: INSTRUCTIONAL TECHNOLOGY TEACHER Hospitalization Reason for admission: Seizure and alcohol withdrawal Condition: Stable Hospital course: 75-year-old male with history of alcohol dependence and depression who presented on 01/28 after a fall. His blood alcohol level was 0.14. CT head was negative for acute abnormalities. He had a witnessed seizure while in the ED and was admitted for further care. CIWA protocol started. Home seizure medications were resumed. Patient did not experience any further seizures while inpatient. He was evaluated by mental health team and it was determined that he did not need inpatient psychiatric treatment. Patient was made stable and it was attempted to discharge him home to his caregiver. The caregiver was concerned about his excessive alcohol use and did not want to assume care of him. Referrals were placed and he was discharged to [facility]. Disposition: [address] [place] [address] Final Discharge Diagnosis (Prints w/discharge instructions): Alcohol withdrawal. Alcohol dependence Time spent for discharge: 20 minutes Core Measure Documentation - Palliative Care Palliative Care/ Comfort Measures: Not Applicable - Core Measures Any of the following diagnoses?: none Exam - Physical Exam Narrative exam: GENERAL: Thin elderly male. In bed in no acute distress. CHEST/LUNGS: CTAB on room air HEART/CARDIOVASCULAR: RRR. No murmur, rubs or gallops appreciated. ABDOMEN: +BS. NT/ND. SKIN: Ecchymoses on bilateral upper extremities resolving. EXTREMITIES: No cyanosis, clubbing or edema. PSYCH: Cooperative. - Constitutional Vitals: Temp Pulse Resp BP Pulse Ox 98.4 F 59 L 17 122/54 95 02/11/21 04:54 02/11/21 04:54 02/11/21 04:58 02/11/21 04:54 02/11/21 10:00 Plan Care Plan Goals: Abstain from alcohol use. It will worsen seizures. Continue taking seizure medications daily. Follow up with: PRIMARY CARE, [Primary Care Provider] - 7 Days Prescriptions: AtorvaSTATin [Lipitor] 40 mg PO QHS 30 Days #[address] [Depakote Dr] 500 mg PO BID 30 Days #60 tablet Folic Acid [Folvite] 1 mg PO QDAY 30 Days #30 tablet levETIRAcetam [Keppra TAB] 1,000 mg PO BID 30 Days #120 tablet Multivitamin Tab [Multiple Vitamin TAB (Theragran)] 1 each PO QDAY 30 Days #30 tablet risperiDONE [RisperDAL] 2 mg PO BID 30 Days #120 tab Thiamine [Vitamin B-1] 100 mg PO QDAY 30 Days #30 tablet
[2021-02-12 04:59] VITALS: BP 111/49
== END 2021-02-12 07:27 | DRG 100 ==
LOC: ED 17:46 → 3A 01-28 12:45
PROVIDERS: ADMIT Internal Medicine; ATTEND Student in an Organized Health Care Education/Training Program
DX: G40.909 Epilepsy, unspecified, not intractable, without status epilepticus (principal); E43 Unspecified severe protein-calorie malnutrition; F10.231 Alcohol dependence with withdrawal delirium; F03.91 Unspecified dementia, unspecified severity, with behavioral disturbance; Z68.1 Body mass index [BMI] 19.9 or less, adult; E86.9 Volume depletion, unspecified; Z20.822 Contact with and (suspected) exposure to COVID-19; F32.9 Major depressive disorder, single episode, unspecified; W18.39XA Other fall on same level, initial encounter; Y93.89 Activity, other specified; Y92.89 Other specified places as the place of occurrence of the external cause; Y99.8 Other external cause status; Z90.49 Acquired absence of other specified parts of digestive tract; S00.83XA Contusion of other part of head, initial encounter
CPT/HCPCS: 36415; 70450; 70486; 72125; 80048; 80164; 80177; 80320; 82962; 83735; 84100; 85025; 94640; G0378; G0480; J1953; J2060; J3411; J7030; U0003